=== PATIENT | female | born 1945 ===

== ENCOUNTER 2016-05-15 00:21 | Emergency (ER) | payer MEDICARE, OTHER ==
[2016-05-15 00:21] VITALS: BMI 28.3
[2016-05-15 00:30] VITALS: BP 135/83; PULSE 106; RESP 17; TEMP 97.6; O2SAT 98
[2016-05-15 01:22] LABS: BASO % 0.3 % (0.0-2.0); EOS # 0.1 K/uL (0.0-0.7); EOS % 1.2 % (0.0-4.0); HEMATOCRIT 36.6 % (34.0-47.0); LYMPH # 2.2 K/uL (1.0-4.3); LYMPH % 26.8 % (20.0-40.0); MEAN CELL VOLUME 85.8 fl (81.0-99.0); MEAN CORPUSCULAR HEMOGLOBIN 29.3 pg (27.0-31.0); MEAN CORPUSCULAR HGB CONC 34.2 g/dL (33.0-37.0); MEAN PLATELET VOLUME 8.7 fl (7.2-11.7); MONO # 0.5 K/uL (0.0-0.8); MONO % 6.4 % (0.0-10.0); NEUT # 5.3 K/uL (1.8-7.0); NEUT % 65.3 % (50.0-75.0); NRBC % 0.1 % (0.0-0.0); RED CELL DISTRIBUTION WIDTH 13.8 % (11.5-14.5); WHITE BLOOD COUNT 8.1 K/uL (4.8-10.8)
[2016-05-15 01:28] LABS: CHLORIDE 107 mmol/L (98-107); POTASSIUM 3.6 MMOL/L (3.6-5.0); SODIUM 142 mmol/l (132-148)
[2016-05-15 01:30] LABS: BILIRUBIN,TOTAL 0.7 mg/dl (0.2-1.3); CARBON DIOXIDE 19 mmol/L (22-30); GFR AFRICAN-AMERICAN > 60
[2016-05-15 01:31] LABS: ALB/GLOB RATIO 1.4 (1.0-2.1); ALKALINE PHOSPHATASE 89 U/L (38-126); ALT/SGPT 28 U/L (9-52); AST/SGOT 28 U/L (14-36); BLOOD UREA NITROGEN 24 mg/dl (7-17); CALCIUM 9.6 mg/dL (8.4-10.2); GLUCOSE,RANDOM 217 mg/dL (65-105); TOTAL PROTEIN 7.2 G/DL (6.3-8.2)
[2016-05-15 01:35] LABS: PARTIAL THROMBOPLASTIN TIME 24.9 SECONDS (23.3-32.5)
[2016-05-15 01:42] LABS: ABG ALLEN TEST YES; ARTERIAL BLOOD GAS PH 7.44 (7.35-7.45); ARTERIAL BLOOD GAS PO2 71 mm/Hg (80-100)
--- NOTE | 2016-05-15 01:49 | ED PDOC ---
Syncope/Near Syncope/Dizzyness Time Seen by Provider: 05/15/16 00:27 Chief Complaint (Nursing): Weakness/Neurological Deficit Chief Complaint (Provider): Weakness History Per: Patient History/Exam Limitations: no limitations Onset/Duration Of Symptoms: Mins Current Symptoms Are (Timing): Still Present Fall Associated With With Symptoms: Yes Severity: Mild Additional Complaint(s): Patient is a 71 year old female brought in by EMS complaining of weakness status post fall just prior to arrival. Patient attempted to get out of bed when she fell onto her left side. Patient was unable to get up and normally uses a walker. Daughter reports patient forgets to use her walker. Patient complains of neck pain also. Denies chest pain, nausea, vomiting, diarrhea, cough, shortness of breath, or headache. PMD: none Past Medical History Reviewed: Historical Data, Nursing Documentation, Vital Signs Vital Signs: Last Vital Signs Temp 97.6 F 05/15/16 00:23 Pulse 106 H 05/15/16 00:23 Resp 17 05/15/16 00:23 BP 135/83 05/15/16 00:23 Pulse Ox 98 05/15/16 00:23 - Medical History PMH: Anemia, Anxiety, Asthma, CAD, Cardia Arrhythmia, COPD, Depression, Diabetes , Fractures (LEFT LEG), HTN, Hypercholesterolemia, Malignancy (breast cancer s/ p lumpectomy ), Osteoporosis, Pulmonary Embolism Denies: CVA, Chronic Kidney Disease - Surgical History Surgical History: Appendectomy, Coronary Stent - Family History Family History: States: No Known Family Hx - Home Medications Home Medications: Ambulatory Orders Medication Instructions Recorded Albuterol HFA [Ventolin HFA 90 2 puff INH Q6 PRN 04/05/16 mcg/actuation (8 g)] Atorvastatin [Lipitor] 20 mg PO DAILY 04/05/16 Clonazepam [Klonopin] 0.5 mg PO TID 04/05/16 Fluticasone/Salmeterol 500/50 1 puff INH DAILY 04/05/16 [Advair Diskus 500/50] Letrozole [Femara] 2.5 mg PO DAILY 04/05/16 Risperidone [Risperdal] 1 mg PO HS 04/05/16 Sertraline HCl 100 mg PO DAILY 04/05/16 Zolpidem [Ambien] 5 mg PO HS 04/05/16 metFORMIN [glucOPHAGE] 500 mg PO BID 04/05/16 Insulin Detemir [Levemir] 16 units SC HS #1 vial 04/09/16 Moxifloxacin [Avelox] 400 mg PO DAILY #7 tab 04/09/16 Prednisone [Deltasone] 20 mg PO DAILY #21 tablet 04/09/16 - Allergies Allergies/Adverse Reactions: Allergies Allergy/AdvReac Type Severity Reaction Status Date / Time No Known Allergies Allergy Verified 03/02/16 20:08 Review of Systems ROS Statement: Except As Marked, All Systems Reviewed And Found Negative Constitutional: Negative for: Fever Gastrointestinal: Negative for: Nausea, Vomiting, Diarrhea Musculoskeletal: Positive for: Neck Pain Neurological: Positive for: Weakness. Negative for: Headache Physical Exam - Reviewed Nursing Documentation Reviewed: Yes Vital Signs Reviewed: Yes - Physical Exam Appears: Positive for: Well, Non-toxic, No Acute Distress Head Exam: Positive for: ATRAUMATIC, NORMAL INSPECTION, NORMOCEPHALIC Skin: Positive for: Normal Color, Warm, DRY Eye Exam: Positive for: Normal appearance, EOMI Neck: Positive for: Normal, Painless ROM Cardiovascular/Chest: Positive for: Regular Rate, Rhythm. Negative for: Gallop , Murmur Respiratory: Positive for: Normal Breath Sounds. Negative for: Accessory Muscle Use, Rhonchi, Respiratory Distress Extremity: Positive for: Normal ROM Neurologic/Psych: Positive for: Alert, Oriented. Negative for: Motor/Sensory Deficits, Facial Droop - Laboratory Results Result Diagrams: 05/15/16 00:45 05/15/16 00:45 - ECG O2 Sat by Pulse Oximetry: 98 (RA) Pulse Ox Interpretation: Normal Medical Decision Making Medical Decision Making: Time: 00:30 Impression: 71 y/o female s/p mechanical fall Plan: CT C-Spine CT Head UDip Accucheck UA 4:05 labs reviewed and within normal limits. Patient remains alert and requests to be discharged home with her daughter. Patient will follow up with PMD and advised to use walker when ambulating at home. Patient feels better. Discussed results and plan with patient who expresses understanding. Counseling was provided regarding the diagnosis and prognosis. All questions answered and there is agreement with the plan to discharge home with instructions. Patient stable for discharge. Return if symptoms persist or worsen. Scribe Attestation: Documented by Ole Mcdonald acting as a scribe for Jake Vargas MD. Scribe Attestation: All medical record entries made by the Scribe were at my direction and personally dictated by me. I have reviewed the chart and agree that the record accurately reflects my personal performance of the history, physical exam, medical decision making, and the department course for this patient. I have also personally directed, reviewed, and agree with the discharge instructions and disposition. EXAM: CT Head Without Intravenous Contrast CLINICAL HISTORY: 71 years old, female; Pain; Headache TECHNIQUE: Axial computed tomography images of the head/brain without intravenous contrast. This CT exam was performed using one or more of the following dose reduction techniques: automated exposure control, adjustment of the mA and/or kV according to patient size, and/or use of iterative reconstruction technique. Coronal and sagittal reformatted images were created and reviewed. EXAM DATE/TIME: 05/15/2016 12:35 AM COMPARISON: No relevant prior studies available. FINDINGS: There is atrophy. There is chronic small vessel ischemic disease. Small old lacunar infarct left caudate. There is no hemorrhage or edema. There is a very small amount of mucosal thickening right sphenoid sinus. Minimal fluid inferior right mastoid air cells. The osseous structures are normal. IMPRESSION: No acute intracranial findings. Disposition - Clinical Impression Clinical Impression: Fall - Patient ED Disposition Is Patient to be Admitted: No Counseled Patient/Family Regarding: Studies Performed, Diagnosis - Disposition Disposition: Routine/Home Disposition Time: 04:05 Condition: STABLE Instructions: Fall Prevention for Older Adults (ED) Print Language: YAKUT
--- NOTE | 2016-05-15 02:17 | CT ---
EXAM: CT Head Without Intravenous Contrast CLINICAL HISTORY: 71 years old, female; Pain; Headache TECHNIQUE: Axial computed tomography images of the head/brain without intravenous contrast. This CT exam was performed using one or more of the following dose reduction techniques: automated exposure control, adjustment of the mA and/or kV according to patient size, and/or use of iterative reconstruction technique. Coronal and sagittal reformatted images were created and reviewed. EXAM DATE/TIME: 05/15/2016 12:35 AM COMPARISON: No relevant prior studies available. FINDINGS: There is atrophy. There is chronic small vessel ischemic disease. Small old lacunar infarct left caudate. There is no hemorrhage or edema. There is a very small amount of mucosal thickening right sphenoid sinus. Minimal fluid inferior right mastoid air cells. The osseous structures are normal. IMPRESSION: No acute intracranial findings.
[2016-05-15 04:14] LABS: RBC URINE 7 /hpf (0-3); URINE BILIRUBIN NEGATIVE (NEGATIVE); URINE BLOOD NEGATIVE (NEGATIVE); URINE COLOR YELLOW (YELLOW); URINE GLUCOSE (UA) NEG (Normal); URINE KETONE TRACE mg/dL (NEGATIVE); URINE LEUKOCYTE ESTERASE MOD Leu/uL (Negative); URINE PROTEIN 30 mg/dL (NEGATIVE); URINE UROBILINOGEN 0.2-1.0 mg/dL (0.2-1.0); WBC URINE 88 /hpf (0-5)
--- NOTE | 2016-05-15 08:28 | CT ---
PROCEDURE: CT Cervical Spine without contrast HISTORY: Injury COMPARISON: None available. TECHNIQUE: Axial computed tomography images were obtained of the cervical spine without the use of intravenous contrast. Coronal and sagittal reformatted images were created and reviewed. Radiation dose: Total exam DLP = 484.98 mGy-cm. This CT exam was performed using one or more of the following dose reduction techniques: Automated exposure control, adjustment of the mA and/or kV according to patient size, and/or use of iterative reconstruction technique. FINDINGS: VERTEBRAE: Vertebral alignment is normal. There is normal cervical lordosis. There is no acute fracture or traumatic anterior listhesis. The craniocervical junction is normal. The atlantoaxial joint is normal. DISCS/SPINAL CANAL/NEURAL FORAMINA: There is mild multilevel degenerative disc disease due to combination of disc osteophyte complexes, uncovertebral joint hypertrophy and multilevel facet arthropathy, worse at C3-4 with a central disc protrusion. No neural foraminal or spinal canal stenosis. PARASPINAL SOFT TISSUES: There is no prevertebral soft tissue thickening. The paraspinous soft tissues are normal. OTHER FINDINGS: No apical pneumothorax IMPRESSION: No acute fracture or traumatic anterior listhesis. A preliminary report was provided by [facility].
== END 2016-05-15 04:30 | disposition home or self-care (01) ==
LOC: H.ER 00:21
DX: R53.1 Weakness (principal); E11.9 Type 2 diabetes mellitus without complications; E78.00 Pure hypercholesterolemia, unspecified; I10 Essential (primary) hypertension; I25.10 Atherosclerotic heart disease of native coronary artery without angina pectoris; Z79.4 Long term (current) use of insulin; Z85.3 Personal history of malignant neoplasm of breast; Z86.711 Personal history of pulmonary embolism; Z95.5 Presence of coronary angioplasty implant and graft

== ENCOUNTER 2016-07-25 00:33 | Emergency (ER) | payer MEDICARE, OTHER ==
[2016-07-25 00:33] VITALS: BMI 28.3
[2016-07-25 01:00] VITALS: BP 143/79; PULSE 85; RESP 15; O2SAT 99
[2016-07-25] MEDS ORDERED: Sodium Chloride 0.9% 1,000 ML IV STA (01:28)
[2016-07-25 01:47] LABS: BASO # 0.1 K/uL (0.0-0.2); BASO % 0.5 % (0.0-2.0); EOS # 0.2 K/uL (0.0-0.7); HEMATOCRIT 36.9 % (34.0-47.0); LYMPH # 2.4 K/uL (1.0-4.3); LYMPH % 25.2 % (20.0-40.0); MEAN CELL VOLUME 83.8 fl (81.0-99.0); MEAN CORPUSCULAR HEMOGLOBIN 28.6 pg (27.0-31.0); MEAN CORPUSCULAR HGB CONC 34.1 g/dL (33.0-37.0); MEAN PLATELET VOLUME 8.9 fl (7.2-11.7); MONO # 0.7 K/uL (0.0-0.8); MONO % 7.8 % (0.0-10.0); NEUT # 6.1 K/uL (1.8-7.0); NEUT % 64.5 % (50.0-75.0); NRBC % 0.1 % (0.0-0.0); RED CELL DISTRIBUTION WIDTH 13.8 % (11.5-14.5); WHITE BLOOD COUNT 9.5 K/uL (4.8-10.8)
[2016-07-25 01:55] LABS: ALB/GLOB RATIO 1.4 (1.0-2.1); ALKALINE PHOSPHATASE 67 U/L (38-126); ALT/SGPT 39 U/L (9-52); AST/SGOT 34 U/L (14-36); BILIRUBIN,TOTAL 0.5 mg/dl (0.2-1.3); BLOOD UREA NITROGEN 17 mg/dl (7-17); CALCIUM 9.6 mg/dL (8.4-10.2); CARBON DIOXIDE 22 mmol/L (22-30); CHLORIDE 101 mmol/L (98-107); GFR AFRICAN-AMERICAN > 60; GLUCOSE,RANDOM 228 mg/dL (65-105); POTASSIUM 4.1 MMOL/L (3.6-5.0); SODIUM 136 mmol/l (132-148); TOTAL PROTEIN 7.6 G/DL (6.3-8.2)
--- NOTE | 2016-07-25 02:21 | ED PDOC ---
HPI: General Adult Time Seen by Provider: 07/25/16 01:09 Chief Complaint (Nursing): Dizziness/Lightheaded Chief Complaint (Provider): neck pain, headache, fall History Per: Patient History/Exam Limitations: no limitations Onset/Duration Of Symptoms: Mins Have you had recent travel within the past 21 days to any of the following countries: [place], [place], [place] or [place]?: No Current Symptoms Are (Timing): Still Present Additional Complaint(s): 71yo female w PMHx including diabetes, HTN, anxiety, asthma presents to the ED w c/o acute neck pain and headache s/p fall. Patient reports attempting to get out of bed but was tangled in bed sheet causing fall. Patient states she fell on left side but denies LOC. Further denies n/v, chest pain, SOB, fever, cough. Past Medical History Reviewed: Historical Data, Nursing Documentation, Vital Signs Vital Signs: Last Vital Signs Temp Pulse 85 07/25/16 00:42 Resp 15 07/25/16 00:42 BP 143/79 07/25/16 00:42 Pulse Ox 99 07/25/16 02:26 - Medical History PMH: Anemia, Anxiety, Asthma, CAD, Cardia Arrhythmia, COPD, Depression, Diabetes , Fractures (LEFT LEG), HTN, Hypercholesterolemia, Malignancy (breast cancer s/ p lumpectomy ), Osteoporosis, Pulmonary Embolism Denies: CVA, Chronic Kidney Disease - Surgical History Surgical History: Appendectomy, Coronary Stent - Family History Family History: States: No Known Family Hx - Social History Current smoker - smoking cessation education provided: No Alcohol: None Drugs: Denies - Home Medications Home Medications: Ambulatory Orders Medication Instructions Recorded Albuterol HFA [Ventolin HFA 90 2 puff INH Q6 PRN 04/05/16 mcg/actuation (8 g)] Atorvastatin [Lipitor] 20 mg PO DAILY 04/05/16 Clonazepam [Klonopin] 0.5 mg PO TID 04/05/16 Fluticasone/Salmeterol 500/50 1 puff INH DAILY 04/05/16 [Advair Diskus 500/50] Letrozole [Femara] 2.5 mg PO DAILY 04/05/16 Risperidone [Risperdal] 1 mg PO HS 04/05/16 Sertraline HCl 100 mg PO DAILY 04/05/16 Zolpidem [Ambien] 5 mg PO HS 04/05/16 metFORMIN [glucOPHAGE] 500 mg PO BID 04/05/16 Insulin Detemir [Levemir] 16 units SC HS #1 vial 04/09/16 Moxifloxacin [Avelox] 400 mg PO DAILY #7 tab 04/09/16 Prednisone [Deltasone] 20 mg PO DAILY #21 tablet 04/09/16 - Allergies Allergies/Adverse Reactions: Allergies Allergy/AdvReac Type Severity Reaction Status Date / Time No Known Allergies Allergy Verified 03/02/16 20:08 Review of Systems ROS Statement: Except As Marked, All Systems Reviewed And Found Negative Constitutional: Negative for: Fever Cardiovascular: Negative for: Chest Pain Respiratory: Negative for: Cough, Shortness of Breath Gastrointestinal: Negative for: Nausea, Vomiting Musculoskeletal: Positive for: Neck Pain Neurological: Positive for: Headache, Other (no LOC ) Physical Exam - Reviewed Nursing Documentation Reviewed: Yes Vital Signs Reviewed: Yes - Physical Exam Appears: Positive for: Well, No Acute Distress Head Exam: Positive for: ATRAUMATIC, NORMAL INSPECTION, NORMOCEPHALIC Skin: Positive for: Normal Color, Warm, Dry Eye Exam: Positive for: Normal appearance, EOMI, PERRL ENT: Positive for: Normal ENT Inspection Neck: Positive for: Normal, Painless ROM, Supple Cardiovascular/Chest: Positive for: Regular Rate, Rhythm. Negative for: Murmur , Tachycardia Respiratory: Positive for: Normal Breath Sounds. Negative for: Wheezing, Respiratory Distress Gastrointestinal/Abdominal: Positive for: Normal Exam, Soft. Negative for: Tenderness Back: Positive for: Other (point tenderness left paraspinal region of c-spine ) . Negative for: L CVA Tenderness, R CVA Tenderness Extremity: Positive for: Normal ROM. 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 Negative for: Motor/Sensory Deficits, Aphasia, Facial Droop - Laboratory Results Result Diagrams: 07/25/16 01:44 07/25/16 01:44 - ECG O2 Sat by Pulse Oximetry: 99 Pulse Ox Interpretation: Normal (RA) Medical Decision Making Medical Decision Makin: Impression: 71yo female w head and neck injury s/p fall Plan: CT head and c-spine EKG Labs Toradol 10mg IVP, IVF reassess 0228: CT c-spine impression: No acute fracture. CT head impression: No acute intracranial hemorrhage, or suspicious mass effect. 0235: Patient reports improvement in pain and is stable for d/c. Dx: head injury, mechanical fall, neck strain Pt will f/u w Dr. Valadez her PCP in 1-2 days Scribe Attestation: Documented by Sridhar Campos acting as a scribe for Jake Vargas MD. Provider Scribe Attestation: All medical record entries made by the Scribe were at my direction and personally dictated by me. I have reviewed the chart and agree that the record accurately reflects my personal performance of the history, physical exam, medical decision making, and the department course for this patient. I have also personally directed, reviewed, and agree with the discharge instructions and disposition. Disposition - Clinical Impression Clinical Impression: Neck strain, Head injury - Patient ED Disposition Is Patient to be Admitted: No Counseled Patient/Family Regarding: Studies Performed, Diagnosis, Need For Followup - Disposition Disposition: Routine/Home Disposition Time: 02:35 Condition: STABLE Instructions: Head Injury (ED) Print Language: ROMANSH
--- NOTE | 2016-07-25 02:26 | CT ---
EXAM: CT Head Without Intravenous Contrast CLINICAL HISTORY: 71 years old, female; Injury or trauma; Fall; Additional info: Head injury TECHNIQUE: Axial computed tomography images of the head/brain without intravenous contrast. This CT exam was performed using one or more of the following dose reduction techniques: automated exposure control, adjustment of the mA and/or kV according to patient size, and/or use of iterative reconstruction technique. Coronal and sagittal reformatted images were created and reviewed. COMPARISON: CT - HEAD W/O CONTRAST 05/15/2016 12:58:39 AM FINDINGS: Brain: No acute intracranial hemorrhage. Age-appropriate periventricular white matter disease. No edema. Ventricles: Age-appropriate ventriculomegaly. Bones: No acute displaced fracture. Sinuses: Unremarkable as visualized. No acute sinusitis. Mastoid air cells: Unremarkable as visualized. No mastoid effusion. IMPRESSION: No acute intracranial hemorrhage, or suspicious mass effect.
--- NOTE | 2016-07-25 02:28 | CT ---
EXAM: CT Cervical Spine Without Intravenous Contrast CLINICAL HISTORY: 71 years old, female; Injury or trauma; Fall; Initial encounter; Blunt trauma; Additional info: Neck injury TECHNIQUE: Axial computed tomography images of the cervical spine without intravenous contrast. This CT exam was performed using one or more of the following dose reduction techniques: automated exposure control, adjustment of the mA and/or kV according to patient size, and/or use of iterative reconstruction technique. Coronal and sagittal reformatted images were created and reviewed. COMPARISON: CT - CERVICAL SPINE W/O CONTRAST 05/15/2016 1:02:01 AM FINDINGS: Vertebrae: No acute fracture. Alignment: Preservation of the normal curvature of the cervical spine. Discs/spinal canal/neural foramina: No acute findings. Soft tissues: Symmetric Lung apices: The visualized lung apices are clear. IMPRESSION: No acute fracture.
--- NOTE | 2016-07-25 12:15 | CARD ---
APPROVED REPORT EKG Measurement Heart [id number] <Conclusion> Sinus rhythm with premature atrial contractions ST & T wave abnormality, consider anterolateral ischemia Prolonged QT Abnormal ECG
== END 2016-07-25 02:48 | disposition home or self-care (01) ==
LOC: H.ER 00:33
DX: S09.90XA Unspecified injury of head, initial encounter (principal); M54.2 Cervicalgia; W19.XXXA Unspecified fall, initial encounter; Y92.003 Bedroom of unspecified non-institutional (private) residence as the place of occurrence of the external cause; I10 Essential (primary) hypertension; E11.9 Type 2 diabetes mellitus without complications
CPT/HCPCS: 70450; 72125; 80053; 82948; 85025; 93005; 96361; 96374; 99283; J1885; J7040

== ENCOUNTER 2016-08-11 14:45 | Emergency (ER) | payer MEDICARE, OTHER ==
[2016-08-11 14:46] VITALS: BMI 28.3
--- NOTE | 2016-08-11 15:29 | ED PDOC ---
Syncope/Near Syncope/Dizziness Time Seen by Provider: 08/11/16 15:08 Chief Complaint (Nursing): Syncope Chief Complaint (Provider): dizziness History Per: Patient History/Exam Limitations: no limitations Onset/Duration Of Symptoms: Days (x 2-3) Additional Complaint(s): Martha Donald is a 71 year old female, with an extensive previous medical history including COPD, diabetes, CAD and hypertension, who presents to the ED via EMS with complaints of dizziness associated with headaches, frequent urination and lower abdominal pain ongoing for the past 2-3 days. Patient reports experiencing difficulty walking and feeling like she is going to fall. According to EMS, patient reported a syncopal episode to them but denies any syncopal episode in the ED. PMD: Can Valadez MD Past Medical History Reviewed: Historical Data, Nursing Documentation, Vital Signs Vital Signs: Last Vital Signs Temp 98 F 08/11/16 14:47 Pulse 88 08/11/16 14:47 Resp 20 08/11/16 14:47 BP 120/68 08/11/16 14:47 Pulse Ox 100 08/11/16 14:47 - Medical History PMH: Anemia, Anxiety, Asthma, CAD, Cardia Arrhythmia, COPD, Depression, Diabetes , Fractures (LEFT LEG), HTN, Hypercholesterolemia, Malignancy (breast cancer s/ p lumpectomy ), Osteoporosis, Pulmonary Embolism Denies: CVA, Chronic Kidney Disease - Surgical History Surgical History: Appendectomy, Coronary Stent - Family History Family History: States: Unknown Family Hx - Home Medications Home Medications: Ambulatory Orders Medication Instructions Recorded Risperidone [Risperdal] 0.5 mg PO HS 04/05/16 Sertraline HCl 100 mg PO DAILY 04/05/16 Zolpidem [Ambien] 10 mg PO HS 04/05/16 metFORMIN [glucOPHAGE] 500 mg PO BID 04/05/16 Albuterol Sulfate [Proair Hfa] 0.09 mg IH Q4 PRN 08/11/16 Oxycodone HCl/Acetaminophen 1 tab PO Q6 PRN 08/11/16 [Percocet 10-325 mg Tablet] Simvastatin [Simvastatin] 10 mg PO DAILY 08/11/16 - Allergies Allergies/Adverse Reactions: Allergies Allergy/AdvReac Type Severity Reaction Status Date / Time No Known Allergies Allergy Verified 03/02/16 20:08 Review of Systems ROS Statement: Except As Marked, All Systems Reviewed And Found Negative Gastrointestinal: Positive for: Abdominal Pain Genitourinary Female: Positive for: Frequency Neurological: Positive for: Headache, Dizziness Physical Exam - Reviewed Nursing Documentation Reviewed: Yes Vital Signs Reviewed: Yes - Physical Exam Appears: Positive for: Well, Non-toxic, No Acute Distress Head Exam: Positive for: ATRAUMATIC, NORMAL INSPECTION, NORMOCEPHALIC Skin: Positive for: Normal Color, Warm, DRY Eye Exam: Positive for: EOMI, Normal appearance, PERRL ENT: Positive for: Normal ENT Inspection Neck: Positive for: Normal, Painless ROM Cardiovascular/Chest: Positive for: Regular Rate, Rhythm Respiratory: Positive for: CNT, Normal Breath Sounds Gastrointestinal/Abdominal: Positive for: Bowel Sounds, Soft, Tenderness ( bilateral lower quadrants more on the left ). Negative for: Mass, Distended, Guarding, Rebound Back: Positive for: Normal Inspection Extremity: Positive for: Normal ROM. Negative for: Pedal Edema Neurologic/Psych: Positive for: Alert, Oriented - Laboratory Results Result Diagrams: 08/11/16 15:00 08/11/16 15:00 - ECG ECG: Positive for: Interpreted By Me, Viewed By Me ECG Rhythm: Positive for: Normal QRS, Normal ST Segment, Sinus Rhythm, Sinus Tachycardia, Nonspecific Changes Rate: 103 O2 Sat by Pulse Oximetry: 100 (RA) Pulse Ox Interpretation: Normal Medical Decision Making Medical Decision Making: Initial Impression: Dizziness Differentials include peripheral vertigo vs central vertigo, UTI with dehydration Initial Plan: * CT head w/o contrast * EKG * labs * urine drug screen * Troponin I * PTT * PT * reevaluation CT head no acute findings Scribe Attestation: Documented by Hawa Dumont, acting as a scribe for Ally Bucio MD. Provider Scribe Attestation: All medical record entries made by the Scribe were at my direction and personally dictated by me. I have reviewed the chart and agree that the record accurately reflects my personal performance of the history, physical exam, medical decision making, and the department course for this patient. I have also personally directed, reviewed, and agree with the discharge instructions and disposition. Disposition - Clinical Impression Clinical Impression: Abdominal pain, Dizziness - Patient ED Disposition Is Patient to be Admitted: Transfer of Care Counseled Patient/Family Regarding: Studies Performed, Diagnosis - Disposition Disposition: Transfer of Care Disposition Time: 19:00 Condition: FAIR Patient Signed Over To: Caleb Santana Handoff Comments: pending imaging studies
[2016-08-11 15:32] LABS: BASO % 0.6 % (0.0-2.0); EOS # 0.2 K/uL (0.0-0.7); EOS % 2.3 % (0.0-4.0); HEMOGLOBIN 12.4 g/dL (12.0-16.0); LYMPH # 1.7 K/uL (1.0-4.3); LYMPH % 24.4 % (20.0-40.0); MEAN CORPUSCULAR HEMOGLOBIN 28.2 pg (27.0-31.0); MEAN CORPUSCULAR HGB CONC 34.6 g/dL (33.0-37.0); MEAN PLATELET VOLUME 8.6 fl (7.2-11.7); MONO # 0.5 K/uL (0.0-0.8); MONO % 7.2 % (0.0-10.0); NEUT # 4.7 K/uL (1.8-7.0); NEUT % 65.5 % (50.0-75.0); NRBC % 0.1 % (0.0-0.0); RBC 4.38 Mil/uL (3.80-5.20); RED CELL DISTRIBUTION WIDTH 13.8 % (11.5-14.5); WHITE BLOOD COUNT 7.2 K/uL (4.8-10.8)
[2016-08-11 15:34] LABS: MEAN CELL VOLUME 81.6 fl (81.0-99.0)
[2016-08-11 15:56] LABS: BLOOD UREA NITROGEN 14 mg/dl (7-17); CALCIUM 9.8 mg/dL (8.4-10.2); GFR AFRICAN-AMERICAN > 60; GFR NON-AFRICAN AMERICAN > 60
--- NOTE | 2016-08-11 16:25 | CT ---
PROCEDURE: CT HEAD WITHOUT CONTRAST. HISTORY: Unspecified head injury. COMPARISON: 07/25/2016, CT head TECHNIQUE: Axial computed tomography images were obtained through the head/brain without intravenous contrast. Radiation dose: Total exam DLP = 832.40 mGy-cm. This CT exam was performed using one or more of the following dose reduction techniques: Automated exposure control, adjustment of the mA and/or kV according to patient size, and/or use of iterative reconstruction technique. FINDINGS: HEMORRHAGE: No intracranial hemorrhage. BRAIN: No mass effect or edema. Cortical atrophy, periventricular small vessel disease VENTRICLES: Unremarkable. No hydrocephalus. CALVARIUM: Unremarkable. PARANASAL SINUSES: Unremarkable as visualized. No significant inflammatory changes. MASTOID AIR CELLS: Unremarkable as visualized. No inflammatory changes. OTHER FINDINGS: None. IMPRESSION: No acute intracranial abnormalities. No significant findings to account for the clinical presentation. No significant interval change compared to the prior examination(s).
[2016-08-11] MEDS ORDERED: Iohexol 240 (50 ml) PO ONE (17:23)
[2016-08-11] MEDS ORDERED: Iohexol 240 (50 ml) ONE (17:30)
[2016-08-11 18:02] LABS: PARTIAL THROMBOPLASTIN TIME 27.9 Seconds (25.6-37.1); PROTHROMBIN TIME 11.1 Seconds (9.8-13.1)
--- NOTE | 2016-08-11 19:01 | ED PDOC ---
- Laboratory Results Result Diagrams: 08/11/16 15:00 08/11/16 15:00 - ECG O2 Sat by Pulse Oximetry: 100 (RA) Pulse Ox Interpretation: Normal Medical Decision Making Medical Decision Making: Receiving sign out: Signed out to me by Dr. Bucio pending CT AP. Scribe Attestation: Documented by Michela Rendon acting as a scribe for Caleb Santana MD. Provider Attestation: All medical record entries made by the Scribe were at my direction and personally dictated by me. I have reviewed the chart and agree that the record accurately reflects my personal performance of the history, physical exam, medical decision making, and the department course for this patient. I have also personally directed, reviewed, and agree with the discharge instructions and disposition. Disposition - Clinical Impression Clinical Impression: Abdominal pain, Dizziness, Vertigo - POA Present On Arrival: None - Disposition Referrals: Glenis Villa MD [Family Provider] - Disposition: Routine/Home Disposition Time: 20:45 Condition: FAIR Prescriptions: Meclizine [Meclizine*] 25 mg PO Q6 #30 tab Instructions: Vertigo (ED) Print Language: GUYANESE Progress Note - Review of Symptoms Events since last encounter: Time: 2043 CT AP FINDINGS: Lower thorax: Stable subpleural pulmonary nodules in the right middle lobe measuring up to 4 mm. ABDOMEN: Liver: The liver is diffusely decreased in density, compatible with hepatic steatosis. Gallbladder and bile ducts: The gallbladder is unremarkable. No biliary ductal dilatation. Pancreas: The pancreas is unremarkable. Spleen: The spleen is unremarkable. Adrenals: The adrenal glands are unremarkable. Kidneys and ureters: Bilateral mildly diminished renal size. Lobulated renal contours. Symmetric renal enhancement without hydronephrosis. Stomach and bowel: Distal colonic diverticulosis without evidence of diverticulitis. No evidence of bowel obstruction. No pericolonic inflammatory stranding. Appendix: Post appendectomy with prominent appendiceal stump. PELVIS: Bladder: No focal wall thickening of the urinary bladder. Reproductive: Partially calcified 2.1 cm uterine fibroid. No suspicious adnexal lesion seen. ABDOMEN and PELVIS: Intraperitoneal space: No significant peritoneal free fluid. No free peritoneal air. Bones/joints: No acute osseous abnormality. Soft tissues: There is a small fat-containing umbilical hernia. Vasculature: Atherosclerotic calcification affects the aorta and iliac arteries. No aortic aneurysm. Lymph nodes: No enlarged lymph nodes. IMPRESSION: No acute findings. 2044 Pt. feeling well, ambulated on her own to bathroom. Dizziness improved. Will prescribe meclizine, told patient to f/u w/ PMD, return precautions given.
[2016-08-11] MEDS ORDERED: Iohexol 300 100 ML IJ ONE (19:34)
[2016-08-11] MEDS ORDERED: Sodium Chloride 0.9% 50 ML IV ONE (19:34)
[2016-08-11 19:55] VITALS: BP 155/89; PULSE 81; RESP 16; TEMP 97.8
[2016-08-11 20:44] VITALS: O2SAT 100
--- NOTE | 2016-08-12 09:51 | CARD ---
APPROVED REPORT EKG Measurement Heart [id number] <Conclusion> Sinus rhythm with premature supraventricular complexes Nonspecific T wave abnormality Abnormal ECG
--- NOTE | 2016-08-12 10:40 | CT ---
PROCEDURE: CT Abdomen and Pelvis with contrast HISTORY: lower abdominal pain COMPARISON: Chest CT from 03/02/[address] from 02/03/2015. TECHNIQUE: Contrast dose: 90 mL. Radiation dose: Total exam DLP = 825.32 mGy-cm. This CT exam was performed using one or more of the following dose reduction techniques: Automated exposure control, adjustment of the mA and/or kV according to patient size, and/or use of iterative reconstruction technique. FINDINGS: LOWER THORAX: Stable 4-5 pulmonary nodule in the right middle lobe (series 3, image 12.) Mild bibasilar atelectatic changes noted. Mild bronchiectasis in both lower lobes. The heart is not significantly enlarged. Coronary artery calcifications. No significant pericardial effusion. LIVER: Fatty infiltration of the liver. GALLBLADDER AND BILE DUCTS: Minimally distended gallbladder. PANCREAS: Unremarkable. No gross lesion or ductal dilatation. SPLEEN: Unremarkable. ADRENALS: Unremarkable. No mass. KIDNEYS AND URETERS: Extensive cortical irregularity of both kidneys left greater than right. This could be from prior injury versus infection. No hydronephrosis. No obstructing renal or ureteral calculus. VASCULATURE: Scattered atherosclerotic calcification throughout the abdominal aorta and its main branches. No abdominal aortic aneurysm. Ostial calcifications involving both renal arteries left greater than right. BOWEL: Small hiatal hernia. Thickening of the stomach antrum could be from underdistention. Diverticulosis throughout the descending colon without evidence of acute diverticulitis. APPENDIX: No CT evidence of acute appendicitis. PERITONEUM: Unremarkable. No free fluid. No free air. LYMPH NODES: Unremarkable. No enlarged lymph nodes. BLADDER: Unremarkable. REPRODUCTIVE: Calcifications involving the anterior uterine fundus are likely from fibroid calcifications. BONES: Degenerative changes. OTHER FINDINGS: None. IMPRESSION: No acute bowel pathology. Diverticulosis without evidence of diverticulitis. Stable pulmonary nodule in the right middle lobe. Other findings as above. Please note that this report is in general agreement with the preliminary report provided by [facility].
== END 2016-08-11 21:04 | disposition home or self-care (01) ==
LOC: H.ER 14:45
DX: R10.9 Unspecified abdominal pain (principal); R42 Dizziness and giddiness; E11.9 Type 2 diabetes mellitus without complications; J44.9 Chronic obstructive pulmonary disease, unspecified; I25.10 Atherosclerotic heart disease of native coronary artery without angina pectoris; I10 Essential (primary) hypertension; R51 Headache; E78.00 Pure hypercholesterolemia, unspecified; F41.9 Anxiety disorder, unspecified; Z79.84 Long term (current) use of oral hypoglycemic drugs; Z85.3 Personal history of malignant neoplasm of breast; Z86.711 Personal history of pulmonary embolism; Z95.5 Presence of coronary angioplasty implant and graft
CPT/HCPCS: 70450; 74177; 80048; 84484; 85025; 85610; 85730; 93005; 99285; Q9966; Q9967

== ENCOUNTER 2016-08-21 01:11 | Emergency (ER) | payer MEDICARE, OTHER ==
[2016-08-21 01:12] VITALS: BMI 28.3
[2016-08-21 01:18] VITALS: PULSE 98
[2016-08-21] MEDS ORDERED: Sodium Chloride 0.9% 1,000 ML IV STA (02:11)
--- NOTE | 2016-08-21 02:16 | ED PDOC ---
HPI: Abdomen Time Seen by Provider: 08/21/16 01:34 Chief Complaint (Nursing): Abdominal Pain Chief Complaint (Provider): abdominal pain History Per: Patient History/Exam Limitations: no limitations Onset/Duration Of Symptoms: Days (2) Current Symptoms Are (Timing): Still Present Location Of Pain/Discomfort: Diffuse Quality Of Discomfort: "Pain" Associated Symptoms: denies: Fever, Chills, Nausea, Vomiting, Diarrhea, Urinary Symptoms Additional History Per: Patient Additional Complaint(s): 71 y/o female presents for diffuse abdominal pain x 2 days. Associated nausea, dizziness. Denies fever, vomiting, chest pain, shortness of breath, palpitations , changes in bowel movements, urinary symptoms. Last BM last night. Past Medical History Reviewed: Historical Data, Nursing Documentation, Vital Signs Vital Signs: Last Vital Signs Temp 98.3 F 08/21/16 05:13 Pulse 98 H 08/21/16 05:13 Resp 14 08/21/16 05:13 BP 135/69 08/21/16 05:13 Pulse Ox 100 08/21/16 05:25 - Medical History PMH: Anemia, Anxiety, Asthma, CAD, Cardia Arrhythmia, COPD, Depression, Diabetes , Fractures (LEFT LEG), HTN, Hypercholesterolemia, Malignancy (breast cancer s/ p lumpectomy ), Osteoporosis, Pulmonary Embolism Denies: CVA, Chronic Kidney Disease - Surgical History Surgical History: Appendectomy, Coronary Stent - Family History Family History: States: Unknown Family Hx - Home Medications Home Medications: Ambulatory Orders Medication Instructions Recorded Sertraline HCl 100 mg PO DAILY 04/05/16 Zolpidem [Ambien] 5 mg PO HS 04/05/16 Albuterol Sulfate [Proair Hfa] 2 puff IH Q4 PRN 08/11/16 Oxycodone HCl/Acetaminophen 1 tab PO Q6 PRN 08/11/16 [Percocet 10-325 mg Tablet] Simvastatin [Simvastatin] 10 mg PO HS 08/11/16 Clonazepam [Klonopin] 0.5 mg PO BID 08/21/16 Nitrofurantoin Macrocrystals 100 mg PO BID #13 cap 08/21/16 [Macrobid] Aspirin [Ecotrin] 81 mg PO DAILY 08/28/16 Clonazepam [Klonopin] 1 mg PO HS 08/28/16 Insulin Detemir [Levemir] 12 unit SC BID 08/28/16 Meclizine [Meclizine*] 25 mg PO TID PRN 08/28/16 Risperidone [Risperdal] 1 mg PO HS 08/28/16 metFORMIN [glucOPHAGE] 500 mg PO BID 08/28/16 - Allergies Allergies/Adverse Reactions: Allergies Allergy/AdvReac Type Severity Reaction Status Date / Time No Known Allergies Allergy Verified 03/02/16 20:08 Review of Systems ROS Statement: Except As Marked, All Systems Reviewed And Found Negative Gastrointestinal: Positive for: Abdominal Pain Physical Exam - Reviewed Nursing Documentation Reviewed: Yes Vital Signs Reviewed: Yes - Physical Exam Appears: Positive for: Well, Non-toxic, No Acute Distress Head Exam: Positive for: ATRAUMATIC, NORMAL INSPECTION, NORMOCEPHALIC Skin: Positive for: Normal Color Eye Exam: Positive for: Normal appearance ENT: Positive for: Normal ENT Inspection Cardiovascular/Chest: Positive for: Regular Rate, Rhythm Respiratory: Positive for: Normal Breath Sounds Gastrointestinal/Abdominal: Positive for: Bowel Sounds, Soft, Tenderness ( diffuse discomfort to palpation), Hernia (ventral) Back: Positive for: Normal Inspection Extremity: Positive for: Normal ROM Neurologic/Psych: Positive for: Alert, Oriented - Laboratory Results Result Diagrams: 08/21/16 02:18 08/21/16 02:18 - ECG ECG: Positive for: Viewed By Me (reviewed by ED attending) ECG Rhythm: Positive for: Sinus Tachycardia O2 Sat by Pulse Oximetry: 100 Pulse Ox Interpretation: Normal - Radiology X-Ray: Viewed By Me X-Ray Interpretation: No Acute Disease - Progress ED Course And Treament: Chart reviewed, patient seen 08/11/16 for same: CT head and CT abd/pelvis showed no acute findings labs, ekg, IV pepcid, IV toradol ordered Repeat EKG shows NSR with premature supraventricular complexes; which appears same as first EKG; reviewed by ED attending Dr. Santana. Patient EKG shows no changes from previous EKGs. Cardiology has consulted on patient on past admissions with findings of runs of atrial tachycardia, which are similar findings to today (HR jumps from 80's to 110's) On re-eval, patient resting comfortably; states abdominal pain improved. Abdomen remains soft, nontender, nondistended. Patient discharged with rx Macrobid. Advised follow up PMD 2-3 days. Return to ED for worsening/concerning symptoms. Disposition - Clinical Impression Clinical Impression: UTI (urinary tract infection), Abdominal pain - Patient ED Disposition Is Patient to be Admitted: No Counseled Patient/Family Regarding: Studies Performed, Diagnosis, Need For Followup, Rx Given - Disposition Referrals: Can Valadez MD [Primary Care Provider] - Disposition: Routine/Home Disposition Time: 05:23 Condition: IMPROVED Prescriptions: Nitrofurantoin Macrocrystals [Macrobid] 100 mg PO BID #13 cap Instructions: Urinary Tract Infection in Women (ED), Abdominal Pain (ED) Print Language: UZBEK
[2016-08-21 02:21] LABS: BASO % 0.4 % (0.0-2.0); EOS # 0.3 K/uL (0.0-0.7); EOS % 3.7 % (0.0-4.0); HEMOGLOBIN 12.9 g/dL (12.0-16.0); LYMPH # 2.8 K/uL (1.0-4.3); LYMPH % 34.5 % (20.0-40.0); MEAN CORPUSCULAR HEMOGLOBIN 28.4 pg (27.0-31.0); MEAN CORPUSCULAR HGB CONC 34.2 g/dL (33.0-37.0); MEAN PLATELET VOLUME 9.1 fl (7.2-11.7); MONO # 0.6 K/uL (0.0-0.8); MONO % 7.8 % (0.0-10.0); NEUT # 4.4 K/uL (1.8-7.0); NEUT % 53.6 % (50.0-75.0); RBC 4.53 Mil/uL (3.80-5.20); RED CELL DISTRIBUTION WIDTH 14.2 % (11.5-14.5); WHITE BLOOD COUNT 8.2 K/uL (4.8-10.8)
[2016-08-21 02:30] LABS: ALB/GLOB RATIO 1.4 (1.0-2.1); ALBUMIN 4.5 g/dL (3.5-5.0); ALT/SGPT 36 U/L (9-52); AST/SGOT 33 U/L (14-36); BLOOD UREA NITROGEN 20 mg/dl (7-17); CALCIUM 10.1 mg/dL (8.4-10.2); GFR AFRICAN-AMERICAN > 60; GFR NON-AFRICAN AMERICAN > 60; LIPASE 88 U/L (23-300)
[2016-08-21 02:50] LABS: SQUAMOUS EPITHIAL 2 /hpf (0-5); URINE BACTERIA RARE (<OCC); URINE BILIRUBIN NEGATIVE (NEGATIVE); URINE BLOOD NEGATIVE (NEGATIVE); URINE CLARITY SLIGHTY-CLOUDY (Clear); URINE COLOR YELLOW (YELLOW); URINE GLUCOSE (UA) NEG (Normal); URINE LEUKOCYTE ESTERASE LARGE Leu/uL (Negative); URINE NITRATE NEGATIVE (NEGATIVE); URINE PROTEIN 100 mg/dL (NEGATIVE); URINE UROBILINOGEN 0.2-1.0 mg/dL (0.2-1.0)
[2016-08-21] MEDS ORDERED: Morphine 4 MG/ML VIAL IVP STA (04:48)
[2016-08-21 05:13] VITALS: BP 135/69; RESP 14; TEMP 98.3
[2016-08-21 05:20] VITALS: O2SAT 100
--- NOTE | 2016-08-21 07:56 | CARD ---
APPROVED REPORT EKG Measurement Heart [id number] <Conclusion> Sinus rhythm with premature supraventricular complexes Nonspecific ST and T wave abnormality Prolonged QT Abnormal ECG
--- NOTE | 2016-08-21 10:59 | RAD ---
HISTORY: admit COMPARISON: 04/05/2016. FINDINGS: LUNGS: The lungs are well inflated and clear. PLEURA: No significant pleural effusion identified, no pneumothorax apparent. CARDIOVASCULAR: Normal. OSSEOUS STRUCTURES: No significant abnormalities. VISUALIZED UPPER ABDOMEN: Normal. OTHER FINDINGS: None. IMPRESSION: No active pulmonary disease.
== END 2016-08-21 05:55 | disposition home or self-care (01) ==
LOC: H.ER 01:11
DX: N39.0 Urinary tract infection, site not specified (principal); E11.9 Type 2 diabetes mellitus without complications
CPT/HCPCS: 71010; 80053; 81003; 82948; 83690; 84484; 85025; 87086; 93005; 96374; 96375; 99283; J1885; J7040

== ENCOUNTER 2016-08-22 13:25 | Emergency (ER) | payer MEDICARE, OTHER ==
[2016-08-22 13:25] VITALS: BMI 28.3
--- NOTE | 2016-08-22 14:12 | ED PDOC ---
HPI: SOB/CHF/COPD Time Seen by Provider: 08/22/16 13:38 Chief Complaint (Nursing): Shortness Of Breath History Per: Patient History/Exam Limitations: no limitations Onset/Duration Of Symptoms: Days Current Symptoms Are (Timing): Still Present Initiating Event: Out Of Medications Current Respiratory Medications: See Home Med List Associated Symptoms: Heart Racing, Anxiety. denies: Fever, Chills, Sweating, Chest Pain, Bloody Cough, Productive Cough, Leg/Calf Pain, Ankle/Leg Swelling, Dizziness, Light-headedness, Tingling In Hands Or Face, Musle Spasms In Hands Or Feet Recently: Seen In ED Additional Complaint(s): CC: dyspnea HPI: 71 y/o woman w/ multiple co-morbidities (HTN, CAD, asthma, COPD, anxiety) presents to the ED w/ dyspnea. The patient reports dyspnea for the past 3 days w/ associated anxiety, mild tension headache, and dry mouth. The patient reports no inciting event for the anxiety. The patient used rescue inhaler with no relief. The patient was recently seen in ED 1 day ago for abdominal pain. The patient denies dizziness, chest pain, abdominal pain, nausea, vomiting, diarrhea, and fever. PMD: Dr. Valadez PMH: multiple co-morbidities (HTN, CAD, asthma, COPD, anxiety, PE 01/2014) PSH: appendectomy, PCI s/p stents SOC: denies smoking, alcohol, and drugs ROS: negative for 12 points assessed unless otherwise reported in HPI Past Medical History Vital Signs: Last Vital Signs Temp 98.3 F 08/22/16 15:36 Pulse 92 H 08/22/16 15:36 Resp 19 08/22/16 15:36 BP 132/74 08/22/16 15:36 Pulse Ox 100 08/22/16 15:36 - Medical History PMH: Anemia, Anxiety, Asthma, CAD, Cardia Arrhythmia, COPD, Depression, Diabetes , Fractures (LEFT LEG), HTN, Hypercholesterolemia, Malignancy (breast cancer s/ p lumpectomy ), Osteoporosis, Pulmonary Embolism Denies: CVA, Chronic Kidney Disease - Surgical History Surgical History: Appendectomy, Coronary Stent - Family History Family History: States: Unknown Family Hx - Home Medications Home Medications: Ambulatory Orders Medication Instructions Recorded Risperidone [Risperdal] 0.5 mg PO HS 02/25/17 Sertraline HCl 100 mg PO DAILY 04/05/16 Zolpidem [Ambien] 5 mg PO HS 04/05/16 Albuterol Sulfate [Proair Hfa] 0.09 mg IH Q4 PRN 08/11/16 Meclizine [Meclizine*] 25 mg PO Q6 #30 tab 08/11/16 Oxycodone HCl/Acetaminophen 1 tab PO Q6 PRN 08/11/16 [Percocet 10-325 mg Tablet] Simvastatin [Simvastatin] 10 mg PO DAILY 08/11/16 Clonazepam [Klonopin] 1 tab PO HS 08/21/16 Glipizide [Glipizide Xl] 5 mg PO DAILY 08/21/16 Nitrofurantoin Macrocrystals 100 mg PO BID #13 cap 08/21/16 [Macrobid] - Allergies Allergies/Adverse Reactions: Allergies Allergy/AdvReac Type Severity Reaction Status Date / Time No Known Allergies Allergy Verified 03/02/16 20:08 Curb-65 Severity Score - CURB-65 Severity Score Confusion: No Bun >19mg/dl (>7mmol/L): No Respiratory Rate greater than/equal to 30: No Systolic BP <90 or Diastolic BP less than/equal 60mmHg: No Age >64: Yes Curb-65 Score: 1 Percentage 30-day mortality: 2.7% Wells Criteria for PE - Wells Criteria for Pulmonary Embolism Clinical Signs and Symptoms of DVT: No P.E is #1 Diagnosis, or Equally Likely: No Heart Rate >100: Yes Immobilization at least 3 days;Surgery previous 4 weeks: No Previous, objectively diagnosed PE or DVT: Yes (PE 01/2014) Hemoptysis: No Malignancy w/treatment within 6 months, or palliative: No Total Score: 3.0 Review of Systems ROS Statement: Except As Marked, All Systems Reviewed And Found Negative Constitutional: Negative for: Fever, Chills, Sweats Eyes: Negative for: Vision Change Cardiovascular: Positive for: Palpitations. Negative for: Chest Pain, Orthopnea , Edema, Light Headedness Respiratory: Negative for: Cough, Shortness of Breath, Hemoptysis, SOB with Exertion, Pleuritic Pain, Wheezing Gastrointestinal: Negative for: Nausea, Vomiting, Abdominal Pain, Diarrhea Genitourinary Female: Negative for: Dysuria Musculoskeletal: Negative for: Leg Pain Skin: Negative for: Rash Neurological: Positive for: Headache. Negative for: Weakness, Change in Speech , Confusion, Altered Mental Status, Dizziness Psych: Positive for: Anxiety Physical Exam - Reviewed Nursing Documentation Reviewed: Yes Vital Signs Reviewed: Yes (tachycardia) - Physical Exam Appears: Positive for: Uncomfortable Head Exam: Positive for: ATRAUMATIC, NORMOCEPHALIC Skin: Positive for: Warm, Dry, Pallor Eye Exam: Positive for: Normal appearance, EOMI, PERRL ENT: Negative for: Pharyngeal Erythema Neck: Positive for: Painless ROM, Supple Cardiovascular/Chest: Positive for: Tachycardia. Negative for: Chest Non Tender , Edema Respiratory: Positive for: Normal Breath Sounds (speaks in complete sentences). Negative for: Decreased Breath Sounds, Accessory Muscle Use, Crackles, Rales, Rhonchi, Stridor, Wheezing, Respiratory Distress Pulses-Carotid (L): 2+ Pulses-Carotid (R): 2+ Pulses-Post. Tibialis (L): 2+ Pulses-Post. Tibialis (R): 2+ Pulses-Radial (L): 2+ Pulses-Radial (R): 2+ Gastrointestinal/Abdominal: Positive for: Normal Exam, Bowel Sounds, Soft. Negative for: Tenderness Extremity: Positive for: Other (negative Keturah's sign). Negative for: Tenderness, Pedal Edema, Calf Tenderness Neurologic/Psych: Positive for: Alert, Oriented. Negative for: Motor/Sensory Deficits, Aphasia, Facial Droop - ECG O2 Sat by Pulse Oximetry: 97 Medical Decision Making Medical Decision Makin71 y/o woman w/ multiple co-morbidities (HTN, CAD, asthma, COPD, anxiety) presents to the ED w/ dyspnea. Most likely due to anxiety EKG: sinus tachycardia, short ID segment, intermittent PVCs, no ST segment elevation/depression, no T-wave inversion/peaking, no widened QT interval CXR: no acute pulmonary disease, same compared to yesterday IV NS bolus re-evaluated 15:00 patient feels better but still has shaking from anxiety s/p IV NS Dispo: discharge to home, counseled to follow up w/ PMD in 3 days Disposition - Clinical Impression Clinical Impression: Anxiety - Patient ED Disposition Is Patient to be Admitted: No Discussed With Dr.: Ralph Herrera Counseled Patient/Family Regarding: Studies Performed, Diagnosis, Need For Followup - Disposition Referrals: Can Valadez MD [Family Provider] - Disposition Time: 15:05 Condition: IMPROVED Instructions: Dyspnea (ED), Dyspnea (GEN), Anxiety (ED) Print Language: SAMI - POA Present On Arrival: None
[2016-08-22] MEDS ORDERED: Sodium Chloride 0.9% 1,000 ML IV SCH (14:15)
--- NOTE | 2016-08-22 14:34 | RAD ---
PROCEDURE: CHEST RADIOGRAPH, 1 VIEW HISTORY: dyspnea COMPARISON: 08/21/2016 FINDINGS: LUNGS: The lungs are clear. PLEURA: No pneumothorax or pleural fluid seen. CARDIOVASCULAR: The heart is normal in size. Atherosclerotic aortic arch calcifications are present. OSSEOUS STRUCTURES: No significant abnormalities. VISUALIZED UPPER ABDOMEN: Normal. OTHER FINDINGS: None. IMPRESSION: No active pulmonary disease.
[2016-08-22 15:36] VITALS: BP 132/74; PULSE 92; RESP 19; TEMP 98.3
[2016-08-22 15:42] VITALS: O2SAT 97
--- NOTE | 2016-08-29 08:21 | CARD ---
APPROVED REPORT EKG Measurement Heart [id number] CA 104P [id number] <Conclusion> Sinus tachycardia with short CA with occasional premature Atrial and ventricular complexes Otherwise normal ECG
== END 2016-08-22 15:35 | disposition home or self-care (01) ==
LOC: H.ER 13:25
DX: F41.9 Anxiety disorder, unspecified (principal); E11.9 Type 2 diabetes mellitus without complications; E78.00 Pure hypercholesterolemia, unspecified; F32.9 Major depressive disorder, single episode, unspecified; I10 Essential (primary) hypertension; Z85.3 Personal history of malignant neoplasm of breast; Z86.711 Personal history of pulmonary embolism; Z95.5 Presence of coronary angioplasty implant and graft
CPT/HCPCS: 71010; 99285; J7040

== ENCOUNTER 2016-08-28 14:31 | Inpatient (IN) | payer MEDICARE, OTHER ==
[2016-08-28 14:32] VITALS: BMI 28.3
[2016-08-28] MEDS ORDERED: Albuterol-Ipratrop 3 mg / 0.5 (3 ml) UD IH STA ×2 (14:47→17:51)
--- NOTE | 2016-08-28 14:51 | ED PDOC ---
HPI: Chest Pain Time Seen by Provider: 08/28/16 14:39 Chief Complaint (Nursing): Chest Pain Chief Complaint (Provider): chest pain History Per: Patient History/Exam Limitations: no limitations Onset/Duration Of Symptoms: Days (x 2) Additional Complaint(s): Martha Donald is a 71 year old female, with a previous medical history of CAD and COPD, who presents to the ED with complaints of left sided chest pain associated with mild shortness of breath ongoing for the past 2 days. Patient denies any radiation of the pain, cough, fever or chills. PMD: none provided Past Medical History Reviewed: Historical Data, Nursing Documentation, Vital Signs Vital Signs: Last Vital Signs Temp 100 F H 08/28/16 14:32 Pulse 89 08/28/16 15:12 Resp 18 08/28/16 14:32 BP 130/70 08/28/16 14:32 Pulse Ox 97 08/28/16 14:53 - Medical History PMH: Anemia, Anxiety, Asthma, CAD, Cardia Arrhythmia, COPD, Depression, Diabetes , Fractures (LEFT LEG), HTN, Hypercholesterolemia, Malignancy (breast cancer s/ p lumpectomy ), Osteoporosis, Pulmonary Embolism Denies: CVA, Chronic Kidney Disease - Surgical History Surgical History: Appendectomy, Coronary Stent - Family History Family History: States: Unknown Family Hx - Home Medications Home Medications: Ambulatory Orders Medication Instructions Recorded Risperidone [Risperdal] 0.5 mg PO HS 04/05/16 Sertraline HCl 100 mg PO DAILY 04/05/16 Zolpidem [Ambien] 5 mg PO HS 04/05/16 Albuterol Sulfate [Proair Hfa] 0.09 mg IH Q4 PRN 08/11/16 Meclizine [Meclizine*] 25 mg PO Q6 #30 tab 08/11/16 Oxycodone HCl/Acetaminophen 1 tab PO Q6 PRN 08/11/16 [Percocet 10-325 mg Tablet] Simvastatin [Simvastatin] 10 mg PO DAILY 08/11/16 Clonazepam [Klonopin] 1 tab PO HS 08/21/16 Glipizide [Glipizide Xl] 5 mg PO DAILY 08/21/16 Nitrofurantoin Macrocrystals 100 mg PO BID #13 cap 08/21/16 [Macrobid] - Allergies Allergies/Adverse Reactions: Allergies Allergy/AdvReac Type Severity Reaction Status Date / Time No Known Allergies Allergy Verified 03/02/16 20:08 Review of Systems ROS Statement: Except As Marked, All Systems Reviewed And Found Negative Constitutional: Negative for: Fever, Chills Cardiovascular: Positive for: Chest Pain. Negative for: Palpitations Respiratory: Positive for: Shortness of Breath. Negative for: Cough Physical Exam - Reviewed Nursing Documentation Reviewed: Yes Vital Signs Reviewed: Yes - Physical Exam Appears: Positive for: Well, Non-toxic, No Acute Distress Head Exam: Positive for: ATRAUMATIC, NORMAL INSPECTION, NORMOCEPHALIC Skin: Positive for: Normal Color, Warm, DRY Eye Exam: Positive for: EOMI, Normal appearance, PERRL ENT: Positive for: Normal ENT Inspection Neck: Positive for: Normal, Painless ROM Cardiovascular/Chest: Positive for: Regular Rate, Rhythm Respiratory: Positive for: Wheezing (mild expiratory ). Negative for: Decreased Breath Sounds, Accessory Muscle Use, Respiratory Distress Gastrointestinal/Abdominal: Positive for: Normal Exam, Bowel Sounds, Soft. Negative for: Tenderness Back: Positive for: Normal Inspection Extremity: Positive for: Normal ROM. Negative for: Pedal Edema, Deformity, Swelling Neurologic/Psych: Positive for: Alert, Oriented - Laboratory Results Result Diagrams: 08/28/16 14:55 08/28/16 14:55 - ECG O2 Sat by Pulse Oximetry: 97 (RA) Pulse Ox Interpretation: Normal Medical Decision Making Medical Decision Making: Initial Plan: * EKG * troponin I * urine dipstick * CXR * aspirin 325 mg PO * duo-neb * peak flow pre/post treatment * reevaluation Scribe Attestation: Documented by Hawa Dumont, acting as a scribe for Ralph Herrera MD. Provider Scribe Attestation: All medical record entries made by the Scribe were at my direction and personally dictated by me. I have reviewed the chart and agree that the record accurately reflects my personal performance of the history, physical exam, medical decision making, and the department course for this patient. I have also personally directed, reviewed, and agree with the discharge instructions and disposition. Disposition - Clinical Impression Clinical Impression: Chest pain, Asthma - Patient ED Disposition Is Patient to be Admitted: Yes - Disposition Disposition Time: 17:58 Condition: FAIR - Pt Status Changed To: Hospital Disposition Of: Observation - POA Present On Arrival: None
[2016-08-28] MEDS ORDERED: Albuterol-Ipratrop 3 mg / 0.5 (3 ml) UD ONE ×2 (14:57→17:37)
[2016-08-28 15:19] LABS: BASO % 0.1 % (0.0-2.0); EOS # 0.1 K/uL (0.0-0.7); EOS % 1.5 % (0.0-4.0); HEMOGLOBIN 12.7 g/dL (12.0-16.0); LYMPH # 1.5 K/uL (1.0-4.3); LYMPH % 18.4 % (20.0-40.0); MEAN CELL VOLUME 84.2 fl (81.0-99.0); MEAN CORPUSCULAR HEMOGLOBIN 28.4 pg (27.0-31.0); MEAN CORPUSCULAR HGB CONC 33.7 g/dL (33.0-37.0); MEAN PLATELET VOLUME 8.8 fl (7.2-11.7); MONO # 0.5 K/uL (0.0-0.8); MONO % 6.4 % (0.0-10.0); NEUT % 73.6 % (50.0-75.0); RBC 4.47 Mil/uL (3.80-5.20); RED CELL DISTRIBUTION WIDTH 14.2 % (11.5-14.5); WHITE BLOOD COUNT 8.1 K/uL (4.8-10.8)
--- NOTE | 2016-08-28 15:19 | RAD ---
HISTORY: chest pain COMPARISON: 08/22/2016 TECHNIQUE: Chest PA and lateral FINDINGS: LUNGS: No active pulmonary disease. PLEURA: No significant pleural effusion identified. No pneumothorax apparent. CARDIOVASCULAR: Normal. OSSEOUS STRUCTURES: No significant abnormalities. VISUALIZED UPPER ABDOMEN: Normal. OTHER FINDINGS: None. IMPRESSION: No active disease.
[2016-08-28 15:28] LABS: ALB/GLOB RATIO 1.5 (1.0-2.1); ALBUMIN 4.4 g/dL (3.5-5.0); ALT/SGPT 34 U/L (9-52); AST/SGOT 31 U/L (14-36); BLOOD UREA NITROGEN 17 mg/dl (7-17); CALCIUM 9.7 mg/dL (8.4-10.2); GFR AFRICAN-AMERICAN > 60; GFR NON-AFRICAN AMERICAN > 60
[2016-08-28] MEDS ORDERED: Iodixanol 320 MG/ML 100 ML BOTTLE IV ONE (16:52)
[2016-08-28] MEDS ORDERED: Sodium Chloride 0.9% 50 ML IV ONE (16:52)
--- NOTE | 2016-08-28 17:56 | CT ---
CTA chest PE protocol Indication: History of PE Technique: Contiguous axial images were obtained through the chest with intravenous contrast enhancement. Sagittal and coronal reconstructions were generated and reviewed. This CT exam was performed using 1 or more of the falling dose reduction techniques: Automated exposure control, adjustment of the MAA and/or kV according to patient size, and/or use of iterative reconstruction technique. IV Contrast: 80 mL Visipaque 320 Radiation dose (DLP): 403.52 MGy-cm. Comparison: Chest x-ray performed 08/28/16, CTA chest PE protocol performed 03/02/16 Findings: Visualized portions of the inferior thyroid gland appear unremarkable. The mediastinal and hilar vascular structures appear within normal limits. The heart appears within normal limits of size. Coronary artery calcifications. Sub cm prevascular and mediastinal lymph nodes. Atherosclerotic calcifications of the aorta. No large central or segmental pulmonary embolus evident. No focal consolidation. No pleural effusion. No pneumothorax. 5 mm right middle lobe nodule (series 5, image 59), stable. Limited visualized portions of the upper abdomen demonstrates cortical irregularity of the limited visualization left kidney upper pole. 6 mm probable splenule. Degenerative changes of the spine. Impression: 5 mm right middle lobe pulmonary nodule appears stable since prior study performed 07/31/16. Guidelines by the Fleischner society (radiology 2005; 237:395-400) suggests that in patients with low risk for lung cancer, nodules from 5 mm to 6 mm in diameter should have follow-up in approximately 12 months. In patients with high-risk, such as those were smokers, follow-up is recommended in 6 months. Patients with a known malignancy or risk for metastases should receive 3 month follow-up. No large central or segmental pulmonary embolus identified. Sub cm prevascular mediastinal lymph nodes, nonspecific.
[2016-08-28] MEDS: Albuterol-Ipratrop 3 mg / 0.5 (3 ml) UD INH PRN (23:37)
[2016-08-29 06:52] LABS: HEMOGLOBIN 12.3 g/dL (12.0-16.0); MEAN CELL VOLUME 84.3 fl (81.0-99.0); MEAN CORPUSCULAR HGB CONC 33.2 g/dL (33.0-37.0); RBC 4.38 Mil/uL (3.80-5.20); RED CELL DISTRIBUTION WIDTH 14.6 % (11.5-14.5); WHITE BLOOD COUNT 7.8 K/uL (4.8-10.8)
[2016-08-29 07:50] LABS: ALB/GLOB RATIO 1.4 (1.0-2.1); ALT/SGPT 30 U/L (9-52); AST/SGOT 26 U/L (14-36); BLOOD UREA NITROGEN 17 mg/dl (7-17); CALCIUM 9.5 mg/dL (8.4-10.2); GFR AFRICAN-AMERICAN > 60; GFR NON-AFRICAN AMERICAN > 60
[2016-08-29] MEDS: Insulin Detemir 100 Units/ml Inj SC SCH ×2 (08:36→18:00)
[2016-08-29] MEDS ORDERED: INSULIN DETEMIR 12 UNIT SC SCH (09:00)
[2016-08-29] MEDS: Azithromycin 500 MG in Sodium Chloride 0.9% 250 ML IVPB SCH (10:30)
[2016-08-29] MEDS: methylPREDNISolone 40 MG in Sodium Chloride 0.9% 50 ML IVPB SCH ×2 (11:00→17:00)
[2016-08-29] MEDS: Albuterol-Ipratrop 3 mg / 0.5 (3 ml) UD INH PRN ×2 (12:01→21:42)
[2016-08-29] MEDS: Enoxaparin 40 mg Syringe SC SCH (14:00)
--- NOTE | 2016-08-29 14:43 | CON ---
REASON FOR CONSULTATION: Chest pain. HISTORY OF PRESENT ILLNESS: The patient is a [id number] female who has a history of depression, bipolar disorder, chronic obstructive lung disease, coronary artery disease status post coronary stenting to distal right coronary artery with the cardiac catheterization performed following that revealed patent stent of the vessel about 2 years ago as far as we can recall. The patient also has history of breast carcinoma, underwent left breast lumpectomy with residual cyst formation following the surgery which was proven to be benign. The patient has a history of small pulmonary embolism in the past and was treated with Coumadin therapy. She presented because of chest pain as well as shortness of breath. 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 The patient stated the chest pain is steady and she feels sweaty because it is very hot and humid. SOCIAL HISTORY: The patient is a nonsmoker. MEDICATIONS: Ambien 5 mg q. at bedtime, Meclizine 25 mg t.i.d., Zithromax 500 mg *------*, Rocephin 1 g *------*, aspirin 81 mg once a day, metformin 500 mg twice a day, clonazepam 0.5 mg twice a day, Levemir 12 units subcutaneous twice a day, Solu-Medrol 40 mg intravenous q. 8 hours, Pravachol 20 mg once a day, Risperdal 1 mg q. at bedtime, Zoloft 100 mg daily. REVIEW OF SYSTEMS: No fever or chills. No vomiting or diarrhea. PHYSICAL EXAMINATION GENERAL: The patient is an elderly female who does not appear to be in any distress. VITAL SIGNS: Blood pressure 142/74, heart rate 96, temperature 98.2, respiration 18. HEENT: Normocephalic. NECK: No JVD. CHEST: Bilateral rhonchi. HEART: S1 and S2 regular. ABDOMEN: Soft. EXTREMITIES: No edema or calf tenderness. LABORATORY DATA: SMA-7; sodium 140, potassium 4.3, chloride 106, CO2 of 22, glucose 116, BUN 17, creatinine 0.9, three sets of troponin are negative. CBC: WBC 7.8, hemoglobin 12.3, hematocrit 37, platelet count [id number] and EKG revealed sinus rhythm with frequent atrial premature beats rate 99 per minute, nonspecific anterior Q wave changes. CT angio of the chest revealed no evidence of large or central pulmonary embolus. ASSESSMENT: 1. Atypical chest pain, myocardial infarctions ruled out. 2. Exacerbation of coronary obstructive lung disease. 3. Depression. 4. Hypertension and diabetes mellitus. 5. History of breast cancer, status post left lumpectomy. CONDITION: Continue current conservative medical management including IV Rocephin and IV Zithromax. Continue aspirin 81 mg once a day, Pravachol 20 mg once a day and the patient is not a suitable candidate for beta halima therapy at least at this time. Start prophylaxis subcutaneous Lovenox 30 mg daily. Jan Whitfield MD
--- NOTE | 2016-08-29 16:34 | CARD ---
APPROVED REPORT EKG Measurement Heart [id number] <Conclusion> Sinus rhythm with frequent APCs Nonspecific T wave abnormality Abnormal ECG
[2016-08-29] MEDS: Pravastatin Sodium 20 MG TAB PO SCH (22:00)
[2016-08-30] MEDS: methylPREDNISolone 40 MG in Sodium Chloride 0.9% 50 ML IVPB SCH ×2 (00:24→08:46)
[2016-08-30] MEDS: Enoxaparin 40 mg Syringe SC SCH (08:45)
[2016-08-30] MEDS: Azithromycin 500 MG in Sodium Chloride 0.9% 250 ML IVPB SCH (08:49)
[2016-08-30] MEDS: Insulin Detemir 100 Units/ml Inj SC SCH ×2 (09:03→17:01)
--- NOTE | 2016-08-30 14:19 | PN ---
DATE: 08/29/2016 PHYSICAL EXAMINATION GENERAL: The patient denies any chest pain, shortness of breath has improved, no wheezing. VITAL SIGNS: Blood pressure 153/82, heart rate 86, temperature 98, respiration 20. HEENT: Normocephalic. CHEST: Minimal rhonchi. HEART: S1 and S2 regular. ABDOMEN: Soft. EXTREMITIES: No edema or calf tenderness. LABORATORY DATA: Today his blood sugars are 231 and 327. ASSESSMENT: 1. Atypical chest pain, myocardial infarction ruled out. 2. History of pulmonary embolism in the past, CT angio at this time was negative for pulmonary embolism. 3. Chronic obstructive lung disease. 4. Depression. 5. Uncontrolled diabetes mellitus. 6. History of coronary artery disease, status post coronary artery stenting to the distal right coronary artery. RECOMMENDATIONS: Continue current IV Rocephin and IV Zithromax. Continue aspirin 81 mg once daily, metformin 500 mg twice a day, Lovenox 40 mg subcutaneous once a day, Solu-Medrol 40 mg *------*. No invasive cardiac workup is justified at this admission. Jan Whitfield MD
[2016-08-30] MEDS: Insulin Lispro (humaLOG) 100 Units/ml Inj SC SCH (17:00)
--- NOTE | 2016-08-30 17:02 | PN ---
SUBJECTIVE: The patient is seen today, August 30, 2016. Her shortness of breath and wheezing are less. PHYSICAL EXAMINATION: VITAL SIGNS: Blood pressure 153/82, temperature 98.0, respiratory rate 20, and pulse 86. HEENT: Pupils equal, reactive to light. Normal-appearing mucosa of the conjunctivae, oropharyngeal, and nasal membrane mucosa. NECK: Supple. No JVD. No carotid bruit. No lymph node. No thyromegaly. CHEST AND LUNG: Bilateral symmetrical expansion. Good air exchange. No rales. No rhonchi. CARDIOVASCULAR SYSTEM: PMI not localized. S1 and S2. No additional sounds. ABDOMEN: Normoactive bowel sounds. No tenderness. No organomegaly. No masses. EXTREMITIES: No cyanosis. No clubbing. No edema. RN RESOURCE NURSE: Alert, awake, oriented x2. No neurological deficit could be appreciated. ASSESSMENT: 1. Exacerbation of chronic obstructive pulmonary disease. 2. Acute bronchitis. 3. Chest pain and AL is ruled out. 4. Coronary artery disease status post PCI. 5. History of cancer breast status post left breast lumpectomy. 6. Type 2 diabetes mellitus, which is uncontrolled. PLAN: We will do Accu-Cheks with insulin coverage. Continue Solu-Medrol and Rocephin and *------* follow cardiology recommendations. We will decrease Kristy-Medrol to 20 q. 8 hours. Can Valadez MD
[2016-08-30] MEDS: MethylPREDNISolone 40 mg Vial IVP SCH ×2 (18:52→23:29)
[2016-08-30] MEDS: Pravastatin Sodium 20 MG TAB PO SCH (21:07)
[2016-08-31] MEDS: MethylPREDNISolone 40 mg Vial IVP SCH ×3 (08:00→23:05)
[2016-08-31] MEDS: Insulin Detemir 100 Units/ml Inj SC SCH ×2 (09:00→16:27)
[2016-08-31] MEDS: Azithromycin 500 MG in Sodium Chloride 0.9% 250 ML IVPB SCH (09:00)
[2016-08-31] MEDS: Enoxaparin 40 mg Syringe SC SCH (09:50)
[2016-08-31] MEDS: Insulin Lispro (humaLOG) 100 Units/ml Inj SC SCH ×3 (12:00→23:01)
--- NOTE | 2016-08-31 14:57 | PN ---
SUBJECTIVE: The patient denies chest pain. She says she has some cough. She denies any leg pain or leg swelling or wheezing. PHYSICAL EXAMINATION VITAL SIGNS: Blood pressure 156/88, heart rate 109, temperature 97.9, and respirations 18. HEENT: Normocephalic. CHEST: Minimal basal rhonchi. HEART: S1 and S2 regular. ABDOMEN: Soft. EXTREMITIES: No edema or calf tenderness. LABORATORY DATA: Today's blood sugars are 251. ASSESSMENT: 1. Status post exacerbation of chronic obstructive lung disease. 2. Atypical chest pain, myocardial infarction ruled out. 3. Coronary artery disease, status post chronic stenting to the right coronary artery in the past. 5. Uncontrolled diabetes mellitus. 6. Depression. RECOMMENDATIONS: 1. Continue current intravenous Rocephin and intravenous Zithromax. 2. Continue aspirin 81 mg once a day. 3. Lovenox 40 mg once a day. 4. Continue Solu-Medrol 20 mg . 5. Continue Pravachol 20 mg once a day. 6. The plan is to discharge the patient on current medical management. Jan Whitfield MD
[2016-08-31] MEDS: Pravastatin Sodium 20 MG TAB PO SCH (21:04)
[2016-08-31] MEDS: Cholestyramine 4 gm/Pkt UD PO SCH (23:03)
--- NOTE | 2016-09-01 01:09 | PN ---
DATE: 08/31/2016 SUBJECTIVE: The patient is seen today, 08/31/2016. Decreased shortness of breath and wheezing. PHYSICAL EXAMINATION VITAL SIGNS: Blood pressure is 158/71, temperature 98.3, respiratory rate 18 and pulse 73. HEENT: Pupils equal and reactive to light. Normal-appearing mucosa of the conjunctivae, oropharynx and nasal membrane mucosa. NECK: Supple. No JVD. No carotid bruit. No lymph node. No thyromegaly. CHEST AND LUNGS: Bilateral symmetrical expansion. Good air exchange. No rales, no rhonchi. CARDIOVASCULAR SYSTEM: PMI not localized. S1 and S2. No additional sounds. ABDOMEN: Normoactive bowel sounds. No tenderness. No organomegaly. No masses. EXTREMITIES: No cyanosis or clubbing, no edema. CENTRAL NERVOUS SYSTEM: Alert, awake, oriented x2. No neurological deficit could be appreciated. ASSESSMENT: 1. Chest pain, myocardial infarction is ruled out. 2. Exacerbation of chronic obstructive pulmonary disease. 3. Acute pancreatitis. 4. Type 2 diabetes mellitus. 5. Hypertension. PLAN: Continue current *------* and antibiotics. Follow cardiology recommendations. Can Valadez MD
[2016-09-01 05:39] VITALS: RESP 18
[2016-09-01] MEDS: Insulin Lispro (humaLOG) 100 Units/ml Inj SC SCH ×4 (07:01→13:04)
--- NOTE | 2016-09-01 08:31 | HP ---
HISTORY OF PRESENT ILLNESS: This is a 71-year-old female with history of multiple medical problems including coronary artery disease, chronic obstructive pulmonary disease, psychiatric history, breast cancer status post left lumpectomy. The patient presents to the emergency room with symptoms of chest pain as well as cough and tightness of the chest and wheezing. The patient was evaluated in the emergency room and due to prior extensive history, the patient was admitted to rule out myocardial infarction. REVIEW OF SYSTEMS: All the review of systems negative except for the shortness of breath, chest tightness, and right-sided chest pain that also radiates to the front. ALLERGIES: NO KNOWN DRUG ALLERGIES. HOME MEDICATIONS: Metformin 500 mg twice a day, Ambien 5 mg at bedtime, *------* *------* *------*. PAST MEDICAL HISTORY: Coronary artery disease, status post left breast lumpectomy, *------*, type 2 diabetes mellitus. SOCIAL HISTORY: No history of smoking, ETOH, or narcotic substance. PHYSICAL EXAMINATION GENERAL: The patient is in bed not in cardiopulmonary distress. VITAL SIGNS: Blood pressure 159/82, temperature 97.5, respiratory rate 20, and pulse 90. HEENT: Pupils are equal and reactive to light. Normal-appearing mucosa of the conjunctivae, oropharyngeal, and nasal membrane mucosa. NECK: Supple. No JVD, no carotid bruit, no lymph node, and no thyromegaly. CHEST AND LUNGS: Bilateral symmetrical expansion. Good air exchange. No rales, no rhonchi. CARDIOVASCULAR SYSTEM: PMI *------* *------* on the right side of the chest wall. OBGYN NURSE: Alert, awake and oriented x2. No neurological deficit could be appreciated. ASSESSMENT: Chest pain, myocardial infection ruled out, exacerbation of chronic obstructive pulmonary disease, type 2 diabetes mellitus, coronary artery disease. PLAN: Follow up cardiology recommendations. Start the patient on Rocephin, azithromycin and Solu-Medrol, physical therapy, resume the patient's home medicines *------*. Can Valadez MD [facility] # [id number]
[2016-09-01] MEDS: Enoxaparin 40 mg Syringe SC SCH (09:26)
[2016-09-01] MEDS: Insulin Detemir 100 Units/ml Inj SC SCH (09:27)
[2016-09-01] MEDS: Cholestyramine 4 gm/Pkt UD PO SCH (09:30)
[2016-09-01] MEDS: MethylPREDNISolone 40 mg Vial IVP SCH (09:34)
[2016-09-01] MEDS: Azithromycin 500 MG in Sodium Chloride 0.9% 250 ML IVPB SCH (09:37)
--- NOTE | 2016-09-01 09:43 | PQF GENQUE ---
Dr. Valadez, Acute Pancreatitis listed in the attending draft :dictated note of 08/31: is this dx. ruled in or ruled out? OR:Other explanation of clinical findings H and P: history:CAD,COPD, psychiatric hx., breast CA S/P lt. lumpectomy Assessment :Chest pain, NV ruled out, Exacerbation of COPD disease, Type 2 DM, CAD 08/30:Attending Assessment:Exacerbation COPD ,Acute bronchitis. AST, ALT:normal IVAB'S, nebs This form is a permanent part of the medical record Clarification of your documentation is requested to better reflect the severity of illness and intensity of treatment of your patient. Indicators present [] Specify: [] [] Specify: [] [] Specify: [] [] Specify: [] Location in the medical record that reflects the above clinical findings: [] Treatment Provided: [] PHYSICIAN'S RESPONSE Based on your medical judgment of the clinical indicators outlined above please clarify the following: [] Practitioner response [] If unable to determine, please check the box, sign and date. Present On Admission (POA) Indicator: [] Present at the time of admission [] Not present at the time of admission [] Clinically Undetermined In responding to this query, please exercise your independent professional judgment. The fact that a question is asked does not imply that any particular answer is desired or expected. Thank you for your clarification on this documentation. If you have any questions please call. * Thank you, Mis Arias RN BSN ext. #[phone] MTDD
[2016-09-01 09:47] VITALS: O2SAT 97
[2016-09-01 11:35] LABS: HEMOGLOBIN 12.8 g/dL (12.0-16.0); MEAN CELL VOLUME 83.1 fl (81.0-99.0); MEAN CORPUSCULAR HEMOGLOBIN 28.8 pg (27.0-31.0); MEAN CORPUSCULAR HGB CONC 34.7 g/dL (33.0-37.0); RBC 4.43 Mil/uL (3.80-5.20); RED CELL DISTRIBUTION WIDTH 14.3 % (11.5-14.5); WHITE BLOOD COUNT 9.2 K/uL (4.8-10.8)
[2016-09-01 11:49] LABS: BLOOD UREA NITROGEN 31 mg/dl (7-17); CALCIUM 9.4 mg/dL (8.4-10.2); GFR AFRICAN-AMERICAN > 60; GFR NON-AFRICAN AMERICAN > 60
[2016-09-01 12:29] VITALS: BP 162/85; PULSE 83; TEMP 97.5
--- NOTE | 2016-09-01 13:36 | PN ---
SUBJECTIVE: The patient was noted to have runs of atrial tachycardia when started on Cardizem 30 mg q. 8 hours with subsequent improvement of the tachycardia; however, he is still experiencing frequent runs of APCs. She denies any palpitation or dizziness. PHYSICAL EXAMINATION VITAL SIGNS: Blood pressure 160/85, heart rate 83, temperature 97.5, and respirations 20. HEENT: Normocephalic. CHEST: Minimal rhonchi. HEART: S1 and S2 regular. ABDOMEN: Soft. EXTREMITIES: No edema. LABORATORY DATA: Today's hemoglobin, hematocrit, white count and platelet count are within normal limits. Today's BUN and creatinine are 31 and 0.9. Glucose is 232. ASSESSMENT: 1. Exacerbation of chronic obstructive pulmonary disease. 2. Atypical chest pain, myocardial infarction ruled out. 3. History of coronary artery disease, status post right coronary artery stenting in the past. 4. Runs of atrial tachycardia. 5. Depression. CONDITIONS: Case is discussed with FILLER OPERATOR. The patient can be discharged from the cardiac point on Cardizem at 30 mg t.i.d., aspirin 81 mg once a day, Pravachol 20 mg once a day. Jan Whitfield MD
--- NOTE | 2016-09-02 05:35 | DS ---
REASON FOR ADMISSION: This is a 71-year-old female with history of multiple medical problems, who was admitted for chest pain and exacerbation of chronic obstructive pulmonary disease. COURSE OF HOSPITALIZATION: The patient was admitted to telemetry floor and OK was ruled out by negative cardiac enzymes. The patient had a cardiology consultation done by Dr. Whitfield. The patient was found also to be wheezing and shortness of breath for which she was given IV antibiotics as well as Solu-Medrol tapering dose. The patient responded well and discharged home *------* medications to followup with *------*. FINAL DIAGNOSES: 1. Chest pain, likely noncardiac. 2. Exacerbation of chronic obstructive pulmonary disease. 3. Acute bronchitis. 4. Hypertension. 5. Type 2 diabetes mellitus. [facility] MD Rory
== END 2016-09-01 15:24 | disposition home or self-care (01) | DRG 191 ==
LOC: H.ER 14:31 → H.ERHOLD 17:57 → H.TEL 21:29 → OBSVTOIN 08-29 11:28 → H.TEL 08-29 17:27
PROVIDERS: ADMIT Internal Medicine; ATTEND Internal Medicine
DX: J44.0 Chronic obstructive pulmonary disease with (acute) lower respiratory infection (principal); I47.1 Supraventricular tachycardia; E11.65 Type 2 diabetes mellitus with hyperglycemia; I10 Essential (primary) hypertension; R07.89 Other chest pain; I25.10 Atherosclerotic heart disease of native coronary artery without angina pectoris; J44.1 Chronic obstructive pulmonary disease with (acute) exacerbation; J20.9 Acute bronchitis, unspecified; Z95.5 Presence of coronary angioplasty implant and graft; Z86.711 Personal history of pulmonary embolism; Z85.3 Personal history of malignant neoplasm of breast; E78.00 Pure hypercholesterolemia, unspecified; F31.9 Bipolar disorder, unspecified; M81.0 Age-related osteoporosis without current pathological fracture; F32.9 Major depressive disorder, single episode, unspecified; F41.9 Anxiety disorder, unspecified; J45.909 Unspecified asthma, uncomplicated

== ENCOUNTER 2016-09-30 12:41 | Emergency (ER) | payer MEDICARE, OTHER ==
[2016-09-30 12:41] VITALS: BMI 28.3
[2016-09-30 12:54] VITALS: RESP 18
--- NOTE | 2016-09-30 13:29 | ED PDOC ---
HPI: Chest Pain Time Seen by Provider: 09/30/16 13:00 Chief Complaint (Nursing): Chest Pain Chief Complaint (Provider): CP History Per: Patient Additional Complaint(s): Pt is a 71 yo female with an extensive PMH including: anemia, Depression, anxiety, CAD, HTN, DM, Hyperlipidemia, COPD, presents to [facility] and reports that she has back pain and right arm pain because she slipped qand fellin her apartment last night. Pt reports falling 3 x this week. Pt notes all fals were mechanical. Pt also admits she is very depressed, denies hang SI or any HI, reports that she is having some "family issues" at home. No SOB or CP Past Medical History Reviewed: Historical Data, Nursing Documentation, Vital Signs Vital Signs: Last Vital Signs Temp 97.9 F 09/30/16 18:34 Pulse 76 09/30/16 18:34 Resp 18 09/30/16 18:34 BP 136/77 09/30/16 18:34 Pulse Ox 100 09/30/16 18:34 - Medical History PMH: Anemia, Anxiety, Asthma, CAD, Cardia Arrhythmia, COPD, Depression, Diabetes , Fractures (LEFT LEG), HTN, Hypercholesterolemia, Malignancy (breast cancer s/ p lumpectomy ), Osteoporosis, Pulmonary Embolism Denies: CVA, Chronic Kidney Disease - Surgical History Surgical History: Appendectomy, Coronary Stent - Family History Family History: States: Unknown Family Hx - Living Arrangements Living Arrangements: With Family (Lives with grandson) - Social History Current smoker - smoking cessation education provided: No Alcohol: None Drugs: Denies - Home Medications Home Medications: Ambulatory Orders Medication Instructions Recorded Sertraline HCl 100 mg PO DAILY 04/05/16 Zolpidem [Ambien] 5 mg PO HS 04/05/16 Albuterol Sulfate [Proair Hfa] 2 puff IH Q4 PRN 08/11/16 Oxycodone HCl/Acetaminophen 1 tab PO Q6 PRN 08/11/16 [Percocet 10-325 mg Tablet] Simvastatin 10 mg PO HS 08/11/16 Clonazepam [Klonopin] 0.5 mg PO BID 08/21/16 Aspirin [Ecotrin] 81 mg PO DAILY 08/28/16 Clonazepam [Klonopin] 1 mg PO HS 08/28/16 Insulin Detemir [Levemir] 12 unit SC BID 08/28/16 Meclizine [Meclizine*] 25 mg PO TID PRN 08/28/16 Risperidone [Risperdal] 1 mg PO HS 08/28/16 metFORMIN [glucOPHAGE] 500 mg PO BID 08/28/16 Azithromycin [Zithromax] 250 mg PO DAILY #3 tab 09/01/16 Cholestyramine [Questran] 4 gm PO BID #8 packet 09/01/16 Lactobacillus Acidophilus [Bacid 1 cap OD DAILY #6 cap 09/01/16 Acidophilus] Methylprednisolone [Medrol Dose 4 mg PO DAILY #21 mg 09/01/16 Pack (21 tabs)] diltiaZEM [Cardizem] 30 mg PO TID #90 tab 09/01/16 - Allergies Allergies/Adverse Reactions: Allergies Allergy/AdvReac Type Severity Reaction Status Date / Time No Known Allergies Allergy Verified 03/02/16 20:08 Review of Systems ROS Statement: Except As Marked, All Systems Reviewed And Found Negative Musculoskeletal: Positive for: Arm Pain, Back Pain Psych: Positive for: Depression Physical Exam - Reviewed Nursing Documentation Reviewed: Yes Vital Signs Reviewed: Yes - Physical Exam Appears: Positive for: Well, Non-toxic, No Acute Distress Head Exam: Positive for: ATRAUMATIC, NORMAL INSPECTION, NORMOCEPHALIC Skin: Positive for: Normal Color, Warm, DRY Eye Exam: Positive for: EOMI, Normal appearance, PERRL ENT: Positive for: Normal ENT Inspection Neck: Positive for: Normal, Painless ROM Cardiovascular/Chest: Positive for: Regular Rate, Rhythm Respiratory: Positive for: CNT, Normal Breath Sounds Gastrointestinal/Abdominal: Positive for: Normal Exam, Bowel Sounds, Soft Back: Positive for: Normal Inspection Extremity: Positive for: Normal ROM Neurologic/Psych: Positive for: Alert, Oriented - Laboratory Results Result Diagrams: 09/30/16 15:03 09/30/16 15:03 - ECG O2 Sat by Pulse Oximetry: 99 Medical Decision Making Medical Decision Making: Diagnostics ordered Pt declined analgesics at this time. Pt underwent crisis eval, see notes. EKG interpreted and cleared by ED MD Rib and Hand XR: NAD, as read by PAJaron Pt on re-eval reports feeling improved. Asking to go home at this time. Disposition - Clinical Impression Clinical Impression: Depression - Patient ED Disposition Is Patient to be Admitted: No - Disposition Disposition: Routine/Home Disposition Time: 15:00 Condition: STABLE Instructions: Depression (DC) Forms: [facility] (Barbadian) Print Language: BURUNDIAN
[2016-09-30 13:49] LABS: ALB/GLOB RATIO 1.2 (1.0-2.1); ALKALINE PHOSPHATASE 65 U/L (38-126); ALT/SGPT 29 U/L (9-52); AST/SGOT 41 U/L (14-36); BILIRUBIN,TOTAL 0.9 mg/dl (0.2-1.3); BLOOD UREA NITROGEN 19 mg/dl (7-17); CALCIUM 9.1 mg/dL (8.4-10.2); CARBON DIOXIDE 18 mmol/L (22-30); CHLORIDE 112 mmol/L (98-107); GFR AFRICAN-AMERICAN > 60; GLUCOSE,RANDOM 157 mg/dL (65-105); SODIUM 143 mmol/l (132-148); TOTAL PROTEIN 7.3 G/DL (6.3-8.2)
--- NOTE | 2016-09-30 13:57 | RAD ---
PROCEDURE: Right Hand Radiographs. HISTORY: fall COMPARISON: None. FINDINGS: BONES: There is diffuse bone demineralization. There is no acute displaced fracture or bone destruction. JOINTS: Bone alignment is normal. The joint spaces are preserved. SOFT TISSUES: Normal. OTHER FINDINGS: None. IMPRESSION: No acute displaced fracture or dislocation.
--- NOTE | 2016-09-30 13:59 | RAD ---
PROCEDURE: Radiographs of the chest and bilateral ribs HISTORY: fall COMPARISON: None available. TECHNIQUE: Frontal radiograph of the chest and multiple oblique radiographs of the bilateral ribs were obtained. FINDINGS: RIGHT RIBS: No acute fracture or focal lesion visualized. LEFT RIBS: No acute fracture or focal lesion visualized. LUNGS: The lungs are well inflated and clear. PLEURA: No pneumothorax or pleural fluid. CARDIOVASCULAR: Normal sized heart. No pulmonary vascular congestion. OTHER FINDINGS: There are multiple surgical clips in the left breast. IMPRESSION: No acute rib fracture. Clear lungs.
[2016-09-30 14:02] LABS: POTASSIUM 4.6 MMOL/L (3.6-5.0)
[2016-09-30 15:19] LABS: ALB/GLOB RATIO 1.3 (1.0-2.1); ALKALINE PHOSPHATASE 69 U/L (38-126); ALT/SGPT 36 U/L (9-52); AST/SGOT 32 U/L (14-36); BILIRUBIN,TOTAL 0.6 mg/dl (0.2-1.3); BLOOD UREA NITROGEN 18 mg/dl (7-17); CALCIUM 9.1 mg/dL (8.4-10.2); CARBON DIOXIDE 24 mmol/L (22-30); CHLORIDE 111 mmol/L (98-107); GFR AFRICAN-AMERICAN > 60; GLUCOSE,RANDOM 138 mg/dL (65-105); POTASSIUM 4.1 MMOL/L (3.6-5.0); SODIUM 144 mmol/l (132-148); TOTAL PROTEIN 6.9 G/DL (6.3-8.2)
[2016-09-30 15:21] LABS: BASO % 0.3 % (0.0-2.0); EOS # 0.2 K/uL (0.0-0.7); EOS % 3.5 % (0.0-4.0); HEMATOCRIT 33.5 % (34.0-47.0); LYMPH # 1.5 K/uL (1.0-4.3); MEAN CELL VOLUME 84.9 fl (81.0-99.0); MEAN CORPUSCULAR HEMOGLOBIN 29.4 pg (27.0-31.0); MEAN CORPUSCULAR HGB CONC 34.6 g/dL (33.0-37.0); MEAN PLATELET VOLUME 8.5 fl (7.2-11.7); MONO # 0.4 K/uL (0.0-0.8); MONO % 6.7 % (0.0-10.0); NEUT # 3.5 K/uL (1.8-7.0); NEUT % 63.5 % (50.0-75.0); RED CELL DISTRIBUTION WIDTH 15.3 % (11.5-14.5); WHITE BLOOD COUNT 5.6 K/uL (4.8-10.8)
[2016-09-30 18:35] VITALS: BP 136/77; PULSE 76; TEMP 97.9
--- NOTE | 2016-10-01 10:48 | CARD ---
APPROVED REPORT EKG Measurement Heart [id number] [id number] <Conclusion> Sinus rhythm with occasional premature atrial complexes ST & T wave abnormality, consider anterolateral ischemia Abnormal ECG baseline artefact present
[2016-10-17 20:49] VITALS: O2SAT 99
== END 2016-09-30 18:50 | disposition home or self-care (01) ==
LOC: H.ER 12:41
DX: R07.89 Other chest pain (principal); M79.601 Pain in right arm; M79.641 Pain in right hand; I49.1 Atrial premature depolarization

== ENCOUNTER 2016-10-30 16:23 | Emergency (ER) | payer MEDICARE, OTHER ==
[2016-10-30 16:24] VITALS: BMI 28.3
[2016-10-30 16:35] VITALS: TEMP 98.1
--- NOTE | 2016-10-30 17:29 | ED PDOC ---
HPI: Chest Pain Time Seen by Provider: 10/30/16 16:48 Chief Complaint (Nursing): Chest Pain Chief Complaint (Provider): Chest pain History Per: Patient History/Exam Limitations: no limitations Onset/Duration Of Symptoms: Days (x3) Current Symptoms Are (Timing): Intermittent Episodes Associated Symptoms: Other (anxiety) Additional Complaint(s): Martha Benedict is a 71 year old female, with a past medical history of hypertension, diabetes, and anxiety, who presents to the emergency department complaining of intermittent episodes of chest pain associated with anxiety onset for 3 days. Patient states the pain doesn't radiate, and she is usually anxious during the episodes. She is currently taking Xanax but with no relief. Patient is currently asymptomatic. She denies any difficulty breathing, fever, and cough. PMD: Gamal Villa - Risk Factors TAD Risk Factors: Pos: Hypertension Against Medical Advice - AMA Patient Left Against Medical Advice: The patient declines admission to the hospital and wishes to leave the Emergency Department. This action is against my medical advice. This decision was made with informed refusal. The patient was told that admission to the hospital is necessary. Explanation of the reasons why were discussed. The risks of leaving were explained to the patient and include, but are not limited to, worsening of known or currently unknown conditions, permanent disability and from undiagnosed or untreated conditions. The patient has the capacity to make this informed decision and understands my explanation of the current medical problem and risks of leaving. The patient voluntarily accepts these risks and signed an AMA form documenting our conversation. The patient was given the opportunity to ask questions and reconsider. The patient was encouraged to return to the Emergency Department at any time for further care. Past Medical History Reviewed: Historical Data, Nursing Documentation, Vital Signs Vital Signs: Last Vital Signs Temp 98.1 F 10/30/16 16:32 Pulse 102 H 10/30/16 16:48 Resp 22 10/30/16 16:32 BP 132/66 10/30/16 16:32 Pulse Ox 100 10/30/16 20:48 - Medical History PMH: Anemia, Anxiety, Asthma, CAD, Cardia Arrhythmia, COPD, Depression, Diabetes , Fractures (LEFT LEG), HTN, Hypercholesterolemia, Malignancy (breast cancer s/ p lumpectomy ), Osteoporosis, Pulmonary Embolism Denies: CVA, Hepatitis, Chronic Kidney Disease, Seizures, Sexually Transmitted Disease - Surgical History Surgical History: Appendectomy, Coronary Stent - Family History Family History: States: Unknown Family Hx - Social History Current smoker - smoking cessation education provided: No Alcohol: None Drugs: Denies - Home Medications Home Medications: Ambulatory Orders Medication Instructions Recorded Sertraline HCl 100 mg PO DAILY 04/05/16 Zolpidem [Ambien] 5 mg PO HS 04/05/16 Albuterol Sulfate [Proair Hfa] 2 puff IH Q4 PRN 08/11/16 Oxycodone HCl/Acetaminophen 1 tab PO Q6 PRN 08/11/16 [Percocet 10-325 mg Tablet] Simvastatin 10 mg PO HS 08/11/16 Clonazepam [Klonopin] 0.5 mg PO BID 08/21/16 Aspirin [Ecotrin] 81 mg PO DAILY 08/28/16 Clonazepam [Klonopin] 1 mg PO HS 08/28/16 Insulin Detemir [Levemir] 12 unit SC BID 08/28/16 Meclizine [Meclizine*] 25 mg PO TID PRN 08/28/16 Risperidone [Risperdal] 1 mg PO HS 08/28/16 metFORMIN [glucOPHAGE] 500 mg PO BID 08/28/16 Azithromycin [Zithromax] 250 mg PO DAILY #3 tab 09/01/16 Cholestyramine [Questran] 4 gm PO BID #8 packet 09/01/16 Lactobacillus Acidophilus [Bacid 1 cap OD DAILY #6 cap 09/01/16 Acidophilus] Methylprednisolone [Medrol Dose 4 mg PO DAILY #21 mg 09/01/16 Pack (21 tabs)] diltiaZEM [Cardizem] 30 mg PO TID #90 tab 09/01/16 Clotrimazole 1% Cream [Lotrimin 1%] 1 appful TP BID #1 tube 10/30/16 - Allergies Allergies/Adverse Reactions: Allergies Allergy/AdvReac Type Severity Reaction Status Date / Time No Known Allergies Allergy Verified 03/02/16 20:08 MANUEL Risk Score for UA/NSTEMI - MANUEL Risk Score Age > 64: YES 3 or more CAD Risk Factors: YES Known CAD (Stenosis greater than 50%): NO Aspirin use in past 7 days: NO Severe Angina: NO EKG ST changes greater than 0.5mm: NO Positive Cardiac Marker: NO MANUEL Score: 2 Risk %: 8% Wells Criteria for PE - Wells Criteria for Pulmonary Embolism Clinical Signs and Symptoms of DVT: No P.E is #1 Diagnosis, or Equally Likely: No Heart Rate >100: No Immobilization at least 3 days;Surgery previous 4 weeks: No Previous, objectively diagnosed PE or DVT: No Hemoptysis: No Malignancy w/treatment within 6 months, or palliative: No Total Score: 0 Review of Systems ROS Statement: Except As Marked, All Systems Reviewed And Found Negative Constitutional: Negative for: Fever Cardiovascular: Positive for: Chest Pain (intermittent episodes ) Respiratory: Negative for: Cough, Shortness of Breath Psych: Positive for: Anxiety Physical Exam - Reviewed Nursing Documentation Reviewed: Yes Vital Signs Reviewed: Yes - Physical Exam Appears: Positive for: Well, Non-toxic, No Acute Distress Head Exam: Positive for: ATRAUMATIC, NORMAL INSPECTION, NORMOCEPHALIC Skin: Positive for: Normal Color, Warm, Dry Eye Exam: Positive for: EOMI, Normal appearance, PERRL ENT: Positive for: Normal ENT Inspection Neck: Positive for: Normal, Painless ROM, Supple Cardiovascular/Chest: Positive for: Regular Rate, Rhythm. Negative for: Murmur Respiratory: Positive for: Normal Breath Sounds. Negative for: Respiratory Distress Gastrointestinal/Abdominal: Positive for: Normal Exam, Bowel Sounds, Soft. Negative for: Tenderness Back: Positive for: Normal Inspection Extremity: Positive for: Normal ROM. Negative for: Pedal Edema, Deformity Neurologic/Psych: Positive for: Alert, Oriented. Negative for: Motor/Sensory Deficits - Laboratory Results Result Diagrams: 10/30/16 17:45 10/30/16 17:45 - ECG O2 Sat by Pulse Oximetry: 100 (RA) Pulse Ox Interpretation: Normal Medical Decision Making Medical Decision Making: Initial Impression: Chest pain and anxiety. Differential includes: anxiety, ACS , PE. Rule out CHF Initial plan: --EKG --B-type Natriuretic peptide --Basic Metabolic Panel --Troponin I --CBC w/ differential --D Dimer --Chest one view [RAD] --reevaluation --Angio Chest PE Protocol [CT] ordered. 1836 Chest X-ray FINDINGS: LUNGS: The lungs are clear. No focal consolidation. PLEURA: No pneumothorax or pleural fluid seen. CARDIOVASCULAR: Normal. OSSEOUS STRUCTURES: No significant abnormalities. VISUALIZED UPPER ABDOMEN: Normal. OTHER FINDINGS: None. IMPRESSION: No acute findings. Chest CT FINDINGS: Heart, aorta and Pulmonary arteries: Heart size is normal. There are coronary artery calcifications.There is no aneurysm or dissection. There is perfusion of the arch vessels. There are no pulmonary emboli. Lungs and pleural spaces: Trachea and main bronchi are patent. There is minimal scarring at the lung apices. There is a small granuloma at the left apex. There is scarring in the left mid lung with nodular pleural thickening and mild bronchiectasis. There is a 4 mm right middle lobe nodule, image 53 series 3. There is dependent atelectasis at the lung bases. There are no effusions Mediastinum: There are no pathologically enlarged mediastinal or hilar nodes. Esophagus is unremarkable. There is mild fatty infiltration of the mediastinum. Thyroid: Thyroid is only partially imaged. Bones/joints: There are degenerative changes in the osseus structures. Soft tissues: There is surgical clips in the left axilla. There is deformity of the left breast. Upper abdomen: There are no acute abnormalities in the visualized portion of the abdomen. There is fatty infiltration of the liver. IMPRESSION: Atherosclerotic disease, no aneurysm, dissection or pulmonary embolus; left upper lobe scarring with mild volume loss and bronchiectasis, similar findings seen on the prior study; right middle lobe nodule similar to that seen on the prior study; no aneurysm, dissection or pulmonary embolus; postsurgical changes in the left breast and left axilla Footer: As per Fleischner Society guidelines for follow-up and management of pulmonary nodules: For patients at low risk (minimal or absent history of smoking and of other known risk factors), recommend follow-up chest CT at 12 months; if unchanged, no further follow-up. For patient at high risk (history of smoking or of other known risk factors), recommend initial follow-up chest CT at 6-12 months, then at 18-24 months if no interval change. Scribe Attestation: Documented by Jhony Jasmine, acting as a scribe for Ally Bucio MD Provider Scribe Attestation: All medical record entries made by the Scribe were at my direction and personally dictated by me. I have reviewed the chart and agree that the record accurately reflects my personal performance of the history, physical exam, medical decision making, and the department course for this patient. I have also personally directed, reviewed, and agree with the discharge instructions and disposition. Disposition - Clinical Impression Clinical Impression: Chest pain, Anxiety, Left against medical advice - Patient ED Disposition Is Patient to be Admitted: No Counseled Patient/Family Regarding: Studies Performed, Diagnosis, Need For Followup - Disposition Referrals: Kaushik Villa MD [Medical Doctor] - Disposition: Against Medical Advice Disposition Time: 20:46 Condition: GOOD Additional Instructions: Return for worsening. Follow up with your PCP in 2-3 days. Prescriptions: Clotrimazole 1% Cream [Lotrimin 1%] 1 appful TP BID #1 tube Instructions: Chest Pain (DC), Against Medical Advice (ED) Print Language: MAURITIAN
[2016-10-30 18:14] LABS: BLOOD UREA NITROGEN 17 mg/dl (7-17); CARBON DIOXIDE 22 mmol/L (22-30); CHLORIDE 104 mmol/L (98-107); GFR AFRICAN-AMERICAN 60; GLUCOSE,RANDOM 193 mg/dL (65-105); SODIUM 141 mmol/l (132-148)
[2016-10-30 18:17] LABS: BASO # 0.1 K/uL (0.0-0.2); BASO % 0.7 % (0.0-2.0); EOS # 0.3 K/uL (0.0-0.7); EOS % 2.6 % (0.0-4.0); HEMATOCRIT 41.1 % (34.0-47.0); LYMPH # 2.9 K/uL (1.0-4.3); LYMPH % 27.3 % (20.0-40.0); MEAN CELL VOLUME 82.8 fl (81.0-99.0); MEAN CORPUSCULAR HEMOGLOBIN 28.5 pg (27.0-31.0); MEAN CORPUSCULAR HGB CONC 34.4 g/dL (33.0-37.0); MEAN PLATELET VOLUME 9.5 fl (7.2-11.7); MONO # 0.6 K/uL (0.0-0.8); MONO % 5.9 % (0.0-10.0); NEUT # 6.7 K/uL (1.8-7.0); NEUT % 63.5 % (50.0-75.0); NRBC % 0.3 % (0.0-0.0); RED CELL DISTRIBUTION WIDTH 15.2 % (11.5-14.5); WHITE BLOOD COUNT 10.5 K/uL (4.8-10.8)
[2016-10-30 18:25] LABS: POTASSIUM 5.1 MMOL/L (3.6-5.0)
--- NOTE | 2016-10-30 18:39 | RAD ---
PROCEDURE: CHEST RADIOGRAPH, 1 VIEW HISTORY: chest pain COMPARISON: 09/30/2016. FINDINGS: LUNGS: The lungs are clear. No focal consolidation. PLEURA: No pneumothorax or pleural fluid seen. CARDIOVASCULAR: Normal. OSSEOUS STRUCTURES: No significant abnormalities. VISUALIZED UPPER ABDOMEN: Normal. OTHER FINDINGS: None. IMPRESSION: No acute findings.
[2016-10-30] MEDS ORDERED: Iodixanol 320 MG/ML 100 ML BOTTLE IV ONE (18:41)
[2016-10-30] MEDS ORDERED: Sodium Chloride 0.9% 50 ML IV ONE (18:41)
[2016-10-30] MEDS ORDERED: Sodium Chloride 0.9% 500 ML IV STA (18:44)
--- NOTE | 2016-10-30 19:50 | CT ---
EXAM: CT Angiography Chest With Intravenous Contrast EXAM DATE/TIME: 10/30/2016 6:28 PM CLINICAL HISTORY: 71 years old, female; Pain; Chest pain; Type not specified; Patient HX: HX of p. E. TECHNIQUE: Axial computed tomographic angiography images of the chest with intravenous contrast using pulmonary embolism protocol. All CT scans at this facility use one or more dose reduction techniques, viz.: automated exposure control; ma/kV adjustment per patient size (including targeted exams where dose is matched to indication; i.e. head); or iterative reconstruction technique. MIP reconstructed images were created and reviewed. Coronal and sagittal reformatted images were created and reviewed. CONTRAST: 70 mL of [id number] administered intravenously. COMPARISON: CT - ANGIO CHEST PE PROTOCOL 08/28/2016 4:58:09 PM FINDINGS: Heart, aorta and Pulmonary arteries: Heart size is normal. There are coronary artery calcifications.There is no aneurysm or dissection. There is perfusion of the arch vessels. There are no pulmonary emboli. Lungs and pleural spaces: Trachea and main bronchi are patent. There is minimal scarring at the lung apices. There is a small granuloma at the left apex. There is scarring in the left mid lung with nodular pleural thickening and mild bronchiectasis. There is a 4 mm right middle lobe nodule, image 53 series 3. There is dependent atelectasis at the lung bases. There are no effusions Mediastinum: There are no pathologically enlarged mediastinal or hilar nodes. Esophagus is unremarkable. There is mild fatty infiltration of the mediastinum. Thyroid: Thyroid is only partially imaged. Bones/joints: There are degenerative changes in the osseus structures. Soft tissues: There is surgical clips in the left axilla. There is deformity of the left breast. Upper abdomen: There are no acute abnormalities in the visualized portion of the abdomen. There is fatty infiltration of the liver. IMPRESSION: Atherosclerotic disease, no aneurysm, dissection or pulmonary embolus; left upper lobe scarring with mild volume loss and bronchiectasis, similar findings seen on the prior study; right middle lobe nodule similar to that seen on the prior study; no aneurysm, dissection or pulmonary embolus; postsurgical changes in the left breast and left axilla Footer: As per Fleischner Society guidelines for follow-up and management of pulmonary nodules: For patients at low risk (minimal or absent history of smoking and of other known risk factors), recommend follow-up chest CT at 12 months; if unchanged, no further follow-up. For patient at high risk (history of smoking or of other known risk factors), recommend initial follow-up chest CT at 6-12 months, then at 18-24 months if no interval change.
[2016-10-30 21:28] VITALS: BP 123/71; PULSE 84; RESP 18; O2SAT 99
--- NOTE | 2016-10-31 08:43 | CARD ---
APPROVED REPORT EKG Measurement Heart [id number] <Conclusion> Sinus rhythm with occasional premature ventricular complexes T wave abnormality, consider anterolateral ischemia Abnormal ECG
== END 2016-10-30 21:44 | disposition left against medical advice (07) ==
LOC: H.ER 16:23
DX: R07.89 Other chest pain (principal); F41.9 Anxiety disorder, unspecified; E11.9 Type 2 diabetes mellitus without complications; E78.00 Pure hypercholesterolemia, unspecified; F32.9 Major depressive disorder, single episode, unspecified; I10 Essential (primary) hypertension; I25.10 Atherosclerotic heart disease of native coronary artery without angina pectoris; I49.3 Ventricular premature depolarization; J44.9 Chronic obstructive pulmonary disease, unspecified; Z79.4 Long term (current) use of insulin; Z79.82 Long term (current) use of aspirin; Z79.84 Long term (current) use of oral hypoglycemic drugs; Z85.3 Personal history of malignant neoplasm of breast; Z86.711 Personal history of pulmonary embolism; Z95.5 Presence of coronary angioplasty implant and graft
CPT/HCPCS: 71010; 71275; 80048; 83880; 84484; 85025; 85378; 93005; 96374; 99284; J2060; J7040; Q9967

== ENCOUNTER 2016-11-17 16:32 | Inpatient (IN) | payer MEDICARE, OTHER ==
[2016-11-17 16:33] VITALS: BMI 28.3
--- NOTE | 2016-11-17 17:31 | CT ---
PROCEDURE: CT HEAD WITHOUT CONTRAST. HISTORY: r/o ICH COMPARISON: Noncontrast head CT performed 08/11/16 TECHNIQUE: Axial computed tomography images were obtained through the head/brain without intravenous contrast. Radiation dose: Total exam DLP = 840.29 mGy-cm. This CT exam was performed using one or more of the following dose reduction techniques: Automated exposure control, adjustment of the mA and/or kV according to patient size, and/or use of iterative reconstruction technique. FINDINGS: HEMORRHAGE: No intracranial hemorrhage. BRAIN: Diffuse atrophy with prominence of the ventricles and sulci noted. No mass effect or edema. Dense intracranial atherosclerosis. 4 mm and 3 mm chronic appearing left basal ganglia lacunar infarcts. Scattered periventricular and subcortical white matter hypodensities, which are nonspecific, but often seen with chronic microvascular ischemic disease. Please note that MRI with diffusion imaging is more sensitive in the detection of acute ischemic event. VENTRICLES: No hydrocephalus. CALVARIUM: Unremarkable. PARANASAL SINUSES: Small fluid within the right maxillary sinus. Remainder the visualized paranasal sinuses appear clear. MASTOID AIR CELLS: Unremarkable as visualized. No inflammatory changes. OTHER FINDINGS: None. IMPRESSION: Generalized atrophy. Nonspecific white matter changes. Small fluid within the right maxillary sinus. Correlate clinically for acute sinusitis.
--- NOTE | 2016-11-17 17:50 | CT ---
PROCEDURE: CT Cervical Spine without contrast HISTORY: Trauma COMPARISON: 07/25/2016. CT cervical spine Summary of findings on the comparison examination: No acute fracture TECHNIQUE: Axial computed tomography images were obtained of the cervical spine without the use of intravenous contrast. Coronal and sagittal reformatted images were created and reviewed. Radiation dose: Total exam DLP = 190.03 mGy-cm. This CT exam was performed using one or more of the following dose reduction techniques: Automated exposure control, adjustment of the mA and/or kV according to patient size, and/or use of iterative reconstruction technique. FINDINGS: VERTEBRAE: No fracture. Normal alignment. No destructive bony lesion. DISCS/SPINAL CANAL/NEURAL FORAMINA: No significant central canal or neural foraminal stenosis. Discs heights are grossly preserved. PARASPINAL SOFT TISSUES: Unremarkable. OTHER FINDINGS: None. IMPRESSION: No acute findings related to/accounting for the clinical presentation. No significant interval change compared to the prior examination(s).
--- NOTE | 2016-11-17 17:57 | ED PDOC ---
HPI: Trauma/Fall - HPI Time Seen by Provider: 11/17/16 16:45 Chief Complaint (Nursing): Chest Pain Chief Complaint (Provider): Fall Type Injury History Per: Patient History/Exam Limitations: no limitations Onset/Duration Of Symptoms: Hrs Anterior Full Body: 1 - trauma 2 - pain Associated Symptoms: Dizziness Additional Complaint(s): Martha Donlad, a 71 year old female, with a past medical history of hypertension presents to the ED complaining of a fall type injury, also notes chest pain intermittent for 2-3 days. The patient reports that striking the right side of her head and face. Denies loss of consciousness, weakness, change in speech or vision, pain in extremities and hip. PMD: Kaushik Mack Past Medical History Reviewed: Historical Data, Nursing Documentation, Vital Signs Vital Signs: Last Vital Signs Temp 98.9 F 11/17/16 16:39 Pulse 80 11/17/16 18:16 Resp 18 11/17/16 16:39 BP 134/68 11/17/16 18:16 Pulse Ox 99 11/17/16 19:21 - Medical History PMH: Anemia, Anxiety, Asthma, CAD, Cardia Arrhythmia, COPD, Depression, Diabetes , Fractures (LEFT LEG), HTN, Hypercholesterolemia, Malignancy (breast cancer s/ p lumpectomy ), Osteoporosis, Pulmonary Embolism Denies: CVA, Hepatitis, Chronic Kidney Disease, Seizures, Sexually Transmitted Disease - Surgical History Surgical History: Appendectomy, Coronary Stent, Hernia Repair (umbilical hernia) - Family History Family History: States: Unknown Family Hx - Home Medications Home Medications: Ambulatory Orders Medication Instructions Recorded Sertraline HCl 100 mg PO DAILY 04/05/16 Zolpidem [Ambien] 5 mg PO HS 04/05/16 Albuterol Sulfate [Proair Hfa] 2 puff IH Q4 PRN 08/11/16 Oxycodone HCl/Acetaminophen 1 tab PO Q6 PRN 08/11/16 [Percocet 10-325 mg Tablet] Simvastatin 10 mg PO HS 08/11/16 Clonazepam [Klonopin] 0.5 mg PO BID 08/21/16 Aspirin [Ecotrin] 81 mg PO DAILY 08/28/16 Clonazepam [Klonopin] 1 mg PO HS 08/28/16 Insulin Detemir [Levemir] 12 unit SC BID 08/28/16 Meclizine [Meclizine*] 25 mg PO TID PRN 08/28/16 Risperidone [Risperdal] 1 mg PO HS 08/28/16 metFORMIN [glucOPHAGE] 500 mg PO BID 08/28/16 Azithromycin [Zithromax] 250 mg PO DAILY #3 tab 09/01/16 Cholestyramine [Questran] 4 gm PO BID #8 packet 09/01/16 Lactobacillus Acidophilus [Bacid 1 cap OD DAILY #6 cap 09/01/16 Acidophilus] Methylprednisolone [Medrol Dose 4 mg PO DAILY #21 mg 09/01/16 Pack (21 tabs)] diltiaZEM [Cardizem] 30 mg PO TID #90 tab 09/01/16 Clotrimazole 1% Cream [Lotrimin 1%] 1 appful TP BID #1 tube 10/30/16 - Allergies Allergies/Adverse Reactions: Allergies Allergy/AdvReac Type Severity Reaction Status Date / Time No Known Allergies Allergy Verified 03/02/16 20:08 Review of Systems ROS Statement: Except As Marked, All Systems Reviewed And Found Negative Eyes: Negative for: Vision Change Cardiovascular: Negative for: Chest Pain (chest tightness) Neurological: Positive for: Headache. Negative for: Weakness Physical Exam - Reviewed Nursing Documentation Reviewed: Yes Vital Signs Reviewed: Yes - Physical Exam Appears: Positive for: Non-toxic, No Acute Distress Head Exam: Positive for: NORMAL INSPECTION, NORMOCEPHALIC Skin: Positive for: Normal Color, Warm, Dry. Negative for: Rash Eye Exam: Positive for: EOMI, PERRL. Negative for: Normal appearance ( ecchymosis surrounding periorbital area ) ENT: Positive for: Normal ENT Inspection. Negative for: Nasal Congestion, Tonsillar Exudate Neck: Positive for: Normal, Painless ROM, Supple Cardiovascular/Chest: Positive for: Regular Rate, Rhythm, Chest Non Tender. Negative for: Tachycardia Respiratory: Positive for: Normal Breath Sounds. Negative for: Rales, Rhonchi, Wheezing, Respiratory Distress Gastrointestinal/Abdominal: Positive for: Bowel Sounds, Soft, Distended (softly distended abdomen ). Negative for: Tenderness, Guarding, Rebound Back: Positive for: Normal Inspection. Negative for: L CVA Tenderness, R CVA Tenderness Extremity: Positive for: Normal ROM (full ROM of extremities w/o deformity). Negative for: Tenderness, Deformity, Swelling Lymphatic: Positive for: Normal Exam. Negative for: Adenopathy Neurologic/Psych: Positive for: Alert, Oriented, Gait - Laboratory Results Result Diagrams: 11/17/16 18:10 11/17/16 18:10 - ECG O2 Sat by Pulse Oximetry: 99 (RA) Pulse Ox Interpretation: Normal Medical Decision Making Medical Decision Makin Initial Impression: 71 year old female presenting with fall type injury Initial Plan: * CT Cervical Spine * CT head w/o Contrast * EKG * B-type Natriuretic * CMP * Troponin * CBC * Partial Thromboplastin * Prothrombin Time * Chest x-ray * Reevaluation EKG performed: * Normal sinus at 83bpm with arterial and lateral ST changes --Work up for head trauma with EKG changes labs reviewed, trop neg CT brain and CSpine, CXR reports reviewed Given recurrent symptoms, EKG changes, fall and head trauma, admit obs Dr Angelo monomer purification operator medicine Scribe Attestation Documented by Zainab Cantu acting as a scribe for Vahid Aranda MD. Provider Attestation All medical record entries made by the Scribe were at my direction and personally dictated by me. I have reviewed the chart and agree that the record accurately reflects my personal performance of the history, physical exam, medical decision making, and the department course for this patient. I have also personally directed, reviewed, and agree with the discharge instructions and disposition. Disposition - Clinical Impression Clinical Impression: Chest pain, Head injury - Patient ED Disposition Is Patient to be Admitted: Yes Counseled Patient/Family Regarding: Studies Performed, Diagnosis - Disposition Disposition Time: 19:01 Condition: FAIR - Pt Status Changed To: Hospital Disposition Of: Observation
--- NOTE | 2016-11-17 18:02 | RAD ---
HISTORY: Chest pain. Technique: Single view portable semi erect @ 17:19. COMPARISON: No prior. FINDINGS: LUNGS: No active pulmonary disease. PLEURA: No significant pleural effusion identified, no pneumothorax apparent. CARDIOVASCULAR: No radiographic findings to suggest acute or significant cardiovascular disease. OSSEOUS STRUCTURES: No significant abnormalities. Non osseous union of old right clavicular fracture VISUALIZED UPPER ABDOMEN: Normal. OTHER FINDINGS: None. IMPRESSION: No active disease. No significant interval change compared to the prior examination(s). Please note: No preliminary report/ innterpretation of this examination provided by emergency department personnel.
[2016-11-17 18:13] LABS: BASO % 0.4 % (0.0-2.0); EOS # 0.2 K/uL (0.0-0.7); EOS % 3.2 % (0.0-4.0); HEMATOCRIT 35.9 % (34.0-47.0); LYMPH # 2.3 K/uL (1.0-4.3); LYMPH % 31.5 % (20.0-40.0); MEAN CELL VOLUME 83.5 fl (81.0-99.0); MEAN CORPUSCULAR HEMOGLOBIN 28.4 pg (27.0-31.0); MEAN CORPUSCULAR HGB CONC 34.1 g/dL (33.0-37.0); MEAN PLATELET VOLUME 8.2 fl (7.2-11.7); MONO # 0.5 K/uL (0.0-0.8); MONO % 6.7 % (0.0-10.0); NEUT # 4.3 K/uL (1.8-7.0); NEUT % 58.2 % (50.0-75.0); NRBC % 0.1 % (0.0-0.0); RED CELL DISTRIBUTION WIDTH 15.2 % (11.5-14.5); WHITE BLOOD COUNT 7.4 K/uL (4.8-10.8)
[2016-11-17 18:30] LABS: ALB/GLOB RATIO 1.4 (1.0-2.1); BILIRUBIN,TOTAL 0.5 mg/dl (0.2-1.3); CALCIUM 9.4 mg/dL (8.4-10.2); POTASSIUM 4.4 MMOL/L (3.6-5.0); TOTAL PROTEIN 7.1 G/DL (6.3-8.2)
[2016-11-17 18:43] LABS: TROPONIN I 0.012 ng/mL (0.00-0.120)
[2016-11-17 18:57] LABS: PARTIAL THROMBOPLASTIN TIME 26.2 Seconds (25.6-37.1)
[2016-11-18] MEDS ORDERED: Patient's Own Med (Albuterol Sulfate 2 PUFF) IH PRN (03:33)
[2016-11-18] MEDS ORDERED: Influenza Vaccine 18yr & older 0.5 ML/45 MCG SYR IM ONE (06:00)
[2016-11-18 06:51] LABS: ALB/GLOB RATIO 1.4 (1.0-2.1); ALKALINE PHOSPHATASE 68 U/L (38-126); ALT/SGPT 38 U/L (9-52); AST/SGOT 36 U/L (14-36); BILIRUBIN,TOTAL 0.6 mg/dl (0.2-1.3); BLOOD UREA NITROGEN 22 mg/dl (7-17); CALCIUM 9.3 mg/dL (8.4-10.2); CARBON DIOXIDE 24 mmol/L (22-30); CHLORIDE 103 mmol/L (98-107); CHOLESTEROL 197 mg/dL (0-199); GFR AFRICAN-AMERICAN > 60; GLUCOSE,RANDOM 169 mg/dL (65-105); POTASSIUM 3.9 MMOL/L (3.6-5.0); SODIUM 139 mmol/l (132-148); TOTAL PROTEIN 6.7 G/DL (6.3-8.2)
[2016-11-18 07:03] LABS: HEMATOCRIT 35.5 % (34.0-47.0); MEAN CELL VOLUME 83.3 fl (81.0-99.0); MEAN CORPUSCULAR HEMOGLOBIN 28.2 pg (27.0-31.0); MEAN CORPUSCULAR HGB CONC 33.8 g/dL (33.0-37.0); RED CELL DISTRIBUTION WIDTH 15.5 % (11.5-14.5); WHITE BLOOD COUNT 6.1 K/uL (4.8-10.8)
[2016-11-18 07:21] LABS: THYROID STIMULATING HORMONE 0.73 mIU/ML (0.46-4.68)
[2016-11-18] MEDS: Cholestyramine 4 gm/Pkt UD PO SCH ×2 (08:49→16:48)
[2016-11-18] MEDS: Insulin Detemir 100 Units/ml Inj SC SCH ×3 (08:53→17:47)
[2016-11-18] MEDS: Insulin Regular 100 units/ml SC SCH ×4 (08:53→21:51)
[2016-11-18] MEDS: Lactobacillus Acidophilus 500 MU Cap PO SCH (08:55)
[2016-11-18] MEDS ORDERED: Patient's Own Med (Methylprednisolone [Medrol Dose Pack (21 Tabs)] 4 MG) PO SCH (09:00)
[2016-11-18] MEDS ORDERED: INSULIN DETEMIR 12 UNIT SC SCH (09:00)
[2016-11-18] MEDS: Enoxaparin 40 mg Syringe SC SCH (12:30)
[2016-11-18] MEDS: Albuterol HFA 90 mcg/actuation (8 g) IH PRN (12:31)
--- NOTE | 2016-11-18 12:35 | CARD ---
APPROVED REPORT EXAM: Two-dimensional and M-mode echocardiogram with Doppler and color Doppler. Other Information Quality : AverageRhythm : NSR INDICATION Chest Pain 2D DIMENSIONS IVSd1.19 (0.7-1.1cm)LVDd4.40 (3.9-5.9cm) LVOT Diameter2.20 (1.8-2.4cm)PWd1.05 (0.7-1.1cm) IVSs1.64 (0.8-1.2cm)LVDs2.99 (2.5-4.0cm) FS (%) 32.0 %PWs1.61 (0.8-1.2cm) M-Mode DIMENSIONS Left Atrium (MM)3.86 (2.5-4.0cm)IVSd1.04 (0.7-1.1cm) Aortic Root3.51 (2.2-3.7cm)LVDd5.91 (4.0-5.6cm) Aortic Cusp Exc.2.05 (1.5-2.0cm)PWd1.31 (0.7-1.1cm) IVSs1.81 cmFS (%) 50 % LVDs2.97 (2.0-3.8cm)PWs1.70 cm Mitral Valve MV E Qlsrlbyb94.8cm/sMV DECEL [id number] A Xdymecqz99.3cm/s MV MVL109hwI/A ratio0.4MVA (PHT)1.95cm2 TDI Lateral E' Peak V5.21cm/sMedial E' Peak V5.30cm/sE/Lateral E'6.3 E/Medial E'6.2 LEFT VENTRICLE The left ventricle is normal size. There is normal left ventricular wall thickness. The left ventricular function is normal. The left ventricular ejection fraction is 65% There is normal LV segmental wall motion. Transmitral Doppler flow pattern is Grade I-abnormal relaxation pattern. No left ventricle thrombus noted on this study. There is no ventricular septal defect visualized. There is no left ventricular aneurysm. There is no mass noted in the left ventricle. RIGHT VENTRICLE The right ventricle is normal size. There is normal right ventricular wall thickness. The right ventricular systolic function is normal. ATRIA The left atrium size is normal. The right atrium size is normal. The interatrial septum is intact with no evidence for an atrial septal defect. AORTIC VALVE The aortic valve is mildly to moderately sclerotic. No aortic regurgitation is present. There is no aortic valvular stenosis. There is no aortic valvular vegetation. MITRAL VALVE The mitral valve is normal in structure and function. There is no evidence of mitral valve prolapse. There is no mitral valve stenosis. There is no mitral valve regurgitation noted. TRICUSPID VALVE The tricuspid valve is normal in structure and function. There is no tricuspid valve regurgitation noted. There is no tricuspid valve prolapse or vegetation. There is no tricuspid valve stenosis. PULMONIC VALVE The pulmonary valve is normal in structure and function. There is no pulmonic valvular regurgitation. There is no pulmonic valvular stenosis. GREAT VESSELS The aortic root is normal in size. The ascending aorta is normal in size. The IVC is normal in size and collapses >50% with inspiration. PERICARDIAL EFFUSION The pericardium appears normal. There is no pleural effusion. <Conclusion> Normal LV Systolic Function Aortic Valve Sclerosis
--- NOTE | 2016-11-18 12:45 | CARD ---
APPROVED REPORT EKG Measurement Heart [id number] VA 140P-2 [id number] <Conclusion> Normal sinus rhythm ST & T wave abnormality, consider anterolateral ischemia Abnormal ECG
--- NOTE | 2016-11-18 19:07 | CON ---
CARDIOLOGY CONSULTATION DATE: REASON FOR CONSULTATION: Multiple falls. HISTORY OF PRESENT ILLNESS: The patient is a 71 years old female who has a history of coronary artery disease, status post coronary stenting to the right coronary artery many years ago; history of chronic obstructive lung disease; history of depression; history of breast cancer, status post lumpectomy and history of atrial tachycardia. History of anterior abdominal wall incisional hernia. She presented because of recurrent falls. The patient stated that she fell a few times, but denies any loss of consciousness. The patient did report dizziness. The patient denies any retrosternal chest pain at this time. SOCIAL HISTORY: The patient is a nonsmoker. MEDICATIONS: Ambien 5 mg at bed time, Antivert 25 mg t.i.d., Cardizem 300 mg t.i.d., aspirin 81 mg once daily, Glucophage 500 mg twice a day, Klonopin 0.5 mg twice a day, Lovenox 20 mg subcutaneous once a day, Pravachol 20 mg once a day, Questran 4 g p.o. b.i.d., Zoloft 100 mg daily, albuterol inhaler 2 puffs q. 4 hours. REVIEW OF SYSTEMS: The patient complains of abdominal discomfort related to hernia. She denies any recent nausea or vomiting. She denies any fever or chills. She denies productive cough or hemoptysis. PHYSICAL EXAMINATION: GENERAL: The patient is an elderly female who does not appear to be in acute distress. VITAL SIGNS: Blood pressure 133/82, heart rate 72, temperature 98, respirations 20. HEENT: Right eyebrow ecchymosis. NECK: No JVD. CHEST: Minimal bilateral rhonchi. HEART: S1 and S2 regular. ABDOMEN: Soft. An incisional reducible hernia is noted in the midline supraumbilical scar. EXTREMITIES: No edema. LABORATORY DATA: Hemoglobin, hematocrit, white count, and platelet count are within normal limits. PT, PTT, and INR are within normal limits. SMA-7; sodium 139, potassium 3.9, chloride 103, CO2 of 24, glucose 169, BUN 22, creatinine 1.0. Two sets of troponin are negative. Triglycerides are elevated to 409. HDL is below normal at 27. TSH level is within normal limits. EKG revealed sinus rhythm. Consider anterolateral ischemia. This is basically the baseline EKG for this patient. The echocardiographic study performed today revealed normal left ventricular systolic function, aortic valve sclerosis. Head CT scan without contrast revealed generalized atrophy, nonspecific white matter changes. Cervical spine CT scan, no acute findings. ASSESSMENT: 1. Recurrent falls with right eyebrow ecchymosis. 2. History of paroxysmal atrial tachycardia. 3. Chronic obstructive lung disease. 4 History of pulmonary embolism in the past. 5. History of coronary artery disease, status post coronary artery stenting. 6. History of depression. 7. Uncontrolled diabetes mellitus. 8. Hypertriglyceridemia. RECOMMENDATIONS: Continue current Antivert 25 mg t.i.d., aspirin 81 mg once daily, Cardizem 300 mg t.i.d., Lovenox 20 mg daily, Pravachol 20 mg at bedtime, Questran 4 g p.o. twice a day and Zoloft 100 mg daily. Conservative medical approach is recommended. The case was discussed with the primary physician, Dr. Valadez who is the original primary medical physician. Jan Whitfield MD
[2016-11-18] MEDS ORDERED: Pravastatin Sodium 20 MG TAB PO SCH (22:00)
[2016-11-19] MEDS: Albuterol HFA 90 mcg/actuation (8 g) IH PRN (02:54)
--- NOTE | 2016-11-19 06:47 | HP ---
HISTORY OF PRESENT ILLNESS: This is a 71-year-old female with history of multiple medical problems, presented to emergency room after she fell three times in the house. The patient stated that she was feeling dizzy and she was falling. Patient came with multiple contusions in the forehead as well as in extremities. The patient was evaluated in the emergency room, and due to her symptoms in addition to the intermittent chest pain, the patient was admitted for further evaluation. REVIEW OF SYSTEMS: Other review of systems is negative. ALLERGIES: NO KNOWN ALLERGY. PAST MEDICAL HISTORY: Coronary artery disease status post coronary artery stenting to the right coronary artery. COPD. Depression. Breast cancer, status post left lumpectomy. History of atrial tachycardia. History of anterior abdominal wall incisional hernia. SOCIAL HISTORY: No history of smoking, EtOH, or substance abuse. MEDICATIONS: Ambien 5 mg at bedtime, Cardizem 300 mg daily, aspirin 81 mg daily, Glucophage 500 mg twice a day, Klonopin 0.5 mg twice a day, Pravachol 20 mg daily, Zoloft 100 mg daily. FAMILY HISTORY: Noncontributory. PHYSICAL EXAMINATION: GENERAL: The patient is comfortable in bed, not in any cardiopulmonary distress. VITAL SIGNS: Blood pressure 130/70, temperature 98.2, respiratory rate 20, and pulse is 82. HEENT: Pupils equal, reactive to light. Normal-appearing mucosa of the conjunctivae, oropharyngeal, and nasal membrane mucosa. NECK: Supple, no JVD. No carotid bruit. No lymph node. No thyromegaly. CHEST AND LUNGS: Bilateral symmetrical expansion. Good air exchange. No rales, no rhonchi. CARDIOVASCULAR SYSTEM: PMI not localized. S1, S2. No additional sounds. ABDOMEN: Normoactive bowel sounds. No tenderness. No organomegaly. No masses. EXTREMITIES: No cyanosis, no clubbing, no edema. TECHNOLOGY MANAGER: Alert, awake, oriented x2. No neurological deficit could be appreciated. ASSESSMENT: 1. Frequent falls with multiple skin contusions. 2. Type 2 diabetes mellitus. 3. Coronary artery disease status post coronary stenting. 4. Chronic obstructive pulmonary disease, which is currently controlled. 5. Depression/anxiety. PLAN: Fall precautions. Neurology and Cardiology consultations. Echocardiogram. Resume patient's home medicines. We will check blood pressure for orthostatic changes. [facility] MD Rory [facility] # [phone]
--- NOTE | 2016-11-19 08:29 | CON ---
NEUROLOGIC CONSULTATION DATE: 11/18/2016 CHIEF COMPLAINT: Fall. HISTORY OF PRESENT ILLNESS: This is a 71-year-old woman with history of anemia, anxiety, depression, coronary artery disease, cardiac fracture, type 2 diabetes mellitus, hypertension, , history of breast cancer status post lumpectomy, osteoporosis, PE, who presented to the hospital after a mechanical fall. The patient had an intermittent chest pain 2 to 3 days to the right side of the head and face. Currently, denies any loss of weakness of the extremities, moving all extremities equally. She is on multiple meds at home such as Klonopin and risperidone and Percocet. She also takes Ambien at home at night. She is diabetic as well. She has a flat affect and seems very depressed. PAST MEDICAL HISTORY: History of anxiety, depression, COPD, history of breast cancer status post lumpectomy, asthma, anemia, anxiety, hypertension, hypercholesterolemia, PE, osteoporosis. REVIEW OF SYSTEMS: A 14-point review of systems is negative except as in the HPI. ALLERGIES: No known drug allergies. SOCIAL HISTORY: No illicit drug use, smoking, or EtOH abuse. PHYSICAL EXAMINATION VITAL SIGNS: Temperature 98.2, pulse rate 90, blood pressure 135/75, respiratory 20, oxygen saturation 96% on room air. GENERAL: The patient is sitting up in bed, in no acute distress. HEENT: Head is atraumatic and normocephalic. PERRLA. Extraocular muscles are intact. NECK: Supple. No JVD. No adenopathy noted. LUNGS: Clear to auscultation. No adventitious sounds. HEART: S1 and S2, normal rate and rhythm. No murmurs,rubs, or gallops. ABDOMEN: Soft, nontender, and nondistended. Bowel sounds are present. EXTREMITIES: No clubbing. No cyanosis. Peripheral pulses 2+ bilaterally. NEUROLOGIC: The patient is alert and oriented to person, place, month, and year. Flat affect. Speech is fluent without any errors. Cranial nerves II through XII intact. ____Motor exam: Moves all extremities equally. Sensory exam: Light touch, pinprick, proprioception, and vibration is intact. DTRs are 2+ throughout and 1 at the ankles. Coordination of vifagd-ev-elgw intact. Gait deferred for now. LABORATORY DATA: Sodium is 139, potassium 3.9, chloride of 102, carbon dioxide 24, BUN of 22, creatinine 1, random glucose 169. ASSESSMENT AND PLAN: This is a 71-year-old woman with history of hypertension, diabetes, anxiety, depression, history of osteoarthritis, and history of breast cancer status post lumpectomy, history of pulmonary embolism, who came in for status post fall and chest pain and fell to her right side. Fall seems most likely secondary to underlying deconditioning osteoarthritis with underlying diabetic peripheral neuropathy on examination. poor balance at this time. PLAN: 1. Physical and Occupational Therapy evaluation. 2. and hydration. 3. Keep blood pressure between 120 and 130. 4. Keep blood sugar 140 to 180.. 5. We will await today medications. At this time, continue Thanks for this consult. Dewey Reese MD
[2016-11-19] MEDS: Insulin Regular 100 units/ml SC SCH ×2 (08:59→13:47)
[2016-11-19] MEDS: Insulin Detemir 100 Units/ml Inj SC SCH (09:01)
[2016-11-19 09:02] VITALS: RESP 20; O2SAT 98
[2016-11-19] MEDS: Enoxaparin 40 mg Syringe SC SCH (09:02)
[2016-11-19] MEDS: Cholestyramine 4 gm/Pkt UD PO SCH (09:02)
[2016-11-19] MEDS: Lactobacillus Acidophilus 500 MU Cap PO SCH (09:03)
[2016-11-19] MEDS ORDERED: Alum-Mag Hydrox-Simethicone Susp (30 mL) PO PRN (09:08)
[2016-11-19 12:30] VITALS: BP 152/80; PULSE 79; TEMP 97.5
--- NOTE | 2016-11-19 20:33 | PN ---
SUBJECTIVE: The patient denies any dizziness or chest pain. She complains of abdominal discomfort. OBJECTIVE: VITAL SIGNS: Blood pressure 152/80, heart rate 79, temperature 97.5, respirations 20. HEENT: Normocephalic. CHEST: Minimal rhonchi. HEART: S1 and S2 regular. ABDOMEN: Incisional hernia in the epigastric area. EXTREMITIES: No edema. LABORATORY DATA: Today's blood sugars are 220 and 258. ASSESSMENT: 1. Recurrent falls. 2. Atrial tachycardia. 3. Uncontrolled diabetes mellitus. 4. Chronic obstructive lung disease. 5. History of depression. 6. History of pulmonary embolism 3 years ago. 7. Coronary artery disease with history of coronary artery stenting 3 years ago. 8. Hyperlipidemia. RECOMMENDATIONS: Continue current conservative medical approach including aspirin 81 mg once a day, Cardizem 30 mg t.i.d., subcutaneous Lovenox 40 mg once a day, albuterol inhaler, Pravachol, and Questran. Case was discussed with the BONDED STRAND OPERATOR. The patient can be discharged on current medical management. Jan Whitfield MD
--- NOTE | 2016-11-20 08:48 | DS ---
REASON FOR ADMISSION: This is a 71-year-old female with history of multiple medical problems, who was admitted for frequent falls. COURSE OF HOSPITALIZATION: The patient was admitted to telemetry floor and she has both Cardiology and Neurology evaluation done by Dr. Reese and by Dr. Whitfield. The patient remained without symptoms during this hospitalization. The patient was discharged back home to continue physical therapy as an outpatient. Episode of frequent falls were due to diabetic neuropathy. ASSESSMENT: 1. Frequent falls secondary to diabetic neuropathy. 2. Type 2 diabetes mellitus. 3. Hypertension. 4. History of cancer of breast, status post left lumpectomy. 5. History of depression/anxiety. [facility] MD Rory
== END 2016-11-19 14:30 | disposition home health service (06) | DRG 74 ==
LOC: H.ER 16:32 → H.ERHOLD 20:00 → H.TEL 21:24 → OBSVTOIN 11-18 20:56
PROVIDERS: ADMIT Internal Medicine; ATTEND Internal Medicine
PROC: 3E0234Z Introduction of Serum, Toxoid and Vaccine into Muscle, Percutaneous Approach (ICD-10-PCS; principal; 2016-11-18)
DX: E11.42 Type 2 diabetes mellitus with diabetic polyneuropathy (principal); E11.65 Type 2 diabetes mellitus with hyperglycemia; I47.1 Supraventricular tachycardia; S00.11XA Contusion of right eyelid and periocular area, initial encounter; R29.6 Repeated falls; J44.9 Chronic obstructive pulmonary disease, unspecified; I10 Essential (primary) hypertension; D64.9 Anemia, unspecified; E78.5 Hyperlipidemia, unspecified; I25.10 Atherosclerotic heart disease of native coronary artery without angina pectoris; M81.0 Age-related osteoporosis without current pathological fracture; E78.1 Pure hyperglyceridemia; F32.9 Major depressive disorder, single episode, unspecified; F41.9 Anxiety disorder, unspecified; M19.90 Unspecified osteoarthritis, unspecified site; W18.30XA Fall on same level, unspecified, initial encounter; Z23 Encounter for immunization; Z85.3 Personal history of malignant neoplasm of breast; Z86.711 Personal history of pulmonary embolism; Z95.5 Presence of coronary angioplasty implant and graft; Z79.82 Long term (current) use of aspirin; Y92.009 Unspecified place in unspecified non-institutional (private) residence as the place of occurrence of the external cause

== ENCOUNTER 2017-02-02 00:52 | Inpatient (IN) | payer MEDICARE, OTHER ==
[2017-02-02 00:52] VITALS: BMI 28.3
--- NOTE | 2017-02-02 01:44 | ED PDOC ---
HPI: Back Time Seen by Provider: 02/02/17 00:54 Chief Complaint (Nursing): Back Pain Chief Complaint (Provider): Back pain History Per: Patient History/Exam Limitations: no limitations Onset/Duration Of Symptoms: Days Current Symptoms Are (Timing): Still Present Quality Of Discomfort: "Pain" Additional History Per: Patient Additional Complaint(s): 72yo female with history of asthma, diabetes, breast cancer, presents to ED for evaluation after she fell 3x today. Patient states she felt dizzy and slipped and fell. She currently reports pain to her neck and back as well as headache. She denies any weakness, numbness, tingling, head injury, loss of consciousness. She has no other complaints. Past Medical History Reviewed: Historical Data, Nursing Documentation, Vital Signs Vital Signs: Last Vital Signs Temp 98.5 F 02/02/17 00:54 Pulse 93 H 02/02/17 00:54 Resp 18 02/02/17 00:54 BP 157/75 H 02/02/17 00:54 Pulse Ox 99 02/02/17 00:54 - Medical History PMH: Anemia, Anxiety, Asthma, CAD, Cardia Arrhythmia, COPD, Depression, Diabetes , Fractures (LEFT LEG), HTN, Hypercholesterolemia, Malignancy (breast cancer s/ p lumpectomy ), Osteoporosis, Pulmonary Embolism Denies: CVA, Hepatitis, Chronic Kidney Disease, Seizures, Sexually Transmitted Disease - Surgical History Surgical History: Appendectomy, Coronary Stent, Hernia Repair (umbilical hernia) - Family History Family History: States: Unknown Family Hx - Living Arrangements Living Arrangements: Alone - Social History Current smoker - smoking cessation education provided: No Ex-Smoker (has not smoked in the last 12 months): No Alcohol: None Drugs: Denies - Home Medications Home Medications: Ambulatory Orders Medication Instructions Recorded Sertraline HCl 100 mg PO DAILY 04/05/16 Zolpidem [Ambien] 5 mg PO HS 04/05/16 Albuterol Sulfate [Proair Hfa] 2 puff IH Q4 PRN 08/11/16 Oxycodone HCl/Acetaminophen 1 tab PO Q6 PRN 08/11/16 [Percocet 10-325 mg Tablet] Simvastatin 10 mg PO HS 08/11/16 Clonazepam [Klonopin] 0.5 mg PO BID 08/21/16 Aspirin [Ecotrin] 81 mg PO DAILY 08/28/16 Clonazepam [Klonopin] 1 mg PO HS 08/28/16 Insulin Detemir [Levemir] 12 unit SC BID 08/28/16 Meclizine [Meclizine*] 25 mg PO TID PRN 08/28/16 Risperidone [Risperdal] 1 mg PO HS 08/28/16 metFORMIN [glucOPHAGE] 500 mg PO BID 08/28/16 Cholestyramine [Questran] 4 gm PO BID #8 packet 09/01/16 Lactobacillus Acidophilus [Bacid 1 cap OD DAILY #6 cap 09/01/16 Acidophilus] Methylprednisolone [Medrol Dose 4 mg PO DAILY #21 mg 09/01/16 Pack (21 tabs)] diltiaZEM [Cardizem] 30 mg PO TID #90 tab 09/01/16 Clotrimazole 1% Cream [Lotrimin 1%] 1 appful TP BID #1 tube 10/30/16 - Allergies Allergies/Adverse Reactions: Allergies Allergy/AdvReac Type Severity Reaction Status Date / Time No Known Allergies Allergy Verified 03/02/16 20:08 Review of Systems ROS Statement: Except As Marked, All Systems Reviewed And Found Negative Musculoskeletal: Positive for: Neck Pain, Back Pain Neurological: Positive for: Headache. Negative for: Weakness, Numbness Physical Exam - Reviewed Nursing Documentation Reviewed: Yes Vital Signs Reviewed: Yes - Physical Exam Appears: Positive for: Uncomfortable Head Exam: Positive for: ATRAUMATIC, NORMAL INSPECTION, NORMOCEPHALIC Skin: Positive for: Normal Color Eye Exam: Positive for: EOMI, PERRL Neck: Positive for: Supple Cardiovascular/Chest: Positive for: Regular Rate, Rhythm Respiratory: Positive for: Normal Breath Sounds. Negative for: Respiratory Distress Gastrointestinal/Abdominal: Positive for: Soft. Negative for: Tenderness Extremity: Positive for: Normal ROM. Negative for: Deformity, Swelling Neurologic/Psych: Positive for: Alert, Oriented. Negative for: Motor/Sensory Deficits - Laboratory Results Result Diagrams: 02/02/17 02:04 02/02/17 02:04 - ECG O2 Sat by Pulse Oximetry: 99 (RA) Pulse Ox Interpretation: Normal Medical Decision Making Medical Decision Making: Impression: Back pain s/p fall Plan: -- CT Head w/o contrast -- CT C-Spine -- CT Thoracic Spine -- CT Lumbar Spine -- abs -- Chest x-ray -- Morphine 2 mg IV Reassess Time: 0255 CT C-Spine FINDINGS: Vertebrae: Unremarkable. No acute fracture. Discs/spinal canal/neural foramina: C3-C4: There is central disc herniation seen on image 52 series 605 and on image 29 series 2 and is unchanged from prior examination. No spinal canal stenosis. Soft tissues: Unremarkable. Lung apices: Unremarkable. IMPRESSION: There is no acute fracture of cervical spine CT Lumbar Spine FINDINGS: Vertebrae: There is acute comminuted fracture involving the superior endplate of L1 vertebral body with moderate compression and minimal retropulsion of the superior end plate measuring 2 mm The posterior elements are aligned and are intact. Discs/spinal canal/neural foramina: In L3-L4: There is a minimal diffuse disc bulge. Facet arthritis with ligamentum flavum hypertrophy. L4-L5: There is mild diffuse disc bulge with narrowing of bilateral subarticular recess. Facet arthritis. L5-S1 facet arthritis. Soft tissues: Unremarkable. Vasculature: The aorta demonstrates calcified plaque and is mildly ectatic but normal in caliber. Stomach and bowel: Nonspecific thickening of the colon likely due to under distention versus nonspecific colitis. Reproductive: Uterine fundal fibroid with calcification. IMPRESSION: There is acute comminuted fracture involving the superior endplate of L1 vertebral body with moderate compression and minimal retropulsion of the superior end plate measuring 2 mm . The posterior elements are aligned and are intact. CT Head FINDINGS: Brain: Cerebral and cerebellar volume loss. Patchy hypodensity is seen in the periventricular and subcortical white matter. No hemorrhage. Ventricles: Unremarkable. No ventriculomegaly. Bones/joints: Unremarkable. No acute fracture. Soft tissues: Unremarkable. Vasculature: Vascular calcifications. Sinuses: Unremarkable. No acute sinusitis. Mastoid air cells: Unremarkable. No mastoid effusion. Orbits: The globe and lens are intact. IMPRESSION: No evidence of an acute intracranial hemorrhage, midline shift or mass effect is identified CT Thoracic Spine FINDINGS: Vertebrae: There is acute comminuted fracture involving the superior endplate of L1 vertebral body with moderate compression and minimal retropulsion of the superior end plate measuring 2 mm The posterior elements are aligned and are intact. Discs/spinal canal/neural foramina: Degenerative changes. No spinal canal stenosis. Soft tissues: Unremarkable. Vasculature: The aorta demonstrates calcified plaque and is mildly ectatic but normal in caliber. Lungs: There is moderate perihilar interstitial prominence consistent with viral bronchitis versus reactive airway disease versus chronic changes versus early failure.Bibasilar nonspecific infiltrates are present, consistent with atelectasis or pneumonia. Mediastinum: Small hiatal hernia. Adrenals: Normal adrenal glands. Other findings: CRITICAL RESULT: The study was personally discussed on the telephone with Kerry Prasad on 02/02/2017 2:55 AM EST. The results were understood and acknowledged. IMPRESSION: 1. There is acute comminuted fracture involving the superior endplate of L1 vertebral body with moderate compression and minimal retropulsion of the superior end plate measuring 2 mm . The posterior elements are aligned and are intact. 2. There is no acute fracture of thoracic spine. Time: [address] Sutherland, hospitalist search engine optimization specialist, who accepts patient for admission fall/lumbar fracture Consult placed with Dr. Fagan, orthopedist search engine optimization specialist. Scribe Attestation: Documented by Michela Rendon acting as a scribe for Kerry Trent MD. Provider Attestation: All medical record entries made by the Scribe were at my direction and personally dictated by me. I have reviewed the chart and agree that the record accurately reflects my personal performance of the history, physical exam, medical decision making, and the department course for this patient. I have also personally directed, reviewed, and agree with the discharge instructions and disposition. Disposition - Clinical Impression Clinical Impression: Back strain, Fx lumbar vertebra-closed - Patient ED Disposition Is Patient to be Admitted: Yes - Disposition Disposition Time: 02:00 Condition: STABLE
[2017-02-02 02:13] LABS: BASO % 0.2 % (0.0-2.0); EOS % 0.1 % (0.0-4.0); HEMOGLOBIN 12.2 g/dL (12.0-16.0); LYMPH # 0.8 K/uL (1.0-4.3); LYMPH % 8.4 % (20.0-40.0); MEAN PLATELET VOLUME 8.8 fl (7.2-11.7); MONO # 0.7 K/uL (0.0-0.8); MONO % 6.4 % (0.0-10.0); NEUT # 8.6 K/uL (1.8-7.0); NEUT % 84.9 % (50.0-75.0); NRBC % 0.1 % (0.0-0.0); PLATELET COUNT 173 K/uL (130-400); RBC 4.34 Mil/uL (3.80-5.20); WHITE BLOOD COUNT 10.1 K/uL (4.8-10.8)
[2017-02-02 02:21] LABS: ALB/GLOB RATIO 1.4 (1.0-2.1); ALBUMIN 4.7 g/dL (3.5-5.0); CALCIUM 9.5 mg/dL (8.4-10.2)
[2017-02-02 02:32] LABS: TROPONIN I 0.079 ng/mL (0.00-0.120)
--- NOTE | 2017-02-02 02:44 | CT ---
EXAM: CT Cervical Spine Without Intravenous Contrast CLINICAL HISTORY: 72 years old, female; Injury or trauma; Fall; Initial encounter; Blunt trauma TECHNIQUE: Axial computed tomography images of the cervical spine without intravenous contrast. All CT scans at this facility use one or more dose reduction techniques, viz.: automated exposure control; ma/kV adjustment per patient size (including targeted exams where dose is matched to indication; i.e. head); or iterative reconstruction technique. 517 images are submitted.Sagittal , axial and coronal MPR reformatted images are submitted in soft tissue and bone windows. COMPARISON: CT - CERVICAL SPINE W/O CONTRAST 2016-11-17 17:15 FINDINGS: Vertebrae: Unremarkable. No acute fracture. Discs/spinal canal/neural foramina: C3-C4: There is central disc herniation seen on image 52 series 605 and on image 29 series 2 and is unchanged from prior examination. No spinal canal stenosis. Soft tissues: Unremarkable. Lung apices: Unremarkable. IMPRESSION: There is no acute fracture of cervical spine.
--- NOTE | 2017-02-02 02:47 | CT ---
EXAM: CT Head Without Intravenous Contrast CLINICAL HISTORY: 72 years old, female; Pain; Headache TECHNIQUE: Axial computed tomography images of the head/brain without intravenous contrast. All CT scans at this facility use one or more dose reduction techniques, viz.: automated exposure control; ma/kV adjustment per patient size (including targeted exams where dose is matched to indication; i.e. head); or iterative reconstruction technique. 319 images are submitted. Coronal and sagittal reformatted images were created and reviewed. Axial reformatted images were created and reviewed. COMPARISON: CT - HEAD W/O CONTRAST 2016-11-17 17:11 FINDINGS: Brain: Cerebral and cerebellar volume loss. Patchy hypodensity is seen in the periventricular and subcortical white matter. No hemorrhage. Ventricles: Unremarkable. No ventriculomegaly. Bones/joints: Unremarkable. No acute fracture. Soft tissues: Unremarkable. Vasculature: Vascular calcifications. Sinuses: Unremarkable. No acute sinusitis. Mastoid air cells: Unremarkable. No mastoid effusion. Orbits: The globe and lens are intact. IMPRESSION: No evidence of an acute intracranial hemorrhage, midline shift or mass effect is identified.
--- NOTE | 2017-02-02 02:54 | CT ---
EXAM: CT Lumbar Spine Without Intravenous Contrast CLINICAL HISTORY: 72 years old, female; Injury or trauma; Fall; Initial encounter; Blunt trauma (contusions or hematomas) TECHNIQUE: Axial computed tomography images of the lumbar spine without intravenous contrast. All CT scans at this facility use one or more dose reduction techniques, viz.: automated exposure control; ma/kV adjustment per patient size (including targeted exams where dose is matched to indication; i.e. head); or iterative reconstruction technique.Sagittal , axial and coronal MPR reformatted images are submitted in soft tissue and bone windows. 423 images are submitted. COMPARISON: CR - LUMBAR SPINE COMPLETE 2013-10-24 12:38 FINDINGS: Vertebrae: There is acute comminuted fracture involving the superior endplate of L1 vertebral body with moderate compression and minimal retropulsion of the superior end plate measuring 2 mm The posterior elements are aligned and are intact. Discs/spinal canal/neural foramina: In L3-L4: There is a minimal diffuse disc bulge. Facet arthritis with ligamentum flavum hypertrophy. L4-L5: There is mild diffuse disc bulge with narrowing of bilateral subarticular recess. Facet arthritis. L5-S1 facet arthritis. Soft tissues: Unremarkable. Vasculature: The aorta demonstrates calcified plaque and is mildly ectatic but normal in caliber. Stomach and bowel: Nonspecific thickening of the colon likely due to under distention versus nonspecific colitis. Reproductive: Uterine fundal fibroid with calcification. IMPRESSION: There is acute comminuted fracture involving the superior endplate of L1 vertebral body with moderate compression and minimal retropulsion of the superior end plate measuring 2 mm . The posterior elements are aligned and are intact.
--- NOTE | 2017-02-02 02:57 | CT ---
EXAM: CT Thoracic Spine Without Intravenous Contrast CLINICAL HISTORY: 72 years old, female; Injury or trauma; Fall; Initial encounter; Blunt trauma (contusions or hematomas) TECHNIQUE: Axial computed tomography images of the thoracic spine without intravenous contrast. All CT scans at this facility use one or more dose reduction techniques, viz.: automated exposure control; ma/kV adjustment per patient size (including targeted exams where dose is matched to indication; i.e. head); or iterative reconstruction technique. 403 images are submitted. Coronal and sagittal reformatted images were created and reviewed. COMPARISON: CR - DORSAL (THORACIC) SPINE 2013-10-24 12:33 FINDINGS: Vertebrae: There is acute comminuted fracture involving the superior endplate of L1 vertebral body with moderate compression and minimal retropulsion of the superior end plate measuring 2 mm The posterior elements are aligned and are intact. Discs/spinal canal/neural foramina: Degenerative changes. No spinal canal stenosis. Soft tissues: Unremarkable. Vasculature: The aorta demonstrates calcified plaque and is mildly ectatic but normal in caliber. Lungs: There is moderate perihilar interstitial prominence consistent with viral bronchitis versus reactive airway disease versus chronic changes versus early failure.Bibasilar nonspecific infiltrates are present, consistent with atelectasis or pneumonia. Mediastinum: Small hiatal hernia. Adrenals: Normal adrenal glands. Other findings: CRITICAL RESULT: The study was personally discussed on the telephone with Kerry Prasad on 02/02/2017 2:55 AM EST. The results were understood and acknowledged. IMPRESSION: 1. There is acute comminuted fracture involving the superior endplate of L1 vertebral body with moderate compression and minimal retropulsion of the superior end plate measuring 2 mm . The posterior elements are aligned and are intact. 2. There is no acute fracture of thoracic spine.
[2017-02-02 03:11] LABS: ANISOCYTOSIS SLIGHT; BANDS 2 % (0-2); LYMPHOCYTE 7 % (20-50); MONOCYTE 5 % (0-10); NEUTROPHIL 86 % (42-75); PLATELET ESTIMATE NORMAL (NORMAL); TOTAL CELLS COUNTED 100
[2017-02-02] MEDS ORDERED: Sodium Chloride 0.9% 1,000 ML IV SCH (03:15)
--- NOTE | 2017-02-02 03:17 | CP.PCM.HP ---
History of Present Illness - History of Present Illness History of Present Illness: CC: fall, LBP HPI: This is a 72 y/o female with MHx significant for asthma, DM2, CAD, and breast cancer in the past who comes in with multiple falls and back pain today. Patient said she felt dizzy several times and slipped and fell. She denies LOC. Patient has no LE asymmetric weakness or abnormal sensation, urine/stool retention or incontinence. PMD: Rory ROS: 14 systems reviewed, negative other than HPI MHx: Asthma/COPD, Anxiety, CAD, ?arrhythmia, depression, HTN, HLD, breast cancer in past, PE SHx: Appx, coronary stents, hernia repair, breast lumpectomy Allergies: NKDA Medications: as per med rec Family Hx: reviewed, no relevant findings Social Hx: Lives , no tobacco, no EtOH Surrogate Jan Mkr: Pallavi Hirsch, sibling Present on Admission - Present on Admission Any Indicators Present on Admission: No Past Patient History - Infectious Disease Hx of Infectious Diseases: None - Past Medical History & Family History Past Medical History?: Yes - Past Social History Alcohol: None Drugs: Denies - CARDIAC Hx Cardia Arrhythmia: Yes Hx Hypercholesterolemia: Yes Hx Hypertension: Yes - PULMONARY Hx Asthma: Yes Hx Chronic Obstructive Pulmonary Disease (COPD): Yes Hx Pulmonary Embolism: Yes - NEUROLOGICAL Hx Seizures: No - HEENT Hx HEENT Problems: Yes Other/Comment: Dentures - RENAL Hx Chronic Kidney Disease: No - ENDOCRINE/METABOLIC Hx Endocrine Disorders: Yes Hx Diabetes Mellitus Type 2: Yes - HEMATOLOGICAL/ONCOLOGICAL Hx Anemia: Yes - INTEGUMENTARY Hx Dermatological Problems: No - MUSCULOSKELETAL/RHEUMATOLOGICAL Hx Fractures: Yes (LEFT LEG) Hx Osteoporosis: Yes - GASTROINTESTINAL Hx Gastrointestinal Disorders: No - GENITOURINARY/GYNECOLOGICAL Hx Sexually Transmitted Disorders: No - PSYCHIATRIC Hx Anxiety: Yes Hx Depression: Yes - SURGICAL HISTORY Hx Appendectomy: Yes Hx Coronary Stent: Yes - ANESTHESIA Hx Anesthesia: Yes Hx Anesthesia Reactions: No Hx Malignant Hyperthermia: No Meds Allergies/Adverse Reactions: Allergies Allergy/AdvReac Type Severity Reaction Status Date / Time No Known Allergies Allergy Verified 03/02/16 20:08 Results - Vital Signs Recent Vital Signs: Last Vital Signs Temp 98.5 F 02/02/17 00:54 Pulse 93 H 02/02/17 00:54 Resp 18 02/02/17 00:54 BP 157/75 H 02/02/17 00:54 Pulse Ox 99 02/02/17 03:11 - Labs Result Diagrams: 02/02/17 02:04 02/02/17 02:04 Labs: Laboratory Results - last 24 hr 02/02/17 02/02/17 02/02/17 02:04 02:04 03:04 WBC 10.1 D RBC 4.34 Hgb 12.2 Hct 36.9 MCV 85.0 MCH 28.0 MCHC 33.0 RDW 15.0 H Plt Count 173 MPV 8.8 Neut % (Auto) 84.9 H Lymph % (Auto) 8.4 L [place] % (Auto) 6.4 Eos % (Auto) 0.1 Baso % (Auto) 0.2 Neut # 8.6 H Lymph # 0.8 L [place] # 0.7 Eos # 0.0 Baso # 0.0 Neutrophils % (Manual) 86 H Band Neutrophils % 2 Lymphocytes % (Manual) 7 L Monocytes % (Manual) 5 Platelet Estimate Normal Anisocytosis (manual) Slight Sodium 141 Potassium 4.5 Chloride 104 Carbon Dioxide 22 Anion Gap 20 BUN 28 H Creatinine 1.3 H Est GFR ( Amer) 49 Est GFR (Non-Af Amer) 40 POC Glucose (mg/dL) 323 H Random Glucose 370 H Calcium 9.5 Total Bilirubin 0.7 AST 43 H ALT 45 Alkaline Phosphatase 79 Troponin I 0.0790 Total Protein 8.0 Albumin 4.7 Globulin 3.3 Albumin/Globulin Ratio 1.4 - Imaging and Cardiology CT scan - head Status: Image reviewed by me (no ICH), Report reviewed by me CT scan - chest Status: Image reviewed by me (Lumbar vertebral fx), Report reviewed by me Assessment & Plan (1) Fall Assessment and Plan: 72 y/o female with DM2 and asthma/COPD who comes in with lumbar vertebral fx in setting of multiple falls. 1) Fall, vertebral fracture -Med surg -Pain control per pain scale -Orthopedic surgery consult in AM -NPO in case patient goes for procedure -Obtain CXR, EKG, and PT/PTT 2) DM2 -NPO for now -q6h accuchecks -SSI 3) DVT PPx -- SCDs only for now Status: Acute (2) Fx lumbar vertebra-closed Status: Acute (3) DM2 (diabetes mellitus, type 2) Status: Acute (4) DVT prophylaxis Status: Acute
[2017-02-02] MEDS ORDERED: Patient's Own Med (Albuterol Sulfate 2 PUFF) IH PRN (03:36)
[2017-02-02] MEDS: Insulin Lispro (humaLOG) 100 Units/ml Inj SC SCH ×4 (03:42→21:53)
[2017-02-02] MEDS ORDERED: Albuterol HFA 90 mcg/actuation (8 g) INH PRN (03:44)
[2017-02-02 06:30] LABS: INR 1.1 (0.9-1.2); PARTIAL THROMBOPLASTIN TIME 29.1 Seconds (25.6-37.1); PROTHROMBIN TIME 11.9 Seconds (9.8-13.1)
[2017-02-02 06:36] LABS: SQUAMOUS EPITHIAL < 1 /hpf (0-5); URINE BACTERIA RARE (<OCC); URINE BILIRUBIN NEGATIVE (NEGATIVE); URINE BLOOD NEGATIVE (NEGATIVE); URINE CLARITY CLEAR (Clear); URINE COLOR YELLOW (YELLOW); URINE GLUCOSE (UA) >=500 mg/dL (Normal); URINE LEUKOCYTE ESTERASE TRACE Leu/uL (Negative); URINE NITRATE NEGATIVE (NEGATIVE); URINE PROTEIN NEGATIVE (NEGATIVE); URINE UROBILINOGEN 0.2-1.0 mg/dL (0.2-1.0)
--- NOTE | 2017-02-02 08:32 | CARD ---
APPROVED REPORT EKG Measurement Heart [id number] <Conclusion> Sinus rhythm with premature supraventricular complexes and with occasional premature ventricular complexes ST & T wave abnormality, consider anterolateral ischemia Prolonged QT Abnormal ECG
--- NOTE | 2017-02-02 09:11 | RAD ---
HISTORY: fall COMPARISON: Chest radiograph dated 11/17/2016 FINDINGS: LUNGS: No active pulmonary disease. PLEURA: No significant pleural effusion identified, no pneumothorax apparent. CARDIOVASCULAR: Atherosclerotic aortic calcifications. Cardiomediastinal silhouette unchanged. OSSEOUS STRUCTURES: Unchanged. VISUALIZED UPPER ABDOMEN: Normal. OTHER FINDINGS: None. IMPRESSION: No active disease.
[2017-02-02] MEDS: Cholestyramine 4 gm/Pkt UD PO SCH ×2 (09:17→16:48)
[2017-02-02] MEDS: Potassium Ch 20mEq in D5-1/2NS 1,000 ML IV SCH ×2 (12:30→22:53)
[2017-02-02] MEDS: Oxycodone/Acetaminophen 5/325 mg Tab PO PRN (16:47)
[2017-02-02] MEDS: Pravastatin Sodium 20 MG TAB PO SCH (21:24)
[2017-02-03] MEDS: Oxycodone/Acetaminophen 5/325 mg Tab PO PRN ×2 (02:52→21:12)
[2017-02-03 05:50] LABS: HEMOGLOBIN 12.2 g/dL (12.0-16.0); MEAN CELL VOLUME 84.5 fl (81.0-99.0); MEAN CORPUSCULAR HEMOGLOBIN 28.2 pg (27.0-31.0); MEAN CORPUSCULAR HGB CONC 33.4 g/dL (33.0-37.0); RBC 4.31 Mil/uL (3.80-5.20); RED CELL DISTRIBUTION WIDTH 14.7 % (11.5-14.5); WHITE BLOOD COUNT 11.2 K/uL (4.8-10.8)
[2017-02-03] MEDS ORDERED: Metoprolol 1 mg/ml Inj IVP STA (06:18)
[2017-02-03] MEDS: Insulin Lispro (humaLOG) 100 Units/ml Inj SC SCH ×4 (06:21→22:57)
[2017-02-03 06:46] LABS: BLOOD UREA NITROGEN 12 mg/dl (7-17); CALCIUM 8.7 mg/dL (8.4-10.2); GFR AFRICAN-AMERICAN > 60; GFR NON-AFRICAN AMERICAN > 60
--- NOTE | 2017-02-03 07:50 | CP.PCM.PN ---
Subjective - Date & Time of Evaluation Date of Evaluation: 02/03/17 Time of Evaluation: 07:49 - Subjective Subjective: cc: aflutter, L1 Communited fracture pain in lumbar spine, increased pain control HR >145 overnight AFLUTTER 2:1/3:1 scheduled Cardizem PO added Lopressor 25 mg PO q12 Neurosurgery consult today appreciated PT OT hdstable nad Objective - Vital Signs/Intake and Output Vital Signs (last 24 hours): Temp Pulse Resp BP Pulse Ox 98.1 F 149 H 18 138/89 92 L 02/03/17 05:14 02/03/17 06:27 02/03/17 05:14 02/03/17 06:27 02/03/17 05:14 - Medications Medications: Current Medications Acetaminophen (Tylenol 325mg Tab) 650 mg PO Q6 PRN PRN Reason: Pain, Mild (1-3) Albuterol (Ventolin Hfa 90 Mcg/Actuation (8 G)) 2 puff INH RQ4 PRN PRN Reason: Shortness of Breath Aspirin (Ecotrin) 81 mg PO DAILY [facility] Last Admin: 02/02/17 09:17 Dose: 81 mg Cholestyramine Resin (Questran) 4 gm PO BID [facility] Last Admin: 02/02/17 16:48 Dose: Not Given Clonazepam (Klonopin) 0.5 mg PO BID [facility] Last Admin: 02/02/17 16:47 Dose: 0.5 mg Clonazepam (Klonopin) 1 mg PO HS [facility] Last Admin: 02/02/17 21:24 Dose: 1 mg Diltiazem HCl (Cardizem) 30 mg PO Q8H [facility] Potassium Chloride/Dextrose/Sod Cl (Potassium Chl 20 Meq In D5-1/2ns) 1,000 mls @ 100 mls/hr IV .Q10H [facility] Stop: 02/03/17 11:55 Last Admin: 02/02/17 22:53 Dose: 100 mls/hr Insulin Human Lispro (Humalog) 0 units SC Q6H [facility] PRN Reason: Protocol Last Admin: 02/03/17 06:21 Dose: 3 units Meclizine HCl (Antivert) 25 mg PO TID PRN PRN Reason: Dizziness Last Admin: 02/02/17 09:17 Dose: 25 mg Metoprolol Tartrate (Lopressor) 25 mg PO Q12 [facility] Morphine Sulfate (Morphine) 2 mg IVP Q4 PRN PRN Reason: Pain, severe (8-10) Last Admin: 02/03/17 00:26 Dose: 2 mg Ondansetron HCl (Zofran Inj) 4 mg IVP Q6 PRN PRN Reason: Nausea/Vomiting Oxycodone/Acetaminophen (Percocet 5/325 Mg Tab) 1 tab PO Q4 PRN PRN Reason: Pain, moderate (4-7) Stop: 02/05/17 03:12 Last Admin: 02/03/17 02:52 Dose: 1 tab Pravastatin Sodium (Pravachol) 20 mg PO HS [facility] Last Admin: 02/02/17 21:24 Dose: 20 mg Sertraline HCl (Zoloft) 100 mg PO DAILY [facility] Last Admin: 02/02/17 09:17 Dose: 100 mg - Labs Labs: 02/03/17 04:20 02/03/17 04:20 PT 11.9 Seconds (9.8-13.1) 02/02/17 05:50 INR 1.1 (0.9-1.2) 02/02/17 05:50 APTT 29.1 Seconds (25.6-37.1) 02/02/17 05:50 - Constitutional Appears: Non-toxic, No Acute Distress - Head Exam Head Exam: ATRAUMATIC, NORMOCEPHALIC - Eye Exam Eye Exam: EOMI, Normal appearance - ENT Exam ENT Exam: Mucous Membranes Moist, Normal Oropharynx - Neck Exam Neck Exam: Full ROM, Normal Inspection - Respiratory Exam Respiratory Exam: Clear to Ausculation Bilateral, NORMAL BREATHING PATTERN - Cardiovascular Exam Cardiovascular Exam: RRR, +S1, +S2 - GI/Abdominal Exam GI & Abdominal Exam: Soft, Normal Bowel Sounds - Extremities Exam Extremities Exam: Normal Capillary Refill. absent: Joint Swelling - Back Exam Back Exam: absent: CVA tenderness (L), CVA tenderness (R) - Neurological Exam Neurological Exam: Alert, Awake - Psychiatric Exam Psychiatric exam: Normal Affect, Normal Mood - Skin Skin Exam: Dry, Normal Color Assessment and Plan - Assessment and Plan (Free Text) Plan: 72 y/o female with DM2 and asthma/COPD who comes in with lumbar vertebral fx in setting of multiple falls. AFLUTTER Patient became tachycardic overnight, found to be in aflutter. +Lopressor for HR +145 OVERNIGHT pain in lumbar spine, increased pain control scheduled Cardizem PO added Lopressor 25 mg PO q12 Fall, vertebral fracture L1 COMMINUTED Pain control per pain scale Orthopedic surgery consult recommended NSx Cx Neurosurgery consult today appreciated no surgical intervention, brace, follow up as outpt PT OT for regular diet DM2 diabetic diet accuchecks SSI DVT PPx -- SCDs only for now
--- NOTE | 2017-02-03 07:55 | CARD ---
APPROVED REPORT EKG Measurement Heart [id number] <Conclusion> Atrial flutter with variable AV block ST & T wave abnormality, consider anterolateral ischemia Abnormal ECG
[2017-02-03] MEDS: Cholestyramine 4 gm/Pkt UD PO SCH ×2 (09:10→17:54)
--- NOTE | 2017-02-03 11:19 | CP.PCM.PN ---
Subjective - Date & Time of Evaluation Date of Evaluation: 02/03/17 Time of Evaluation: 11:18 - Subjective Subjective: full consult dicatated L1 comp fx 30% or so neuro intact not surgical suggest Olmos brace, analgesics follow in office post d/c Objective - Vital Signs/Intake and Output Vital Signs (last 24 hours): Temp Pulse Resp BP Pulse Ox 98 F 148 H 18 122/77 94 L 02/03/17 08:16 02/03/17 09:10 02/03/17 08:16 02/03/17 09:10 02/03/17 08:16 - Medications Medications: Current Medications Acetaminophen (Tylenol 325mg Tab) 650 mg PO Q6 PRN PRN Reason: Pain, Mild (1-3) Albuterol (Ventolin Hfa 90 Mcg/Actuation (8 G)) 2 puff INH RQ4 PRN PRN Reason: Shortness of Breath Aspirin (Ecotrin) 81 mg PO DAILY [facility] Last Admin: 02/03/17 09:08 Dose: 81 mg Cholestyramine Resin (Questran) 4 gm PO BID [facility] Last Admin: 02/03/17 09:10 Dose: 4 gm Clonazepam (Klonopin) 0.5 mg PO BID [facility] Last Admin: 02/03/17 09:07 Dose: 0.5 mg Clonazepam (Klonopin) 1 mg PO HS [facility] Last Admin: 02/02/17 21:24 Dose: 1 mg Diltiazem HCl (Cardizem) 30 mg PO Q8H [facility] Last Admin: 02/03/17 09:06 Dose: 30 mg Potassium Chloride/Dextrose/Sod Cl (Potassium Chl 20 Meq In D5-1/2ns) 1,000 mls @ 100 mls/hr IV .Q10H [facility] Stop: 02/03/17 11:55 Last Admin: 02/02/17 22:53 Dose: 100 mls/hr Insulin Human Lispro (Humalog) 0 units SC Q6H [facility] PRN Reason: Protocol Last Admin: 02/03/17 06:21 Dose: 3 units Meclizine HCl (Antivert) 25 mg PO TID PRN PRN Reason: Dizziness Last Admin: 02/02/17 09:17 Dose: 25 mg Metoprolol Tartrate (Lopressor) 25 mg PO Q12 [facility] Last Admin: 02/03/17 09:10 Dose: 25 mg Morphine Sulfate (Morphine) 2 mg IVP Q4 PRN PRN Reason: Pain, severe (8-10) Last Admin: 02/03/17 09:17 Dose: 2 mg Ondansetron HCl (Zofran Inj) 4 mg IVP Q6 PRN PRN Reason: Nausea/Vomiting Oxycodone/Acetaminophen (Percocet 5/325 Mg Tab) 1 tab PO Q4 PRN PRN Reason: Pain, moderate (4-7) Stop: 02/05/17 03:12 Last Admin: 02/03/17 02:52 Dose: 1 tab Pravastatin Sodium (Pravachol) 20 mg PO HS [facility] Last Admin: 02/02/17 21:24 Dose: 20 mg Sertraline HCl (Zoloft) 100 mg PO DAILY [facility] Last Admin: 02/03/17 09:11 Dose: 100 mg - Labs Labs: 02/03/17 04:20 02/03/17 04:20 PT 11.9 Seconds (9.8-13.1) 02/02/17 05:50 INR 1.1 (0.9-1.2) 02/02/17 05:50 APTT 29.1 Seconds (25.6-37.1) 02/02/17 05:50
--- NOTE | 2017-02-03 11:21 | CP.PCM.CON ---
History of Present Illness - History of Present Illness History of Present Illness: HPI: This is a 72 y/o female with MHx significant for asthma, DM2, CAD, and breast cancer in the past who comes in with multiple falls and back pain today. Patient said she felt dizzy several times and slipped and fell. She denies LOC. Patient has no LE asymmetric weakness or abnormal sensation, urine/stool retention or incontinence. PMD: Rory ROS: 14 systems reviewed, negative other than HPI MHx: Asthma/COPD, Anxiety, CAD, ?arrhythmia, depression, HTN, HLD, breast cancer in past, PE SHx: Appx, coronary stents, hernia repair, breast lumpectomy Allergies: NKDA Medications: as per med rec Family Hx: reviewed, no relevant findings Social Hx: Lives , no tobacco, no EtOH Ct 30% comp fx L1 EXAM 5/ both le tender over l spine to palpation no dec to pin DTR 1/ all Imp stable L1 comp fx Pt should wear brace while oob follow up in office as out pt Past Patient History - Infectious Disease Hx of Infectious Diseases: None - Past Medical History & Family History Past Medical History?: Yes - Past Social History Alcohol: None Drugs: Denies - CARDIAC Hx Cardia Arrhythmia: Yes Hx Hypercholesterolemia: Yes Hx Hypertension: Yes - PULMONARY Hx Asthma: Yes Hx Chronic Obstructive Pulmonary Disease (COPD): Yes Hx Pulmonary Embolism: Yes - NEUROLOGICAL Hx Seizures: No - HEENT Hx HEENT Problems: Yes - RENAL Hx Chronic Kidney Disease: No - ENDOCRINE/METABOLIC Hx Endocrine Disorders: Yes - HEMATOLOGICAL/ONCOLOGICAL Hx Anemia: Yes - INTEGUMENTARY Hx Dermatological Problems: No - MUSCULOSKELETAL/RHEUMATOLOGICAL Hx Fractures: Yes (LEFT LEG) Hx Osteoporosis: Yes - GASTROINTESTINAL Hx Gastrointestinal Disorders: No - GENITOURINARY/GYNECOLOGICAL Hx Sexually Transmitted Disorders: No - PSYCHIATRIC Hx Anxiety: Yes Hx Depression: Yes - SURGICAL HISTORY Hx Appendectomy: Yes Hx Coronary Stent: Yes - ANESTHESIA Hx Anesthesia: Yes Hx Anesthesia Reactions: No Hx Malignant Hyperthermia: No Meds Allergies/Adverse Reactions: Allergies Allergy/AdvReac Type Severity Reaction Status Date / Time No Known Allergies Allergy Verified 03/02/16 20:08 - Medications Medications: Current Medications Acetaminophen (Tylenol 325mg Tab) 650 mg PO Q6 PRN PRN Reason: Pain, Mild (1-3) Albuterol (Ventolin Hfa 90 Mcg/Actuation (8 G)) 2 puff INH RQ4 PRN PRN Reason: Shortness of Breath Aspirin (Ecotrin) 81 mg PO DAILY [facility] Last Admin: 02/03/17 09:08 Dose: 81 mg Cholestyramine Resin (Questran) 4 gm PO BID [facility] Last Admin: 02/03/17 09:10 Dose: 4 gm Clonazepam (Klonopin) 0.5 mg PO BID [facility] Last Admin: 02/03/17 09:07 Dose: 0.5 mg Clonazepam (Klonopin) 1 mg PO HS [facility] Last Admin: 02/02/17 21:24 Dose: 1 mg Diltiazem HCl (Cardizem) 30 mg PO Q8H [facility] Last Admin: 02/03/17 09:06 Dose: 30 mg Potassium Chloride/Dextrose/Sod Cl (Potassium Chl 20 Meq In D5-1/2ns) 1,000 mls @ 100 mls/hr IV .Q10H [facility] Stop: 02/03/17 11:55 Last Admin: 02/02/17 22:53 Dose: 100 mls/hr Insulin Human Lispro (Humalog) 0 units SC Q6H [facility] PRN Reason: Protocol Last Admin: 02/03/17 06:21 Dose: 3 units Meclizine HCl (Antivert) 25 mg PO TID PRN PRN Reason: Dizziness Last Admin: 02/02/17 09:17 Dose: 25 mg Metoprolol Tartrate (Lopressor) 25 mg PO Q12 [facility] Last Admin: 02/03/17 09:10 Dose: 25 mg Morphine Sulfate (Morphine) 2 mg IVP Q4 PRN PRN Reason: Pain, severe (8-10) Last Admin: 02/03/17 09:17 Dose: 2 mg Ondansetron HCl (Zofran Inj) 4 mg IVP Q6 PRN PRN Reason: Nausea/Vomiting Oxycodone/Acetaminophen (Percocet 5/325 Mg Tab) 1 tab PO Q4 PRN PRN Reason: Pain, moderate (4-7) Stop: 02/05/17 03:12 Last Admin: 02/03/17 02:52 Dose: 1 tab Pravastatin Sodium (Pravachol) 20 mg PO HS [facility] Last Admin: 02/02/17 21:24 Dose: 20 mg Sertraline HCl (Zoloft) 100 mg PO DAILY [facility] Last Admin: 02/03/17 09:11 Dose: 100 mg Results - Vital Signs Recent Vital Signs: Last Vital Signs Temp 98 F 02/03/17 08:16 Pulse 148 H 02/03/17 09:10 Resp 18 02/03/17 08:16 BP 122/77 02/03/17 09:10 Pulse Ox 94 L 02/03/17 08:16 - Labs Result Diagrams: 02/03/17 04:20 02/03/17 04:20 Labs: Laboratory Results - last 24 hr 02/02/17 02/02/17 02/02/17 11:28 15:42 21:38 WBC RBC Hgb Hct MCV MCH MCHC RDW Plt Count Sodium Potassium Chloride Carbon Dioxide Anion Gap BUN Creatinine Est GFR ( Amer) Est GFR (Non-Af Amer) POC Glucose (mg/dL) 231 H 248 H 248 H Random Glucose Calcium 02/03/17 02/03/17 02/03/17 04:20 04:20 05:41 WBC 11.2 H RBC 4.31 Hgb 12.2 Hct 36.5 MCV 84.5 MCH 28.2 MCHC 33.4 RDW 14.7 H Plt Count 166 Sodium 138 Potassium 3.8 Chloride 105 Carbon Dioxide 18 L Anion Gap 19 BUN 12 Creatinine 0.9 Est GFR ( Amer) > 60 Est GFR (Non-Af Amer) > 60 POC Glucose (mg/dL) 288 H Random Glucose 304 H Calcium 8.7
[2017-02-03] MEDS ORDERED: Enoxaparin 40 mg Syringe SC SCH (13:30)
[2017-02-03] MEDS ORDERED: Metoprolol 1 mg/ml Inj IVP ONE (14:57)
[2017-02-03] MEDS: Pravastatin Sodium 20 MG TAB PO SCH (21:16)
--- NOTE | 2017-02-03 21:39 | CON ---
DATE: CARDIOLOGY CONSULTATION REASON FOR CONSULTATION: A fall and history of coronary artery disease and coronary stenting in the past. HISTORY OF PRESENT ILLNESS: The patient is a 72-year-old female, who has multiple medical problems. History of coronary artery disease, status post right coronary artery stenting a few years ago; history of pulmonary embolism; history of COPD; history of paroxysmal atrial tachycardia; history of breast cancer, status post lumpectomy with residual seroma; history of pulmonary embolism; history of multiple admissions for exacerbation of chronic obstructive lung disease, for palpitation and for falls in the past. The patient presents at this time because of a fall and subsequent back pain. Despite the fact, I took, the history via special investigator who is the patient's AGILE TESTER. The patient could not remember why she fell and how she fell. The patient denies any palpitation. She is in sinus rhythm on a monitor. SOCIAL HISTORY: Nonsmoker. She lives with her grandson. MEDICATIONS: Antivert 25 mg t.i.d., Cardizem 30 mg q. 8 hours, aspirin 81 mg once a day, Lopressor 25 mg twice a day, Lovenox 40 mg subcutaneously once a day, morphine sulfate 2 mg intravenously q. 4 hours p.r.n., Percocet 1 tablet q. 6 hours p.r.n., Pravachol 20 mg at bedtime, Questran 4 mg p.o. twice a day, Zoloft 100 mg once a day, Zofran 4 mg intravenously q. 6 hours p.r.n. REVIEW OF SYSTEMS: No reported ventricular tachycardia. No reported hypertension. The patient denies any chest pain, nausea or vomiting. The patient denies any fever or chills. PHYSICAL EXAMINATION: GENERAL: The patient is an elderly female, who does not appear to be in any acute distress. VITAL SIGNS: Blood pressure 119/78, heart rate 86, temperature 98, respirations 18. HEENT: Normocephalic. CHEST: Bilateral rhonchi. HEART: S1 and S2 regular. ABDOMEN: Soft. EXTREMITIES: No edema. LABORATORY DATA: Today's CBC, WBC 11.2, hemoglobin 12.2, hematocrit 36.5, platelet count 166,000. SMA-7: Sodium 138, potassium 3.8, chloride 105, CO2 of 18, glucose 304, BUN 12, creatinine 0.9. D-dimer is 911. Thoracic spine CT scan revealed acute comminuted fracture involving superior end plate of L1 vertebral body with moderate compression and minimal retropulsion of the superior end plate measuring 2 mm. The posterior elements are aligned and are intact. There is no acute fracture of thoracic spine. Lumbar spine CT scan described the same thing that was mentioned earlier. Head CT scan without contrast: No evidence of acute intracranial hemorrhage, midline shifts or mass effect. Cervical spine CT scan: There is no acute fracture of cervical spine. EKG on admission sinus rhythm with premature supraventricular complexes and occasional PVCs. ST-T wave changes. Consider anterolateral ischemia. Prolonged QT interval. Today's EKG revealed atrial flutter with variable AV block. ST-T wave abnormality. Consider anterolateral ischemia. Chest x-ray revealed prominent bronchovascular markings. Widened mediastinum. Most likely unfolding of the aortic arch. ASSESSMENT: 1. Status post fall with comminuted fracture involving the superior end plate of L1 vertebral body with moderate compression and minimal retropulsion of the superior end plate measuring 2 mm. 2. Paroxysmal atrial flutter. 3. Prolonged QT interval. 4. Uncontrolled diabetes mellitus. 5. History of coronary artery disease, status post coronary stenting to the distal right coronary artery. 6. History of pulmonary embolism in the past. RECOMMENDATIONS: Continue Cardizem 30 mg q. 8 hours, aspirin 81 mg once a day, Lopressor 25 mg twice a day, Lovenox 40 mg subcutaneous once a day, Pravachol 20 mg once a day, Questran 4 g p.o. twice a day. Obtain a chest CT angio to rule out recurrent pulmonary embolism in view of new evidence of paroxysmal atrial flutter. Long-term anticoagulation will be discussed with the primary physician as the patient has history of recurrent falls. Jan Whitfield MD
--- NOTE | 2017-02-04 00:48 | PN ---
DATE: 02/03/2017 SUBJECTIVE: Patient is seen today on 02/03/2017. She is still complaining of back pain. PHYSICAL EXAMINATION: VITAL SIGNS: Blood pressure is 128/74, temperature 98.2, respiratory rate 16, pulse 83. HEENT: Pupils equal, reactive to light. Normal-appearing mucosa of the conjunctive, oropharynx, and nasal membrane mucosa. NECK: Supple. No JVD. No carotid bruit. No lymph node. No thyromegaly. CHEST AND LUNGS: Bilateral symmetrical expansion. Good air exchange. No rales. No rhonchi. CARDIOVASCULAR SYSTEM: PMI not localized. S1 and S2. No additional sounds. ABDOMEN: Normoactive bowel sounds. No tenderness. No organomegaly. No masses. EXTREMITIES: No cyanosis. No clubbing. No edema. CENTRAL NERVOUS SYSTEM: Alert, awake, oriented x2. No neurological deficit could be appreciated. ASSESSMENT: 1. Fall with vertebral lumbar fracture. 2. Type 2 diabetes mellitus. 3. Chronic obstructive pulmonary disease. 4. History of cancer of breasts status post right lumpectomy. 5. Hypertension. PLAN: Follow neurosurgical recommendation. Physical therapy. We will add Miacalcin nasal spray. Continue pain management. Resume patient's home medications. Can Valadez MD
[2017-02-04] MEDS: Insulin Lispro (humaLOG) 100 Units/ml Inj SC SCH ×4 (08:58→21:27)
[2017-02-04] MEDS: Cholestyramine 4 gm/Pkt UD PO SCH ×2 (08:59→16:45)
[2017-02-04] MEDS ORDERED: Enoxaparin 40 mg Syringe SC SCH (09:00)
[2017-02-04] MEDS ORDERED: Enoxaparin 80 mg Syringe SC SCH (12:15)
--- NOTE | 2017-02-04 12:18 | PQF GENQUE ---
Dr. Valadez, Is there an associated diagnosis to go along with the following lab findings? BUN:28->12 Creatinine:1.3->0.9 Est GFR (Af Amer/Non -Af Amer): 49/40---->60/>60 OR: Disagree OR: Other explanation of clinical finding H and P: 72 y/o female with DM2 and asthma/COPD who comes in with lumbar vertebral fx in setting of multiple falls. IVF .9 NS: 100 ccs./hr This form is a permanent part of the medical record Clarification of your documentation is requested to better reflect the severity of illness and intensity of treatment of your patient. Indicators present [] Specify: [] [] Specify: [] [] Specify: [] [] Specify: [] Location in the medical record that reflects the above clinical findings: [] Treatment Provided: [] PHYSICIAN'S RESPONSE Based on your medical judgment of the clinical indicators outlined above please clarify the following: [] Practitioner response [] If unable to determine, please check the box, sign and date. Present On Admission (POA) Indicator: [] Present at the time of admission [] Not present at the time of admission [] Clinically Undetermined In responding to this query, please exercise your independent professional judgment. The fact that a question is asked does not imply that any particular answer is desired or expected. Thank you for your clarification on this documentation. If you have any questions please call. * Thank you, Mis Arias RN ext. #[phone] Dehydration MTDD
[2017-02-04] MEDS: Oxycodone/Acetaminophen 5/325 mg Tab PO PRN ×3 (12:21→21:25)
--- NOTE | 2017-02-04 15:27 | PN ---
DATE: SUBJECTIVE: The patient denies chest pain or dizziness. She complains of low back pain. PHYSICAL EXAMINATION: VITAL SIGNS: Blood pressure 118/74, heart rate 92, temperature 97.4, and respirations 18. HEENT: Normocephalic. NECK: No JVD. CHEST: Clear. HEART: S1 and S2, regular. EXTREMITIES: No edema. LABORATORY DATA: Today's blood sugar is 248. ASSESSMENT: 1. Status post fall with L1 endplate spinal fracture. 2. Persistent atrial flutter. 3. Rule out pulmonary embolism. 4. Chronic obstructive lung disease. 5. Depression. 6. Uncontrolled diabetes mellitus. 7. Mild renal insufficiency. RECOMMENDATIONS: IV Cardizem was initiated yesterday and will be discontinued and the patient will be resumed on oral Cardizem at 90 mg t.i.d. Lovenox was changed to therapeutic regimen at 70 mg twice a day. A CT angio could not be performed because of difficulty having adequate venous access and initially the patient will under go perfusion scan. In the meantime, I did request electrophysiology consult from Dr. Bonner. Jan Whitfield MD
[2017-02-04] MEDS: Enoxaparin 80 mg Syringe SC SCH (16:45)
[2017-02-04] MEDS: Pravastatin Sodium 20 MG TAB PO SCH (21:27)
--- NOTE | 2017-02-05 00:10 | PN ---
DATE: 02/04/2017 SUBJECTIVE: Patient is seen today, 02/04/2017. She is complaining of back pain. CT angiogram was ordered by cardiology and it was not done because of lack of intravenous access. PHYSICAL EXAMINATION: VITAL SIGNS: Blood pressure 109/67, temperature 97.7, respiratory rate 15, and pulse 76. HEENT: Pupils equal, reactive to light. Normal-appearing mucosa of the conjunctivae, oropharynx, and nasal membrane mucosa. NECK: Supple. No JVD. No carotid bruit. No lymph node. No thyromegaly. CHEST AND LUNGS: Bilateral symmetrical expansion. Good air exchange. No rales, no rhonchi. CARDIOVASCULAR SYSTEM: PMI not localized. S1, S2. No additional sounds. ABDOMEN: Normoactive bowel sounds. No tenderness. No organomegaly. No masses. EXTREMITIES: No cyanosis. No clubbing. No edema. CENTRAL NERVOUS SYSTEM: Alert, awake, oriented x2. No neurological deficit could be appreciated. ASSESSMENT: 1. Status post fall with fracture of lumbar vertebra. 2. Rule out pulmonary embolism. 3. Hypertension. 4. Type 2 diabetes mellitus. PLAN: We will do V/Q scan and continue current management, physical therapy, pain management, and follow neurosurgical recommendations. Can Valadez MD
[2017-02-05] MEDS: Oxycodone/Acetaminophen 5/325 mg Tab PO PRN (00:43)
[2017-02-05] MEDS: Enoxaparin 80 mg Syringe SC SCH ×2 (06:23→18:03)
[2017-02-05 06:48] LABS: HEMOGLOBIN 11.8 g/dL (12.0-16.0); MEAN CORPUSCULAR HEMOGLOBIN 28.7 pg (27.0-31.0); MEAN CORPUSCULAR HGB CONC 33.3 g/dL (33.0-37.0); RBC 4.11 Mil/uL (3.80-5.20); RED CELL DISTRIBUTION WIDTH 14.8 % (11.5-14.5); WHITE BLOOD COUNT 6.2 K/uL (4.8-10.8)
[2017-02-05 07:03] LABS: BLOOD UREA NITROGEN 20 mg/dl (7-17); GFR AFRICAN-AMERICAN > 60; GFR NON-AFRICAN AMERICAN 55
[2017-02-05] MEDS: Cholestyramine 4 gm/Pkt UD PO SCH ×2 (09:21→18:04)
[2017-02-05] MEDS: Insulin Lispro (humaLOG) 100 Units/ml Inj SC SCH ×4 (09:24→22:48)
[2017-02-05] MEDS: Calcitonin 200 Int Units/Inh Nasal Spray (3.7 ml) NAS SCH (13:17)
--- NOTE | 2017-02-05 18:08 | PN ---
DATE: SUBJECTIVE: The patient complains of low back pain. She denies any palpitation or chest pain. She is in sinus rhythm with frequent APCs on the monitor. PHYSICAL EXAMINATION: VITAL SIGNS: Blood pressure 121/72, heart rate 66, temperature 97.8, respirations 18. HEENT: Normocephalic. CHEST: Clear. HEART: S1 and S2, regular. ABDOMEN: Soft. EXTREMITIES: No edema. LABORATORY DATA: SMA-7: Sodium 142, potassium 4.3, chloride 109, CO2 of 25, glucose 240, BUN 20, creatinine 1.0. Today's hemoglobin and hematocrit 11.8 and 35.3. White count and platelet count are within normal limits. ASSESSMENT: 1. Status post fall and L1 endplate spinal fracture. 2. Paroxysmal atrial flutter. 3. Rule out recurrent pulmonary embolus. 4. Coronary artery disease, status post percutaneous coronary intervention to the distal right coronary artery a few years ago. 5. Chronic obstructive lung disease. 6. Depression. RECOMMENDATIONS: Continue current therapeutic subcutaneous Lovenox at day, aspirin 81 mg once a day, Cardizem at 90 mg t.i.d., Pravachol 20 mg once a day, and albuterol inhaler. The patient will undergo a ventilation/perfusion scan today. Jan Whitfield MD
[2017-02-05] MEDS: Pravastatin Sodium 20 MG TAB PO SCH (21:25)
[2017-02-06] MEDS: Enoxaparin 80 mg Syringe SC SCH ×2 (05:00→16:10)
[2017-02-06] MEDS: Insulin Lispro (humaLOG) 100 Units/ml Inj SC SCH ×3 (06:36→17:01)
[2017-02-06] MEDS: Cholestyramine 4 gm/Pkt UD PO SCH ×2 (09:27→16:11)
[2017-02-06] MEDS: Calcitonin 200 Int Units/Inh Nasal Spray (3.7 ml) NAS SCH (09:29)
[2017-02-06] MEDS ORDERED: Sodium Chloride 0.9% 50 ML IV ONE (14:52)
[2017-02-06] MEDS ORDERED: Iodixanol 320 MG/ML 100 ML BOTTLE IV ONE (14:52)
--- NOTE | 2017-02-06 16:01 | CT ---
PROCEDURE: CT Chest with contrast (Pulmonary Angiogram) HISTORY: r/o PE COMPARISON: 10/30/2016 CT pulmonary angiogram. TECHNIQUE: Axial computed tomography images were obtained of the chest in the pulmonary arterial phase of enhancement. Coronal and sagittal reformatted images were created and reviewed. Intravenous contrast dose: 85 cc Visipaque 320 Mean Hounsfield unit values in the main pulmonary artery: 341.33 Radiation dose: Total exam DLP = 390.16 mGy-cm. This CT exam was performed using one or more of the following dose reduction techniques: Automated exposure control, adjustment of the mA and/or kV according to patient size, and/or use of iterative reconstruction technique. FINDINGS: PULMONARY ARTERIES: Unremarkable. No pulmonary embolism. AORTA: No acute findings. No thoracic aortic aneurysm. LUNGS: Stable 2 mm pulmonary nodule lateral segment right middle lobe. PLEURAL SPACES: Unremarkable. No effusion or pneuomothorax. HEART: Unremarkable. No cardiomegaly. No significant pericardial effusion. LYMPH NODES: No lymphadenopathy. BONES, CHEST WALL: Unremarkable. No fracture or destructive lesion OTHER FINDINGS: Unremarkable. IMPRESSION: Unremarkable CT pulmonary angiogram. No pulmonary embolus Stable small pulmonary nodule right middle lobe.
[2017-02-06 16:08] VITALS: O2SAT 96
[2017-02-06 18:37] VITALS: BP 136/70; PULSE 68; RESP 17; TEMP 98
--- NOTE | 2017-02-06 18:43 | PN ---
DATE: CARDIOLOGY AND MEDICAL COVERAGE FOR DR. SYKES. SUBJECTIVE: The patient denies any chest pain. No shortness of breath. She is on sinus rhythm on the monitor. PHYSICAL EXAMINATION: VITAL SIGNS: Blood pressure 147/78, heart rate 85, temperature 98.2, respirations 18. HEENT: Normocephalic. CHEST: Minimal rhonchi. HEART: S1 and S2, regular. EXTREMITIES: No edema. LABORATORY DATA: Today's blood sugars are 215 and 300 respectively. ASSESSMENT: 1. Status post fall and L1 superior endplate fracture. 2. Uncontrolled diabetes mellitus. 3. Chronic obstructive pulmonary disease. 4. Depression. 5. Rule out pulmonary embolism. PLAN: Continue aspirin 81 mg once a day, Cardizem at 90 mg t.i.d., Lopressor 25 mg twice a day, Levemir at 12 units subcutaneously at bedtime, therapeutic subcutaneous Lovenox at mg twice a day, Zoloft 100 mg daily. The patient will undergo a ventilation/perfusion scan today according to the CONSUMER SERVICES CONSULTANT as a tracer was not available yesterday to perform the test. Jan Whitfield MD
[2017-02-06] MEDS ORDERED: Insulin Detemir 100 Units/ml Inj SC SCH (22:00)
--- NOTE | 2017-02-08 01:36 | PN ---
DATE: 02/05/2017 SUBJECTIVE: The patient was seen on 02/05/2017. She still has back pain. The patient was scheduled for VQ scan, that was not done yet. PHYSICAL EXAMINATION: VITAL SIGNS: Blood pressure 121/72, temperature 97.8, respiratory rate 18 and pulse 66. HEENT: Pupils equal, reactive to light. Normal appearing mucosa of the conjunctivae, oropharynx and nasal membrane mucosa. NECK: Supple. No JVD. No carotid bruit. No lymph node. No thyromegaly. CHEST AND LUNGS: Bilateral symmetrical expansion. Good air exchange. No rales, no rhonchi. CARDIOVASCULAR SYSTEM: PMI not localized. S1, S2. No additional sounds. ABDOMEN: Normoactive bowel sounds. No tenderness. No organomegaly. No masses. EXTREMITIES: No cyanosis, no clubbing, no edema. MICROARRAY SPECIALIST: Alert, awake, oriented x2. No neurological deficit could be appreciated. ASSESSMENT: 1. Status post fall with lumbar vertebral fracture. 2. Hypertension. 3. History of cancer of breast, status post left lumpectomy. 4. Type 2 diabetes mellitus. 5. Diabetic neuropathy. PLAN: Continue current medications. Follow Cardiology recommendations. Continue physical therapy and pain management. Can Valadez MD
== END 2017-02-06 21:15 | DRG 552 ==
LOC: H.ER 00:52 → H.ERHOLD 03:10 → H.TEL 05:06
PROVIDERS: ADMIT Internal Medicine; ATTEND Internal Medicine
DX: S32.019A Unspecified fracture of first lumbar vertebra, initial encounter for closed fracture (principal); I48.92 Unspecified atrial flutter; E11.65 Type 2 diabetes mellitus with hyperglycemia; E11.40 Type 2 diabetes mellitus with diabetic neuropathy, unspecified; I45.81 Long QT syndrome; J44.9 Chronic obstructive pulmonary disease, unspecified; W01.0XXA Fall on same level from slipping, tripping and stumbling without subsequent striking against object, initial encounter; E78.00 Pure hypercholesterolemia, unspecified; I10 Essential (primary) hypertension; I25.10 Atherosclerotic heart disease of native coronary artery without angina pectoris; J45.909 Unspecified asthma, uncomplicated; Z95.5 Presence of coronary angioplasty implant and graft; Z86.711 Personal history of pulmonary embolism; Z85.3 Personal history of malignant neoplasm of breast; M81.0 Age-related osteoporosis without current pathological fracture; F32.9 Major depressive disorder, single episode, unspecified; N28.9 Disorder of kidney and ureter, unspecified

== ENCOUNTER 2017-02-06 17:32 | Inpatient (IN) | payer OTHER ==
[2017-02-06] MEDS ORDERED: Albuterol HFA 90 mcg/actuation (8 g) INH PRN (22:46)
[2017-02-06] MEDS ORDERED: Insulin Detemir 100 Units/ml Inj SC SCH (22:47)
[2017-02-06] MEDS: Pravastatin Sodium 20 MG TAB PO SCH (23:20)
[2017-02-07] MEDS ORDERED: Enoxaparin 80 mg Syringe SC SCH ×2 (05:00)
[2017-02-07] MEDS: Insulin Lispro (humaLOG) 100 Units/ml Inj SC SCH ×4 (06:31→22:25)
[2017-02-07] MEDS: Calcitonin 200 Int Units/Inh Nasal Spray (3.7 ml) NAS SCH (08:17)
[2017-02-07] MEDS: Cholestyramine 4 gm/Pkt UD PO SCH ×2 (08:17→16:40)
--- NOTE | 2017-02-07 17:34 | CP.PCM.CON ---
History of Present Illness - History of Present Illness History of Present Illness: Dr Bryan PMR consultation on Martha Benedict, born 1945 who has been admitted after multiple falls the most recent of which appears to have lead to a L1 compression fracture. There is no evidence of spinal instability and she has been seen by neurosurg and conservative care has been recommended. She has an orthosis at bedside. C/o left flank and cervical pain. Getting IM MS but not significant relief. No focal neuro deficits no calf tenderness or swelling I will adjust pain medications and increase bowel regimen Past Patient History - Infectious Disease Hx of Infectious Diseases: None - Past Medical History & Family History Past Medical History?: Yes - Past Social History Smoking Status: Never Smoked - CARDIAC Hx Cardiac Disorders: Yes Hx Cardia Arrhythmia: Yes Hx Hypercholesterolemia: Yes Hx Hypertension: Yes - PULMONARY Hx Respiratory Disorders: Yes Hx Asthma: Yes Hx Chronic Obstructive Pulmonary Disease (COPD): Yes Hx Pulmonary Embolism: Yes - NEUROLOGICAL Hx Neurological Disorder: No Hx Seizures: No - HEENT Hx HEENT Problems: Yes - RENAL Hx Chronic Kidney Disease: No - ENDOCRINE/METABOLIC Hx Endocrine Disorders: Yes Hx Diabetes Mellitus Type 2: Yes - HEMATOLOGICAL/ONCOLOGICAL Hx Blood Disorders: Yes Hx Anemia: Yes - INTEGUMENTARY Hx Dermatological Problems: No - MUSCULOSKELETAL/RHEUMATOLOGICAL Hx Musculoskeletal Disorders: Yes Hx Falls: Yes Hx Fractures: Yes (LEFT LEG) Hx Osteoporosis: Yes - GASTROINTESTINAL Hx Gastrointestinal Disorders: No - GENITOURINARY/GYNECOLOGICAL Hx Genitourinary Disorders: No Hx Sexually Transmitted Disorders: No - PSYCHIATRIC Hx Psychophysiologic Disorder: Yes Hx Anxiety: Yes Hx Depression: Yes Hx Substance Use: No - SURGICAL HISTORY Hx Surgeries: Yes Hx Appendectomy: Yes Hx Coronary Stent: Yes Hx Herniorrhaphy: Yes (umbilical hernia repair) Hx Mastectomy: Yes (left) - ANESTHESIA Hx Anesthesia: Yes Hx Anesthesia Reactions: No Hx Malignant Hyperthermia: No Meds Allergies/Adverse Reactions: Allergies Allergy/AdvReac Type Severity Reaction Status Date / Time No Known Allergies Allergy Verified 03/02/16 20:08 - Medications Medications: Current Medications Acetaminophen (Tylenol 325mg Tab) 650 mg PO Q6 PRN PRN Reason: Pain, Mild (1-3) Albuterol (Ventolin Hfa 90 Mcg/Actuation (8 G)) 2 puff INH RQ4 PRN PRN Reason: Shortness of Breath Apixaban (Eliquis) 2.5 mg PO BID [facility] PRN Reason: Protocol Last Admin: 02/07/17 16:40 Dose: 2.5 mg Aspirin (Ecotrin) 81 mg PO DAILY [facility] Last Admin: 02/07/17 08:15 Dose: 81 mg Calcitonin [place] (Miacalcin) 200 intlu BALAJI DAILY [facility] Last Admin: 02/07/17 08:17 Dose: 1 spr Cholestyramine Resin (Questran) 4 gm PO BID [facility] Last Admin: 02/07/17 16:40 Dose: 4 gm Clonazepam (Klonopin) 1 mg PO [facility] Last Admin: 02/06/17 23:23 Dose: 1 mg Diltiazem HCl (Cardizem) 90 mg PO TID [facility] Last Admin: 02/07/17 16:40 Dose: 90 mg Insulin Detemir (Levemir) 12 units SC [facility] Insulin Human Lispro (Humalog) 0 units SC [facility] PRN Reason: Protocol Last Admin: 02/07/17 16:53 Dose: 2 unit Meclizine HCl (Antivert) 25 mg PO TID PRN PRN Reason: Dizziness Metoprolol Tartrate (Lopressor) 25 mg PO Q12 [facility] Last Admin: 02/07/17 08:15 Dose: 25 mg Morphine Sulfate (Morphine) 2 mg IVP Q4 PRN PRN Reason: Pain, severe (8-10) Last Admin: 02/07/17 14:54 Dose: 2 mg Ondansetron HCl (Zofran Inj) 4 mg IVP Q6 PRN PRN Reason: Nausea/Vomiting Pravastatin Sodium (Pravachol) 20 mg PO [facility] Last Admin: 02/06/17 23:20 Dose: 20 mg Sertraline HCl (Zoloft) 100 mg PO DAILY [facility] Last Admin: 02/07/17 08:17 Dose: 100 mg Results - Vital Signs Recent Vital Signs: Last Vital Signs Temp 97.7 F 02/07/17 17:25 Pulse 69 02/07/17 17:25 Resp 20 02/07/17 17:25 BP 140/70 02/07/17 17:25 Pulse Ox 96 02/07/17 17:25 - Labs Labs: Laboratory Results - last 24 hr 02/06/17 02/07/17 02/07/17 23:06 05:25 11:45 POC Glucose (mg/dL) 243 H 171 H 300 H 12/30/17 16:36 POC Glucose (mg/dL) 238 H
[2017-02-07] MEDS ORDERED: Magnesium Hydroxide Susp 30 ml UD PO PRN (17:38)
[2017-02-07] MEDS: oxyCODONE 20 mg ER Tab (oxyCONTIN) PO SCH (21:42)
[2017-02-07] MEDS: Pravastatin Sodium 20 MG TAB PO SCH (21:53)
--- NOTE | 2017-02-07 22:09 | HP ---
Covering for Dr. Valadez. HISTORY OF PRESENT ILLNESS: The patient is a 72-year-old female who has history of chronic obstructive lung disease; history of depression; history of coronary artery disease, status post right coronary artery stenting; history of breast carcinoma, status post lumpectomy with residual seroma; history of pulmonary embolism some 2 years ago; and history of atrial tachycardia, who presented because of a fall and was found to have L1 endplate fracture. On admission, also the patient developed atrial flutter and was placed on therapeutic subcutaneous Lovenox. Initially, V/Q scan was requested but because of the camera technical problems, it was changed to CT angio that was performed yesterday and was negative for pulmonary embolus. The patient while on telemetry, converted to sinus rhythm. She was transferred to TCU for rehab. The patient is still complaining of low back pain at this time. She denies any palpitations or dizziness. SOCIAL HISTORY: Nonsmoker, nondrinker. She lives with her grandson. MEDICATIONS: Antivert 25 mg t.i.d., Cardizem 90 mg t.i.d., aspirin 81 mg once a day, Klonopin 1 mg at bedtime, Levemir 12 units subcutaneously daily, Lopressor 25 mg twice a day, Lovenox 70 mg subcutaneously twice a day, Pravachol 20 mg at bedtime, Questran 4 mg p.o. twice a day, albuterol inhaler q. 4 hours, Zofran 4 mg intravenously q.6 hours p.r.n., and 100 mg p.o. daily. REVIEW OF SYSTEMS: The patient denies any palpitations at this time. She denies any dizziness, retrosternal chest pain, vomiting, or diarrhea. PHYSICAL EXAMINATION: GENERAL: The patient is an elderly female who does not appear to be in acute distress. VITAL SIGNS: Blood pressure 148/76, heart rate 75, temperature 97.5, and respirations 20. HEENT: Normocephalic. NECK: No JVD. CHEST: Clear. HEART: S1 and S2, regular. EXTREMITIES: No edema. LABORATORY DATA: On the 02/05/2017, hemoglobin and hematocrit were 11.8 and 35.3, white count and platelet counts were within normal limit. On the 02/02/2017, PT, PTT, and INR were within normal limit. On the 02/05/2017, SMA-7: Sodium of 142, potassium 4.3, chloride 109, CO2 of 25, glucose 300, BUN 20, and creatinine 1.0. ASSESSMENT: 1. Status post fall with L1 superior endplate fracture. 2. Diabetes mellitus. 3. Chronic obstructive lung disease. 4. Paroxysmal atrial flutter. 5. Depression. 6. Hyperlipidemia. RECOMMENDATIONS: Continue Cardizem at 90 mg t.i.d., aspirin at 81 mg once a day, Lopressor 25 mg twice a day, Pravachol 20 mg once a day, Questran 4 mg once a day. Discontinue Lovenox and start Eliquis at 2.5 mg twice a day, this low dose was selected because of the patient's history of recent fall as well as recent multiple falls during previous admissions. Jan Whitfield MD
[2017-02-07] MEDS: Insulin Detemir 100 Units/ml Inj SC SCH (23:22)
[2017-02-08] MEDS: Insulin Lispro (humaLOG) 100 Units/ml Inj SC SCH ×4 (08:55→21:55)
[2017-02-08] MEDS: Cholestyramine 4 gm/Pkt UD PO SCH ×2 (08:57→16:25)
[2017-02-08] MEDS: Calcitonin 200 Int Units/Inh Nasal Spray (3.7 ml) NAS SCH (09:01)
[2017-02-08] MEDS: oxyCODONE 20 mg ER Tab (oxyCONTIN) PO SCH ×2 (09:04→20:39)
--- NOTE | 2017-02-08 11:35 | CP.PCM.CON ---
History of Present Illness - History of Present Illness History of Present Illness: consult dictated pt with min pain already has TLSO brace no further recommendations Past Patient History - Infectious Disease Hx of Infectious Diseases: None - Past Medical History & Family History Past Medical History?: Yes - Past Social History Smoking Status: Never Smoked - CARDIAC Hx Cardiac Disorders: Yes Hx Cardia Arrhythmia: Yes Hx Hypercholesterolemia: Yes Hx Hypertension: Yes - PULMONARY Hx Respiratory Disorders: Yes Hx Asthma: Yes Hx Chronic Obstructive Pulmonary Disease (COPD): Yes Hx Pulmonary Embolism: Yes - NEUROLOGICAL Hx Neurological Disorder: No Hx Seizures: No - HEENT Hx HEENT Problems: Yes - RENAL Hx Chronic Kidney Disease: No - ENDOCRINE/METABOLIC Hx Endocrine Disorders: Yes Hx Diabetes Mellitus Type 2: Yes - HEMATOLOGICAL/ONCOLOGICAL Hx Blood Disorders: Yes Hx Anemia: Yes - INTEGUMENTARY Hx Dermatological Problems: No - MUSCULOSKELETAL/RHEUMATOLOGICAL Hx Musculoskeletal Disorders: Yes Hx Falls: Yes Hx Fractures: Yes (LEFT LEG) Hx Osteoporosis: Yes - GASTROINTESTINAL Hx Gastrointestinal Disorders: No - GENITOURINARY/GYNECOLOGICAL Hx Genitourinary Disorders: No Hx Sexually Transmitted Disorders: No - PSYCHIATRIC Hx Psychophysiologic Disorder: Yes Hx Anxiety: Yes Hx Depression: Yes Hx Substance Use: No - SURGICAL HISTORY Hx Surgeries: Yes Hx Appendectomy: Yes Hx Coronary Stent: Yes Hx Herniorrhaphy: Yes (umbilical hernia repair) Hx Mastectomy: Yes (left) - ANESTHESIA Hx Anesthesia: Yes Hx Anesthesia Reactions: No Hx Malignant Hyperthermia: No Meds Allergies/Adverse Reactions: Allergies Allergy/AdvReac Type Severity Reaction Status Date / Time No Known Allergies Allergy Verified 03/02/16 20:08 - Medications Medications: Current Medications Acetaminophen (Tylenol 325mg Tab) 650 mg PO Q6 PRN PRN Reason: Pain, Mild (1-3) Albuterol (Ventolin Hfa 90 Mcg/Actuation (8 G)) 2 puff INH RQ4 PRN PRN Reason: Shortness of Breath Apixaban (Eliquis) 2.5 mg PO BID [facility] PRN Reason: Protocol Last Admin: 02/08/17 08:55 Dose: 2.5 mg Aspirin (Ecotrin) 81 mg PO DAILY [facility] Last Admin: 02/08/17 08:55 Dose: 81 mg Calcitonin [place] (Miacalcin) 200 intlu BALAJI DAILY [facility] Last Admin: 02/08/17 09:01 Dose: 1 spr Cholestyramine Resin (Questran) 4 gm PO BID [facility] Last Admin: 02/08/17 08:57 Dose: 4 gm Clonazepam (Klonopin) 1 mg PO [facility] Last Admin: 02/07/17 21:52 Dose: 1 mg Diltiazem HCl (Cardizem) 90 mg PO TID [facility] Last Admin: 02/08/17 08:55 Dose: 90 mg Docusate Sodium (Colace) 100 mg PO TID [facility] Last Admin: 02/08/17 08:55 Dose: 100 mg Hydromorphone HCl (Dilaudid) 2 mg PO Q4 PRN PRN Reason: pain 4-8/10 Hydromorphone HCl (Dilaudid) 4 mg PO Q4 PRN PRN Reason: pain 9-10/10 Last Admin: 02/07/17 23:19 Dose: 4 mg Insulin Detemir (Levemir) 12 units SC [facility] Last Admin: 02/07/17 23:22 Dose: 12 u Insulin Human Lispro (Humalog) 0 units SC [facility] PRN Reason: Protocol Last Admin: 02/08/17 08:55 Dose: 2 unit Magnesium Hydroxide (Milk Of Magnesia) 30 ml PO DAILY PRN PRN Reason: Constipation Meclizine HCl (Antivert) 25 mg PO TID PRN PRN Reason: Dizziness Metoprolol Tartrate (Lopressor) 25 mg PO Q12 [facility] Last Admin: 02/08/17 08:56 Dose: 25 mg Ondansetron HCl (Zofran Inj) 4 mg IVP Q6 PRN PRN Reason: Nausea/Vomiting Oxycodone HCl (Oxycontin Extended Release Tab) 20 mg PO Q12 [facility] Last Admin: 02/08/17 09:04 Dose: 20 mg Pravastatin Sodium (Pravachol) 20 mg PO [facility] Last Admin: 02/07/17 21:53 Dose: 20 mg Sertraline HCl (Zoloft) 100 mg PO DAILY [facility] Last Admin: 02/08/17 08:58 Dose: 100 mg Results - Vital Signs Recent Vital Signs: Last Vital Signs Temp 97.9 F 02/08/17 08:49 Pulse 73 02/08/17 08:56 Resp 20 02/08/17 08:49 BP 112/72 02/08/17 08:56 Pulse Ox 93 L 02/08/17 08:49 - Labs Labs: Laboratory Results - last 24 hr 02/07/17 02/07/17 02/07/17 11:45 16:36 20:59 POC Glucose (mg/dL) 300 H 238 H 279 H 02/08/17 02/08/17 06:12 11:06 POC Glucose (mg/dL) 230 H 235 H
--- NOTE | 2017-02-08 20:37 | PN ---
DATE: SUBJECTIVE: The patient denies any dizziness or chest pain. PHYSICAL EXAMINATION VITAL SIGNS: Blood pressure 112/72, heart rate 73, temperature 97.9, respirations 20. HEENT: Normocephalic. CHEST: Minimal rhonchi. HEART: S1 and S2 regular. EXTREMITIES: No edema. LABORATORY DATA: Today's blood sugar 230 and 235. ASSESSMENT: 1. Status post fall and L1 endplate spinal fracture. 2. Chronic obstructive lung disease. 3. Coronary artery disease status post percutaneous coronary intervention to the distal right coronary artery a few years ago. 4. Depression. 5. Paroxysmal atrial flutter and paroxysmal atrial tachycardia. RECOMMENDATIONS: Continue Cardizem at 90 mg t.i.d., aspirin 81 mg once a day, Eliquis at 2.5 mg twice a day, Lopressor 25 mg twice a day. Jan Whitfield MD
[2017-02-08] MEDS: Insulin Detemir 100 Units/ml Inj SC SCH (21:54)
[2017-02-08] MEDS: Pravastatin Sodium 20 MG TAB PO SCH (21:56)
[2017-02-09] MEDS: Insulin Lispro (humaLOG) 100 Units/ml Inj SC SCH ×4 (07:02→22:26)
[2017-02-09] MEDS: Calcitonin 200 Int Units/Inh Nasal Spray (3.7 ml) NAS SCH (08:42)
[2017-02-09] MEDS: Cholestyramine 4 gm/Pkt UD PO SCH ×2 (08:43→16:29)
[2017-02-09] MEDS: oxyCODONE 20 mg ER Tab (oxyCONTIN) PO SCH ×2 (08:47→20:36)
--- NOTE | 2017-02-09 13:09 | PN ---
DATE: SUBJECTIVE: The patient denies any chest pain, palpitation, or dizziness. PHYSICAL EXAMINATION: VITAL SIGNS: Blood pressure 144/66, heart rate 75, temperature 97.8, and respirations 20. HEENT: Normocephalic. CHEST: Minimal rhonchi. HEART: S1 and S2, regular. EXTREMITIES: No edema. LABORATORY DATA: Today's blood sugars are 233 and 339. ASSESSMENT: 1. Status post fall and L1 superior endplate fracture. 2. Uncontrolled diabetes mellitus. 3. Paroxysmal atrial flutter. 4. Depression. 5. Chronic obstructive pulmonary disease. 6. Coronary artery disease, status post percutaneous coronary intervention to the distal right coronary artery. PLAN: Continue Cardizem at 90 mg t.i.d., aspirin 81 mg once a day, Eliquis at 2.5 mg twice a day, Levemir 12 units subcutaneously at bedtime, Lopressor 25 mg twice a day. I will discuss with Dr. Valadez further measures for better control of the patient's diabetes. Jan Whitfield MD
[2017-02-09] MEDS: Pravastatin Sodium 20 MG TAB PO SCH (22:27)
[2017-02-09] MEDS: Insulin Detemir 100 Units/ml Inj SC SCH (22:27)
[2017-02-10] MEDS: Insulin Lispro (humaLOG) 100 Units/ml Inj SC SCH ×4 (06:44→21:23)
[2017-02-10] MEDS: Calcitonin 200 Int Units/Inh Nasal Spray (3.7 ml) NAS SCH (08:32)
[2017-02-10] MEDS: Cholestyramine 4 gm/Pkt UD PO SCH ×2 (08:33→17:12)
[2017-02-10] MEDS: oxyCODONE 20 mg ER Tab (oxyCONTIN) PO SCH ×2 (08:34→21:24)
--- NOTE | 2017-02-10 09:25 | CON ---
DATE: 02/08/2017. HISTORY OF PRESENT ILLNESS: This is a 72-year-old lady with a whole host of medical problems, who presented after a fall, was found to have an L1 compression fracture. Apparently, she was already recommended to have a TLSO brace and she was admitted to the Transitional Care Unit yesterday. Interviewing her today, she really denies any pain. Denies any overt numbness, weakness, any neurological complaint. PAST MEDICAL HISTORY: Rather extensive. She has COPD, depression, breast carcinoma, pulmonary embolism and was recently found to have atrial flutter. She is on a whole host of medications including anticoagulation. Her social history, medications, allergies all reviewed in the EMR. PHYSICAL EXAMINATION: NEUROLOGIC: She is actually sitting upright in a chair. She is wearing a TLSO. She seems comfortable. She really does not express much in the way of pain to deep palpation along the lumbar spine. She has 5/5 strength grossly in both lower extremities. Sensory exam is grossly intact. Reflexes are muted. LABORATORY DATA: The CT of the thoracolumbar spine shows a rather typical osteoporotic compression fracture of L1. The posterior cortex is intact. There was no retropulsion and there was certainly no canal compromise. IMPRESSION AND PLAN: This is a stable fracture. The correct treatment is the thoracolumbosacral orthosis brace, which she already has. She is really almost asymptomatic and no further recommendations. Alberto Wolfe MD
[2017-02-10] MEDS: Pravastatin Sodium 20 MG TAB PO SCH (21:22)
[2017-02-10] MEDS: Insulin Detemir 100 Units/ml Inj SC SCH (21:22)
[2017-02-11] MEDS: Insulin Lispro (humaLOG) 100 Units/ml Inj SC SCH ×4 (06:31→21:08)
[2017-02-11] MEDS: oxyCODONE 20 mg ER Tab (oxyCONTIN) PO SCH ×2 (08:34→21:00)
[2017-02-11] MEDS: Cholestyramine 4 gm/Pkt UD PO SCH ×2 (08:35→17:20)
[2017-02-11] MEDS: Calcitonin 200 Int Units/Inh Nasal Spray (3.7 ml) NAS SCH (08:35)
[2017-02-11] MEDS: Pravastatin Sodium 20 MG TAB PO SCH (21:02)
[2017-02-11] MEDS: Insulin Detemir 100 Units/ml Inj SC SCH (21:03)
[2017-02-12] MEDS: Insulin Lispro (humaLOG) 100 Units/ml Inj SC SCH ×4 (07:04→21:46)
[2017-02-12] MEDS: Cholestyramine 4 gm/Pkt UD PO SCH ×2 (09:02→16:33)
[2017-02-12] MEDS: oxyCODONE 20 mg ER Tab (oxyCONTIN) PO SCH ×2 (09:03→21:57)
[2017-02-12] MEDS: Calcitonin 200 Int Units/Inh Nasal Spray (3.7 ml) NAS SCH (09:05)
--- NOTE | 2017-02-12 11:45 | CP.PCM.CON ---
History of Present Illness - History of Present Illness History of Present Illness: psychiatry consult requested for history of depression, Interview conducted through translation pt is is a 72 y/o female with MHx significant for asthma, DM2, CAD, and breast cancer in the past who admitted to medical floor presenting with multiple falls and back pain Patient said she felt dizzy several times and slipped and fell. pt is not forward coming with information, however reported she has history of previous hospitalizations on psychiatric unit unable to remember the hospital, stated due to depression and anxiety, she came from [place] to [place] thirty years ago and currently has three children and lives with grandson pt reported seeing a psychiatrist monthly for depression and anxiety, unable to remember her medications when asked about her depression stated she has difficulty with sleep but they give her medicine for that, denied any suicidal thoughts denied changes in appetite denied manic or psychotic symptoms pt however was very hard to engage in the interview with poor eye contact Past Patient History - Infectious Disease Hx of Infectious Diseases: None - Past Medical History & Family History Past Medical History?: Yes - Past Social History Smoking Status: Never Smoked - CARDIAC Hx Cardiac Disorders: Yes Hx Hypercholesterolemia: Yes Hx Hypertension: Yes - PULMONARY Hx Chronic Obstructive Pulmonary Disease (COPD): Yes - NEUROLOGICAL Hx Neurological Disorder: No Hx Seizures: No - HEENT Hx HEENT Problems: Yes - RENAL Hx Chronic Kidney Disease: No - ENDOCRINE/METABOLIC Hx Diabetes Mellitus Type 2: Yes - HEMATOLOGICAL/ONCOLOGICAL Hx Blood Disorders: Yes Hx Anemia: Yes - INTEGUMENTARY Hx Dermatological Problems: No - MUSCULOSKELETAL/RHEUMATOLOGICAL Hx Musculoskeletal Disorders: Yes Hx Falls: Yes Hx Fractures: Yes (LEFT LEG) Hx Osteoporosis: Yes - GASTROINTESTINAL Hx Gastrointestinal Disorders: No - GENITOURINARY/GYNECOLOGICAL Hx Genitourinary Disorders: No Hx Sexually Transmitted Disorders: No - PSYCHIATRIC Hx Psychophysiologic Disorder: Yes Hx Anxiety: Yes Hx Depression: Yes Hx Substance Use: No - SURGICAL HISTORY Hx Surgeries: Yes Hx Appendectomy: Yes Hx Coronary Stent: Yes Hx Herniorrhaphy: Yes (umbilical hernia repair) Hx Mastectomy: Yes (left) - ANESTHESIA Hx Anesthesia: Yes Hx Anesthesia Reactions: No Hx Malignant Hyperthermia: No Meds Allergies/Adverse Reactions: Allergies Allergy/AdvReac Type Severity Reaction Status Date / Time No Known Allergies Allergy Verified 03/02/16 20:08 - Medications Medications: Current Medications Acetaminophen (Tylenol 325mg Tab) 650 mg PO Q6 PRN PRN Reason: Pain, Mild (1-3) Albuterol (Ventolin Hfa 90 Mcg/Actuation (8 G)) 2 puff INH RQ4 PRN PRN Reason: Shortness of Breath Apixaban (Eliquis) 2.5 mg PO BID [facility] PRN Reason: Protocol Last Admin: 02/12/17 09:02 Dose: 2.5 mg Aspirin (Ecotrin) 81 mg PO DAILY [facility] Last Admin: 02/12/17 09:03 Dose: 81 mg Calcitonin [place] (Miacalcin) 200 intlu BALAJI DAILY [facility] Last Admin: 02/12/17 09:05 Dose: 1 applic Cholestyramine Resin (Questran) 4 gm PO BID [facility] Last Admin: 02/12/17 09:02 Dose: 4 gm Clonazepam (Klonopin) 1 mg PO [facility] Last Admin: 02/11/17 21:01 Dose: 1 mg Diltiazem HCl (Cardizem) 90 mg PO TID [facility] Last Admin: 02/12/17 09:00 Dose: Not Given Docusate Sodium (Colace) 100 mg PO TID [facility] Last Admin: 02/12/17 09:02 Dose: 100 mg Hydromorphone HCl (Dilaudid) 2 mg PO Q4 PRN PRN Reason: pain 4-8/10 Hydromorphone HCl (Dilaudid) 4 mg PO Q4 PRN PRN Reason: pain 9-10/10 Last Admin: 02/10/17 15:27 Dose: 4 mg Insulin Detemir (Levemir) 12 units SC [facility] Last Admin: 02/11/17 21:03 Dose: 12 u Insulin Human Lispro (Humalog) 0 units SC [facility] PRN Reason: Protocol Last Admin: 02/12/17 07:04 Dose: 1 unit Magnesium Hydroxide (Milk Of Magnesia) 30 ml PO DAILY PRN PRN Reason: Constipation Meclizine HCl (Antivert) 25 mg PO TID PRN PRN Reason: Dizziness Metoprolol Tartrate (Lopressor) 25 mg PO Q12 [facility] Last Admin: 02/12/17 09:05 Dose: Not Given Ondansetron HCl (Zofran Inj) 4 mg IVP Q6 PRN PRN Reason: Nausea/Vomiting Oxycodone HCl (Oxycontin Extended Release Tab) 20 mg PO Q12 [facility] Last Admin: 02/12/17 09:03 Dose: 20 mg Pravastatin Sodium (Pravachol) 20 mg PO HS [facility] Last Admin: 02/11/17 21:02 Dose: 20 mg Sertraline HCl (Zoloft) 100 mg PO DAILY [facility] Last Admin: 02/12/17 09:04 Dose: 100 mg Physical Exam - Psychiatric Exam Additional comments: pt on evaluation sitting on a chair, groomed, poor eye contact, underproductive speech but goal directed, mood reported ok, presenting with constricted affect thought form coherent, denied any current suicidal or homicidal ideations denied perceptual or psychotic symptoms , alert awake oriented to person and plartialy to place stated this is [facility] and parialy to time stating last holiday was Results - Vital Signs Recent Vital Signs: Last Vital Signs Temp 97.3 F L 02/12/17 08:00 Pulse 55 L 02/12/17 09:05 Resp 19 02/12/17 08:00 BP 123/62 02/12/17 08:00 Pulse Ox 94 L 02/12/17 08:00 - Labs Labs: Laboratory Results - last 24 hr 02/11/17 02/11/17 02/11/17 11:33 16:58 20:08 POC Glucose (mg/dL) 257 H 151 H 227 H 02/12/17 02/12/17 06:57 11:03 POC Glucose (mg/dL) 158 H 299 H Assessment & Plan - Assessment and Plan (Free Text) Assessment: Mild neurocognitive disorder depression Plan: pt on clonazepam 1mg, this could be contributing to her falls, recommend to decrease and discontinue gradually start remeron 7.5 mg qhs for depression and insomnia decrease zoloft to 50mg will follow up on pt for psychopharmacological effects and side effect profile
--- NOTE | 2017-02-12 12:57 | PN ---
DATE: 02/11/2017 DAILY PROGRESS NOTE SUBJECTIVE: The patient's pain was better controlled and she is having her brace on. PHYSICAL EXAMINATION: VITAL SIGNS: Blood pressure was 121/63, temperature 97.3, respiratory rate 20 and pulse 54. HEENT: Pupils equal, reactive to light. Normal-appearing mucosa of the conjunctivae, oropharyngeal and nasal membrane mucosa. NECK: Supple. No JVD. No carotid bruit. No lymph node. No thyromegaly. CHEST AND LUNGS: Bilateral symmetrical expansion. Good air exchange. No rales. No rhonchi. CARDIOVASCULAR SYSTEM: PMI not localized. S1, S2. No additional sounds. ABDOMEN: Normoactive bowel sounds. No tenderness. No organomegaly. No masses. EXTREMITIES: No cyanosis, no clubbing, no edema. THERMAL ENGINEER: Alert, awake, oriented x2. No neurological deficit could be appreciated. ASSESSMENT: Fracture, lumbar vertebra, which is being treated conservatively; hypertension; type 2 diabetes mellitus; bipolar disorder with possible current depression. PLAN: Psych consult. Continue pain management and current medications. Continue physical therapy and occupational therapy. Can Valadez MD
[2017-02-12 17:40] VITALS: RESP 20
[2017-02-12] MEDS: Insulin Detemir 100 Units/ml Inj SC SCH (21:51)
[2017-02-12] MEDS: Pravastatin Sodium 20 MG TAB PO SCH (21:58)
[2017-02-13] MEDS: Insulin Lispro (humaLOG) 100 Units/ml Inj SC SCH ×4 (09:03→21:15)
[2017-02-13] MEDS: Cholestyramine 4 gm/Pkt UD PO SCH ×2 (09:05→17:23)
[2017-02-13] MEDS: oxyCODONE 20 mg ER Tab (oxyCONTIN) PO SCH ×2 (09:08→20:24)
[2017-02-13] MEDS: Calcitonin 200 Int Units/Inh Nasal Spray (3.7 ml) NAS SCH (09:11)
--- NOTE | 2017-02-13 13:47 | PN ---
DATE: FOLLOWUP SUBJECTIVE: The patient is experiencing low back pain. She sat on the chair today and she denies any chest pain, palpitation or dizziness. PHYSICAL EXAMINATION: VITAL SIGNS: Blood pressure 167/78, heart rate 60, temperature 98.1, respirations 20. HEENT: Normocephalic. CHEST: Minimal rhonchi. HEART: S1 and S2 regular. EXTREMITIES: No edema. LABORATORY DATA: Today's blood sugar is 120 and 252. ASSESSMENT: 1. Status post fall and L1 superior endplate lumbar fracture. 2. Paroxysmal atrial flutter. 3. Coronary artery disease with history of percutaneous coronary intervention to the right coronary artery a few years ago. 4. Depression. 5. Uncontrolled diabetes mellitus. 6. Hyperlipidemia. 7. Chronic obstructive lung disease. RECOMMENDATIONS: Continue Cardizem 90 mg t.i.d., Dilaudid 2 mg p.o. q. 4 hours p.r.n., aspirin 81 mg once a day, Eliquis 2.5 mg twice a day, Lopressor 25 mg twice a day, Pravachol 20 mg once a day and Zoloft 100 mg once a day. Jan Whitfield MD
[2017-02-13] MEDS: Pravastatin Sodium 20 MG TAB PO SCH (21:14)
[2017-02-13] MEDS: Insulin Detemir 100 Units/ml Inj SC SCH (21:16)
[2017-02-14] MEDS: Insulin Lispro (humaLOG) 100 Units/ml Inj SC SCH ×2 (06:51→11:58)
[2017-02-14 08:05] VITALS: BP 125/59; PULSE 62; TEMP 97.6; O2SAT 99
[2017-02-14] MEDS: oxyCODONE 20 mg ER Tab (oxyCONTIN) PO SCH (08:49)
[2017-02-14] MEDS: Cholestyramine 4 gm/Pkt UD PO SCH (08:50)
[2017-02-14] MEDS: Calcitonin 200 Int Units/Inh Nasal Spray (3.7 ml) NAS SCH (08:53)
--- NOTE | 2017-02-16 09:02 | DS ---
REASON FOR ADMISSION: This is a 72-year-old female with history of multiple medical problems, who was admitted after a fall with persistent back pain and fracture of the lumbar vertebra. COURSE OF HOSPITALIZATION: The patient was admitted to Transitional Care Unit at [facility] and she was started on physical therapy. The patient had her belt on after spine surgery consult. During this hospitalization, the patient also had psychiatric evaluation and medications were adjusted. The patient was discharged in stable condition to subacute rehabilitation at [facility] to continue physical therapy and occupational therapy and continued current medications. FINAL DIAGNOSES: 1. Fall with fracture, lumbar vertebra. 2. Hypertension. 3. Type 2 diabetes mellitus. 4. Paroxysmal atrial fibrillation/flutter. [facility] MD Rory
== END 2017-02-14 12:40 | DRG 560 ==
LOC: H.TCU 21:36
PROVIDERS: ADMIT Internal Medicine; ATTEND Internal Medicine
PROC: F07M6FZ Therapeutic Exercise Treatment of Musculoskeletal System - Whole Body using Assistive, Adaptive, Supportive or Protective Equipment (ICD-10-PCS; principal; 2017-02-06)
PROC: F08Z4FZ Home Management Treatment using Assistive, Adaptive, Supportive or Protective Equipment (ICD-10-PCS; 2017-02-06)
DX: S32.009D Unspecified fracture of unspecified lumbar vertebra, subsequent encounter for fracture with routine healing (principal); I47.1 Supraventricular tachycardia; E11.65 Type 2 diabetes mellitus with hyperglycemia; I48.0 Paroxysmal atrial fibrillation; I48.92 Unspecified atrial flutter; J44.9 Chronic obstructive pulmonary disease, unspecified; D64.9 Anemia, unspecified; E78.00 Pure hypercholesterolemia, unspecified; E78.5 Hyperlipidemia, unspecified; G31.84 Mild cognitive impairment of uncertain or unknown etiology; F31.9 Bipolar disorder, unspecified; F41.9 Anxiety disorder, unspecified; I10 Essential (primary) hypertension; I25.10 Atherosclerotic heart disease of native coronary artery without angina pectoris; M81.0 Age-related osteoporosis without current pathological fracture; R29.6 Repeated falls; Z85.3 Personal history of malignant neoplasm of breast; Z86.711 Personal history of pulmonary embolism; Z90.49 Acquired absence of other specified parts of digestive tract; Z95.5 Presence of coronary angioplasty implant and graft; M54.2 Cervicalgia; M54.5 Low back pain

== ENCOUNTER 2017-07-02 18:24 | Emergency (ER) | payer MEDICARE, OTHER ==
[2017-07-02 18:25] VITALS: BMI 28.3
[2017-07-02 18:34] VITALS: O2SAT 98
--- NOTE | 2017-07-02 19:50 | ED PDOC ---
- ECG O2 Sat by Pulse Oximetry: 98 (RA) Pulse Ox Interpretation: Normal Disposition - Disposition Forms: [employer] (Maltese)
[2017-07-02] MEDS ORDERED: Sodium Chloride 0.9% 500 ML IV STA (20:02)
[2017-07-02] MEDS ORDERED: Insulin Regular 100 units/ml IV ONE (20:02)
--- NOTE | 2017-07-02 20:21 | ED PDOC ---
Hyperglycemia/Hypoglycemia Time Seen by Provider: 07/02/17 19:30 Chief Complaint (Nursing): High Blood Sugar Chief Complaint (Provider): High Blood Sugar History Per: Patient History/Exam Limitations: no limitations Onset/Duration Of Symptoms: Days (x3) Current Symptoms Are (Timing): Still Present : The patient does not have any of the infectious symptoms listed except for those marked. Additional Complaint(s): 72 y/o female with a history of DM type 2, arthritis, anemia, virtigo, COPD, hypercholesterolemia, cardiac disorders, and HTN presents to the ED for high blood sugar. Patient states she noticed her blood levels increased 3 days ago. She states she checks her own blood glucose at home and was last measured in the 500 range. Patient is aware of her diabetes and states she is compliant with her insulin. Patient is complaining of polyuria and polydipsia. She denies any nausea, vomiting, fever, cough, SOB, or CP. PMD: Dr. Kaushik Villa Past Medical History Reviewed: Historical Data, Nursing Documentation, Vital Signs Vital Signs: Last Vital Signs Temp 98 F 07/02/17 18:30 Pulse 74 07/02/17 18:30 Resp 18 07/02/17 18:30 BP 129/74 07/02/17 18:30 Pulse Ox 98 07/02/17 18:30 - Medical History PMH: Anemia, Anxiety, Asthma, CAD, Cardia Arrhythmia, COPD, Dementia, Depression , Diabetes, Fractures (LEFT LEG), HTN, Hypercholesterolemia, Malignancy (breast cancer s/p lumpectomy ), Osteoporosis, Pulmonary Embolism Denies: CVA, Hepatitis, Chronic Kidney Disease, Seizures, Sexually Transmitted Disease - Surgical History Surgical History: Appendectomy, Coronary Stent, Hernia Repair (umbilical hernia) - Family History Family History: States: Unknown Family Hx - Social History Current smoker - smoking cessation education provided: No Ex-Smoker (has not smoked in the last 12 months): No Alcohol: None Drugs: Denies - Home Medications Home Medications: Ambulatory Orders Medication Instructions Recorded Oxycodone HCl/Acetaminophen 1 tab PO Q6 PRN 08/11/16 [Percocet 10-325 mg Tablet] Aspirin [Ecotrin] 81 mg PO DAILY 08/28/16 Insulin Detemir [Levemir] 12 unit SC BID 08/28/16 Cholestyramine [Questran] 4 gm PO BID #8 packet 09/01/16 Acetaminophen [Tylenol 325mg tab] 650 mg PO Q6 PRN tab 02/06/17 Albuterol HFA [Ventolin HFA 90 2 puff INH RQ4 PRN inhaler 02/06/17 mcg/actuation (8 g)] Calcitonin ([place]) [Miacalcin] 200 intlu BALAJI DAILY spr 02/06/17 Metoprolol Tartrate [Lopressor] 25 mg PO Q12 tab 02/06/17 Pravastatin Sodium [Pravachol] 20 mg PO HS tab 02/06/17 diltiaZEM [Cardizem] 90 mg PO TID tab 02/06/17 Albuterol HFA [Ventolin HFA 90 2 puff INH RQ4 PRN inhaler 02/14/17 mcg/actuation (8 g)] Apixaban [Eliquis] 2.5 mg PO BID tab 02/14/17 Calcitonin ([place]) [Miacalcin] 200 intlu BALAJI DAILY spr 02/14/17 Docusate [Colace] 100 mg PO TID cap 02/14/17 Insulin Lispro [Humalog (Insulin See Protocol SQ ACHS 30 Days #0 02/14/17 Lispro)] cartridge Magnesium Hydroxide [Milk Of 30 ml PO DAILY PRN udc 02/14/17 Magnesia] Meclizine [Meclizine*] 25 mg PO TID PRN tab 02/14/17 Mirtazapine [Remeron] 7.5 mg PO HS tab 02/14/17 Ondansetron [Zofran Inj] 4 mg IVP Q6 PRN vial 02/14/17 Sertraline [Zoloft] 50 mg PO DAILY tab 02/14/17 clonazePAM [Klonopin] 0.5 mg PO HS tab 02/14/17 oxyCODONE [oxyCONTIN Extended 20 mg PO Q12 tabsr 02/14/17 Release Tab] Nitrofurantoin Macrocrystals 100 mg PO BID #20 cap 07/02/17 [Macrobid] - Allergies Allergies/Adverse Reactions: Allergies Allergy/AdvReac Type Severity Reaction Status Date / Time No Known Allergies Allergy Verified 03/02/16 20:08 Review of Systems ROS Statement: Except As Marked, All Systems Reviewed And Found Negative Constitutional: Positive for: Other (polydipsia). Negative for: Fever Cardiovascular: Positive for: Other (high blood glucose levels). Negative for: Chest Pain Respiratory: Negative for: Cough, Shortness of Breath Gastrointestinal: Negative for: Nausea, Vomiting Genitourinary Female: Positive for: Other (polyuria) Physical Exam - Reviewed Nursing Documentation Reviewed: Yes Vital Signs Reviewed: Yes - Physical Exam Appears: Positive for: Well, Non-toxic, No Acute Distress Head Exam: Positive for: ATRAUMATIC, NORMAL INSPECTION, NORMOCEPHALIC Skin: Positive for: Normal Color, Warm, Dry Eye Exam: Positive for: EOMI, Normal appearance, PERRL ENT: Positive for: Normal ENT Inspection Neck: Positive for: Normal, Painless ROM, Supple Cardiovascular/Chest: Positive for: Regular Rate, Rhythm, Tachycardia. Negative for: Murmur Respiratory: Positive for: Normal Breath Sounds. Negative for: Respiratory Distress Gastrointestinal/Abdominal: Positive for: Normal Exam, Soft. Negative for: Tenderness Back: Positive for: Normal Inspection. Negative for: L CVA Tenderness, R CVA Tenderness, Vertebral Tenderness Extremity: Positive for: Normal ROM. Negative for: Pedal Edema, Deformity Neurologic/Psych: Positive for: Alert, Oriented (x3) - Laboratory Results Result Diagrams: 07/02/17 20:15 07/02/17 20:15 - ECG O2 Sat by Pulse Oximetry: 98 (RA) Pulse Ox Interpretation: Normal Medical Decision Making Medical Decision Making: Time: 18:30 Impression: Uncontrolled hyperglycemia in setting of known diabetes Initial Plan: * ABG Shock Panel * EKG * CMP * ED Urine Dipstick * CBC * Insulin 8 units IV once * IV Fluids * Accucheck * Urinalysis 00:30 Labs reviewed and no abnormalities were determined. Elevated blood glucose was noted, however, which was indicative of UTI but was improved after IV. 1 dose of IV rocephin was given and patient is stable and will be discharged home due to improved conditions with diagnosis of hyperglycemia and UTI. Scribe Attestation: Documented by Kamaljit Hitchcock acting as a scribe for Jake Vargas MD. Scribe Attestation: All medical record entries made by the Scribe were at my direction and personally dictated by me. I have reviewed the chart and agree that the record accurately reflects my personal performance of the history, physical exam, medical decision making, and the department course for this patient. I have also personally directed, reviewed, and agree with the discharge instructions and disposition. Disposition - Clinical Impression Clinical Impression: Hyperglycemia, Diabetic complication, Urinary tract infection - Disposition Disposition: Routine/Home Disposition Time: 22:00 Condition: IMPROVED Prescriptions: Nitrofurantoin Macrocrystals [Macrobid] 100 mg PO BID #20 cap Instructions: Urinary Tract Infections in Adults, Hyperglycemia, Adult (DC) Forms: [employer] (Frisian) Print Language: TURKMEN
[2017-07-02 20:30] LABS: BASO # 0.1 K/uL (0.0-0.2); EOS # 0.2 K/uL (0.0-0.7); EOS % 2.5 % (0.0-4.0); HEMOGLOBIN 13.1 g/dL (12.0-16.0); LYMPH # 1.7 K/uL (1.0-4.3); MEAN CELL VOLUME 82.9 fl (81.0-99.0); MEAN CORPUSCULAR HEMOGLOBIN 28.3 pg (27.0-31.0); MEAN CORPUSCULAR HGB CONC 34.1 g/dL (33.0-37.0); MEAN PLATELET VOLUME 9.5 fl (7.2-11.7); MONO # 0.5 K/uL (0.0-0.8); MONO % 7.4 % (0.0-10.0); NEUT # 4.8 K/uL (1.8-7.0); NEUT % 66.1 % (50.0-75.0); NRBC % 0.1 % (0.0-0.0); RBC 4.64 Mil/uL (3.80-5.20); RED CELL DISTRIBUTION WIDTH 16.3 % (11.5-14.5); WHITE BLOOD COUNT 7.3 K/uL (4.8-10.8)
[2017-07-02 20:36] LABS: SQUAMOUS EPITHIAL 1 /hpf (0-5); URINE BILIRUBIN NEGATIVE (NEGATIVE); URINE BLOOD NEGATIVE (NEGATIVE); URINE CLARITY CLEAR (Clear); URINE COLOR YELLOW (YELLOW); URINE GLUCOSE (UA) >=500 mg/dL (Normal); URINE LEUKOCYTE ESTERASE TRACE Leu/uL (Negative); URINE PROTEIN NEGATIVE (NEGATIVE); URINE UROBILINOGEN 0.2-1.0 mg/dL (0.2-1.0)
[2017-07-02 21:01] LABS: ALB/GLOB RATIO 1.1 (1.0-2.1); CALCIUM 8.9 mg/dL (8.4-10.2)
[2017-07-02 21:17] LABS: ABG ALLEN TEST YES; ARTERIAL BLOOD GAS HCO3 24.6 mmol/L (21-28); ARTERIAL BLOOD GAS O2 SAT 99.7 % (95-98); ARTERIAL BLOOD GAS PCO2 33 mm/Hg (35-45); ARTERIAL BLOOD GAS PH 7.45 (7.35-7.45); ARTERIAL BLOOD GAS PO2 90 mm/Hg (80-100); ARTERIAL BLOOD GAS TCO2 23.9 mmol/L (22-28)
[2017-07-02] MEDS ORDERED: cefTRIAXone (Rocephin) 1 gm Inj ONE (22:59)
[2017-07-03 00:24] VITALS: BP 147/98; PULSE 100; RESP 16; TEMP 98.3
--- NOTE | 2017-07-03 07:15 | CARD ---
APPROVED REPORT EKG Measurement Heart [id number] <Conclusion> Sinus tachycardia with premature atrial complexes ST & T wave abnormality, consider anterior ischemia Abnormal ECG
== END 2017-07-03 00:26 | disposition home or self-care (01) ==
LOC: H.ER 18:24
DX: E11.65 Type 2 diabetes mellitus with hyperglycemia (principal); N39.0 Urinary tract infection, site not specified; E78.00 Pure hypercholesterolemia, unspecified; F03.90 Unspecified dementia, unspecified severity, without behavioral disturbance, psychotic disturbance, mood disturbance, and anxiety; F32.9 Major depressive disorder, single episode, unspecified; F41.9 Anxiety disorder, unspecified; I10 Essential (primary) hypertension; I25.10 Atherosclerotic heart disease of native coronary artery without angina pectoris; Z79.01 Long term (current) use of anticoagulants; Z79.4 Long term (current) use of insulin; Z79.82 Long term (current) use of aspirin; Z85.3 Personal history of malignant neoplasm of breast; Z86.711 Personal history of pulmonary embolism; Z95.5 Presence of coronary angioplasty implant and graft
CPT/HCPCS: 80053; 81003; 82803; 82948; 85025; 93005; 96361; 96365; 96375; 99285; J0696; J7040

== ENCOUNTER 2017-07-17 17:08 | Emergency (ER) | payer MEDICARE ==
[2017-07-17 17:08] VITALS: BMI 28.3
[2017-07-17] MEDS ORDERED: Iohexol 240 (50 ml) PO ONE (18:25)
--- NOTE | 2017-07-17 19:32 | ED PDOC ---
HPI: Abdomen Chief Complaint (Provider): Abdominal pain History Per: Patient Onset/Duration Of Symptoms: Hrs Outside of [place] travel?: No Current Symptoms Are (Timing): Still Present Pain Scale Rating Of: 8 Location Of Pain/Discomfort: Diffuse Associated Symptoms: Nausea. denies: Fever, Chills, Vomiting, Diarrhea, Loss Of Appetite, Back Pain, Chest Pain, Constipation, Urinary Symptoms Exacerbating Factors: Movement Alleviating Factors: None Last Bowel Movement: Yesterday Additional History Per: Patient <Natalie Walton - Last Filed: 07/17/17 22:57> <Ирина Pozo - Last Filed: 07/18/17 16:08> Time Seen by Provider: 07/17/17 18:05 Chief Complaint (Nursing): Abdominal Pain Additional Complaint(s): 72 y/o F with PMHx of DM, Cardiac arrhythmia, CAD s/p cardiac cath with stent placement years ago, Asthma presents to Ed complaining of diffuse abdominal pain since last night, intermittent, colic like abdominal pain, associated with nausea without vomiting, aggravating with movements, no alleviating factors. Reports being passing gases, and last bowel movement was yesterday. As per patient she moves her bowels every day. Denies h/o constipation. Reports intermittent episodes of acid reflux. Denies fevers, chills, diarrheas, blood in stools, urinary symptoms, or other associated complains. (Natalie Walton) Supervising Attending Note <Natalie Walton - Last Filed: 07/17/17 22:57> - Supervising Attending Note The Documented history was done by the: Physician Pay Agent, Attending Physician The documented physical exam was done by the: Physician Pay Agent, Attending Physician - Attestation: I have personally seen and examined this patient.: Yes I have fully participated in the care of the patient.: Yes I have reviewed all pertinent clinical information: Yes <Ирина Pozo - Last Filed: 07/18/17 16:08> - Notes: Notes:: Accession No. 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 no. Patient Name: CARSON CLOUD Pt. Address: [address] [place] [address]. Rec #: [id number] [place] [address]: Sánchez HAGEN, Ирина Younger Pt Order Location: [facility] : 1945 Female Age: 72 Order #: [id number] Reason for exam: abd pain CT Scan ABD PELVIS PO IV CONTRAST Exam Date: 07/17/17 This imaging exam was performed at [facility] ADDENDUM Addendum created by Trevin Spencer MD on 07/17/2017 11:16:58 PM EDT THIS REPORT CONTAINS FINDINGS THAT MAY BE CRITICAL TO PATIENT CARE. The findings were verbally communicated via telephone conference with Dr. Bucio at 11:16 PM EDT on 07/17/2017. The findings were acknowledged and understood. Initial report created on 07/17/2017 11:14:35 PM EDT EXAM: CT Abdomen and Pelvis With Intravenous Contrast CLINICAL HISTORY: 72 years old, female; Pain; Abdominal pain; Localized; Upper; Prior surgery; Surgery date: 6+ months; Surgery type: Umbel. Hernia; Patient HX: HX of breast ca. , Lt lumpectomy; Additional info: Abd pain TECHNIQUE: Axial computed tomography images of the abdomen and pelvis with intravenous contrast. All CT scans at this facility use one or more dose reduction techniques, viz.: automated exposure control; ma/kV adjustment per patient size (including targeted exams where dose is matched to indication; i.e. head); or iterative reconstruction technique. Coronal and sagittal reformatted images were created and reviewed. CONTRAST: 85 mL of [id number] administered intravenously. COMPARISON: CT - ABD PELVIS PO IV CONTRAST 2016-08-11 19:39 FINDINGS: Lung bases: 0.4 cm RIGHT middle lobe nodule, stable. Mild peripheral groundglass opacities within right lung base. Minimal atelectasis/scarring. ABDOMEN: Liver: Fatty infiltration. Gallbladder and bile ducts: No calcified stones. No ductal dilation. Pancreas: No ductal dilation. No mass. Spleen: No splenomegaly. Adrenals: No mass. Kidneys and ureters: Mild stranding about kidneys, nonspecific. Ajne-lg-iwieiaqd atrophy of kidneys. No hydronephrosis. Stomach and bowel: Few scattered diverticula within colon. No associated inflammatory stranding. No definite mural thickening. No obstruction. PELVIS: Appendix: Postsurgical changes of right colon with apparent appendiceal stump. Bladder: Unremarkable. Reproductive: Small partially calcified exophytic lesion along uterine fundus, likely fibroid. ABDOMEN and PELVIS: Intraperitoneal space: No significant fluid collection. No free air. Bones/joints: Degenerative changes of spine. Increased density of L1 vertebral body with moderate compression fracture. Soft tissues: Tiny umbilical hernia containing fat. Small midline ventral hernia containing fat. Vasculature: Qewz-ix-sjciiwni atherosclerotic disease. No aneurysm. Lymph nodes: No pathologically enlarged lymph nodes. IMPRESSION: 1. Diverticulosis without definite CT evidence of diverticulitis. 2. L1 compression fracture with increased sclerosis. Recommend followup MRI to exclude underlying pathology (metastasis). 3. Groundglass opacities, nonspecific. Clinical correlation is needed. 4. Incidental/non-acute findings are described above. Addendum Dictated By: Trevin Spencer MD Addendum Dictated Date Time:07/17/1709/27/2315 Addendum Signed by:Trevin Spencer MD Addendum signed Date Time: 07/17/172315 Addendum Transcribed By: VIJAY Addendum Transcribed Date Time: 07/17/1709/27/2315 ACYP02/FRACISCO EXAM: CT Abdomen and Pelvis With Intravenous Contrast CLINICAL HISTORY: 72 years old, female; Pain; Abdominal pain; Localized; Upper; Prior surgery; Surgery date: 6+ months; Surgery type: Umbel. Hernia; Patient HX: HX of breast ca. , Lt lumpectomy; Additional info: Abd pain TECHNIQUE: Axial computed tomography images of the abdomen and pelvis with intravenous contrast. All CT scans at this facility use one or more dose reduction techniques, viz.: automated exposure control; ma/kV adjustment per patient size (including targeted exams where dose is matched to indication; i.e. head); or iterative reconstruction technique. Coronal and sagittal reformatted images were created and reviewed. CONTRAST: 85 mL of [id number] administered intravenously. COMPARISON: CT - ABD PELVIS PO IV CONTRAST 2016-08-11 19:39 FINDINGS: Lung bases: 0.4 cm RIGHT middle lobe nodule, stable. Mild peripheral groundglass opacities within right lung base. Minimal atelectasis/scarring. ABDOMEN: Liver: Fatty infiltration. Gallbladder and bile ducts: No calcified stones. No ductal dilation. Pancreas: No ductal dilation. No mass. Spleen: No splenomegaly. Adrenals: No mass. Kidneys and ureters: Mild stranding about kidneys, nonspecific. Acex-nm-wtlrowsh atrophy of kidneys. No hydronephrosis. Stomach and bowel: Few scattered diverticula within colon. No associated inflammatory stranding. No definite mural thickening. No obstruction. PELVIS: Appendix: Postsurgical changes of right colon with apparent appendiceal stump. Bladder: Unremarkable. Reproductive: Small partially calcified exophytic lesion along uterine fundus, likely fibroid. ABDOMEN and PELVIS: Intraperitoneal space: No significant fluid collection. No free air. Bones/joints: Degenerative changes of spine. Increased density of L1 vertebral body with moderate compression fracture. Soft tissues: Tiny umbilical hernia containing fat. Small midline ventral hernia containing fat. Vasculature: Kpxs-sx-mekvegeo atherosclerotic disease. No aneurysm. Lymph nodes: No pathologically enlarged lymph nodes. IMPRESSION: 1. Diverticulosis without definite CT evidence of diverticulitis. 2. L1 compression fracture with increased sclerosis. Recommend followup MRI to exclude underlying pathology (metastasis). 3. Groundglass opacities, nonspecific. Clinical correlation is needed. 4. Incidental/non-acute findings are described above. Dictated By: Trevin Spencer MD Dictated Date/Time: 07/17/172313 Signed By: Trevin Spencer MD Date Signed: 2313 Transcribed By: VIJAY Transcribe Date/Time : 07/17/172313 ACYP02/FRACISCO (Ирина Pozo) Past Medical History - Medical History PMH: Anemia, Anxiety, Asthma, CAD, Cardia Arrhythmia, COPD, Dementia, Depression , Diabetes, Fractures (LEFT LEG), HTN, Hypercholesterolemia, Malignancy (breast cancer s/p lumpectomy ), Osteoporosis, Pulmonary Embolism Denies: CVA, Hepatitis, Chronic Kidney Disease, Seizures, Sexually Transmitted Disease - Surgical History Surgical History: Appendectomy, Coronary Stent, Hernia Repair (umbilical hernia) - Family History Family History: States: Unknown Family Hx <Natalie Walton - Last Filed: 07/17/17 22:57> <Ирина Pozo - Last Filed: 07/18/17 16:08> Vital Signs: Last Vital Signs Temp 98.1 F 07/18/17 00:21 Pulse 74 07/18/17 00:21 Resp 15 07/18/17 00:21 BP 115/72 07/18/17 00:21 Pulse Ox 99 07/18/17 00:21 - Home Medications Home Medications: Ambulatory Orders Medication Instructions Recorded Oxycodone HCl/Acetaminophen 1 tab PO Q6 PRN 08/11/16 [Percocet 10-325 mg Tablet] Aspirin [Ecotrin] 81 mg PO DAILY 08/28/16 Insulin Detemir [Levemir] 12 unit SC BID 08/28/16 Cholestyramine [Questran] 4 gm PO BID #8 packet 09/01/16 Acetaminophen [Tylenol 325mg tab] 650 mg PO Q6 PRN tab 02/06/17 Albuterol HFA [Ventolin HFA 90 2 puff INH RQ4 PRN inhaler 02/06/17 mcg/actuation (8 g)] Calcitonin ([place]) [Miacalcin] 200 intlu BALAJI DAILY spr 02/06/17 Metoprolol Tartrate [Lopressor] 25 mg PO Q12 tab 02/06/17 Pravastatin Sodium [Pravachol] 20 mg PO HS tab 02/06/17 diltiaZEM [Cardizem] 90 mg PO TID tab 02/06/17 Albuterol HFA [Ventolin HFA 90 2 puff INH RQ4 PRN inhaler 02/14/17 mcg/actuation (8 g)] Apixaban [Eliquis] 2.5 mg PO BID tab 02/14/17 Calcitonin ([place]) [Miacalcin] 200 intlu BALAJI DAILY spr 02/14/17 Docusate [Colace] 100 mg PO TID cap 02/14/17 Insulin Lispro [Humalog (Insulin See Protocol SQ ACHS 30 Days #0 02/14/17 Lispro)] cartridge Magnesium Hydroxide [Milk Of 30 ml PO DAILY PRN udc 02/14/17 Magnesia] Meclizine [Meclizine*] 25 mg PO TID PRN tab 02/14/17 Mirtazapine [Remeron] 7.5 mg PO HS tab 02/14/17 Ondansetron [Zofran Inj] 4 mg IVP Q6 PRN vial 02/14/17 Sertraline [Zoloft] 50 mg PO DAILY tab 02/14/17 clonazePAM [Klonopin] 0.5 mg PO HS tab 02/14/17 oxyCODONE [oxyCONTIN Extended 20 mg PO Q12 tabsr 02/14/17 Release Tab] Nitrofurantoin Macrocrystals 100 mg PO BID #20 cap 07/02/17 [Macrobid] Dicyclomine [Bentyl] 20 mg PO QID PRN #20 tab 07/17/17 Famotidine [Pepcid] 40 mg PO DAILY PRN #14 tab 07/17/17 - Allergies Allergies/Adverse Reactions: Allergies Allergy/AdvReac Type Severity Reaction Status Date / Time No Known Allergies Allergy Verified 07/17/17 17:59 Review of Systems ROS Statement: Except As Marked, All Systems Reviewed And Found Negative (as per HPI) <Natalie Walton - Last Filed: 07/17/17 22:57> Physical Exam - Reviewed Nursing Documentation Reviewed: Yes Vital Signs Reviewed: Yes - Physical Exam Appears: Positive for: Non-toxic, No Acute Distress Skin: Positive for: Normal Color, Warm, Dry Cardiovascular/Chest: Positive for: Other (irregular). Negative for: Chest Non Tender, Edema Respiratory: Positive for: Normal Breath Sounds. Negative for: Decreased Breath Sounds, Accessory Muscle Use, Crackles, Rales, Rhonchi, Wheezing, Respiratory Distress Gastrointestinal/Abdominal: Positive for: Bowel Sounds (present), Soft, Tenderness (diffuse tenderness to palpation). Negative for: Distended, Guarding , Rebound Back: Positive for: Normal Inspection. Negative for: L CVA Tenderness, R CVA Tenderness Extremity: Negative for: Pedal Edema, Calf Tenderness Neurologic/Psych: Positive for: Alert, Oriented <Natalie Walton - Last Filed: 07/17/17 22:57> - Laboratory Results Result Diagrams: 07/17/17 19:52 07/17/17 19:52 - ECG O2 Sat by Pulse Oximetry: 97 <Natalie Walton - Last Filed: 07/17/17 22:57> - Laboratory Results Result Diagrams: 07/17/17 19:52 07/17/17 19:52 <Ирина Pozo - Last Filed: 07/18/17 16:08> - Progress ED Course And Treament: 2330 On reeval pt reports feeling better and eager to be discharged. Findings on CT discussed with patient. (Vertebral fracture seen on CT actually occurred 01/2017, after pt's last CT abd/pelv. It is not new and pt has had full workup for this.) Abdomen with mild ttp but pt still eager to go home. Advised bland diet and follow up with Dr Villa in 1-2 days. (Ирина Pozo) Medical Decision Making <Natalie Walton - Last Filed: 07/17/17 22:57> <Ирина Pozo - Last Filed: 07/18/17 16:08> Medical Decision Making: Abdominal pain -patient has risk factors for ischemic colitis -CBC, CMP, coag panel -pain control -zofran ODT for nausea -Abd & pelvic CT with contrast -re-evaluation case discussed with Dr. Pozo Re-evaluation -Pain improved, and denies nausea -pending abd & pelvis CT scan results case signed over to Dr. Pozo (Natalie Walton) Disposition Discussed With : Ирина Pozo - Disposition Disposition Time: 22:55 Patient Signed Over To: Ирина Pozo (Pending CT scan results) <Natalie Walton - Last Filed: 07/17/17 22:57> Counseled Patient/Family Regarding: Studies Performed, Diagnosis, Need For Followup, Rx Given - Disposition Disposition: Routine/Home <Ирина Pozo - Last Filed: 07/18/17 16:08> - Clinical Impression Clinical Impression: Abdominal pain - Disposition Referrals: Can Valadez MD [Staff Provider] - (FOLLOW UP WITH DR VALADEZ TOMORROW FOR REEVALUATION) Condition: STABLE Prescriptions: Dicyclomine [Bentyl] 20 mg PO QID PRN #20 tab PRN Reason: abdominal pain Famotidine [Pepcid] 40 mg PO DAILY PRN #14 tab PRN Reason: reflux Instructions: Acute Abdomen (Belly Pain), Adult (DC) Print Language: SYRIAC
[2017-07-17 19:57] LABS: BASO % 0.5 % (0.0-2.0); EOS # 0.2 K/uL (0.0-0.7); EOS % 3.4 % (0.0-4.0); HEMOGLOBIN 12.8 g/dL (12.0-16.0); LYMPH # 2.2 K/uL (1.0-4.3); LYMPH % 30.9 % (20.0-40.0); MEAN CELL VOLUME 84.2 fl (81.0-99.0); MEAN CORPUSCULAR HEMOGLOBIN 28.6 pg (27.0-31.0); MEAN PLATELET VOLUME 8.9 fl (7.2-11.7); MONO # 0.4 K/uL (0.0-0.8); MONO % 5.3 % (0.0-10.0); NEUT # 4.3 K/uL (1.8-7.0); NEUT % 59.9 % (50.0-75.0); RBC 4.47 Mil/uL (3.80-5.20); RED CELL DISTRIBUTION WIDTH 15.5 % (11.5-14.5); WHITE BLOOD COUNT 7.2 K/uL (4.8-10.8)
[2017-07-17 20:07] LABS: INR 1.1 (0.9-1.2); PARTIAL THROMBOPLASTIN TIME 44.7 Seconds (25.6-37.1); PROTHROMBIN TIME 12.5 Seconds (9.8-13.1)
[2017-07-17 20:10] LABS: ALB/GLOB RATIO 1.2 (1.0-2.1); ALBUMIN 4.4 g/dL (3.5-5.0); ALT/SGPT 30 U/L (9-52); AST/SGOT 31 U/L (14-36); BLOOD UREA NITROGEN 29 mg/dl (7-17); CALCIUM 9.6 mg/dL (8.4-10.2); GFR AFRICAN-AMERICAN > 60; GFR NON-AFRICAN AMERICAN 55; LIPASE 285 U/L (23-300)
[2017-07-17] MEDS ORDERED: Iohexol 240 (50 ml) ONE (20:12)
[2017-07-17] MEDS ORDERED: Sodium Chloride 0.9% 50 ML IV ONE (21:42)
[2017-07-17] MEDS ORDERED: Iohexol 300 100 ML IJ ONE (21:42)
--- NOTE | 2017-07-17 23:15 | CT ---
EXAM: CT Abdomen and Pelvis With Intravenous Contrast CLINICAL HISTORY: 72 years old, female; Pain; Abdominal pain; Localized; Upper; Prior surgery; Surgery date: 6+ months; Surgery type: Umbel. Hernia; Patient HX: HX of breast ca. , Lt lumpectomy; Additional info: Abd pain TECHNIQUE: Axial computed tomography images of the abdomen and pelvis with intravenous contrast. All CT scans at this facility use one or more dose reduction techniques, viz.: automated exposure control; ma/kV adjustment per patient size (including targeted exams where dose is matched to indication; i.e. head); or iterative reconstruction technique. Coronal and sagittal reformatted images were created and reviewed. CONTRAST: 85 mL of [id number] administered intravenously. COMPARISON: CT - ABD PELVIS PO IV CONTRAST 2016-08-11 19:39 FINDINGS: Lung bases: 0.4 cm RIGHT middle lobe nodule, stable. Mild peripheral groundglass opacities within right lung base. Minimal atelectasis/scarring. ABDOMEN: Liver: Fatty infiltration. Gallbladder and bile ducts: No calcified stones. No ductal dilation. Pancreas: No ductal dilation. No mass. Spleen: No splenomegaly. Adrenals: No mass. Kidneys and ureters: Mild stranding about kidneys, nonspecific. Ztvk-wf-yivmksck atrophy of kidneys. No hydronephrosis. Stomach and bowel: Few scattered diverticula within colon. No associated inflammatory stranding. No definite mural thickening. No obstruction. PELVIS: Appendix: Postsurgical changes of right colon with apparent appendiceal stump. Bladder: Unremarkable. Reproductive: Small partially calcified exophytic lesion along uterine fundus, likely fibroid. ABDOMEN and PELVIS: Intraperitoneal space: No significant fluid collection. No free air. Bones/joints: Degenerative changes of spine. Increased density of L1 vertebral body with moderate compression fracture. Soft tissues: Tiny umbilical hernia containing fat. Small midline ventral hernia containing fat. Vasculature: Xoej-pi-doarivmo atherosclerotic disease. No aneurysm. Lymph nodes: No pathologically enlarged lymph nodes. IMPRESSION: 1. Diverticulosis without definite CT evidence of diverticulitis. 2. L1 compression fracture with increased sclerosis. Recommend followup MRI to exclude underlying pathology (metastasis). 3. Groundglass opacities, nonspecific. Clinical correlation is needed. 4. Incidental/non-acute findings are described above.
[2017-07-18 00:22] VITALS: BP 115/72; PULSE 74; RESP 15; TEMP 98.1; O2SAT 99
--- NOTE | 2017-07-18 15:25 | CARD ---
APPROVED REPORT EKG Measurement Heart [id number] <Conclusion> Sinus tachycardia Nonspecific ST and T wave abnormality Abnormal ECG
== END 2017-07-18 00:21 | disposition home or self-care (01) ==
LOC: H.ER 17:08
DX: R10.9 Unspecified abdominal pain (principal); E11.9 Type 2 diabetes mellitus without complications; E78.00 Pure hypercholesterolemia, unspecified; F03.90 Unspecified dementia, unspecified severity, without behavioral disturbance, psychotic disturbance, mood disturbance, and anxiety; F32.9 Major depressive disorder, single episode, unspecified; I10 Essential (primary) hypertension; F41.9 Anxiety disorder, unspecified; Z79.01 Long term (current) use of anticoagulants; Z79.4 Long term (current) use of insulin; Z79.82 Long term (current) use of aspirin; Z85.3 Personal history of malignant neoplasm of breast; Z86.711 Personal history of pulmonary embolism; Z95.5 Presence of coronary angioplasty implant and graft
CPT/HCPCS: 74177; 80053; 82948; 83605; 83690; 85025; 85610; 85730; 87040; 93005; 96374; 99284; J2270; Q9966; Q9967

== ENCOUNTER 2017-07-25 22:24 | Observation (INO) | payer MEDICARE, OTHER ==
[2017-07-25 22:24] VITALS: BMI 28.3
[2017-07-25] MEDS ORDERED: Sodium Chloride 0.9% 1,000 ML IV STA (23:35)
[2017-07-25 23:46] LABS: BASO % 0.2 % (0.0-2.0); EOS # 0.3 K/uL (0.0-0.7); EOS % 3.7 % (0.0-4.0); HEMOGLOBIN 12.3 g/dL (12.0-16.0); LYMPH % 41.1 % (20.0-40.0); MEAN CELL VOLUME 84.2 fl (81.0-99.0); MEAN CORPUSCULAR HEMOGLOBIN 28.9 pg (27.0-31.0); MEAN CORPUSCULAR HGB CONC 34.3 g/dL (33.0-37.0); MEAN PLATELET VOLUME 8.3 fl (7.2-11.7); MONO # 0.5 K/uL (0.0-0.8); MONO % 7.5 % (0.0-10.0); NEUT # 3.4 K/uL (1.8-7.0); NEUT % 47.5 % (50.0-75.0); RBC 4.27 Mil/uL (3.80-5.20); RED CELL DISTRIBUTION WIDTH 15.7 % (11.5-14.5); WHITE BLOOD COUNT 7.2 K/uL (4.8-10.8)
--- NOTE | 2017-07-25 23:52 | ED PDOC ---
HPI: Abdomen History Per: Patient History/Exam Limitations: no limitations Location Of Pain/Discomfort: Epigastric Quality Of Discomfort: Unable To Describe Associated Symptoms: Nausea. denies: Fever, Chills, Vomiting, Diarrhea, Loss Of Appetite, Constipation, Urinary Symptoms Exacerbating Factors: None Alleviating Factors: None, OTC Meds (took Tylenol without relief) Additional History Per: Patient <Jem hSepard - Last Filed: 07/26/17 03:15> <Caleb Swann - Last Filed: 07/29/17 00:50> Time Seen by Provider: 07/25/17 23:06 Chief Complaint (Nursing): Abdominal Pain Additional Complaint(s): 72 year old female with multiple comorbidties presents with complaints of abdominal pain, seen here in ED last week. Pain resolved after discharge last week, returned today. 10/10 pain, diffuse worst in epigastrium, associated retrosternal burning, + nausea, no vomiting/diarrhea. No fevers or chills, sweats. History of umbilical hernia repair, cardiac stents, insulin dependent diabetes. (Jem Shepard) Supervising Attending Note - Attestation: I have personally seen and examined this patient.: Yes I have fully participated in the care of the patient.: Yes I have reviewed all pertinent clinical information: Yes <Caleb Swann - Last Filed: 07/29/17 00:50> Past Medical History - Medical History PMH: Anemia, Anxiety, Asthma, CAD, Cardia Arrhythmia, COPD, Dementia, Depression , Diabetes, Fractures (LEFT LEG), HTN, Hypercholesterolemia, Malignancy (breast cancer s/p lumpectomy ), Osteoporosis, Pulmonary Embolism Denies: CVA, Hepatitis, Chronic Kidney Disease, Seizures, Sexually Transmitted Disease - Surgical History Surgical History: Appendectomy, Coronary Stent, Hernia Repair (umbilical hernia) - Family History Family History: States: Unknown Family Hx <Jem Shepard - Last Filed: 07/26/17 03:15> <Caleb Swann - Last Filed: 07/29/17 00:50> Vital Signs: Last Vital Signs Temp 97.7 F 07/28/17 09:00 Pulse 105 H 07/28/17 09:00 Resp 19 07/28/17 08:04 BP 118/79 07/28/17 08:04 Pulse Ox 95 07/28/17 08:04 - Home Medications Home Medications: Ambulatory Orders Medication Instructions Recorded Oxycodone HCl/Acetaminophen 1 tab PO Q6 PRN 08/11/16 [Percocet 10-325 mg Tablet] Aspirin [Ecotrin] 81 mg PO DAILY 08/28/16 Insulin Detemir [Levemir] 12 unit SC BID 08/28/16 Cholestyramine [Questran] 4 gm PO BID #8 packet 09/01/16 Acetaminophen [Tylenol 325mg tab] 650 mg PO Q6 PRN tab 02/06/17 Albuterol HFA [Ventolin HFA 90 2 puff INH RQ4 PRN inhaler 02/06/17 mcg/actuation (8 g)] Pravastatin Sodium [Pravachol] 20 mg PO HS tab 02/06/17 diltiaZEM [Cardizem] 90 mg PO TID tab 02/06/17 Apixaban [Eliquis] 2.5 mg PO BID tab 02/14/17 Calcitonin ([place]) [Miacalcin] 200 intlu BALAJI DAILY spr 02/14/17 Docusate [Colace] 100 mg PO TID cap 02/14/17 Insulin Lispro [Humalog (Insulin See Protocol SQ ACHS 30 Days #0 02/14/17 Lispro)] cartridge Magnesium Hydroxide [Milk Of 30 ml PO DAILY PRN udc 02/14/17 Magnesia] Meclizine [Meclizine*] 25 mg PO TID PRN tab 02/14/17 Mirtazapine [Remeron] 7.5 mg PO HS tab 02/14/17 Ondansetron [Zofran Inj] 4 mg IVP Q6 PRN vial 02/14/17 Sertraline [Zoloft] 50 mg PO DAILY tab 02/14/17 clonazePAM [Klonopin] 0.5 mg PO HS tab 02/14/17 oxyCODONE [oxyCONTIN Extended 20 mg PO Q12 tabsr 02/14/17 Release Tab] Dicyclomine [Bentyl] 20 mg PO QID PRN #20 tab 07/17/17 Famotidine [Pepcid] 40 mg PO DAILY PRN #14 tab 07/17/17 Bisoprolol [Zebeta] 5 mg PO DAILY #30 tab 07/27/17 - Allergies Allergies/Adverse Reactions: Allergies Allergy/AdvReac Type Severity Reaction Status Date / Time No Known Allergies Allergy Verified 07/17/17 17:59 Review of Systems Constitutional: Negative for: Fever, Chills, Sweats Cardiovascular: Negative for: Chest Pain, Palpitations, Light Headedness Respiratory: Negative for: Cough, Shortness of Breath, SOB with Exertion Gastrointestinal: Positive for: Nausea, Abdominal Pain. Negative for: Vomiting , Diarrhea, Constipation Genitourinary Female: Negative for: Dysuria, Frequency Skin: Negative for: Rash Neurological: Negative for: Weakness, Numbness, Confusion, Altered Mental Status , Headache <Jem Shepard - Last Filed: 07/26/17 03:15> Physical Exam - Physical Exam Appears: Positive for: Non-toxic, In Acute Distress (secondary to pain) Head Exam: Positive for: ATRAUMATIC, NORMAL INSPECTION, NORMOCEPHALIC Skin: Positive for: Normal Color, Warm, DRY Eye Exam: Positive for: EOMI, Normal appearance, PERRL Cardiovascular/Chest: Positive for: Chest Non Tender, Tachycardia. Negative for : Edema, Murmur, Bradycardia Respiratory: Positive for: Normal Breath Sounds. Negative for: Wheezing, Respiratory Distress Gastrointestinal/Abdominal: Positive for: Soft, Tenderness (midepigastric). Negative for: Distended, Guarding, Rebound Back: Positive for: Normal Inspection Extremity: Positive for: Normal ROM. Negative for: Tenderness Neurologic/Psych: Positive for: Alert, smash piecer II-XII, Oriented <Jem Shepard - Last Filed: 07/26/17 03:15> - Laboratory Results Result Diagrams: 07/25/17 23:35 07/25/17 23:35 - ECG O2 Sat by Pulse Oximetry: 97 <Jem Shepard - Last Filed: 07/26/17 03:15> - Laboratory Results Result Diagrams: 07/25/17 23:35 07/25/17 23:35 <Caleb Swann - Last Filed: 07/29/17 00:50> - Progress ED Course And Treament: 72 year old female with midepigastric pain and nausea. Possibly 2/2 to gastritis, rule out pancreatitis, DKA, ACS INITAL PLAN: 0760 --CBC --CMP --TROPONINS --LIPASE --LACTATE --IVF --PROTONIX --REGLAN CASE D/W DR. SWANN. patient reeval 02:00 now with compliants of left sided chest pain/palpitations HR 120s on monitor, sinus rythm, BP 160 systolic Repeat EKG Reeval: 2:30 Labs: No leukocytosis, CMP:WNL, UA: +WBC, +LE Patient HR now 118, pain still present. --Labetolol 5mg --ASA 81mg --Rocephin 1gm Will admit for observation, patient amenable to staying. Will reassess (Jem Shepard) Disposition - Disposition Disposition Time: 02:35 <Jem Shepard - Last Filed: 07/26/17 03:15> <Caleb Swann - Last Filed: 07/29/17 00:50> - Clinical Impression Clinical Impression: Palpitations, Abdominal pain, Chest pain - Disposition Condition: STABLE
[2017-07-26 00:18] LABS: ALB/GLOB RATIO 1.2 (1.0-2.1); ALBUMIN 4.2 g/dL (3.5-5.0); ALT/SGPT 29 U/L (9-52); AST/SGOT 28 U/L (14-36); BLOOD UREA NITROGEN 19 mg/dl (7-17); CALCIUM 9.6 mg/dL (8.4-10.2); GFR AFRICAN-AMERICAN > 60; GFR NON-AFRICAN AMERICAN > 60; LIPASE 141 U/L (23-300)
[2017-07-26 01:00] LABS: SQUAMOUS EPITHIAL 1 /hpf (0-5); URINE BACTERIA OCC (<OCC); URINE BILIRUBIN NEGATIVE (NEGATIVE); URINE BLOOD SMALL (NEGATIVE); URINE CLARITY SLIGHTY-CLOUDY (Clear); URINE COLOR YELLOW (YELLOW); URINE GLUCOSE (UA) NEG (Normal); URINE LEUKOCYTE ESTERASE LARGE Leu/uL (Negative); URINE PROTEIN 30 mg/dL (NEGATIVE); URINE UROBILINOGEN 0.2-1.0 mg/dL (0.2-1.0)
[2017-07-26] MEDS ORDERED: Labetalol 5 mg/ml Inj 20ML IVP STA (02:22)
[2017-07-26] MEDS ORDERED: cefTRIAXone (Rocephin) 1 gm Inj ONE (03:22)
[2017-07-26] MEDS: Insulin Lispro (humaLOG) 100 Units/ml Inj SC SCH ×4 (07:30→23:12)
--- NOTE | 2017-07-26 08:25 | RAD ---
HISTORY: chest pain COMPARISON: Portable chest 02/02/2017. FINDINGS: LUNGS: No active pulmonary disease. PLEURA: No significant pleural effusion identified, no pneumothorax apparent. CARDIOVASCULAR: Stable cardiomediastinal silhouette. No definite pulmonary vascular congestion. OSSEOUS STRUCTURES: No significant abnormalities. VISUALIZED UPPER ABDOMEN: Normal. OTHER FINDINGS: None. IMPRESSION: No interval acute cardiopulmonary disease appreciable.
[2017-07-26] MEDS ORDERED: Enoxaparin 60 mg Syringe SC SCH (09:00)
[2017-07-26] MEDS ORDERED: Enoxaparin 40 mg Syringe SC SCH (09:00)
[2017-07-26] MEDS: Alum-Mag Hydrox-Simethicone Susp (30 mL) PO PRN ×3 (09:57→19:44)
[2017-07-26] MEDS: Pantoprazole 40 mg EC Tab PO SCH (09:57)
--- NOTE | 2017-07-26 17:25 | US ---
HISTORY: abd pain COMPARISON: Abdomen pelvis CT 07/17/2017. TECHNIQUE: Sonographic evaluation of the abdomen. FINDINGS: LIVER: Measures 15.2 cm. Diffusely increased echogenicity of the liver parenchyma. No mass. No intrahepatic bile duct dilatation. GALLBLADDER: Unremarkable. No gallstones. COMMON BILE DUCT: Measures 3.5 mm. No stones. No dilatation. PANCREAS: Unremarkable as visualized. No mass. No ductal dilatation. RIGHT KIDNEY: Measures 10.6cm. Normal echogenicity. No calculus, mass, or hydronephrosis. LEFT KIDNEY: Measures 10.0cm. Normal echogenicity. No calculus, mass, or hydronephrosis. SPLEEN: Normal in size and contour. No mass. AORTA: No aneurysmal dilatation. IVC: Unremarkable. OTHER FINDINGS: None. IMPRESSION: Hepatic steatosis as well as fatty replaced of the pancreas. No biliary tree dilatation grossly evident. Gallbladder is distended but otherwise unremarkable. Remainder of the examination appears unremarkable though there is some obscuring by bowel gas and body habitus. .
--- NOTE | 2017-07-26 18:14 | CT ---
PROCEDURE: CT Abdomen and Pelvis without intravenous contrast HISTORY: Abdominal pain COMPARISON: None. TECHNIQUE: Helical CT of the abdomen and pelvis was performed without oral or intravenous contrast as per referring physician request. Contrast dose: None Radiation dose: Total exam DLP = for a 0.33 mGy-cm. This CT exam was performed using one or more of the following dose reduction techniques: Automated exposure control, adjustment of the mA and/or kV according to patient size, and/or use of iterative reconstruction technique. FINDINGS: LOWER THORAX: 5 mm nodule and fibrosis again seen the right middle lobe base with limited bibasilar atelectasis evident. LIVER: Marked hepatic steatosis reiterated with liver stable in appearance. GALLBLADDER AND BILE DUCTS: Unremarkable. PANCREAS: No significant interval change. SPLEEN: Unremarkable. ADRENALS: Unremarkable. No mass. KIDNEYS AND URETERS: Unremarkable. No hydronephrosis. No solid mass. VASCULATURE: Unremarkable. No aortic aneurysm. BOWEL: Stable anastomotic suture line identified at the ascending colon as prior right migel colonic segmental resection. Sigmoid diverticulosis without diverticulitis evident. APPENDIX: Not identified. PERITONEUM: Unremarkable. No free fluid. No free air. LYMPH NODES: Unremarkable. No enlarged lymph nodes. BLADDER: Unremarkable. REPRODUCTIVE: Unremarkable. BONES: No acute fracture. OTHER FINDINGS: None. IMPRESSION: 1. Stable sigmoid diverticulosis without diverticulitis. 2. Partial right hemicolectomy stable appearing. 3. Marked hepatic steatosis reiterated. 4. Limited bibasilar dependent atelectasis and small right middle lobe nodule appears stable.
--- NOTE | 2017-07-27 01:41 | CON ---
DATE: 07/26/2017 CARDIOLOGY CONSULTATION REASON FOR CONSULTATION: Abnormal EKG and history of coronary artery disease. HISTORY OF PRESENT ILLNESS: The patient is a 72-year-old female who has a history of chronic obstructive lung disease; history of coronary artery disease, status post coronary stenting to the right coronary artery few years ago; history of pulmonary embolism few years ago; history of depression; and history of atrial arrhythmia including a multifocal atrial tachycardia; history of breast cancer, status post lumpectomy with residual seroma. The patient presented because of epigastric and left subcostal pain as well as nausea. She denies any vomiting. She denies any diarrhea, fever, or chills. The patient denies any retrosternal chest pain. Denies any recent falls. The patient denies any shortness of breath or wheezing at this time. SOCIAL HISTORY: The patient is a nonsmoker. MEDICATIONS: Ambien 5 mg at bedtime, Rocephin 1 gm intravenously daily, aspirin 81 mg once a day, Lovenox 60 mg subcutaneous twice a day, morphine sulphate 2 mg intravenously every 6 hours p.r.n., Maalox 30 mL every 4 hours p.r.n., Protonix 40 mg p.o. once a day, Tylenol 650 mg p.o. every 6 hours p.r.n. for [id number] pain. REVIEW OF SYSTEMS: No fever or chills. No vomiting or diarrhea. No donavan hematuria. PHYSICAL EXAMINATION: GENERAL: The patient is an elderly female who does not appear to be in acute distress. VITAL SIGNS: Blood pressure 151/72, heart rate 110, temperature 98.3, and respirations 12. HEENT: Normocephalic. CHEST: Clear. HEART: S1 and S2 are regular. ABDOMEN: Soft. EXTREMITIES: No edema and no calf tenderness. LABORATORY DATA: Hemoglobin and hematocrit 12.3 and 35.9, white count 7.2, platelet count 224,000. SMA-7: Sodium 140, potassium 4.2, chloride 100, CO2 is 24, glucose 154, BUN 19, creatinine 0.9. Troponin 0.02 and 0.024. Lipase is within normal limits. EKG reveals sinus tachycardia at a rate of [address]-T wave changes. Abdominal ultrasound was performed; however, the report is still pending. Urinalysis is consistent with high rbc's per high-power field and hyaline cast. Chest x-ray was unremarkable. Abdomen and pelvis CT scan done on 07/17/2017 with p.o. and IV contrast, and the impression was diverticulosis without definitive evidence of diverticulitis. L1 compression fracture with increased sclerosis. Recommend followup MRI. Ground-glass opacities, nonspecific. Clinical correlation is needed. Chest CT with PE protocol done in 01/2017 with unremarkable pulmonary angiogram. ASSESSMENT: 1. Right upper quadrant as well as epigastric abdominal pain, rule out splenic infarct. 2. Physiologic sinus tachycardia. 3. Coronary artery disease, status post coronary stenting to the distal right coronary artery. Most recent cardiac catheterization in 02/2015 revealed patent stent. 4. History of small bilateral pulmonary embolus in the past. 5. Chronic obstructive lung disease. 6. Rule out nephrolithiasis and renal colic. RECOMMENDATIONS: Continue IV Rocephin. Continue aspirin 81 mg once a day. Reduce Lovenox to 40 mg subcutaneously once a day. Obtain abdomen and pelvis CT scan without either IV or p.o. contrast. Jan Whitfield MD
--- NOTE | 2017-07-27 02:16 | HP ---
HISTORY OF PRESENT ILLNESS: This is a 72-year-old female with history of multiple medical problems, presented to emergency room with symptoms of epigastric pain, radiates to the chest. The patient's symptoms started 2 days prior to admission. The patient tried to take home medications with no relief. The patient presented to emergency room for evaluation, and she was found to have also urinary tract infection. The patient was started on IV antibiotics, and she was admitted to telemetry floor to rule out myocardial infarction. The patient also visited emergency room today prior to this admission, and she had a workup done. Other review of systems is negative. ALLERGIES: NO KNOWN ALLERGIES. MEDICATIONS: Reviewed as per home medications. PAST MEDICAL HISTORY: Hypertension, type 2 diabetes mellitus, status post lumpectomy for cancer of breast, history of pulmonary embolism. SOCIAL HISTORY: No history of smoking, EtOH, or substance abuse. FAMILY HISTORY Noncontributory. PHYSICAL EXAMINATION: GENERAL: The patient is in bed, not in any cardiopulmonary distress. VITAL SIGNS: Blood pressure 147/82, temperature 98.3, respiratory rate 19, and pulse 108. HEENT: Pupils equal and reactive to light. Normal-appearing mucosa of the conjunctivae, oropharynx, and nasal membrane mucosa. NECK: Supple. No JVD. No carotid bruit. No lymph node. No thyromegaly. CHEST AND LUNGS: Bilateral symmetrical expansion. Good air exchange. No rales, no rhonchi. CARDIOVASCULAR SYSTEM: PMI not localized. S1, S2. No additional sounds. ABDOMEN: Normoactive bowel sounds. No tenderness. No organomegaly. No masses. EXTREMITIES: No cyanosis, no clubbing, no edema. CENTRAL NERVOUS SYSTEM: Alert, awake, oriented x2. No neurological deficit could be appreciated. ASSESSMENT: 1. Epigastric pain radiates to chest, rule out myocardial infarction. 2. History of coronary artery disease, status post percutaneous coronary intervention. 3. Type 2 diabetes mellitus. 4. Status post pulmonary embolism. 5. History of cancer breast, status post left lumpectomy. PLAN: We will do cardiac enzymes every 8 hours x3. Cardiology consult and follow recommendations. Do Accu-Cheks with insulin coverage. Resume the patient's home medications. Urinary tract infection, well treated. We will do urine culture, and we will continue Rocephin 1 gm daily. [facility] MD [facility] # [id number]
[2017-07-27] MEDS: Insulin Lispro (humaLOG) 100 Units/ml Inj SC SCH ×4 (06:34→21:00)
[2017-07-27] MEDS: Pantoprazole 40 mg EC Tab PO SCH (08:39)
[2017-07-27] MEDS: Enoxaparin 40 mg Syringe SC SCH (08:39)
--- NOTE | 2017-07-27 11:37 | CARD ---
APPROVED REPORT EKG Measurement Heart [id number] <Conclusion> Sinus tachycardia with premature supraventricular complexes Nonspecific T wave abnormality Abnormal ECG
[2017-07-27] MEDS: Alum-Mag Hydrox-Simethicone Susp (30 mL) PO PRN ×2 (15:10→20:41)
[2017-07-28 08:05] VITALS: BP 118/79; PULSE 105; RESP 19; TEMP 97.7; O2SAT 95
--- NOTE | 2017-07-28 08:27 | PN ---
DATE: 07/27/2017 SUBJECTIVE: The patient is seen today, 07/27/2017. She is not in any cardiopulmonary distress. Overall, she was doing good except that the patient was tachycardic. OBJECTIVE: VITAL SIGNS: Heart rate was 120, blood pressure 136/64, temperature 98.2, respiratory rate is 16. HEENT: Pupils are equal and reactive to light. Normal-appearing mucosa of the conjunctivae, oropharynx, and nasal membrane mucosa. NECK: Supple. No JVD. No carotid bruit. No lymph node. No thyromegaly. CHEST AND LUNGS: Bilateral symmetrical expansion. Good air exchange. No rales, no rhonchi. CARDIOVASCULAR SYSTEM: PMI not localized. S1, S2. No additional sounds. ABDOMEN: Normoactive bowel sounds. No tenderness. No organomegaly. No masses. EXTREMITIES: No cyanosis, no clubbing, no edema. WARD ASSISTANT: Alert, awake, and oriented x2. No neurological deficit could be appreciated. ASSESSMENT: 1. Epigastric pain that radiates to the chest, myocardial infarction was ruled out. 2. Hypertension. 3. Type 2 diabetes mellitus. 4. History of cancer of breast, status post left lumpectomy. 5. History of coronary artery disease. PLAN: Follow cardiology recommendations. We will start the patient on bisoprolol as she is tachycardic. If the patient was cleared by Cardiology, we will discharge to home. Can Valadez MD
[2017-07-28] MEDS: Alum-Mag Hydrox-Simethicone Susp (30 mL) PO PRN (08:29)
[2017-07-28] MEDS: Insulin Lispro (humaLOG) 100 Units/ml Inj SC SCH ×2 (08:30→12:09)
--- NOTE | 2017-07-28 08:30 | PN ---
DATE: 07/27/2017 SUBJECTIVE: No reported cardiac arrhythmia. No reported chest pain. The patient is still experiencing epigastric discomfort. She denies any shortness of breath. OBJECTIVE: VITAL SIGNS: Blood pressure 144/100, heart rate 106, temperature 98.2, and respirations 23. HEENT: Normocephalic. CHEST: Clear. HEART: S1, S2 regular. ABDOMEN: Mild epigastric tenderness. EXTREMITIES: No edema. LABORATORY DATA: Blood sugars are 168, 210, and [address]. Ab[address]en and pelvic CT scan, stable sigmoid diverticulosis without diverticulitis. Partial right hemicolectomy, stable appearing. Marked hepatic steatosis. atelectasis and small right middle lobe nodule, appear stable. Abdominal ultrasound, hepatic steatosis as well as slight replacement of the pancreas. No biliary tree dilatation. Gallbladder is distended, but otherwise unremarkable. ASSESSMENT: 1. Coronary artery disease with history of right coronary artery stenting with patent stent and cardiac catheterization done in 2015. 2. History of pulmonary embolus in the past. 3. Uncontrolled diabetes mellitus. 4. Depression. 5. Chronic obstructive lung disease. 6. History of breast cancer, status post right lumpectomy with residual seroma. 7. Fatty liver. 8. Uncontrolled hypertension. 9. Sinus tachycardia, which is physiologic in my opinion. RECOMMENDATIONS: Continue subcutaneous Lovenox 20 mg once a day, aspirin 81 mg once a day, Rocephin 1 gm intravenously daily, started at 5 mg orally daily today. No further cardiac workup is indicated. The patient can be discharged from the cardiac point of view. Jan Whitfield MD
[2017-07-28] MEDS: Pantoprazole 40 mg EC Tab PO SCH (08:31)
[2017-07-28] MEDS: Enoxaparin 40 mg Syringe SC SCH (08:31)
[2017-07-28] MEDS ORDERED: Saccharomyces Boulardi 250 mg Cap PO SCH (11:00)
== END 2017-07-28 13:37 | disposition home or self-care (01) ==
LOC: H.ER 22:24 → H.ERHOLD 07-26 02:21 → H.ICU/CCU 07-26 03:52 → H.MEDSURG1 07-27 21:05
PROVIDERS: ADMIT Internal Medicine; ATTEND Internal Medicine
DX: R07.9 Chest pain, unspecified (principal); R00.0 Tachycardia, unspecified; E11.65 Type 2 diabetes mellitus with hyperglycemia; E78.00 Pure hypercholesterolemia, unspecified; F03.90 Unspecified dementia, unspecified severity, without behavioral disturbance, psychotic disturbance, mood disturbance, and anxiety; F32.9 Major depressive disorder, single episode, unspecified; I10 Essential (primary) hypertension; I25.10 Atherosclerotic heart disease of native coronary artery without angina pectoris; J44.9 Chronic obstructive pulmonary disease, unspecified; K76.0 Fatty (change of) liver, not elsewhere classified; M81.0 Age-related osteoporosis without current pathological fracture; N39.0 Urinary tract infection, site not specified; Z79.01 Long term (current) use of anticoagulants; Z79.4 Long term (current) use of insulin; Z79.82 Long term (current) use of aspirin; Z85.3 Personal history of malignant neoplasm of breast; Z86.711 Personal history of pulmonary embolism; Z95.5 Presence of coronary angioplasty implant and graft; D64.9 Anemia, unspecified; F41.9 Anxiety disorder, unspecified; Z79.899 Other long term (current) drug therapy
CPT/HCPCS: 71045; 74176; 76700; 80053; 81003; 82948; 83690; 84484; 85025; 87040; 87081; 87086; 93005; 96360; 96374; 99285; C9113; G0378; J0696; J1650; J2270; J2765; J7030

== ENCOUNTER 2017-09-07 12:56 | Emergency (ER) | payer MEDICARE, OTHER ==
[2017-09-07 12:56] VITALS: BMI 28.3
[2017-09-07 13:26] VITALS: TEMP 98.5; O2SAT 97
[2017-09-07] MEDS ORDERED: Levalbuterol 1.25 MG/3 ML Inhal Soln UD INH STA (14:01)
--- NOTE | 2017-09-07 14:09 | ED PDOC ---
History of Present Illness History of Present Illness: 72 y/o female with a PMHx of Asthma presents to the ED complaining of cough, onset three days ago. Patient reports of taking an abuterol pump for asthma symptoms but ran out of medications thus prompting today's visit. Denies fever and chills. PMD: Dr. Valadez HPI: Influenza Time Seen by Provider: 09/07/17 14:01 Chief Complaint: Cough, Cold, Congestion Chief Complaint (Provider): Cough, Cold, Congestion History Per: Patient Exam Limitations: no limitations Onset/Duration Of Symptoms: Days (x3) Symptoms include: cough. denies: fever Past Medical History Reviewed: Historical Data, Nursing Documentation, Vital Signs Vital Signs: Last Vital Signs Temp 98.5 F 09/07/17 13:00 Pulse 99 H 09/07/17 13:00 Resp 18 09/07/17 13:00 BP 148/73 09/07/17 13:00 Pulse Ox 97 09/07/17 13:00 - Medical History PMH: Anemia, Anxiety, Asthma, CAD, Cardia Arrhythmia, COPD, Dementia, Depression , Diabetes, Fractures (LEFT LEG), HTN, Hypercholesterolemia, Malignancy (breast cancer s/p lumpectomy ), Osteoporosis, Pulmonary Embolism Denies: CVA, Hepatitis, Chronic Kidney Disease, Seizures, Sexually Transmitted Disease - Surgical History Surgical History: Appendectomy, Cholecystectomy, Coronary Stent, Hernia Repair ( umbilical hernia) - Family History Family History: States: Unknown Family Hx - Home Medications Home Medications: Ambulatory Orders Medication Instructions Recorded Oxycodone HCl/Acetaminophen 1 tab PO Q6 PRN 08/11/16 [Percocet 10-325 mg Tablet] Aspirin [Ecotrin] 81 mg PO DAILY 08/28/16 Insulin Detemir [Levemir] 12 unit SC BID 08/28/16 Cholestyramine [Questran] 4 gm PO BID #8 packet 09/01/16 Acetaminophen [Tylenol 325mg tab] 650 mg PO Q6 PRN tab 02/06/17 Albuterol HFA [Ventolin HFA 90 2 puff INH RQ4 PRN inhaler 02/06/17 mcg/actuation (8 g)] Pravastatin Sodium [Pravachol] 20 mg PO HS tab 02/06/17 diltiaZEM [Cardizem] 90 mg PO TID tab 02/06/17 Apixaban [Eliquis] 2.5 mg PO BID tab 02/14/17 Calcitonin ([place]) [Miacalcin] 200 intlu BALAJI DAILY spr 02/14/17 Docusate [Colace] 100 mg PO TID cap 02/14/17 Insulin Lispro [Humalog (Insulin See Protocol SQ ACHS 30 Days #0 02/14/17 Lispro)] cartridge Magnesium Hydroxide [Milk Of 30 ml PO DAILY PRN udc 02/14/17 Magnesia] Meclizine [Meclizine*] 25 mg PO TID PRN tab 02/14/17 Mirtazapine [Remeron] 7.5 mg PO HS tab 02/14/17 Ondansetron [Zofran Inj] 4 mg IVP Q6 PRN vial 02/14/17 Sertraline [Zoloft] 50 mg PO DAILY tab 02/14/17 clonazePAM [Klonopin] 0.5 mg PO HS tab 02/14/17 oxyCODONE [oxyCONTIN Extended 20 mg PO Q12 tabsr 02/14/17 Release Tab] Dicyclomine [Bentyl] 20 mg PO QID PRN #20 tab 07/17/17 Famotidine [Pepcid] 40 mg PO DAILY PRN #14 tab 07/17/17 Bisoprolol [Zebeta] 5 mg PO DAILY #30 tab 07/27/17 Albuterol HFA [Ventolin HFA 90 2 puff IH [id number] PRN #1 inh 09/07/17 mcg/actuation (8 g)] - Allergies Allergies/Adverse Reactions: Allergies Allergy/AdvReac Type Severity Reaction Status Date / Time No Known Allergies Allergy Verified 07/17/17 17:59 Review of Systems ROS Statement: Except As Marked, All Systems Reviewed And Found Negative Constitutional: Negative for: Fever, Chills Respiratory: Positive for: Cough Physical Exam - Reviewed Nursing Documentation Reviewed: Yes Vital Signs Reviewed: Yes - Physical Exam Head Exam: Positive for: ATRAUMATIC, NORMOCEPHALIC Skin: Positive for: Normal Color Eye Exam: Positive for: Normal appearance Neck: Positive for: Normal Cardiovascular/Chest: Negative for: Bradycardia, Tachycardia Respiratory: Positive for: Wheezing (scattered wheezes heard). Negative for: Respiratory Distress Extremity: Positive for: Normal ROM. Negative for: Deformity Neurologic/Psych: Positive for: Alert, Oriented. Negative for: Motor/Sensory Deficits Medical Decision Making Medical Decision Making: Time: 1401 Plan: -- Peak Flow Pre/Post Tx -- Xopenex 1.25 mg INH Scribe Attestation: Documented by Cherelle Kathleen, acting as a scribe for Soco Muse PA-C. Provider Scribe Attestation: All medical record entries made by the Scribe were at my direction and personally dictated by me. I have reviewed the chart and agree that the record accurately reflects my personal performance of the history, physical exam, medical decision making, and the department course for this patient. I have also personally directed, reviewed, and agree with the discharge instructions and disposition. - ECG O2 Sat by Pulse Oximetry: 97 - Progress ED Course And Treament: Patient re-evaluated after nebulizer treatment. Noted CTAB Disposition - Clinical Impression Clinical Impression: Asthma - Patient ED Disposition Is Patient to be Admitted: No - Disposition Disposition: Routine/Home Disposition Time: 14:45 Condition: FAIR Prescriptions: Albuterol HFA [Ventolin HFA 90 mcg/actuation (8 g)] 2 puff IH [id number] PRN #1 inh PRN Reason: Shortness Of Breath Instructions: Asthma, Adult (DC) Print Language: PORTUGUESE
[2017-09-07] MEDS ORDERED: Levalbuterol 0.63 MG/3 ML Inhal Soln UD ONE (14:32)
[2017-09-07 15:07] VITALS: BP 138/78; PULSE 85; RESP 16
== END 2017-09-07 15:07 | disposition home or self-care (01) ==
LOC: H.ER 12:56
DX: J45.909 Unspecified asthma, uncomplicated (principal); E11.9 Type 2 diabetes mellitus without complications; F03.90 Unspecified dementia, unspecified severity, without behavioral disturbance, psychotic disturbance, mood disturbance, and anxiety; Z79.01 Long term (current) use of anticoagulants; Z79.4 Long term (current) use of insulin

== ENCOUNTER 2017-10-19 11:47 | Inpatient (IN) | payer MEDICARE, OTHER ==
[2017-10-19 11:48] VITALS: BMI 28.3
[2017-10-19 13:06] LABS: BASO % 0.3 % (0.0-2.0); EOS # 0.3 K/uL (0.0-0.7); EOS % 3.7 % (0.0-4.0); HEMOGLOBIN 12.6 g/dL (12.0-16.0); LYMPH # 1.7 K/uL (1.0-4.3); LYMPH % 21.8 % (20.0-40.0); MEAN CELL VOLUME 86.1 fl (81.0-99.0); MEAN CORPUSCULAR HEMOGLOBIN 29.9 pg (27.0-31.0); MEAN CORPUSCULAR HGB CONC 34.7 g/dL (33.0-37.0); MEAN PLATELET VOLUME 8.4 fl (7.2-11.7); MONO # 0.4 K/uL (0.0-0.8); MONO % 4.4 % (0.0-10.0); NEUT # 5.6 K/uL (1.8-7.0); NEUT % 69.8 % (50.0-75.0); NRBC % 0.1 % (0.0-0.0); RBC 4.23 Mil/uL (3.80-5.20); RED CELL DISTRIBUTION WIDTH 14.5 % (11.5-14.5)
[2017-10-19 13:16] LABS: PARTIAL THROMBOPLASTIN TIME 26.2 Seconds (25.6-37.1)
[2017-10-19 13:21] LABS: BLOOD UREA NITROGEN 32 mg/dl (7-17); CALCIUM 9.6 mg/dL (8.4-10.2); GFR NON-AFRICAN AMERICAN 40
[2017-10-19 13:33] LABS: B-TYPE NATRIURETIC PEPTIDE 380 pg/ml (0-900)
[2017-10-19] MEDS ORDERED: Sodium Chloride 0.9% 1,000 ML IV STA ×3 (13:52→16:02)
--- NOTE | 2017-10-19 14:30 | RAD ---
HISTORY: possible admission COMPARISON: Chest x-ray performed 10/17/17 TECHNIQUE: Chest, one view. FINDINGS: Examination limited by habitus. LUNGS: No focal consolidation. Please note that chest x-ray has limited sensitivity for the detection of pulmonary masses. PLEURA: No significant pleural effusion identified. No definite pneumothorax . CARDIOVASCULAR: Heart size appears top normal. Ectatic aorta containing atherosclerotic calcifications. OSSEOUS STRUCTURES: Degenerative changes. VISUALIZED UPPER ABDOMEN: Elevation of the right hemidiaphragm. OTHER FINDINGS: Punctate densities project over the left breast which may be related to surgical clips. IMPRESSION: Ectatic aorta. Atherosclerotic calcifications. Elevation of the right hemidiaphragm.
--- NOTE | 2017-10-19 15:14 | ED PDOC ---
HPI: General Adult Time Seen by Provider: 10/19/17 12:28 Chief Complaint (Nursing): Chest Pain Chief Complaint (Provider): Chest pain History Per: Patient History/Exam Limitations: no limitations Onset/Duration Of Symptoms: Days Additional History Per: Patient Additional Complaint(s): 72yo female with history of diabetes, depression, anxiety, asthma, Alzheimer's disease, and breast cancer, comes to ER for evaluation of chest pain. Patient states she was seen in this ER 3 days ago for a cough and was informed all her testing was normal and was sent home. Patient received a phonecall yesterday stating her chest x-ray showed cancer; patient states she is unsure of why she was told she has cancer and why it was seen on the XR and is feeling nervous. She reports this morning, she had chest pain which radiated to her left arm. She reports a dry cough as well but denies any sputum, hemoptysis, diaphoresis, fever, dizziness or weakness. Patient unable to state any exacerbating or remitting factors. PMD: In [facility], unable to recall name. Medications: Unable to recall name Past Medical History Reviewed: Historical Data, Nursing Documentation, Vital Signs Vital Signs: Last Vital Signs Temp 98.3 F 10/20/17 19:26 Pulse 80 10/20/17 19:26 Resp 20 10/20/17 19:26 BP 136/64 10/20/17 19:26 Pulse Ox 97 10/20/17 23:30 - Medical History PMH: Anemia, Anxiety, Asthma, CAD, Cardia Arrhythmia, COPD, Dementia, Depression , Diabetes, Fractures (LEFT LEG), HTN, Hypercholesterolemia, Malignancy (breast cancer s/p lumpectomy ), Osteoporosis, Pulmonary Embolism Denies: CVA, Hepatitis, Chronic Kidney Disease, Seizures, Sexually Transmitted Disease - Surgical History Surgical History: Appendectomy, Cholecystectomy, Coronary Stent, Hernia Repair ( umbilical hernia) - Family History Family History: States: No Known Family Hx - Living Arrangements Living Arrangements: With Family - Home Medications Home Medications: Ambulatory Orders Medication Instructions Recorded Oxycodone HCl/Acetaminophen 1 tab PO Q6 PRN 08/11/16 [Percocet 10-325 mg Tablet] Aspirin [Ecotrin] 81 mg PO DAILY 08/28/16 Insulin Detemir [Levemir] 12 unit SC BID 08/28/16 Cholestyramine [Questran] 4 gm PO BID #8 packet 09/01/16 Acetaminophen [Tylenol 325mg tab] 650 mg PO Q6 PRN tab 02/06/17 Albuterol HFA [Ventolin HFA 90 2 puff INH RQ4 PRN inhaler 02/06/17 mcg/actuation (8 g)] Pravastatin Sodium [Pravachol] 20 mg PO HS tab 02/06/17 diltiaZEM [Cardizem] 90 mg PO TID tab 02/06/17 Apixaban [Eliquis] 2.5 mg PO BID tab 02/14/17 Calcitonin ([place]) [Miacalcin] 200 intlu BALAJI DAILY spr 02/14/17 Docusate [Colace] 100 mg PO TID cap 02/14/17 Insulin Lispro [Humalog (Insulin See Protocol SQ ACHS 30 Days #0 02/14/17 Lispro)] cartridge Magnesium Hydroxide [Milk Of 30 ml PO DAILY PRN udc 02/14/17 Magnesia] Meclizine [Meclizine*] 25 mg PO TID PRN tab 02/14/17 Mirtazapine [Remeron] 7.5 mg PO HS tab 02/14/17 Ondansetron [Zofran Inj] 4 mg IVP Q6 PRN vial 02/14/17 Sertraline [Zoloft] 50 mg PO DAILY tab 02/14/17 clonazePAM [Klonopin] 0.5 mg PO HS tab 02/14/17 oxyCODONE [oxyCONTIN Extended 20 mg PO Q12 tabsr 02/14/17 Release Tab] Dicyclomine [Bentyl] 20 mg PO QID PRN #20 tab 07/17/17 Famotidine [Pepcid] 40 mg PO DAILY PRN #14 tab 07/17/17 Bisoprolol [Zebeta] 5 mg PO DAILY #30 tab 07/27/17 Albuterol HFA [Ventolin HFA 90 2 puff IH [id number] PRN #1 inh 09/07/17 mcg/actuation (8 g)] Albuterol Sulfate [Proair Hfa] 0.09 mg IH Q6H PRN #2 inh 10/17/17 Benzonatate [Tessalon Perles] 100 mg PO BID PRN 5 Days sgl 09/08/18 predniSONE [predniSONE Tab] 20 mg PO BID 5 Days tab 10/17/17 - Allergies Allergies/Adverse Reactions: Allergies Allergy/AdvReac Type Severity Reaction Status Date / Time No Known Allergies Allergy Verified 10/17/17 15:48 Review of Systems ROS Statement: Except As Marked, All Systems Reviewed And Found Negative Constitutional: Negative for: Fever, Sweats Cardiovascular: Positive for: Chest Pain Respiratory: Positive for: Cough. Negative for: Hemoptysis, Sputum Musculoskeletal: Positive for: Arm Pain Neurological: Negative for: Weakness, Numbness, Dizziness Physical Exam - Reviewed Nursing Documentation Reviewed: Yes Vital Signs Reviewed: Yes - Physical Exam Appears: Positive for: Non-toxic, Uncomfortable (anxious appearing in stretcher) Head Exam: Positive for: ATRAUMATIC, NORMAL INSPECTION, NORMOCEPHALIC Skin: Positive for: Normal Color, Warm, DRY Eye Exam: Positive for: EOMI, Normal appearance, PERRL ENT: Positive for: Normal ENT Inspection Neck: Positive for: Normal, Painless ROM, Supple Cardiovascular/Chest: Positive for: Regular Rate, Rhythm, Chest Non Tender, Other (scars from previous surgery noted on chest wall over left breast) Respiratory: Positive for: Crackles (bilaterally) Gastrointestinal/Abdominal: Positive for: Normal Exam, Soft. Negative for: Tenderness Back: Positive for: Normal Inspection. Negative for: L CVA Tenderness, R CVA Tenderness, Vertebral Tenderness Extremity: Positive for: Normal ROM. Negative for: Pedal Edema Neurologic/Psych: Positive for: Alert, Oriented. Negative for: Motor/Sensory Deficits - Laboratory Results Result Diagrams: 10/19/17 12:57 10/19/17 12:57 - ECG O2 Sat by Pulse Oximetry: 97 (RA) Pulse Ox Interpretation: Normal Medical Decision Making Medical Decision Making: Impression: Workup for cardiac etiology of chest pain; infectious process of lungs Plan: * Repeat chest x-ray * Labs including Troponin * EKG * monitor and storage bin tender * Aspirin 325mg PO per ACS protocol * Reassessment Time: 1615 Initial troponin is normal Chest x-ray reviewed and shows no acute changes. On re-exam, patient noted to have mild wheeze and crackles; nebulizer treatment started. Patient states shortness of breath and chest pain is continued. Based on history of cancer and (?) history of PE on chart review, will perform CT Angio to r/o PE. Patient with episode of tachycardia as seen on monitor as well. Time: 1755 --CT shows ground glass infiltrates and right pulmonary nodules. Patient continues to complain about chest pain. Cardiac workup is unremarkable. Patient was hospitalized 2.5 months ago will, treat for HCAP pneumonia due to new infiltrates on CT. Spoke with PMD Dr. Valadez who agrees with admission. Order placed. Scribe Attestation: Documented by Michela Rendon, acting as a scribe for Natalie Elizabeth MD Provider Scribe Attestation: All medical record entries made by the Scribe were at my direction and personally dictated by me. I have reviewed the chart and agree that the record accurately reflects my personal performance of the history, physical exam, medical decision making, and the department course for this patient. I have also personally directed, reviewed, and agree with the discharge instructions and disposition. Disposition - Clinical Impression Clinical Impression: Atypical chest pain, HCAP (healthcare-associated pneumonia) - Patient ED Disposition Is Patient to be Admitted: Yes - Disposition Disposition Time: 15:49 Condition: GUARDED Wells Criteria for PE - Wells Criteria for Pulmonary Embolism Clinical Signs and Symptoms of DVT: No P.E is #1 Diagnosis, or Equally Likely: No Heart Rate >100: Yes Immobilization at least 3 days;Surgery previous 4 weeks: No Previous, objectively diagnosed PE or DVT: Yes (?) Hemoptysis: No Malignancy w/treatment within 6 months, or palliative: Yes Total Score: 4.0
[2017-10-19] MEDS ORDERED: Albuterol-Ipratrop 3 mg / 0.5 (3 ml) UD INH STA (15:56)
[2017-10-19 16:00] LABS: SQUAMOUS EPITHIAL 3 /hpf (0-5); URINE BACTERIA RARE (<OCC); URINE BILIRUBIN NEGATIVE (NEGATIVE); URINE BLOOD NEGATIVE (NEGATIVE); URINE CLARITY CLOUDY (Clear); URINE COLOR AMBER (YELLOW); URINE GLUCOSE (UA) 50 mg/dL (Normal); URINE HYALINE CAST 0-2 /hpf (0-2); URINE LEUKOCYTE ESTERASE MOD Leu/uL (Negative); URINE PROTEIN 30 mg/dL (NEGATIVE); URINE UROBILINOGEN 0.2-1.0 mg/dL (0.2-1.0)
[2017-10-19] MEDS ORDERED: Iodixanol 320 MG/ML 100 ML BOTTLE IV ONE (16:23)
[2017-10-19] MEDS ORDERED: Sodium Chloride 0.9% 50 ML IV ONE (16:23)
[2017-10-19] MEDS ORDERED: Albuterol-Ipratrop 3 mg / 0.5 (3 ml) UD ONE (17:01)
--- NOTE | 2017-10-19 17:15 | CT ---
Date of service: 10/19/17 CTA chest PE protocol Indication: chest pain and SOB with h/o CA Technique: Contiguous axial images were obtained through the chest with intravenous contrast enhancement. Sagittal and coronal reconstructions were generated and reviewed. This CT exam was performed using 1 or more of the following dose reduction techniques: Automated exposure control, adjustment of the MAA and/or kV according to patient size, and/or use of iterative reconstruction technique. IV Contrast: 60 mL Visipaque 320 Radiation dose (DLP): 348.17 MGy-cm. Comparison: Chest x-ray performed 10/19/17, CT abdomen and pelvis without contrast performed 07/26/17 Findings: Visualized portions of the inferior thyroid gland appear unremarkable. The mediastinal and hilar vascular structures appear within normal limits. The heart appears within normal limits of size. No large central or segmental pulmonary embolus evident. Patchy bilateral scattered ground-glass infiltrates. No pleural effusion. No pneumothorax. Stable appearing 2 mm right middle lobe pulmonary nodule. Limited visualized portions of the upper abdomen: Hypoattenuation of the liver consistent with hepatic steatosis. Partially imaged hepatomegaly. Degenerative changes. Partially imaged severe compression fracture of the L1 vertebral body, chronic appearing. Impression: No large central or segmental pulmonary embolus identified. Patchy bilateral scattered ground-glass infiltrates. Stable appearing 2 mm right middle lobe pulmonary nodule. Partially imaged severe compression fracture of the L1 vertebral body, chronic appearing. Partially imaged hepatomegaly. Hypoattenuation of the liver compatible with hepatic steatosis.
[2017-10-19] MEDS ORDERED: Azithromycin 500 MG in Sodium Chloride 0.9% 250 ML IVPB STA (17:50)
[2017-10-19] MEDS ORDERED: Azithromycin 500 MG IV IVPB ONE (18:03)
--- NOTE | 2017-10-19 20:00 | CARD ---
APPROVED REPORT Date of service: 10/19/2017 EKG Measurement Heart [id number] <Conclusion> Sinus rhythm with premature atrial complexes ST & T wave abnormality, consider anterior ischemia Abnormal ECG
[2017-10-19] MEDS ORDERED: Cefepime 2 GM in Sodium Chloride 0.9% 100 ML IVPB SCH (21:00)
[2017-10-19] MEDS ORDERED: Oxycodone/Acetaminophen 5/325 mg Tab PO PRN (23:52)
[2017-10-20] MEDS: Albuterol-Ipratrop 3 mg / 0.5 (3 ml) UD INH SCH ×4 (01:07→19:08)
[2017-10-20] MEDS ORDERED: Magnesium Hydroxide Susp 30 ml UD PO PRN (01:34)
[2017-10-20] MEDS ORDERED: Albuterol HFA 90 mcg/actuation (8 g) INH PRN (01:58)
[2017-10-20] MEDS: Insulin Lispro (humaLOG) 100 Units/ml Inj SC SCH ×4 (06:42→23:56)
[2017-10-20] MEDS: Azithromycin 500 MG in Sodium Chloride 0.9% 250 ML IVPB SCH (09:04)
[2017-10-20] MEDS: Calcitonin 200 Int Units/Inh Nasal Spray (3.7 ml) NAS SCH (09:07)
--- NOTE | 2017-10-20 14:59 | CT ---
Date of service: 10/20/2017 PROCEDURE: CT Chest without contrast HISTORY: lung nodule COMPARISON: None available. SC with contrast 11/2017. TECHNIQUE: Contiguous axial images were obtained through the chest without intravenous contrast enhancement. Sagittal and coronal reconstructions were performed. Radiation dose (DLP): 491.53 mGy-cm. This CT exam was performed using one or more of the following dose reduction techniques: Automated exposure control, adjustment of the mA and/or kV according to patient size, and/or use of iterative reconstruction technique. FINDINGS: LUNGS: Two stable pleural-based nodules identified at the right middle lobe in images 54 and 59 which are noncalcified and measure 3 mm and 5 mm respectively, once again. Minimal patchy ground-glass infiltrates are again seen bilaterally with a central airways remaining clear. No pneumothorax, pleural or pericardial effusion. MEDIASTINUM: No gross lymphadenopathy with cardiac size remaining normal and no pulmonary vascular congestion evident. Thoracic inlet remains unremarkable. Normal caliber thoracic aorta. OTHER FINDINGS: L1 compression fracture reiterated. Hepatic steatosis reiterated. IMPRESSION: Stable appearing chest CT with 2 right middle lobe sub cm nodules reiterated as well as limited patchy bilateral scattered ground-glass infiltrates.
[2017-10-20] MEDS: Pravastatin Sodium 20 MG TAB PO SCH (21:46)
[2017-10-20] MEDS: Insulin Detemir 100 Units/ml Inj SC SCH (21:47)
[2017-10-21] MEDS: Albuterol-Ipratrop 3 mg / 0.5 (3 ml) UD INH SCH ×4 (01:05→19:06)
--- NOTE | 2017-10-21 02:58 | CON ---
DATE: 10/20/2017 CARDIOLOGY CONSULTATION REASON FOR CONSULTATION: Chest pain. HISTORY OF PRESENT ILLNESS: The patient is a 72-year-old female who has a history of coronary artery disease, status post coronary stenting to the distal LAD many years ago, history of depression, history of chronic obstructive lung disease, history of breast carcinoma, status post left lumpectomy, history of pulmonary embolism in the past, history of multiple admissions for exacerbation of chronic obstructive lung disease, for chest pain, and for falls in the past. The patient presents because of chest pain, which she reported to the emergency room physician, radiating to the left arm. Upon my own interview over the patient was with her grandson translating, the patient relates more of shortness of breath symptoms. At this time, the patient is comfortable, denies either shortness of breath or chest pain. She denies any dizziness. SOCIAL HISTORY: Nonsmoker. Nondrinker. MEDICATIONS: Aspirin 81 mg once a day, Zithromax 500 mg intravenously daily, Bentyl 20 mg p.o. four times a day, Cardizem 90 mg every 8 hours, Rocephin 1 g intravenously daily, Colace 100 mg t.i.d., albuterol inhaler every 6 hours, Eliquis 2.5 mg twice a day, Levemir 12 units subcutaneously at bedtime, Percocet one tablet every 6 hours p.r.n. for pain, Pravachol 20 mg at bebtime, Zebeta 5 mg orally daily, albuterol inhaler two puffs every 4 hours, and Zoloft 50 mg daily. PAST MEDICAL HISTORY: Diabetes mellitus, chronic obstructive lung disease, coronary artery disease, status post PCI to the RCA, history of multifocal atrial tachycardia as well as paroxysmal atrial tachycardia, history of depression. PHYSICAL EXAMINATION: GENERAL: The patient is an elderly female who does not appear to be in acute distress. VITAL SIGNS: Blood pressure 146/71, heart rate 80, temperature 98.5, and respirations 20. HEENT: Normocephalic. NECK: No JVD. CHEST: Minimal rhonchi. HEART: S1 and S2 are regular. ABDOMEN: Soft. EXTREMITIES: No edema. LABORATORY DATA: CBC: WBC 8, hemoglobin 12.6, hematocrit 36.4, and platelet count 236,000. SMA-7: Sodium 139, potassium 4.9, chloride 110, CO2 of 17, glucose 352, BUN 32, and creatinine 1.3. INR is 1 and PTT is 26.2. EKG reveals sinus rhythm with premature atrial complexes at heart rate of 77 with T-wave abnormality, consider anterior ischemia. Chest CT scan without contrast revealed stable appearing chest CT scan with right middle lobe subcentimeter nodules. Chest CT with PE protocol, no large central or segmental pulmonary embolus identified. Patchy bilateral scattered ground glass infiltrates. Stable appearing 2 mm right middle lobe pulmonary nodule. Partially imaged severe compression fracture of L1 vertebral body. Partially imaged hepatomegaly. Three sets of troponins are negative. ASSESSMENT: 1. Chest pain, myocardial infraction is ruled out. 2. Abnormal electrocardiogram with anterior T-wave inversion. 3. History of pulmonary embolism in the past. The patient's chest CT angio is negative for pulmonary embolism. 4. Depression. 5. Chronic obstructive lung disease. 6. Uncontrolled diabetes mellitus. 7. Mild renal insufficiency. RECOMMENDATIONS: Continue aspirin 81 mg once a day, IV Zithromax 500 mg daily, Cardizem CD at 90 mg daily, Rocephin at 1 g intravenously daily, Eliquis at 2.5 mg twice a day, Zebeta 5 mg daily, and Zoloft 50 mg daily. The most recent echocardiographic study performed in 11/2016 revealed normal left ventricular systolic function and aortic atherosclerosis. Conservative medical approach is recommended. Jan Whitfield MD
--- NOTE | 2017-10-21 06:03 | HP ---
HISTORY OF PRESENT ILLNESS: This is a 72-year-old female with history of multiple medical and psychiatric problems, presented to emergency room with symptoms of cough, shortness of breath, and chest pain that have been progressive for the last 3 days prior to this admission. The patient was using home medications and nebulizers that did not relieve her symptoms. The patient presented to emergency room for evaluation and she was found to have bilateral pneumonia, subsequently the patient was admitted for further management. The patient has history of coronary artery disease, status post PCI. The patient stated that she is compliant to her medications. The patient also had previous history of pulmonary embolism and she is currently taking Eliquis 2.5 mg twice a day. REVIEW OF SYSTEMS: Other review of systems are negative. ALLERGIES: NO KNOWN ALLERGIES. MEDICATIONS: Home medications were reviewed and ordered. PAST MEDICAL HISTORY: Pulmonary embolism; cancer of breast, status post lumpectomy; hypertension; type 2 diabetes mellitus; coronary artery disease, status post PCI; depression. SOCIAL HISTORY: No history of smoking, EtOH, or substance abuse. FAMILY HISTORY: Noncontributory. PHYSICAL EXAMINATION: GENERAL: The patient was in bed comfortable, not in any cardiopulmonary distress. VITAL SIGNS: Blood pressure 146/71, temperature 98, respiratory rate 20, and pulse 80. HEENT: Pupils equal and reactive to light. Normal-appearing mucosa of the conjunctivae, oropharynx, and nasal membrane mucosa. NECK: Supple. No JVD. No carotid bruit. No lymph node. No thyromegaly. CHEST AND LUNGS: Bilateral symmetrical expansion. Good air exchange. Few scattered rhonchi. CARDIOVASCULAR SYSTEM: PMI not localized. S1, S2. No additional sounds. ABDOMEN: Normoactive bowel sounds. No tenderness. No organomegaly. No masses. EXTREMITIES: No cyanosis, no clubbing, no edema. [employer]: Alert, awake, and oriented x2. No neurological deficit could be appreciated. ASSESSMENT: 1. Bilateral pneumonia. 2. Chest pain, rule out myocardial infarction. 3. Hypertension. 4. Type 2 diabetes mellitus. 5. History of pulmonary embolism, currently on Eliquis. 6. History of cancer of breast, status post left lumpectomy. PLAN: Continue medications as ordered. The patient also will do an Accu-Chek with insulin coverage. Cardiology consult, Dr. Whitfield, and we will continue the home medications. I would start her also on Rocephin and azithromycin. [facility] MD [facility] # [phone]
[2017-10-21] MEDS: Insulin Lispro (humaLOG) 100 Units/ml Inj SC SCH ×4 (06:45→23:45)
[2017-10-21] MEDS: Calcitonin 200 Int Units/Inh Nasal Spray (3.7 ml) NAS SCH (08:58)
[2017-10-21] MEDS: Azithromycin 500 MG in Sodium Chloride 0.9% 250 ML IVPB SCH (09:00)
[2017-10-21] MEDS: Pravastatin Sodium 20 MG TAB PO SCH (21:13)
[2017-10-21] MEDS: Insulin Detemir 100 Units/ml Inj SC SCH (21:13)
--- NOTE | 2017-10-21 21:36 | PN ---
DATE: 10/21/2017 SUBJECTIVE: The patient's shortness of breath has improved. She denies any chest pain. PHYSICAL EXAMINATION VITAL SIGNS: Blood pressure 127/62, heart rate 66, temperature 97.6, and respirations 20. HEENT: Normocephalic. CHEST: Minimal rhonchi. HEART: S1 and S2, regular. ABDOMEN: Soft. EXTREMITIES: No edema. LABORATORY DATA: Today's blood sugar is 256 and 318. ASSESSMENT: 1. Chest pain, myocardial infarction is ruled out. 2. Chronic obstructive lung disease. 3. Uncontrolled diabetes mellitus. 4. History of pulmonary embolism in the past. 5. Depression. 6. Mild renal insufficiency. 7. History of paroxysmal atrial tachycardia. RECOMMENDATIONS: Continue conservative and medical approach including aspirin 81 mg once a day, Zithromax 500 mg intravenously daily, Bentyl 20 mg p.o. twice a day, Cardizem 90 mg every 8 hours, IV Rocephin 1 g daily, Eliquis 2.5 mg twice a day, Pravachol 20 mg once a day, Remeron 7.5 mg once a day, albuterol inhaler 2 puffs every 4 hours p.r.n., Zebeta 5 mg daily, and Zoloft 50 mg once a day. Jan Whitfield MD
--- NOTE | 2017-10-21 23:42 | PN ---
DATE: 10/21/2017 DAILY PROGRESS NOTE SUBJECTIVE: The patient is seen today, 10/21/2017. She is not in any cardiopulmonary distress. PHYSICAL EXAMINATION: VITAL SIGNS: Blood pressure 127/62, temperature 97.6, respiratory rate 20, and pulse 56. HEENT: Pupils equal and reactive to light. Normal-appearing mucosa of the conjunctivae, oropharynx, and nasal membrane mucosa. NECK: Supple. No carotid bruit. No lymph node. No thyromegaly. CHEST AND LUNGS: Bilateral symmetrical expansion. Good air exchange. No rales. No rhonchi. CARDIOVASCULAR SYSTEM: PMI not localized. S1, S2. No additional sounds. ABDOMEN: Normoactive bowel sounds. No tenderness. No organomegaly. No masses. EXTREMITIES: No cyanosis, no clubbing, no edema. CENTRAL NERVOUS SYSTEM: Alert, awake, oriented x2. No neurological deficit could be appreciated. ASSESSMENT: Bilateral pneumonia, atypical chest pain, myocardial infarction is ruled out, history of coronary artery disease, type 2 diabetes mellitus, hypertension. PLAN: Repeat chemistry. Repeat CMP and continue Accu-Cheks and adjust diabetes medications. Follow cardiology recommendations. Can Valadez MD
[2017-10-22] MEDS: Albuterol-Ipratrop 3 mg / 0.5 (3 ml) UD INH SCH ×3 (01:00→13:13)
[2017-10-22 08:21] VITALS: RESP 20
[2017-10-22] MEDS: Insulin Lispro (humaLOG) 100 Units/ml Inj SC SCH ×2 (08:55→11:50)
[2017-10-22] MEDS: Calcitonin 200 Int Units/Inh Nasal Spray (3.7 ml) NAS SCH (08:56)
[2017-10-22] MEDS: Azithromycin 500 MG in Sodium Chloride 0.9% 250 ML IVPB SCH (09:09)
[2017-10-22 11:19] LABS: MEAN CELL VOLUME 86.2 fl (81.0-99.0); MEAN CORPUSCULAR HEMOGLOBIN 29.5 pg (27.0-31.0); MEAN CORPUSCULAR HGB CONC 34.2 g/dL (33.0-37.0); RBC 3.74 Mil/uL (3.80-5.20); RED CELL DISTRIBUTION WIDTH 14.8 % (11.5-14.5); WHITE BLOOD COUNT 6.8 K/uL (4.8-10.8)
[2017-10-22 11:51] LABS: BLOOD UREA NITROGEN 21 mg/dl (7-17); CALCIUM 8.7 mg/dL (8.4-10.2); GFR NON-AFRICAN AMERICAN > 60
--- NOTE | 2017-10-22 12:00 | CP.PCM.PCO ---
Assessment & Plan - Assessment and Plan (Free Text) Assessment: t. cleared for discharge to Home today by Rx for meds sent to [facility] pharmacy pt. will cont. Levaquin 500 mg po daily x 7 day f/u with in 1 week
[2017-10-22 12:20] VITALS: PULSE 80; TEMP 98.4; O2SAT 96
[2017-10-22 14:16] VITALS: BP 129/60
--- NOTE | 2017-10-22 18:21 | PN ---
DATE: 10/22/2017 SUBJECTIVE: The patient is mildly short of breath. She denies any chest pain. PHYSICAL EXAMINATION: VITAL SIGNS: Blood pressure 129/66, heart rate 80, temperature 98.4, and respirations 20. HEENT: Normocephalic. CHEST: Diffuse bilateral rhonchi. HEART: S1 and S2, regular. ABDOMEN: Soft. EXTREMITIES: No edema. LABORATORY DATA: Today's hemoglobin and hematocrit 11 and 32.2. White count and platelet count are within normal limit. Today's SMA-7; sodium 140, potassium 4.5, chloride 110, CO2 of 20, glucose 352, BUN 21, and creatinine 0.9. ASSESSMENT: 1. Exacerbation of chronic obstructive lung disease. 2. Atypical chest pain, myocardial infarction is ruled out. 3. Uncontrolled diabetes mellitus. 4. Coronary artery disease status post right coronary artery stenting. 5. History of depression. 6. History of paroxysmal atrial tachycardia. RECOMMENDATIONS: Continue aspirin 81 mg once a day, Zithromax 500 mg intravenously daily, Cardizem at 90 mg every 8 hours, Rocephin at 1 g intravenously daily, Eliquis at 2.5 mg twice a day, once a day, Pravachol 20 mg at bedtime, Remeron 7.5 mg at bedtime, Zebeta 5 mg orally daily, Zoloft 50 mg daily, and no further cardiac workup is indicated. Jan Whitfield MD
--- NOTE | 2017-10-23 08:09 | DS ---
REASON FOR ADMISSION: This is a 72-year-old female with history of multiple medical problems, who was admitted for respiratory symptoms including cough, shortness of breath, and chest pain. COURSE OF HOSPITALIZATION: The patient was admitted to telemetry floor and myocardial infarction was ruled out by negative cardiac enzymes. The patient had a cardiology consultation by Dr. Whitfield. The patient had a CAT scan of the chest that showed bilateral lung infiltration. The patient was on both Rocephin and azithromycin. The patient remained afebrile and her respiratory symptoms improved. The patient was discharged home on Levaquin for 7 more days. During hospital admission, the patient's blood sugar was not well controlled. Metformin was resumed on discharge as well as the patient was asked to take Lantus twice a day. FINAL DIAGNOSES: Pneumonia, atypical chest pain, hypertension, type 2 diabetes mellitus, coronary artery disease, status post percutaneous coronary intervention, history of cancer of breast, status post left lumpectomy. Can Valadez MD
--- NOTE | 2017-10-24 21:48 | PQF ---
PROVIDER RESPONSE TEXT: Acute lower respiratory tract infection. REVIEWER QUERY TEXT: COPD Specificity COPD - Chronic Obstructive Pulmonary Disease is documented in the Medical Record. Please specify the associated condition (includes suspected or probable) Such as: -- Bronchitis - acute -- Asthmatic - with /without status asthmaticus -- Exacerbation - acute -- Lower respiratory infection - acute -- Other, please specify The patient's Clinical Indicators include: copd exacerbation documented 10/[address] Whitfield Query created by: Latasha Bone on 10/23/2017 3:29 PM Electronically signed by: Can Valadez MD 10/24/2017 9:44 PM
== END 2017-10-22 14:45 | disposition home or self-care (01) | DRG 190 ==
LOC: H.ER 11:47 → H.ERHOLD 17:49 → H.TEL 21:40
PROVIDERS: ADMIT Internal Medicine; ATTEND Internal Medicine
DX: J44.0 Chronic obstructive pulmonary disease with (acute) lower respiratory infection (principal); J18.9 Pneumonia, unspecified organism; E11.65 Type 2 diabetes mellitus with hyperglycemia; I10 Essential (primary) hypertension; M81.0 Age-related osteoporosis without current pathological fracture; Z86.711 Personal history of pulmonary embolism; I25.10 Atherosclerotic heart disease of native coronary artery without angina pectoris; Z95.5 Presence of coronary angioplasty implant and graft; Z85.3 Personal history of malignant neoplasm of breast; E78.00 Pure hypercholesterolemia, unspecified; F32.9 Major depressive disorder, single episode, unspecified; F41.9 Anxiety disorder, unspecified; Z79.01 Long term (current) use of anticoagulants; G30.9 Alzheimer's disease, unspecified; F02.80 Dementia in other diseases classified elsewhere, unspecified severity, without behavioral disturbance, psychotic disturbance, mood disturbance, and anxiety; N28.9 Disorder of kidney and ureter, unspecified; Y95 Nosocomial condition

== ENCOUNTER 2017-11-01 02:09 | Inpatient (IN) | payer MEDICARE, MEDICAID ==
[2017-11-01 02:09] VITALS: BMI 28.3
--- NOTE | 2017-11-01 03:10 | ED PDOC ---
HPI: Trauma/Fall - HPI Time Seen by Provider: 11/01/17 02:38 Chief Complaint (Nursing): Chest Pain Chief Complaint (Provider): Fall History Per: Patient, EMS History/Exam Limitations: no limitations Onset/Duration Of Symptoms: Mins Additional Complaint(s): 72 year old female presents to the ED after falling tonight in the kitchen. Patient reports she went to grab something when she felt dizzy and weak. She indicates she does not remember how she fell and says she passed out which was unwitnessed. Patient does not think she hit her head. She states she has a history of dizziness and falls in the past. Upon waking up after passing out, she felt fine but was not sure how long she was out for. Patient is also complaining about a mild intermittent chest pain which she has had a for long time due to history of COPD and asthma. Denies headache and fever. Patient is short of breath which is baseline for her. Patient was admitted here for 4 days for COPD and asthma and is on oxygen at home. PMD: Dr. Villa Past Medical History Reviewed: Historical Data, Nursing Documentation, Vital Signs Vital Signs: Last Vital Signs Temp 98.2 F 11/02/17 00:18 Pulse 62 11/02/17 00:18 Resp 18 11/02/17 00:18 BP 118/69 11/02/17 00:18 Pulse Ox 99 11/02/17 00:18 - Medical History PMH: Anemia, Anxiety, Asthma, CAD, Cardia Arrhythmia, COPD, Dementia, Depression , Diabetes, Fractures (LEFT LEG), HTN, Hypercholesterolemia, Malignancy (breast cancer s/p lumpectomy ), Osteoporosis, Pulmonary Embolism Denies: CVA, Hepatitis, Chronic Kidney Disease, Seizures, Sexually Transmitted Disease - Surgical History Surgical History: Appendectomy, Cholecystectomy, Coronary Stent, Hernia Repair ( umbilical hernia) - Family History Family History: States: Unknown Family Hx - Home Medications Home Medications: Ambulatory Orders Medication Instructions Recorded Oxycodone HCl/Acetaminophen 1 tab PO Q6 PRN 08/11/16 [Percocet 10-325 mg Tablet] Aspirin [Ecotrin] 81 mg PO DAILY 08/28/16 Acetaminophen [Tylenol 325mg tab] 650 mg PO Q6 PRN tab 02/06/17 Albuterol HFA [Ventolin HFA 90 2 puff INH RQ4 PRN inhaler 02/06/17 mcg/actuation (8 g)] Pravastatin Sodium [Pravachol] 20 mg PO HS tab 02/06/17 diltiaZEM [Cardizem] 90 mg PO TID tab 02/06/17 Apixaban [Eliquis] 2.5 mg PO BID tab 02/14/17 Docusate [Colace] 100 mg PO TID cap 02/14/17 Meclizine [Meclizine*] 25 mg PO TID PRN tab 02/14/17 Sertraline [Zoloft] 50 mg PO DAILY tab 02/14/17 clonazePAM [Klonopin] 0.5 mg PO HS tab 02/14/17 Famotidine [Pepcid] 40 mg PO DAILY PRN #14 tab 07/17/17 Bisoprolol [Zebeta] 5 mg PO DAILY #30 tab 07/27/17 Albuterol Sulfate [Proair Hfa] 0.09 mg IH Q6H PRN #2 inh 10/17/17 Insulin Detemir [Levemir] 12 units SC HS #1 vial 10/22/17 metFORMIN [glucOPHAGE] 500 mg PO BIDWM #60 tab 10/22/17 Albuterol HFA [Ventolin HFA 90 1 puff INH DAILY 11/01/17 mcg/actuation (8 g)] Mirtazapine [Remeron] 15 mg PO HS 11/01/17 Quetiapine Fumarate [Seroquel] 100 mg PO HS 11/01/17 Zolpidem Tartrate [Ambien] 10 mg PO DAILY 11/01/17 - Allergies Allergies/Adverse Reactions: Allergies Allergy/AdvReac Type Severity Reaction Status Date / Time No Known Allergies Allergy Verified 11/01/17 02:23 Review of Systems ROS Statement: Except As Marked, All Systems Reviewed And Found Negative Constitutional: Negative for: Fever Cardiovascular: Positive for: Chest Pain (mild) Respiratory: Negative for: Shortness of Breath Neurological: Positive for: Weakness, Dizziness. Negative for: Headache Physical Exam - Reviewed Nursing Documentation Reviewed: Yes Vital Signs Reviewed: Yes - Physical Exam Appears: Positive for: Non-toxic, No Acute Distress Head Exam: Positive for: ATRAUMATIC, NORMAL INSPECTION, NORMOCEPHALIC Skin: Positive for: Normal Color, Warm, Dry Eye Exam: Positive for: Normal appearance, EOMI, PERRL ENT: Positive for: Normal ENT Inspection Neck: Positive for: Normal, Painless ROM Cardiovascular/Chest: Positive for: Regular Rate, Rhythm. Negative for: Murmur Respiratory: Positive for: Normal Breath Sounds. Negative for: Wheezing, Respiratory Distress Gastrointestinal/Abdominal: Positive for: Normal Exam, Soft. Negative for: Tenderness Extremity: Positive for: Normal ROM Neurologic/Psych: Positive for: Alert, Oriented. Negative for: Motor/Sensory Deficits - Laboratory Results Result Diagrams: 11/01/17 03:25 11/01/17 03:25 - ECG ECG Rhythm: Positive for: Normal QRS, Sinus Rhythm (normal) Interpretation Of ECG: TWI in anterior leads O2 Sat by Pulse Oximetry: 100 (RA) Pulse Ox Interpretation: Normal Medical Decision Making Medical Decision Making: Initial Impression: Syncope and chest pain Differential includes cardiac arrhythmia, ACS r/o head injury Initial Plan: --CT Head --ECG --BMP --Troponin --CBC --D Dimer 04:02 CT Head FINDINGS: Brain: No hemorrhage. Central atrophy with mild periventricular microischemic changes. No edema. Ventricles: Prominent from central atrophy. Bones/joints: No acute fracture. Soft tissues: No radiopaque foreign body. Sinuses: Mucosal thickening right maxillary sinus. Air fluid level left maxillary sinus. Mastoid air cells: No mastoid effusion. IMPRESSION: 1. Chronic and acute sinusitis. 2. No acute CT intracranial abnormalities. Atrophy. Scribe Attestation: Documented by Julio César Granda acting as a scribe for Ally Bucio MD. Provider Scribe Attestation: All medical record entries made by the Scribe were at my direction and personally dictated by me. I have reviewed the chart and agree that the record accurately reflects my personal performance of the history, physical exam, medical decision making, and the department course for this patient. I have also personally directed, reviewed, and agree with the discharge instructions and disposition. Disposition - Clinical Impression Clinical Impression: Chest pain, Syncope - Patient ED Disposition Is Patient to be Admitted: Yes Discussed With Dr.: Can Valadez Doctor Will See Patient In The: Hospital Counseled Patient/Family Regarding: Studies Performed, Diagnosis - Disposition Disposition Time: 06:20 Condition: FAIR - Pt Status Changed To: Hospital Disposition Of: Observation - POA Present On Arrival: Falls Or Trauma
[2017-11-01 03:32] LABS: BASO % 0.4 % (0.0-2.0); EOS # 0.2 K/uL (0.0-0.7); HEMOGLOBIN 13.6 g/dL (12.0-16.0); LYMPH # 2.1 K/uL (1.0-4.3); LYMPH % 25.5 % (20.0-40.0); MEAN CELL VOLUME 86.6 fl (81.0-99.0); MEAN CORPUSCULAR HEMOGLOBIN 29.9 pg (27.0-31.0); MEAN CORPUSCULAR HGB CONC 34.6 g/dL (33.0-37.0); MEAN PLATELET VOLUME 9.4 fl (7.2-11.7); MONO # 0.6 K/uL (0.0-0.8); MONO % 6.8 % (0.0-10.0); NEUT # 5.3 K/uL (1.8-7.0); NEUT % 65.3 % (50.0-75.0); NRBC % 0.1 % (0.0-0.0); RBC 4.53 Mil/uL (3.80-5.20); RED CELL DISTRIBUTION WIDTH 14.4 % (11.5-14.5); WHITE BLOOD COUNT 8.2 K/uL (4.8-10.8)
[2017-11-01 03:54] LABS: TROPONIN I 0.018 ng/mL (0.00-0.120)
[2017-11-01 03:56] LABS: CALCIUM 9.3 mg/dL (8.4-10.2)
--- NOTE | 2017-11-01 04:03 | CT ---
EXAM: CT Head Without Intravenous Contrast CLINICAL HISTORY: 72 years old, female; Signs and symptoms; Dizziness TECHNIQUE: Axial computed tomography images of the head/brain without intravenous contrast. All CT scans at this facility use at least one of these dose optimization techniques: automated exposure control; mA and/or kV adjustment per patient size (includes targeted exams where dose is matched to clinical indication); or iterative reconstruction. Coronal and sagittal reformatted images were created and reviewed. COMPARISON: No relevant prior studies available. FINDINGS: Brain: No hemorrhage. Central atrophy with mild periventricular microischemic changes. No edema. Ventricles: Prominent from central atrophy. Bones/joints: No acute fracture. Soft tissues: No radiopaque foreign body. Sinuses: Mucosal thickening right maxillary sinus. Air fluid level left maxillary sinus. Mastoid air cells: No mastoid effusion. IMPRESSION: 1. Chronic and acute sinusitis. 2. No acute CT intracranial abnormalities. Atrophy.
[2017-11-01] MEDS ORDERED: Albuterol HFA 90 mcg/actuation (8 g) INH PRN (10:32)
[2017-11-01] MEDS: Insulin Regular 100 units/ml SC SCH ×4 (12:10→23:00)
--- NOTE | 2017-11-01 12:10 | CARD ---
APPROVED REPORT Date of service: 11/01/2017 EKG Measurement Heart [id number] [id number] <Conclusion> Sinus rhythm with premature atrial complexes non specific T wave abnormality Abnormal ECG
--- NOTE | 2017-11-01 16:06 | CP.PCM.CON ---
History of Present Illness - History of Present Illness History of Present Illness: Neurology Consultation Note: Mrs. Jak Donald is a 72-year-old woman with a past medical history of Anemia, Anxiety, Asthma, CAD, Cardia Arrhythmia, COPD, Dementia, Depression, Diabetes, HTN, Hypercholesterolemia, Breast cancer s/p lumpectomy, and previous Pulmonary Embolism, who presented to the ED after a syncopal episode she had while she was in the kitchen. She states that she had just gotten off the toilet and went to the kitchen where she passed out. She did not have any significant injuries as a result of the syncopal episode and does not believe she struck her head. Review of Systems - Review of Systems All systems: reviewed and no additional remarkable complaints except Past Patient History - Infectious Disease Hx of Infectious Diseases: None - Past Medical History & Family History Past Medical History?: Yes - Past Social History Smoking Status: Never Smoked - CARDIAC Hx Cardiac Disorders: Yes (HTN,HLD) - PULMONARY Hx Respiratory Disorders: Yes (COPD,ASTHMA) - NEUROLOGICAL Hx Neurological Disorder: No - HEENT Hx HEENT Problems: Yes - RENAL Hx Chronic Kidney Disease: No - ENDOCRINE/METABOLIC Hx Endocrine Disorders: Yes (DM) - HEMATOLOGICAL/ONCOLOGICAL Hx Blood Disorders: Yes (ANEMIA) - INTEGUMENTARY Hx Dermatological Problems: No - MUSCULOSKELETAL/RHEUMATOLOGICAL Hx Musculoskeletal Disorders: No Hx Falls: Yes - GASTROINTESTINAL Hx Gastrointestinal Disorders: No - GENITOURINARY/GYNECOLOGICAL Hx Sexually Transmitted Disorders: No - PSYCHIATRIC Hx Psychophysiologic Disorder: Yes (ANXIETY) Hx Substance Use: No - SURGICAL HISTORY Hx Appendectomy: Yes Hx Cholecystectomy: Yes Hx Coronary Stent: Yes - ANESTHESIA Hx Anesthesia: Yes Hx Anesthesia Reactions: No Hx Malignant Hyperthermia: No Meds Allergies/Adverse Reactions: Allergies Allergy/AdvReac Type Severity Reaction Status Date / Time No Known Allergies Allergy Verified 11/01/17 02:23 - Medications Medications: Current Medications Acetaminophen (Tylenol 325mg Tab) 650 mg PO Q6 PRN PRN Reason: Pain, Mild (1-3) Albuterol (Ventolin Hfa 90 Mcg/Actuation (8 G)) 2 puff INH RQ4 PRN PRN Reason: Shortness of Breath Apixaban (Eliquis) 2.5 mg PO BID MEL PRN Reason: Protocol Aspirin (Ecotrin) 81 mg PO DAILY [facility] Last Admin: 11/01/17 11:51 Dose: 81 mg Bisoprolol Fumarate (Zebeta) 5 mg PO DAILY [facility] Clonazepam (Klonopin) 0.5 mg PO HS [facility] Diltiazem HCl (Cardizem) 90 mg PO Q8 [facility] Docusate Sodium (Colace) 100 mg PO DAILY [facility] Famotidine (Pepcid) 40 mg PO DAILY [facility] Insulin Detemir (Levemir) 12 units SC HS [facility] Insulin Human Regular (Humulin R) 0 units SC ACCU-CHECK MEL PRN Reason: Protocol Last Admin: 11/01/17 12:10 Dose: 8 units Meclizine HCl (Antivert) 25 mg PO BID PRN PRN Reason: Dizziness Metformin HCl (Glucophage) 500 mg PO BIDWM [facility] Pravastatin Sodium (Pravachol) 20 mg PO HS [facility] Sertraline HCl (Zoloft) 50 mg PO DAILY [facility] Physical Exam - Constitutional Appears: Well - Head Exam Head Exam: ATRAUMATIC, NORMAL INSPECTION, NORMOCEPHALIC - Eye Exam Eye Exam: EOMI, Normal appearance, PERRL - ENT Exam ENT Exam: Mucous Membranes Moist, Normal Exam - Neck Exam Neck exam: Positive for: Normal Inspection - Respiratory Exam Respiratory Exam: Clear to Auscultation Bilateral, NORMAL BREATHING PATTERN - Cardiovascular Exam Cardiovascular Exam: REGULAR RHYTHM - Neurological Exam Neurological exam: Alert, CN II-XII Intact, Normal Gait, Oriented x3, Reflexes Normal - Psychiatric Exam Psychiatric exam: Normal Affect, Normal Mood Results - Vital Signs Recent Vital Signs: Last Vital Signs Temp 98.3 F 11/01/17 15:47 Pulse 85 11/01/17 15:47 Resp 18 11/01/17 15:47 BP 123/77 11/01/17 15:47 Pulse Ox 98 11/01/17 15:47 - Labs Result Diagrams: 11/01/17 03:25 11/01/17 03:25 Labs: Laboratory Results - last 24 hr 11/01/17 11/01/17 11/01/17 03:25 03:25 04:05 WBC 8.2 RBC 4.53 Hgb 13.6 D Hct 39.2 MCV 86.6 MCH 29.9 MCHC 34.6 RDW 14.4 Plt Count 258 MPV 9.4 Neut % (Auto) 65.3 Lymph % (Auto) 25.5 [place] % (Auto) 6.8 Eos % (Auto) 2.0 Baso % (Auto) 0.4 Neut # (Auto) 5.3 Lymph # (Auto) 2.1 [place] # (Auto) 0.6 Eos # (Auto) 0.2 Baso # (Auto) 0.0 D-Dimer, Quantitative < 200 Sodium 139 Potassium 4.3 Chloride 111 H Carbon Dioxide 20 L Anion Gap 12 BUN 38 H Creatinine 1.1 Est GFR ( Amer) 59 Est GFR (Non-Af Amer) 49 POC Glucose (mg/dL) Random Glucose 261 H Calcium 9.3 Troponin I 0.0180 11/01/17 11:58 WBC RBC Hgb Hct MCV MCH MCHC RDW Plt Count MPV Neut % (Auto) Lymph % (Auto) [place] % (Auto) Eos % (Auto) Baso % (Auto) Neut # (Auto) Lymph # (Auto) [place] # (Auto) Eos # (Auto) Baso # (Auto) D-Dimer, Quantitative Sodium Potassium Chloride Carbon Dioxide Anion Gap BUN Creatinine Est GFR ( Amer) Est GFR (Non-Af Amer) POC Glucose (mg/dL) 350 H Random Glucose Calcium Troponin I Assessment & Plan (1) Syncope Assessment and Plan: Likely neuro-cardiogenic based on history of the event taking place after using the toilet. She continues to complain of dizziness, but does not have any focal neurological deficits or nystagmus. Will evaluate for any possible VBI with a CTA of the head/neck. Continue fluids and cardiac work-up. Thank you. Status: Acute (2) Dizziness Assessment and Plan: Likely due to dehydration and cardiac or pulmonary disease. Neurologically non- focal. Status: Acute
--- NOTE | 2017-11-01 17:58 | RAD ---
Date of service: 11/01/2017 PROCEDURE: Radiographs of the Lumbar Spine. HISTORY: fall COMPARISON: No prior. FINDINGS: BONES: Severe likely chronic L1 compression fracture. DISC SPACES: Unremarkable. OTHER FINDINGS: None. IMPRESSION: Severe likely chronic L1 compression fracture.
--- NOTE | 2017-11-01 17:59 | RAD ---
Date of service: 11/01/2017 PROCEDURE: Radiographs of the Left Shoulder HISTORY: fall COMPARISON: 05/29/2014 FINDINGS: BONES: Normal. No fracture. JOINTS: Normal. Glenohumeral and acromioclavicular joints preserved. No osteoarthritis. SOFT TISSUES: Normal. OTHER FINDINGS: None. IMPRESSION: Normal radiographs of the left shoulder.
[2017-11-01] MEDS: Pravastatin Sodium 20 MG TAB PO SCH (21:24)
[2017-11-01] MEDS: Insulin Detemir 100 Units/ml Inj SC SCH (21:25)
--- NOTE | 2017-11-02 01:36 | CON ---
DATE: 11/01/2017 REASON FOR CONSULTATION: Syncopal episodes. HISTORY OF PRESENT ILLNESS: The patient is a 72 years old female, who has history of hypertension, diabetes mellitus, paroxysmal atrial tachycardia, history of coronary artery disease, status post PCI to the right coronary artery many years ago, history of depression, history of breast carcinoma, and history of pulmonary embolism 3 years ago, who was admitted because of syncopal episode. The patient stated that she lives at home by herself. She felt very dizzy and fell on the floor and hurt her left shoulder. The patient did call her grandson, who lives with her, but was not at home at that time and the grandson activated EMS. The patient does not recall experiencing palpitation prior to her dizziness . The patient at this time denies any dizziness or weakness and denies any headache or blurry vision. SOCIAL HISTORY: Nonsmoker and nondrinker. She lives with her grandson. MEDICATIONS: Antivert 25 mg once a day, Cardizem CD 90 mg every 8 hours, Colace 100 mg once a day, aspirin 81 mg once a day, Glucophage 500 mg twice a day, Klonopin 0.5 mg at bedtime, Levemir 12 units subcutaneously daily, Lovenox 40 mg subcutaneously once a day, Pravachol 20 mg at bedtime, Zebeta 5 mg daily, Zoloft 50 mg daily and Ventolin inhaler 2 puffs every 4 hours p.r.n. REVIEW OF SYSTEMS: No nausea or vomiting, no abdominal pain, and no chest pain. PHYSICAL EXAMINATION: GENERAL: The patient is an elderly female, who does not appear to be in acute distress. VITAL SIGNS: Blood pressure 123/70, heart rate 109, temperature 98.2 and respirations 18. HEENT: Normocephalic. CHEST: Minimal rhonchi. HEART: S1 and S2 regular. ABDOMEN: Soft. EXTREMITIES: No edema. LABORATORY DATA: CBC: WBC , hemoglobin 15.6, hematocrit 39.2 and platelet count 158,000. D-dimer is below 200. SMA-7, sodium 139, potassium 4.3, chloride 111, CO2 20, glucose 261, BUN 39 and creatinine 1.1. One set of troponin is negative. Head CT scan without contrast, chronic and acute sinusitis. EKG revealed sinus rhythm at the rate of 77 APCs, nonspecific ST-T-wave changes. The most recent echo was in 11/2016 revealed normal left ventricular systolic function and aortic valve sclerosis. ASSESSMENT: 1. Syncopal episode. 2. History of paroxysmal atrial tachycardia. 3. Coronary artery disease with history of right coronary artery stenting. Most recent cardiac catheterization in 02/2015 revealed patent right coronary artery stent. 4. History of pulmonary embolism in the past. The most recent CT angio with PE protocol was negative for pulmonary embolus and that was done on 10/19/2017. The patient was also found to have partially imaged severe compression fracture of L1 vertebra. 5. History of depression. 6. Chronic obstructive lung disease. 7. Compression fracture of L1 vertebra. RECOMMENDATIONS: Continue Cardizem at 90 mg every 8 hours, aspirin 81 mg once a day, metformin 500 mg twice a day, Lovenox at 20 mg subcutaneously once a day, Pravachol 20 mg once a day and Zebeta at 5 mg once a day. Obtain x-ray of the left shoulder and continue telemetry monitoring for now. The case was discussed with Dr. Valadez. Jan Whitfield MD
[2017-11-02] MEDS: Insulin Regular 100 units/ml SC SCH ×3 (08:16→17:42)
[2017-11-02] MEDS ORDERED: Enoxaparin 40 mg Syringe SC SCH ×2 (09:00)
[2017-11-02] MEDS ORDERED: Iodixanol 320 MG/ML 100 ML BOTTLE IV ONE (11:47)
[2017-11-02] MEDS ORDERED: Sodium Chloride 0.9% 50 ML IV ONE (11:48)
--- NOTE | 2017-11-02 13:16 | CT ---
Date of service: 11/02/2017 PROCEDURE: CT Angiography of the Brain and Neck. HISTORY: syncope COMPARISON: Noncontrast head CT 11/02/2017. TECHNIQUE: CT angiography of the intracranial and neck arteries was performed. Coronal and sagittal maximum intensity projection reformatted images were generated. Contrast Dose: Visipaque 320, 97 cc Radiation dose:Total exam DLP = 2170.08 mGy-cm. This CT exam was performed using one or more of the following dose reduction techniques: Automated exposure control, adjustment of the mA and/or kV according to patient size, and/or use of iterative reconstruction technique. FINDINGS: INTERNAL CEREBRAL ARTERIES: Limited atherosclerotic changes seen at the bilateral cavernous ICA segments without significant stenosis. The skull base, petrous, and supraclinoid segments are bilaterally widely patent. ANTERIOR CEREBRAL ARTERIES: Unremarkable. A1 and A2 segments are widely patent. Smaller distal branches unremarkable, as visualized. MIDDLE CEREBRAL ARTERIES: Unremarkable. M1 and M2 segments are widely patent. Perisylvian branches grossly symmetric. POSTERIOR CIRCULATION: Basilar Artery: Unremarkable. Distal Vertebral Arteries: Unremarkable. Posterior Cerebral Arteries: Unremarkable. Posterior Inferior Cerebellar Arteries: Unremarkable. NECK CTA: Common Carotid arteries: The bilateral common carotid appear widely patent from their origins to their bifurcations with limited distal bilateral atherosclerotic changes noted resulting in a mid limited right sided stenosis, borderline at the left. Limited bilateral carotid bulbar and proximal ICA atherosclerotic changes are identified, also without significant stenosis resulting. No evidence to suggest common carotid artery dissection. Internal Carotid arteries: No significant stenosis is appreciated throughout the cervical internal carotid artery segments bilaterally and there is no evidence of dissection either. External Carotid arteries: Appear unremarkable bilaterally. Vertebral arteries: The bilateral vertebral arteries appear normal in caliber from their origins to their distal cervical segments. No significant stenosis or definite pattern of dissection. ANEURYSM/ VASCULAR MALFORMATIONS: None. OTHER FINDINGS: None. IMPRESSION: No significant stenosis or occlusion identified in brain and neck CT angiography. Limited atherosclerotic changes are identified without significant stenoses at the bilateral common and internal carotid arteries as discussed above both at the neck as well as skullbase.
--- NOTE | 2017-11-02 21:27 | PN ---
DATE: 11/02/2017 FOLLOWUP SUBJECTIVE: The patient is noted to have periods of sinus bradycardia beats per minute with 2-second pauses. I did instruct the nurse to discontinue Cardizem. PHYSICAL EXAMINATION: VITAL SIGNS: Blood pressure 116/63, heart rate 48, temperature 97.8, respirations 18. HEENT: Normocephalic. CHEST: Bilateral rhonchi. HEART: S1 and S2 are regular. EXTREMITIES: No edema. LABORATORY DATA: Today's blood sugars are [address] and 345[address] Head and neck CT angio revealed no significant stenosis or occlusion identified in brain and neck CT angiography. ASSESSMENT: 1. Syncopal episode. 2. Sick sinus syndrome. 3. Chronic obstructive lung disease. 4. Coronary artery disease with history of percutaneous coronary intervention to the distal right coronary artery. 5. Uncontrolled diabetes mellitus. 6. Depression. RECOMMENDATIONS: Continue Antivert 25 mg twice a day, Eliquis 2.5 mg twice a day, Pravachol 20 mg once a day, Zebeta 5 mg once d ay. Cardizem was discontinued and I did request electrophysiology consult from Dr. Joseph Bonner. Jan Whitfield MD
[2017-11-02] MEDS: Insulin Detemir 100 Units/ml Inj SC SCH (21:49)
[2017-11-02] MEDS: Pravastatin Sodium 20 MG TAB PO SCH (21:49)
[2017-11-03] MEDS: Insulin Regular 100 units/ml SC SCH ×5 (00:49→22:41)
--- NOTE | 2017-11-03 05:24 | PN ---
DATE: 11/02/2017 DAILY PROGRESS NOTE SUBJECTIVE: The patient was seen today, 11/02/2017. She is not in any cardiopulmonary distress. No further events happened. PHYSICAL EXAMINATION: VITAL SIGNS: Blood pressure 151/75, temperature 98, respiratory rate 20, and pulse 58. HEENT: Pupils are equal and reactive to light. Normal-appearing mucosa of the conjunctivae, oropharynx, and nasal membrane mucosa. NECK: Supple. No JVD. No carotid bruit. No lymph node. No thyromegaly. CHEST AND LUNGS: Bilateral symmetrical expansion. Good air exchange. No rales. No rhonchi. CARDIOVASCULAR SYSTEM: PMI not localized. S1, S2. No additional sounds. ABDOMEN: Normoactive bowel sounds. No tenderness. No organomegaly. No masses. EXTREMITIES: No cyanosis, no clubbing, no edema. CENTRAL NERVOUS SYSTEM: Alert, awake, oriented x2. No neurological deficit could be appreciated. ASSESSMENT: Status post fall with possible syncope, type 2 diabetes mellitus, hypertension, coronary artery disease. PLAN: Continue current medications and follow workup will be done by neurologist and grade school teacher. Continue Accu-Cheks with insulin coverage. Can Valadez MD
--- NOTE | 2017-11-03 06:25 | HP ---
HISTORY OF PRESENT ILLNESS: This is a 72-year-old female with history of multiple medical and psychiatric problems, was admitted after a syncope and a fall. The patient does not recall exactly what happened, but she stated that she was walking from the kitchen to the bathroom when she found herself in the floor. The patient denied to have any specific trauma after that fall. Blood pressure 109/78, temperature 97.5, respiratory rate 18, and pulse 80. ALLERGIES: NO KNOWN ALLERGY. MEDICATIONS: Reviewed as per MAR and ordered. SOCIAL HISTORY: No history of smoking, EtOH or substance abuse. FAMILY HISTORY: Not contributory. PAST MEDICAL HISTORY: Hypertension, type 2 diabetes mellitus, CHF, status post coronary artery disease with stent placement. PHYSICAL EXAMINATION: VITALS: As above. NECK: Supple. No JVD. No carotid bruit. No lymph node. No thyromegaly. CHEST AND LUNGS: Bilateral symmetrical expansion. Good air exchange. No rales. No rhonchi. CARDIOVASCULAR SYSTEM: PMI not localized. S1, S2. No additional sounds. ABDOMEN: Normoactive bowel sounds. No tenderness. No organomegaly. No masses. EXTREMITIES: No cyanosis, no clubbing, no edema. FOUNDATION COORDINATOR: Alert, awake, oriented x2. No neurological deficits could be appreciated. ASSESSMENT: Status post fall with possible syncope, hypertension, type 2 diabetes mellitus, and longstanding psychiatric history. PLAN: Neuro and cardiac consult, and follow recommendations. Resume the patient's home medicines. Accu-Cheks with insulin coverage. Can Valadez MD
[2017-11-03 17:04] LABS: HEMOGLOBIN 12.2 g/dL (12.0-16.0); MEAN CELL VOLUME 86.9 fl (81.0-99.0); MEAN CORPUSCULAR HEMOGLOBIN 29.5 pg (27.0-31.0); MEAN CORPUSCULAR HGB CONC 33.9 g/dL (33.0-37.0); RBC 4.14 Mil/uL (3.80-5.20); RED CELL DISTRIBUTION WIDTH 14.7 % (11.5-14.5); WHITE BLOOD COUNT 8.8 K/uL (4.8-10.8)
--- NOTE | 2017-11-03 17:05 | PCM.RRT ---
Addendum entered by Vera Chappell MD 11/03/17 18:00: Full Code Surrogate DEcision maker - sister Pallavi Original Note: <Miguel Rush - Last Filed: 11/03/17 17:05> ORGANIZATIONAL DEVELOPMENT MANAGER Nurse Assessment - Situation ORGANIZATIONAL DEVELOPMENT MANAGER Reason for Call: Chest Pain - Ventilator Settings Peak Flow: 200 I.Reason for ORGANIZATIONAL DEVELOPMENT MANAGER - A) Acute Change in Patient: Subjective: A 72 yo female with PMH of Anemia, Anxiety, Asthma, CAD, Cardia arrhythmia, COPD, Dementia, Depression, DM, HTN, Hypercholesterolemia, brest cancer s/p lumpectomy and Previouse PE. Pt start complaining of chest pain, ORGANIZATIONAL DEVELOPMENT MANAGER was called at 16:44 for evaluate for ACS . Nurse state pt was complaining of Chest pain. At arrival Pt vitals were 132/74, 102hr, and 100 % ox. Pt was put on Oxygen [place]. EKG was ordered, No acute change. X-ray, CBC, BMP and troponin were ordered. Nitroglycerin was given sublingual and pt chest pain improved. Pt is stable vitals are stable ( 105/71 105hr, 100% ox). ORGANIZATIONAL DEVELOPMENT MANAGER was done at 16:56. Case were reviewed and discussed with Dr. Chappell - Head Head Exam: ATRAUMATIC, NORMAL INSPECTION, NORMOCEPHALIC - Eyes Eye Exam: EOMI, Normal appearance, PERRL - Respiratory Exam Respiratory Exam: Clear to Ausculation Bilateral, NORMAL BREATHING PATTERN - Cardiovascular Exam Cardiovascular Exam: REGULAR RHYTHM, +S1, +S2 - GI/Abdominal Exam GI & Abdominal Exam: Soft, Normal Bowel Sounds - Neurological Exam Neurological Exam: Alert, Awake, Oriented x3 - Extremities Exam Extremities Exam: Full ROM Plan - Assessment of Findings&Treatment Plan 72 yo female with PMH of Anemia, Anxiety, Asthma, CAD, Cardia arrhythmia, COPD, Dementia, Depression, DM, HTN, Hypercholesterolemia, brest cancer s/p lumpectomy and Previouse PE. Start complaining of Chest pain, ORGANIZATIONAL DEVELOPMENT MANAGER was called to evaluate for ACS 16:44. Pt complain of chest pain Vitals were stable PT was put on nasal [place] 132/74bp, 102 hr, 100% ox at 16:44 vitals x2 105/71 BP, 105Hr, 100% ox 16:54 EKG no acute changes Pt received Nitroglycerin and pain have improved Plan F/U Troponin F/U X-ray F/U CBC F/U BMP ORGANIZATIONAL DEVELOPMENT MANAGER was done at 16:54 <TaVera - Last Filed: 11/03/17 17:39> ORGANIZATIONAL DEVELOPMENT MANAGER Nurse Assessment - Vital Signs Vital Signs: Rapid Response Vital Sign Blood Pressure 134/85 Pulse Rate 95 Respiratory Rate 25 Oxygen Saturation 100 - Vital Signs at end of ORGANIZATIONAL DEVELOPMENT MANAGER Vital Signs at end of ORGANIZATIONAL DEVELOPMENT MANAGER: Rapid Response End Vital Sign Blood Pressure 105/71 Pulse Rate 86 Respiratory Rate 21 O2 Sat by Pulse Oximetry 100 Attending/Attestation - Attestation I have personally seen and examined this patient.: Yes I have fully participated in the care of the patient.: Yes I have reviewed all pertinent clinical information, including history, physical exam and plan: Yes Notes (Text): Chest Pain - EKG no change - NTG SL given, symptoms improved -will do serial enzymes - Trop x 3, CBC, BMP - CXR PMD : DR Valadez informed of event
--- NOTE | 2017-11-03 17:13 | RAD ---
Date of service: 11/03/2017 HISTORY: CP COMPARISON: 10/19/2017 FINDINGS: LUNGS: No active pulmonary disease. PLEURA: No significant pleural effusion identified, no pneumothorax apparent. Asymmetrically elevated right hemidiaphragm less pronounced than before CARDIOVASCULAR: Probable top-normal heart size. Tortuous and calcified thoracic aorta. OSSEOUS STRUCTURES: Partial resection lateral right clavicle-similar VISUALIZED UPPER ABDOMEN: Normal. OTHER FINDINGS: Apparent surgical clips projecting over left breast and/or left lateral chest wall-similar IMPRESSION: No active disease.
[2017-11-03 17:31] LABS: BLOOD UREA NITROGEN 26 mg/dl (7-17); GFR NON-AFRICAN AMERICAN 40
[2017-11-03] MEDS: Pravastatin Sodium 20 MG TAB PO SCH (21:52)
[2017-11-03] MEDS: Insulin Detemir 100 Units/ml Inj SC SCH (21:59)
--- NOTE | 2017-11-04 01:08 | PN ---
DATE: 11/03/2017 SUBJECTIVE: The patient is seen today, 11/03/2017. She is not in any cardiopulmonary distress at the time of this examination though patient had an DOMAIN ARCHITECT code after work for chest pain. OBJECTIVE: VITAL SIGNS: Blood pressure 112/67, temperature 97.9, respiratory rate 20, and pulse 71. GENERAL: Pupils equal and reactive to light. Normal-appearing mucosa of the conjunctivae, oropharynx, and nasal membrane mucosa. NECK: Supple. No JVD. No carotid bruit. CHEST AND LUNGS: Bilateral symmetrical expansion. Good air exchange. No rales. No rhonchi. CARDIOVASCULAR SYSTEM: PMI not localized. S1, S2. No additional sounds. ABDOMEN: Normoactive bowel sounds. No tenderness. No organomegaly. No masses. EXTREMITIES: No cyanosis, no clubbing, no edema. POLYMERIZATION KETTLE OPERATOR: Alert, awake, oriented x2. No neurological deficit could be appreciated. ASSESSMENT: 1. Chest pain, myocardial infarction was ruled out. 2. Possible sinus arrest that required electrophysiology evaluation. 3. Status post fall with undetermined history of syncope. 4. Type 2 diabetes mellitus. 5. Hypertension. 6. History of cancer of breast, status post left lumpectomy. 7. Psychiatric history. PLAN: Followup electrophysiology recommendations. EKG and cardiac enzymes were done again today with no elevation of the troponin. Continue current medications. monitor tech. Can Valadez MD
[2017-11-04] MEDS: Insulin Regular 100 units/ml SC SCH ×4 (08:45→22:02)
--- NOTE | 2017-11-04 10:33 | CARD ---
APPROVED REPORT Date of service: 11/03/2017 <Conclusion> Normal sinus rhythm ST & T wave abnormality, consider anterior ischemia Abnormal ECG
--- NOTE | 2017-11-04 20:33 | PN ---
DATE: 11/04/2017 SUBJECTIVE: Yesterday, the patient had a rapid response for chest pain. There were no reported arrhythmia. The patient denies any recurrence of her chest pain. PHYSICAL EXAMINATION: VITAL SIGNS: Blood pressure 116/74, heart rate 61, temperature 97.3, and respirations 20. HEENT: Normocephalic. CHEST: Clear. HEART: S1 and S2 regular. EXTREMITIES: No edema. LABORATORY DATA: Today's blood sugars are 174 and 206. Three sets of troponins are negative so far. D-dimer on admission was within normal limits. EKG done yesterday during the rapid response revealed sinus rhythm at rate of 100 with nonspecific anterior T-wave changes, although, it was consider anterolateral ischemia. ASSESSMENT: 1. Atypical chest pain. 2. Tachycardia-bradycardia syndrome. The patient has periods of paroxysmal atrial tachycardia and periods of symptomatic sinus bradycardia. 3. Syncopal episode on admission. 4. Chronic obstructive lung disease. 5. Diabetes mellitus. 6. History of depression. RECOMMENDATIONS: Continue aspirin 81 mg once a day, Eliquis 2.5 mg twice a day, Pravachol 20 mg once a day, and Zebeta 5 mg daily. The patient will be evaluated today by Dr. Joseph Bonner, the geomatics professor. Jan Whitfield MD
[2017-11-04] MEDS: Insulin Detemir 100 Units/ml Inj SC SCH (21:43)
[2017-11-04] MEDS: Pravastatin Sodium 20 MG TAB PO SCH (21:45)
[2017-11-05] MEDS: Insulin Regular 100 units/ml SC SCH ×3 (09:12→16:17)
[2017-11-05] MEDS: Dextrose 5%/0.9% NS 1,000 ML IV SCH (10:04)
--- NOTE | 2017-11-05 10:13 | PN ---
DATE: 11/04/2017 SUBJECTIVE: The patient was seen on 11/04/2017. She was not in any cardiopulmonary distress. The patient was seen by Electrophysiology and she was scheduled for pacemaker placement on 11/05/2017. PHYSICAL EXAMINATION: VITAL SIGNS: Blood pressure was 158/74, temperature 98.1, respiratory rate 20, and pulse 70. HEENT: Pupils equal, and reactive to light. Normal-appearing mucosa of the conjunctivae, oropharynx, and nasal membrane mucosa. NECK: Supple. No JVD. No carotid bruit. No lymph nodes. No thyromegaly. CHEST AND LUNGS: Bilateral symmetrical expansion. Good air exchange. No rales, no rhonchi. CARDIOVASCULAR SYSTEM: PMI not localized. S1, S2. No additional sounds. ABDOMEN: Normoactive bowel sounds. No tenderness. No organomegaly. No masses. EXTREMITIES: No cyanosis, no clubbing, no edema. HEEL SANDER RUBBER: Alert, awake, and oriented x2. No neurological deficits could be appreciated. ASSESSMENT: 1. Status post fall, likely secondary to syncope. 2. Possible sinus disease and the patient has positive sinus disease with need for pacemaker placement. 3. Type 2 diabetes mellitus. 4. History of cancer of breasts, status post left lumpectomy. PLAN: Continue current medications and follow with the sas etl developer and Cardiology. Follow recommendations of Electrophysiology and Cardiology. Can Valadez MD
[2017-11-05] MEDS ORDERED: Influenza Vaccine 60 MCG/0.5 ML SYR (3 yr & up) IM ONE (11:45)
[2017-11-05 15:49] LABS: PROTHROMBIN TIME 11.1 Seconds (9.8-13.1)
[2017-11-05 15:52] LABS: PARTIAL THROMBOPLASTIN TIME 28.8 Seconds (25.6-37.1)
[2017-11-05] MEDS ORDERED: Liquid Adhesive TOP ONE (18:48)
[2017-11-05] MEDS ORDERED: Midazolam 2 MG/2 ML VIAL ONE (19:13)
[2017-11-05] MEDS ORDERED: Propofol 10 mg/ml Inj (20 ML) ONE ×3 (19:15→21:30)
[2017-11-05] MEDS ORDERED: Lidocaine 1% 5ml Abboject ONE (19:15)
[2017-11-05] MEDS ORDERED: Etomidate 20 mg/10ml Inj IV ONE (19:17)
[2017-11-05] MEDS ORDERED: Lactated Ringer's 1,000 ML IV ONE (19:55)
[2017-11-05] MEDS ORDERED: Lidocaine 1% (50 ml) Vial IJ ONE (20:26)
--- NOTE | 2017-11-05 22:32 | PN ---
DATE: 11/05/2017 SUBJECTIVE: The patient was seen today, 11/05/2017. She is not in any cardiopulmonary distress. OBJECTIVE: VITAL SIGNS: Blood pressure 150/80, temperature 97.4, respiratory rate 20, and pulse 60. HEENT: Pupils equal and reactive to light. Normal appearing mucosa of the conjunctivae, oropharynx, and nasal membrane mucosa. NECK: Supple. No JVD. No carotid bruit. No lymph node. No thyromegaly. CHEST AND LUNGS: Bilateral symmetrical expansion. Good air exchange. No rales, no rhonchi. CARDIOVASCULAR SYSTEM: System PMI not localized. S1, S2. No additional sounds. ABDOMEN: Normoactive bowel sounds. No tenderness. No organomegaly. No masses. EXTREMITIES: No cyanosis, no clubbing, no edema. PRE ALGEBRA TEACHER: Alert, awake, oriented x2. No neurological deficit could be appreciated. ASSESSMENT: 1. Status post syncope with a fall. 2. Sick sinus disease with need for pacemaker placement. 3. Type 2 diabetes mellitus. 4. Hypertension. PLAN: The patient is scheduled for pacemaker placement by Dr. Bonner today. The patient is currently n.p.o. We will give IV fluid for hydration and follow cardiology recommendations. Can Valadez MD
[2017-11-06] MEDS: Pravastatin Sodium 20 MG TAB PO SCH (00:05)
[2017-11-06] MEDS: Insulin Detemir 100 Units/ml Inj SC SCH (00:06)
[2017-11-06] MEDS: Insulin Regular 100 units/ml SC SCH ×3 (00:07→12:16)
[2017-11-06] MEDS: Oxycodone/Acetaminophen 5/325 mg Tab PO PRN ×2 (00:57→09:05)
[2017-11-06] MEDS ORDERED: Influenza Vaccine 60 MCG/0.5 ML SYR (3 yr & up) IM ONE (03:00)
[2017-11-06 05:05] VITALS: RESP 18
--- NOTE | 2017-11-06 06:06 | OP ---
PROCEDURE DATE: 11/05/2017 SURGEON: Joseph Bonner MD OPERATION: Dual-chamber permanent pacemaker. DIAGNOSES: Sick sinus syndrome, history of atrial tachycardia, syncope. BRIEF HISTORY: Ms. Martha Donald is a 72-year-old female with past medical history significant for hypertension, diabetes, paroxysmal atrial tachycardia, coronary artery disease, depression, pulmonary embolism, who presented to [facility] on the day of admission, 11/03/2017. The patient lives alone. She felt very dizzy and fell to the floor. She was brought in by EMS for further evaluation and management. The patient was seen in consultation by Dr. Jan Whitfield, who advised continuing her Cardizem 90 mg every eight hours, continue medical management, on telemetry, on her home regimen, Cardizem. The patient was found to have episodes of sinus bradycardia, sinus pauses with a two-second pause which was noted on 11/02/2017. This occurred at 11:41 a.m. I was notified of these findings with the patient with atrial tachycardia, prior history of significant palpitations, and coronary artery disease. At that point, after discussion, it is felt that she should be a reasonable candidate for permanent pacemaker. Detailed discussion was held with the patient. It was decided that a pacemaker would be reasonable. Therefore, we proceeded with the pacemaker. Of note, the patient's Eliquis, which she was taking for anticoagulation, had been held. PROCEDURE: After receiving informed consent through the it infrastructure specialist, Ms. Martha Donald was brought to the operating room at today, 11/05/2017, for insertion of a dual chamber permanent pacemaker. The right pectoral area was draped and prepped in a sterile fashion. The patient has had multiple breast cancer surgeries on the right. Therefore, this area is to be avoided. The surgical area was anesthetized using 2% lidocaine solution. Anesthesia was provided for by Dr. Caldwell. The cephalic vein cutdown was then performed without incident. An 0.035 guidewire was inserted via this access point. A 9-Urdu SafeSheath was then inserted via this access point without difficulty. An 0.035 guidewire was then inserted through this again with minimal difficulty. The right ventricular lead which is a Medtronic 1576, 52 cm lead, serial number [id number] was inserted via this sheath and manipulated into the right ventricular apex eventually without significant issues. The threshold and sensing on this lead through the program system analyzer and similarly through the device are as follows: R waves measure 12.2, impedance of 776, current is 1, threshold is 0.7 volt and 0.5 milliseconds. All of these parameters are within normal limits. The lead was then cut down using multiple suture. Prior to that, a 0.035 guidewire was inserted via the #9 Urdu SafeSheath. #9 Urdu SafeSheath was torn, and 7-Urdu SafeSheath was put over the second guidewire. The #7 Urdu SafeSheath was then used to insert the right atrial lead which is 1576, 45 cm lead, serial number [id number]. The atrial lead was then inserted again without difficulty, placed in the right atrial appendage. The active tip was extended. Parameters on this lead through the program system analyzer and similarly through the device are as follows: P waves measure 2.8, pacing impedance of 544, threshold is 0.8 volts and 0.5 milliseconds at a current of 1.1 milliamps. Both leads were then tied down using multiple sutures. Additional ligatures were applied to achieve hemostasis. The lead system was then connected to the post generator which is a [employer] [place] XT device, serial number [id number]. The lead system and device were then placed in the pocket, and also suture was applied to it to prevent device migration. In the superficial fashion, skin layers were brought together using two layers of 2-0 Vicryl. The final layer was closed with Metzenbaum and Steri-Strips. The patient tolerated the procedure well and was taken out of the room in satisfactory condition. The patient is to undergo normal postoperative checks, which include 12-lead EKG, chest x-ray as well as a device check in the morning. The patient following tomorrow morning's check can be reinitiated on calcium channel blockers and Eliquis also may be restarted once postop checks are completed. Thank you for allowing me to participate in the care of your patient. Please do not hesitate to call if you have any questions in regards to her care. Joseph Bonner MD cc: MD Can Beckham MD
[2017-11-06 08:58] VITALS: BP 126/78; PULSE 70; TEMP 98; O2SAT 100
[2017-11-06] MEDS: Dextrose 5%/0.9% NS 1,000 ML IV SCH (09:13)
--- NOTE | 2017-11-06 11:21 | RAD ---
Date of service: 11/05/2017 HISTORY: post ppm COMPARISON: Chest radiograph dated 11/03/2017 FINDINGS: LUNGS: No active pulmonary disease. PLEURA: No significant pleural effusion identified, no pneumothorax apparent. CARDIOVASCULAR: Interval placement of right subclavian access to lead pacemaker with leads terminating in the right atrium and right ventricle. Atherosclerotic aortic calcifications. Cardiomediastinal silhouette stably enlarged OSSEOUS STRUCTURES: Chronic displaced right clavicular fracture. Unchanged. VISUALIZED UPPER ABDOMEN: Normal. OTHER FINDINGS: Left breast surgical clips redemonstrated. IMPRESSION: Interval right pacemaker placement in satisfactory position. No evidence of pneumothorax. No other significant interval change.
--- NOTE | 2017-11-06 12:48 | CP.PCM.PCO ---
Assessment/Plan - Assessment and Plan (Free Text) Assessment: Patient seen and examined. VS stable. Apaced 71 Denies chest pain shortness of breath, fever or chills CXR shows pm in satisfactory position PM dressing removed, steristrips intact. Discussed with Dr Cat and Dr Bonner, patient cleared for dc home Discussed with Dr Valadez who agrees with plan. Patient for dc home this afternoon.
--- NOTE | 2017-11-06 17:05 | RAD ---
Date of service: 11/05/2017 PROCEDURE: Intraoperative fluoroscopy HISTORY: PACEMAKER COMPARISON: Not available TECHNIQUE: Intraoperative fluoroscopy was provided for pacemaker insertion. Total time of fluoroscopy was 908.7 sec. Cumulative dose was 119.14 mGy FINDINGS: Multiple fluoroscopic spot films are submitted. IMPRESSION: Fluoroscopy provided.
--- NOTE | 2017-11-09 21:16 | PQF ---
PROVIDER RESPONSE TEXT: It is chronic compression fracture REVIEWER QUERY TEXT: Fracture Cause Traumatic or Non-Trauma Please clarify whether the documented fracture is due to traumatic or non-traumatic cause Such as: Traumatic: -- Traumatic compression fracture -- Traumatic fracture Non-traumatic: -- Chronic fracture -- Non-traumatic compression fracture -- Insufficiency -- Spontaneous -- Pathological fracture (specify cause such as osteoporosis or malignancy) -- Stress fracture -- Wedge fracture -- Other, please specifyL The patient's Clinical Indicators include: 11/[address] Whitfield " compression fracture L1 vertebrae." Query created by: Latasha Bone on 11/08/2017 12:36 PM Electronically signed by: Can Valadez MD 11/09/2017 9:13 PM
== END 2017-11-06 14:13 | disposition home health service (06) | DRG 243 ==
LOC: H.ER 02:09 → H.ERHOLD 06:26 → H.TEL 09:23 → OBSVTOIN 11-03 12:17 → H.ICU/CCU 11-05 21:55 → H.TEL 11-06 00:01
PROVIDERS: ADMIT Internal Medicine; ATTEND Internal Medicine
PROC: 02H63JZ Insertion of Pacemaker Lead into Right Atrium, Percutaneous Approach (ICD-10-PCS; 2017-11-05)
PROC: 02HK3JZ Insertion of Pacemaker Lead into Right Ventricle, Percutaneous Approach (ICD-10-PCS; 2017-11-05)
PROC: 0JH606Z Insertion of Pacemaker, Dual Chamber into Chest Subcutaneous Tissue and Fascia, Open Approach (ICD-10-PCS; principal; 2017-11-05 17:00)
DX: I49.5 Sick sinus syndrome (principal); M48.56XA Collapsed vertebra, not elsewhere classified, lumbar region, initial encounter for fracture; I47.1 Supraventricular tachycardia; J01.90 Acute sinusitis, unspecified; E11.65 Type 2 diabetes mellitus with hyperglycemia; E78.00 Pure hypercholesterolemia, unspecified; F03.90 Unspecified dementia, unspecified severity, without behavioral disturbance, psychotic disturbance, mood disturbance, and anxiety; E86.0 Dehydration; Z86.711 Personal history of pulmonary embolism; Z99.81 Dependence on supplemental oxygen; Z95.5 Presence of coronary angioplasty implant and graft; I25.10 Atherosclerotic heart disease of native coronary artery without angina pectoris; Z85.3 Personal history of malignant neoplasm of breast; M81.0 Age-related osteoporosis without current pathological fracture; F41.9 Anxiety disorder, unspecified; F32.9 Major depressive disorder, single episode, unspecified; I11.0 Hypertensive heart disease with heart failure; I50.9 Heart failure, unspecified; J44.9 Chronic obstructive pulmonary disease, unspecified; R07.89 Other chest pain; E78.5 Hyperlipidemia, unspecified

== ENCOUNTER 2017-12-01 15:27 | Emergency (ER) | payer MEDICARE, MEDICAID ==
[2017-12-01 15:29] VITALS: BMI 28.3
--- NOTE | 2017-12-01 17:09 | RAD ---
Date of service: 12/01/2017 HISTORY: chest discomfort COMPARISON: 11/05/2017. FINDINGS: LUNGS: The lungs are well inflated and clear. PLEURA: No pleural effusions or pneumothorax. CARDIOVASCULAR: The heart is normal in size. Atherosclerotic aortic arch calcifications are present. There is stable position of right-sided dual lead permanent pacing device. OSSEOUS STRUCTURES: Within normal limits for the patient's age. VISUALIZED UPPER ABDOMEN: Normal. OTHER FINDINGS: None. IMPRESSION: No acute findings. No significant interval change.
[2017-12-01 17:36] LABS: BASO % 0.6 % (0.0-2.0); EOS # 0.3 K/uL (0.0-0.7); HEMOGLOBIN 12.1 g/dL (12.0-16.0); LYMPH # 1.7 K/uL (1.0-4.3); LYMPH % 25.3 % (20.0-40.0); MEAN CORPUSCULAR HEMOGLOBIN 29.2 pg (27.0-31.0); MEAN CORPUSCULAR HGB CONC 34.4 g/dL (33.0-37.0); MONO # 0.6 K/uL (0.0-0.8); MONO % 8.6 % (0.0-10.0); NEUT # 4.2 K/uL (1.8-7.0); NEUT % 61.5 % (50.0-75.0); NRBC % 0.3 % (0.0-0.0); RBC 4.14 Mil/uL (3.80-5.20); RED CELL DISTRIBUTION WIDTH 14.4 % (11.5-14.5); WHITE BLOOD COUNT 6.8 K/uL (4.8-10.8)
[2017-12-01 17:40] LABS: INR 1.1; PROTHROMBIN TIME 12.1 Seconds (9.8-13.1)
--- NOTE | 2017-12-01 17:41 | ED PDOC ---
Upper Extremity Pain/Injury Time Seen by Provider: 12/01/17 16:23 Chief Complaint (Nursing): Upper Extremity Problem/Injury Chief Complaint (Provider): Upper Extremity Problem/Injury History Per: Patient, Family (daughter) History/Exam Limitations: no limitations Onset/Duration Of Symptoms: Days (x2) Additional Complaint(s): Patient is a 72 y/o female wit history of breast cancer and HTN, who presents to the ED complaining of bilateral shoulder and upper back pain for x2 days. Patient additionally notes that upper abdominal pain started today. Patient states the the pain symptoms were unrelieved by percocet at 07:00 this morning. Patient notes that she has a pain at her pacemaker site which was inserted on 11/05. Patient does not have any info regarding the pacemaker -- she does not h ave her info card nor know any information about it. Patient states she does not take any anticoagulants and denies any falls or trauma. Per daughter, patient has a history arthritis. Patient additionally notes she has soft tissue mass growing to both of her deltoids for the last x2 days. Patient denies fever, chills, chest pain, cough, SOB, nausea, vomiting, diarrhea, orthopnea, leg swelling or calf pain. PMD: Rory Past Medical History Reviewed: Historical Data, Nursing Documentation, Vital Signs Vital Signs: Last Vital Signs Temp 97.7 F 12/01/17 15:43 Pulse 85 12/01/17 17:24 Resp 18 12/01/17 17:24 BP 162/84 H 12/01/17 17:24 Pulse Ox 97 12/01/17 17:24 - Medical History PMH: Anemia, Anxiety, Asthma, CAD, Cardia Arrhythmia, COPD, Dementia, Depression, Diabetes, Fractures (LEFT LEG), HTN, Hypercholesterolemia, Malignancy (breast cancer s/p lumpectomy ), Osteoporosis, Pulmonary Embolism Other PMH: breast cancer - Surgical History Surgical History: Appendectomy, Cholecystectomy, Coronary Stent, Hernia Repair (umbilical hernia) Other surgeries: Procedure to abdomen; x2 lumpectomies to left breast - Family History Family History: States: Unknown Family Hx - Home Medications Home Medications: Ambulatory Orders Medication Instructions Recorded RX: Aspirin [Ecotrin] 81 mg PO DAILY 08/28/16 RX: Acetaminophen [Tylenol 325mg 650 mg PO Q6 PRN tab 02/06/17 tab] RX: Albuterol HFA [Ventolin HFA 90 2 puff INH RQ4 PRN inhaler 02/06/17 mcg/actuation (8 g)] RX: Pravastatin Sodium [Pravachol] 20 mg PO HS tab 02/06/17 RX: Apixaban [Eliquis] 2.5 mg PO BID tab 02/14/17 RX: Docusate [Colace] 100 mg PO TID cap 02/14/17 RX: Meclizine [Meclizine*] 25 mg PO TID PRN tab 02/14/17 RX: Sertraline [Zoloft] 50 mg PO DAILY tab 02/14/17 RX: clonazePAM [Klonopin] 0.5 mg PO HS tab 02/14/17 RX: Famotidine [Pepcid] 40 mg PO DAILY PRN #14 tab 07/17/17 RX: Bisoprolol [Zebeta] 5 mg PO DAILY #30 tab 07/27/17 RX: Albuterol Sulfate [Proair Hfa] 0.09 mg IH Q6H PRN #2 inh 10/17/17 RX: Insulin Detemir [Levemir] 12 units SC HS #1 vial 10/22/17 RX: metFORMIN [glucOPHAGE] 500 mg PO BIDWM #60 tab 10/22/17 RX: Albuterol HFA [Ventolin HFA 90 1 puff INH DAILY 11/01/17 mcg/actuation (8 g)] RX: Mirtazapine [Remeron] 15 mg PO HS 11/01/17 RX: Quetiapine Fumarate [Seroquel] 100 mg PO HS 11/01/17 RX: Zolpidem Tartrate [Ambien] 10 mg PO DAILY 11/01/17 RX: Oxycodone HCl/Acetaminophen 1 tab PO Q6 PRN #14 tablet 11/06/17 [Percocet 10-325 mg Tablet] Acetaminophen [Acetaminophen 8 650 mg PO Q8 PRN #21 tablet.er 12/01/17 Hour] - Allergies Allergies/Adverse Reactions: Allergies Allergy/AdvReac Type Severity Reaction Status Date / Time No Known Allergies Allergy Verified 12/01/17 15:43 Review of Systems ROS Statement: Except As Marked, All Systems Reviewed And Found Negative Constitutional: Negative for: Fever, Chills Cardiovascular: Negative for: Chest Pain, Orthopnea, Edema Respiratory: Negative for: Cough, Shortness of Breath Gastrointestinal: Positive for: Abdominal Pain. Negative for: Nausea, Vomiting, Diarrhea Musculoskeletal: Positive for: Shoulder Pain, Back Pain. Negative for: Leg Pain Physical Exam - Reviewed Nursing Documentation Reviewed: Yes Vital Signs Reviewed: Yes - Physical Exam Comments: GENERAL APPEARANCE: Patient is awake, alert, oriented x 3 resting comfortably. SKIN: Warm, dry; (-) cyanosis. EYES: (-) conjunctival pallor, (-) scleral icterus. ENMT: Mucous membranes moist. NECK: Supple, FROM (-) tenderness, (-) stiffness, (-) lymphadenopathy. CHEST AND RESPIRATORY: (-) rales, (-) rhonchi, (-) wheezes; breath sounds equal bilaterally. Respirations even and nonlabored. (+) 2.5cm horizontal well healed linear scar to right pectoralis (+) mild tenderness (-) erythema (-) warmth HEART AND CARDIOVASCULAR: (+) Tachycardia. ABDOMEN AND GI: (+) epigastric tenderness, otherwise soft, nondistended (-) CVA tenderness.' BACK: (+) Diffuse parathoracic tenderness EXTREMITIES: Deltoids: lasteral aspect of bilateral deltoids has 3 cm x 3 cm palpable soft tissue mass, (-) erythema, (-) overlying skin changes, (+) mild tenderness. (-) pedal edema (-) calf tenderness NEURO AND PSYCH: Mental status as above; (-) focal findings. Gait: steady. Speech: clear. x - Laboratory Results Result Diagrams: 12/01/17 17:20 12/01/17 17:20 Urine dip results: Positive for: Glucose (500), Bilirubin (small), Protein (30). Negative for: Leukocyte Esterase, Blood, Nitrate, Ketones - ECG O2 Sat by Pulse Oximetry: 97 (RA) Pulse Ox Interpretation: Normal Medical Decision Making Medical Decision Making: Time: 16:35 Impression: Tachycardia to consider pacemaker failure, shoulder and back pain, soft tissue mass- probable lipoma. Initial Plan: EKG BNP CMP Lactic acid Troponin I CBC w/ diff PTT Prothrombin time CXR Pepcid 20 mg IVP Valium 5 mg PO Patient seen and evaluated at bedside by ED MD Herrera. 1800 CBC unremarkable. CMP demonstrates hyperglycemia, otherwise unremarkable. Coag profile unremarkable. Troponin and BNP unremarkable. Pending CT evaluation. Repeat HR 85. 4 Units insulin IV ordered. 185 Date of service: 12/01/2017 PROCEDURE: CT Abdomen and Pelvis without intravenous contrast HISTORY: abdomen pain COMPARISON: Comparison is made to the previous study dated 07/26/2017 TECHNIQUE: Axial and reformatted coronal and sagittal CT images of the abdomen and pelvis were obtained without IV or oral contrast administration.. Contrast dose: 0 Radiation dose: Total exam DLP = 499.89 mGy-cm. This CT exam was performed using one or more of the following dose reduction techniques: Automated exposure control, adjustment of the mA and/or kV according to patient size, and/or use of iterative reconstruction technique. FINDINGS: LOWER THORAX: Foci of ground-glass opacities are again noted at the lung bases more on the right, nonspecific LIVER: Hepatic steatosis is again noted. GALLBLADDER AND BILE DUCTS: No evidence of cholecystitis or biliary obstruction. PANCREAS: Unremarkable. No gross lesion or ductal dilatation. SPLEEN: Unremarkable. ADRENALS: Unremarkable. No mass. KIDNEYS AND URETERS: Unremarkable. No hydronephrosis. No solid mass. VASCULATURE: Unremarkable. No aortic aneurysm. No aortic atherosclerotic calcification or mural plaque present. BOWEL: Status post right hemicolectomy. Again noted are scattered left colon diverticulosis. No definite CT evidence of diverticulitis. APPENDIX: The appendix lung likely resected with the right colon. PERITONEUM: Unremarkable. No free fluid. No free air. LYMPH NODES: Unremarkable. No enlarged lymph nodes. BLADDER: Mild urinary bladder wall thickening is noted. REPRODUCTIVE: Unremarkable. BONES: No acute fracture. Compression deformity of L1 vertebral body is again noted. Moderate degenerative changes in the lower thoracic and lumbar spine. OTHER FINDINGS: None. IMPRESSION: Colonic diverticulosis without evidence of diverticulitis. No evidence of nephrolithiasis or hydronephrosis. No significant interval change noted since the previous exam. Case discussed with Dr Herrera who states patient is appropriate for discharge. 1914 Repeat Accucheck: 1939 On re-evaluation, patient reports improvement of symptoms. On exam, patient remains AAOx3, in no acute distress. Lungs clear to auscultation, cardiac RRR, abdomen soft, non-tender, repeat neuro exam shows no focal findings. VSS, stable for discharge. Lab/Diagnostic results d/w the patient in great detail. Diagnosis of body aches, abdominal pain-resolved, lipoma d/w the patient and daughter at bedside. Based on history, exam and diagnostic results, plan will be for outpatient follow up with PMD. Patient instructed to follow-up with pmd / referral provided / the clinic in 1- 2 days without fail. Advised to take medication as prescribed. Return to the emergency room at any time for any new or worsening symptoms. Patient states she fully agrees with and understands discharge instructions. States that she agrees with the plan and disposition. Verbalized and repeated discharge instructions and plan. I have given the patient opportunity to ask any additional questions. Scribe Attestation: Documented by Hasmukh Kat, acting as a scribe for Natalie Grant MD. Provider Scribe Attestation: All medical record entries made by the Scribe were at my direction and personally dictated by me. I have reviewed the chart and agree that the record accurately reflects my personal performance of the history, physical exam, med ica decision making, and the department course for this patient. I have also personally directed, reviewed, and agree with the discharge Disposition - Clinical Impression Clinical Impression: Abdominal pain, Back pain, Body aches, Elevated blood pressure reading - Patient ED Disposition Is Patient to be Admitted: No Counseled Patient/Family Regarding: Studies Performed, Diagnosis, Need For Followup, Rx Given - Disposition Referrals: Kaushik Villa MD [Family Provider] - Disposition: Routine/Home Disposition Time: 19:40 Condition: STABLE Additional Instructions: La atencin mdica de emergencia que recibi hoy se dirigi hacia los sntomas agudos de presentacin. Si le recetaron algn medicamento, llnelo y admin strelo segn las indicaciones. Los sntomas pueden tardar varios rene en resolverse. Regrese al Departamento de Emergencias en cualquier momento si los sntomas empeoran, no mejoran o si surgen otros problemas. Comunquese con cobb mdico dentro de 2 rene para julianne nueva evaluacin y rasheeda un seguimiento o llame a vanita de los mdicos / clnicas a los que sanchez sido referido y que figuran en el formulario de Informacin de visita al paciente que se incluye en cobb paquete de stella. Lleve todos los documentos que le entregaron al momento del stella junto con cualquier medicamento a cobb visita de seguimiento. Nuestro tratamiento no puede reemplazar la atencin mdica continua por parte de un proveedor de atencin primaria (PCP) fuera del departamento de emergencias. Prescriptions: Acetaminophen [Acetaminophen 8 Hour] 650 mg PO Q8 PRN #21 tablet.er PRN Reason: Pain, Moderate (4-7) Instructions: High Blood Pressure in Adults, Acute Abdomen (Belly Pain), Upper Back Pain (DC), Hypertension (ED) Forms: [employer] (Latvian) Print Language: GERMAN - POA Present On Arrival: None Results - Lab Results Lab Results: 12/01/17 12/01/17 12/01/17 18:00 17:20 17:20 WBC 6.8 RBC 4.14 Hgb 12.1 Hct 35.2 MCV 85.0 MCH 29.2 MCHC 34.4 RDW 14.4 Plt Count 209 MPV 9.0 Neut % (Auto) 61.5 Lymph % (Auto) 25.3 [place] % (Auto) 8.6 Eos % (Auto) 4.0 Baso % (Auto) 0.6 Neut # (Auto) 4.2 Lymph # (Auto) 1.7 [place] # (Auto) 0.6 Eos # (Auto) 0.3 Baso # (Auto) 0.0 PT 12.1 INR 1.1 APTT 32.8 Sodium Potassium Chloride Carbon Dioxide Anion Gap BUN Creatinine Est GFR ( Amer) Est GFR (Non-Af Amer) Random Glucose Lactic Acid 3.3 H Calcium Total Bilirubin AST ALT Alkaline Phosphatase Troponin I NT-Pro-B Natriuret Pep Total Protein Albumin Globulin Albumin/Globulin Ratio 12/01/17 17:20 WBC RBC Hgb Hct MCV MCH MCHC RDW Plt Count MPV Neut % (Auto) Lymph % (Auto) [place] % (Auto) Eos % (Auto) Baso % (Auto) Neut # (Auto) Lymph # (Auto) [place] # (Auto) Eos # (Auto) Baso # (Auto) PT INR APTT Sodium 141 Potassium 4.7 Chloride 109 H Carbon Dioxide 24 Anion Gap 13 BUN 15 Creatinine 1.1 Est GFR ( Amer) 59 Est GFR (Non-Af Amer) 49 Random Glucose 257 H Lactic Acid Calcium 9.8 Total Bilirubin 0.7 AST 66 H D ALT 30 Alkaline Phosphatase 64 Troponin I 0.0180 NT-Pro-B Natriuret Pep 502 Total Protein 7.8 Albumin 4.2 Globulin 3.5 Albumin/Globulin Ratio 1.2
[2017-12-01 17:43] LABS: PARTIAL THROMBOPLASTIN TIME 32.8 Seconds (25.6-37.1)
[2017-12-01 17:56] LABS: ALB/GLOB RATIO 1.2 (1.0-2.1); ALBUMIN 4.2 g/dL (3.5-5.0); CALCIUM 9.8 mg/dL (8.4-10.2)
[2017-12-01 17:57] LABS: TROPONIN I 0.018 ng/mL (0.00-0.120)
[2017-12-01] MEDS ORDERED: Insulin Regular 100 units/ml IV STA (18:36)
[2017-12-01] MEDS ORDERED: Insulin Regular 100 units/ml ONE ×2 (18:44→18:54)
[2017-12-01] MEDS: Insulin Regular 100 units/ml IV STA (18:46)
--- NOTE | 2017-12-01 18:52 | CT ---
Date of service: 12/01/2017 PROCEDURE: CT Abdomen and Pelvis without intravenous contrast HISTORY: abdomen pain COMPARISON: Comparison is made to the previous study dated 07/26/2017 TECHNIQUE: Axial and reformatted coronal and sagittal CT images of the abdomen and pelvis were obtained without IV or oral contrast administration.. Contrast dose: 0 Radiation dose: Total exam DLP = 499.89 mGy-cm. This CT exam was performed using one or more of the following dose reduction techniques: Automated exposure control, adjustment of the mA and/or kV according to patient size, and/or use of iterative reconstruction technique. FINDINGS: LOWER THORAX: Foci of ground-glass opacities are again noted at the lung bases more on the right, nonspecific LIVER: Hepatic steatosis is again noted. GALLBLADDER AND BILE DUCTS: No evidence of cholecystitis or biliary obstruction. PANCREAS: Unremarkable. No gross lesion or ductal dilatation. SPLEEN: Unremarkable. ADRENALS: Unremarkable. No mass. KIDNEYS AND URETERS: Unremarkable. No hydronephrosis. No solid mass. VASCULATURE: Unremarkable. No aortic aneurysm. No aortic atherosclerotic calcification or mural plaque present. BOWEL: Status post right hemicolectomy. Again noted are scattered left colon diverticulosis. No definite CT evidence of diverticulitis. APPENDIX: The appendix lung likely resected with the right colon. PERITONEUM: Unremarkable. No free fluid. No free air. LYMPH NODES: Unremarkable. No enlarged lymph nodes. BLADDER: Mild urinary bladder wall thickening is noted. REPRODUCTIVE: Unremarkable. BONES: No acute fracture. Compression deformity of L1 vertebral body is again noted. Moderate degenerative changes in the lower thoracic and lumbar spine. OTHER FINDINGS: None. IMPRESSION: Colonic diverticulosis without evidence of diverticulitis. No evidence of nephrolithiasis or hydronephrosis. No significant interval change noted since the previous exam.
[2017-12-01 19:59] VITALS: BP 139/80; PULSE 93; RESP 19; TEMP 97.9
--- NOTE | 2017-12-02 19:30 | CARD ---
APPROVED REPORT Date of service: 12/01/2017 EKG Measurement Heart [id number] [id number] <Conclusion> Sinus tachycardia with premature atrial complexes ST & T wave abnormality, consider anterolateral ischemia Abnormal ECG
[2017-12-04 12:44] VITALS: O2SAT 97
== END 2017-12-01 19:59 | disposition home or self-care (01) ==
LOC: H.ER 15:27
DX: R10.9 Unspecified abdominal pain (principal); M54.9 Dorsalgia, unspecified; M79.10 Myalgia, unspecified site; I10 Essential (primary) hypertension; E11.65 Type 2 diabetes mellitus with hyperglycemia; E78.00 Pure hypercholesterolemia, unspecified; F03.90 Unspecified dementia, unspecified severity, without behavioral disturbance, psychotic disturbance, mood disturbance, and anxiety; I25.10 Atherosclerotic heart disease of native coronary artery without angina pectoris; Z79.01 Long term (current) use of anticoagulants; Z79.4 Long term (current) use of insulin; Z85.3 Personal history of malignant neoplasm of breast; Z86.711 Personal history of pulmonary embolism; Z95.5 Presence of coronary angioplasty implant and graft

== ENCOUNTER 2017-12-11 16:18 | Emergency (ER) | payer MEDICARE, OTHER ==
[2017-12-11 16:19] VITALS: BMI 28.3
[2017-12-11 18:31] LABS: BASO # 0.1 K/uL (0.0-0.2); BASO % 0.7 % (0.0-2.0); EOS # 0.3 K/uL (0.0-0.7); EOS % 4.4 % (0.0-4.0); HEMOGLOBIN 12.7 g/dL (12.0-16.0); LYMPH % 25.8 % (20.0-40.0); MEAN CELL VOLUME 84.4 fl (81.0-99.0); MEAN CORPUSCULAR HEMOGLOBIN 28.8 pg (27.0-31.0); MEAN CORPUSCULAR HGB CONC 34.2 g/dL (33.0-37.0); MEAN PLATELET VOLUME 9.4 fl (7.2-11.7); MONO # 0.5 K/uL (0.0-0.8); MONO % 5.8 % (0.0-10.0); NEUT % 63.3 % (50.0-75.0); NRBC % 0.1 % (0.0-0.0); RBC 4.39 Mil/uL (3.80-5.20); RED CELL DISTRIBUTION WIDTH 14.3 % (11.5-14.5); WHITE BLOOD COUNT 7.8 K/uL (4.8-10.8)
[2017-12-11 19:36] LABS: ALB/GLOB RATIO 1.2 (1.0-2.1); ALBUMIN 4.1 g/dL (3.5-5.0); ALT/SGPT 30 U/L (9-52); AST/SGOT 43 U/L (14-36); BLOOD UREA NITROGEN 20 mg/dl (7-17); CALCIUM 10.5 mg/dL (8.4-10.2); GFR NON-AFRICAN AMERICAN 49
--- NOTE | 2017-12-11 20:21 | ED PDOC ---
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 Patient states that since October, immediately after getting her pacemaker put in, she noted swelling to bilateral upper arms with intermittent pain all localized to that area. She was seen in the ED last month for the same symptoms. Patient denies any chest pain, shortness of breath, and weakness (contrary to triage note). PMD: none provided Past Medical History Reviewed: Historical Data, Nursing Documentation, Vital Signs Vital Signs: Last Vital Signs Temp 98.2 F 12/11/17 16:31 Pulse 92 H 12/11/17 16:31 Resp 16 12/11/17 16:31 BP 139/77 12/11/17 16:31 Pulse Ox 98 12/11/17 16:31 - Medical History PMH: Anemia, Anxiety, Asthma, CAD, Cardia Arrhythmia, COPD, Dementia, Depression, Diabetes, Fractures (LEFT LEG), HTN, Hypercholesterolemia, Malignancy (breast cancer s/p lumpectomy ), Osteoporosis, Pulmonary Embolism Denies: CVA, Hepatitis, Chronic Kidney Disease, Seizures, Sexually Transmitted Disease - Surgical History Surgical History: Appendectomy, Cholecystectomy, Coronary Stent, Hernia Repair (umbilical hernia) - Family History Family History: States: Unknown Family Hx - Social History Current smoker - smoking cessation education provided: No Alcohol: None Drugs: Denies - Home Medications Home Medications: Ambulatory Orders Medication Instructions Recorded RX: Aspirin [Ecotrin] 81 mg PO DAILY 08/28/16 RX: Acetaminophen [Tylenol 325mg 650 mg PO Q6 PRN tab 02/06/17 tab] RX: Albuterol HFA [Ventolin HFA 90 2 puff INH RQ4 PRN inhaler 02/06/17 mcg/actuation (8 g)] RX: Pravastatin Sodium [Pravachol] 20 mg PO HS tab 02/06/17 RX: Apixaban [Eliquis] 2.5 mg PO BID tab 02/14/17 RX: Docusate [Colace] 100 mg PO TID cap 02/14/17 RX: Meclizine [Meclizine*] 25 mg PO TID PRN tab 02/14/17 RX: Sertraline [Zoloft] 50 mg PO DAILY tab 02/14/17 RX: clonazePAM [Klonopin] 0.5 mg PO HS tab 02/14/17 RX: Famotidine [Pepcid] 40 mg PO DAILY PRN #14 tab 07/17/17 RX: Bisoprolol [Zebeta] 5 mg PO DAILY #30 tab 07/27/17 RX: Albuterol Sulfate [Proair Hfa] 0.09 mg IH Q6H PRN #2 inh 10/17/17 RX: Insulin Detemir [Levemir] 12 units SC HS #1 vial 10/22/17 RX: metFORMIN [glucOPHAGE] 500 mg PO BIDWM #60 tab 10/22/17 RX: Albuterol HFA [Ventolin HFA 90 1 puff INH DAILY 11/01/17 mcg/actuation (8 g)] RX: Mirtazapine [Remeron] 15 mg PO HS 11/01/17 RX: Quetiapine Fumarate [Seroquel] 100 mg PO HS 11/01/17 RX: Zolpidem Tartrate [Ambien] 10 mg PO DAILY 11/01/17 RX: Oxycodone HCl/Acetaminophen 1 tab PO Q6 PRN #14 tablet 11/06/17 [Percocet 10-325 mg Tablet] Acetaminophen [Acetaminophen 8 650 mg PO Q8 PRN #21 tablet.er 12/01/17 Hour] - Allergies Allergies/Adverse Reactions: Allergies Allergy/AdvReac Type Severity Reaction Status Date / Time No Known Allergies Allergy Verified 12/01/17 15:43 Review of Systems ROS Statement: Except As Marked, All Systems Reviewed And Found Negative Cardiovascular: Negative for: Chest Pain Respiratory: Negative for: Shortness of Breath Musculoskeletal: Positive for: Shoulder Pain (and swelling ) Neurological: Negative for: Weakness Physical Exam - Reviewed Nursing Documentation Reviewed: Yes Vital Signs Reviewed: Yes - Physical Exam Appears: Positive for: Non-toxic, No Acute Distress Head Exam: Positive for: ATRAUMATIC, NORMAL INSPECTION, NORMOCEPHALIC Skin: Positive for: Normal Color, Warm, DRY Eye Exam: Positive for: EOMI, Normal appearance, PERRL ENT: Positive for: Normal ENT Inspection Neck: Positive for: Normal, Painless ROM Cardiovascular/Chest: Positive for: Regular Rate, Rhythm. Negative for: Murmur Respiratory: Positive for: Normal Breath Sounds. Negative for: Respiratory Di stress Pulses-Radial (L): 2+ Pulses-Radial (R): 2+ Gastrointestinal/Abdominal: Positive for: Normal Exam, Soft. Negative for: Tenderness Back: Positive for: Normal Inspection. Negative for: L CVA Tenderness, R CVA Tenderness Extremity: Positive for: Normal ROM, Other (bilateral lateral shoulders: non tender, non-indurated, non-erythematous, non-fluctuant mobile masses, no break in skin integrity ) Neurologic/Psych: Positive for: Alert, Oriented. Negative for: Motor/Sensory Deficits - Laboratory Results Result Diagrams: 12/11/17 18:22 12/11/17 19:10 - ECG O2 Sat by Pulse Oximetry: 98 (RA) Pulse Ox Interpretation: Normal - Radiology X-Ray: Interpreted by Me (b/l shoulder x-ray) X-Ray Interpretation: No Acute Disease Medical Decision Making Medical Decision Making: Time: 17:41 Plan: --EKG --CMP --Troponin --CBC --X-ray shoulders Scribe Attestation: Documented by, Beatriz Roach acting as a scribe for Nikolai Rodriguez PA-C. Provider Scribe Attestation: All medical record entries made by the Scribe were at my direction and personally dictated by me. I have reviewed the chart and agree that the record accurately reflects my personal performance of the history, physical exam, medical decision making, and the department course for this patient. I have also personally directed, reviewed, and agree with the discharge instructions and disposition. Disposition - Clinical Impression Clinical Impression: [facility] - Patient ED Disposition Is Patient to be Admitted: No - Disposition Referrals: Can Valadez MD [Staff Provider] - Lucio Landa MD [Staff Provider] - Disposition Time: 20:00 Condition: STABLE Additional Instructions: MARTHA LYN, thank you for letting us take care of you today. Your provider was Hawa Stewart MD and you were treated for BACK PAIN, SWOLLEN ARMS. The emergency medical care you received today was directed at your acute symptoms. If you were prescribed any medication, please fill it and take as directed. It may take several days for your symptoms to resolve. Return to the Emergency Department if your symptoms worsen, do not improve, or if you have any other problems. Please contact your doctor or call one of the physicians/clinics you have been referred to that are listed on the Patient Visit Information form that is included in your discharge packet. Bring any paperwork you were given at discharge with you along with any medications you are taking to your follow up visit. Our treatment cannot replace ongoing medical care by a primary care provider outside of the emergency department. Thank you for allowing the [facility] team to be part of your care today. If you had an X-Ray or CT scan: A Radiologist will review the ED reading if any change in treatment is needed we will contact you. If you had a blood, urine, or wound culture: It will take several days for the results, if any change in treatment is needed we will contact you. If you had an STI test: It will take 48 hours for the results. Please call after 1 week if you have not heard back. Instructions: [facility] Forms: [employer] (Bulgarian) Print Language: MAORI
[2017-12-11 22:04] VITALS: BP 131/76; PULSE 79; RESP 17; TEMP 98.8
[2017-12-12 08:46] VITALS: O2SAT 98
--- NOTE | 2017-12-12 08:50 | CARD ---
APPROVED REPORT Date of service: 12/11/2017 EKG Measurement Heart [id number] NJ 174P40 [id number] <Conclusion> Normal sinus rhythm ST & T wave abnormality, consider anterior ischemia Abnormal ECG
--- NOTE | 2017-12-12 10:39 | RAD ---
Date of service: 12/11/2017 PROCEDURE: Radiographs of the Right Shoulder HISTORY: pain COMPARISON: No prior. FINDINGS: BONES: Normal. No fracture. JOINTS: Normal. Glenohumeral and acromioclavicular joints preserved. No osteoarthritis. SOFT TISSUES: Normal. OTHER FINDINGS: None. IMPRESSION: Normal radiographs of the right shoulder.
--- NOTE | 2017-12-12 10:40 | RAD ---
Date of service: 12/11/2017 PROCEDURE: Radiographs of the Left Shoulder HISTORY: pain COMPARISON: No prior. FINDINGS: BONES: Normal. No fracture. JOINTS: Normal. Glenohumeral and acromioclavicular joints preserved. No osteoarthritis. SOFT TISSUES: Normal. OTHER FINDINGS: None. IMPRESSION: Normal radiographs of the left shoulder.
== END 2017-12-11 20:40 | disposition home or self-care (01) ==
LOC: H.ER 16:18
DX: D17.22 Benign lipomatous neoplasm of skin and subcutaneous tissue of left arm (principal); D17.21 Benign lipomatous neoplasm of skin and subcutaneous tissue of right arm; Z95.0 Presence of cardiac pacemaker; E11.9 Type 2 diabetes mellitus without complications; E78.00 Pure hypercholesterolemia, unspecified; F03.90 Unspecified dementia, unspecified severity, without behavioral disturbance, psychotic disturbance, mood disturbance, and anxiety; I10 Essential (primary) hypertension; I25.10 Atherosclerotic heart disease of native coronary artery without angina pectoris; Z79.01 Long term (current) use of anticoagulants; Z79.4 Long term (current) use of insulin; Z85.3 Personal history of malignant neoplasm of breast; Z86.711 Personal history of pulmonary embolism; Z95.5 Presence of coronary angioplasty implant and graft

== ENCOUNTER 2017-12-19 13:23 | Emergency (ER) | payer MEDICARE, MEDICAID ==
[2017-12-19 13:23] VITALS: BMI 28.3
[2017-12-19 13:33] VITALS: TEMP 97.7; O2SAT 97
[2017-12-19] MEDS ORDERED: Albuterol-Ipratrop 3 mg / 0.5 (3 ml) UD IH STA ×2 (13:55→13:56)
--- NOTE | 2017-12-19 14:01 | ED PDOC ---
HPI: SOB/CHF/COPD Time Seen by Provider: 12/19/17 13:48 Chief Complaint (Nursing): Cough, Cold, Congestion Chief Complaint (Provider): shortness of breath, wheezing and cough History Per: Patient History/Exam Limitations: no limitations Onset/Duration Of Symptoms: Days (x3) Current Symptoms Are (Timing): Still Present Associated Symptoms: denies: Fever, Chills Additional Complaint(s): Martha Donald is a 72 year old female, with a past medical history of asthma, HTN and diabetes, who presents to the emergency department complaining of shortness of breath, wheezing and nonproductive cough onset for x3 days. Patient reports temporary improvement at home with inhaler but recurs again. She denies any fever, chills or other medical complaints. PMD: Kaushik Villa Past Medical History Reviewed: Historical Data, Nursing Documentation, Vital Signs Vital Signs: Last Vital Signs Temp 97.7 F 12/19/17 13:30 Pulse 93 H 12/19/17 13:30 Resp 22 12/19/17 13:30 BP 135/80 12/19/17 13:30 Pulse Ox 97 12/19/17 13:30 - Medical History PMH: Anemia, Anxiety, Asthma, CAD, Cardia Arrhythmia, COPD, Dementia, Depression, Diabetes, Fractures (LEFT LEG), HTN, Hypercholesterolemia, Malig ellis (breast cancer s/p lumpectomy ), Osteoporosis, Pulmonary Embolism Denies: CVA, Hepatitis, Chronic Kidney Disease, Seizures, Sexually Transmitted Disease - Surgical History Surgical History: Appendectomy, Cholecystectomy, Coronary Stent, Hernia Repair (umbilical hernia) - Family History Family History: States: Unknown Family Hx - Home Medications Home Medications: Ambulatory Orders Medication Instructions Recorded Aspirin [Ecotrin] 81 mg PO DAILY 08/28/16 Acetaminophen [Tylenol 325mg tab] 650 mg PO Q6 PRN tab 02/06/17 Albuterol HFA [Ventolin HFA 90 2 puff INH RQ4 PRN inhaler 02/06/17 mcg/actuation (8 g)] Pravastatin Sodium [Pravachol] 20 mg PO HS tab 02/06/17 Apixaban [Eliquis] 2.5 mg PO BID tab 02/14/17 Docusate [Colace] 100 mg PO TID cap 02/14/17 Meclizine [Meclizine*] 25 mg PO TID PRN tab 02/14/17 Sertraline [Zoloft] 50 mg PO DAILY tab 02/14/17 clonazePAM [Klonopin] 0.5 mg PO HS tab 02/14/17 Famotidine [Pepcid] 40 mg PO DAILY PRN #14 tab 07/17/17 Bisoprolol [Zebeta] 5 mg PO DAILY #30 tab 07/27/17 Albuterol Sulfate [Proair Hfa] 0.09 mg IH Q6H PRN #2 inh 10/17/17 Insulin Detemir [Levemir] 12 units SC HS #1 vial 10/22/17 metFORMIN [glucOPHAGE] 500 mg PO BIDWM #60 tab 10/22/17 Albuterol HFA [Ventolin HFA 90 1 puff INH DAILY 11/01/17 mcg/actuation (8 g)] Mirtazapine [Remeron] 15 mg PO HS 11/01/17 Quetiapine Fumarate [Seroquel] 100 mg PO HS 11/01/17 Zolpidem Tartrate [Ambien] 10 mg PO DAILY 11/01/17 Oxycodone HCl/Acetaminophen 1 tab PO Q6 PRN #14 tablet 11/06/17 [Percocet 10-325 mg Tablet] Acetaminophen [Acetaminophen 8 650 mg PO Q8 PRN #21 tablet.er 12/01/17 Hour] - Allergies Allergies/Adverse Reactions: Allergies Allergy/AdvReac Type Severity Reaction Status Date / Time No Known Allergies Allergy Verified 12/19/17 13:30 Review of Systems ROS Statement: Except As Marked, All Systems Reviewed And Found Negative Constitutional: Negative for: Fever, Chills Respiratory: Positive for: Cough (nonproductive), Shortness of Breath, Wheezing Physical Exam - Reviewed Nursing Documentation Reviewed: Yes Vital Signs Reviewed: Yes - Physical Exam Appears: Positive for: No Acute Distress Head Exam: Positive for: ATRAUMATIC, NORMAL INSPECTION, NORMOCEPHALIC Skin: Positive for: Normal Color, Warm, Dry Eye Exam: Positive for: Normal appearance, EOMI, PERRL ENT: Positive for: Normal ENT Inspection Neck: Positive for: Normal, Painless ROM Cardiovascular/Chest: Positive for: Regular Rate, Rhythm. Negative for: Murmur Respiratory: Positive for: Rhonchi (scattered), Wheezing (mild expiratory). Negative for: Respiratory Distress Gastrointestinal/Abdominal: Positive for: Normal Exam, Soft. Negative for: Tenderness Back: Positive for: Normal Inspection. Negative for: L CVA Tenderness, R CVA Tenderness, Vertebral Tenderness Extremity: Positive for: Normal ROM (upper and lower extremities). Negative for: Calf Tenderness, Deformity, Swelling Neurologic/Psych: Positive for: Alert, Oriented - ECG O2 Sat by Pulse Oximetry: 97 (RA) Pulse Ox Interpretation: Normal Medical Decision Making Medical Decision Making: Time: 13:48 Initial Plan: --Chest two views (PA/LAT) [RAD] --Duoneb 3 ml INH --Prednisone tab 50 mg PO --Influenza A B --Reevaluation ----- Scribe Attestation: Documented by Jhony Jasmine, acting as a scribe for Ralph Herrera MD. Provider Scribe Attestation: All medical record entries made by the Scribe were at my direction and personally dictated by me. I have reviewed the chart and agree that the record accurately reflects my personal performance of the history, physical exam, medical decision making, and the department course for this patient. I have also personally directed, reviewed, and agree with the discharge instructions and disposition. Disposition - Clinical Impression Clinical Impression: Asthma - Patient ED Disposition Is Patient to be Admitted: Transfer of Care - Disposition Disposition: Transfer of Care Disposition Time: 15:03 Condition: FAIR Forms: [employer] (Mozambican) Patient Signed Over To: Ирина Pozo
[2017-12-19] MEDS ORDERED: Albuterol-Ipratrop 3 mg / 0.5 (3 ml) UD ONE (14:17)
--- NOTE | 2017-12-19 15:23 | ED PDOC ---
- ECG O2 Sat by Pulse Oximetry: 97 (RA) Medical Decision Making Medical Decision Makin:00 Patient was endorsed to provider by Dr. Herrera pending X-ray and reassessment. Accession No. : [id number] Patient Name / ID : ELIZABETH BYRD / [id number] Exam Date : 12/19/2017 14:57:26 ( Approved ) Study Comment : Sex / Age : F / 72Y Creator : Di Jenkins MD Dictator : Di Jenkins MD Digital Marketing Manager : Washroom Attendant : Di Jenkins MD Approver2 : Report Date : 12/19/2017 15:46:32 My Comment : Date of service: 12/19/2017 HISTORY: cough COMPARISON: 12/01/2017 TECHNIQUE: Chest PA and lateral FINDINGS: LUNGS: No new focal infiltrate. PLEURA: No significant pleural effusion identified. No pneumothorax apparent. CARDIOVASCULAR: Mild aortic atherosclerotic calcification. Normal cardiac size. No pulmonary vascular congestion. OSSEOUS STRUCTURES: No significant abnormalities. VISUALIZED UPPER ABDOMEN: Normal. OTHER FINDINGS: Pacemaker is unchanged. IMPRESSION: No focal infiltrate or CHF. 4p On reeval pt feeling better. Lung sounds clear. Stable for discharge. Scribe Attestation: Documented by Jhony Jasmine, acting as a scribe for Ирина Pozo MD. Provider Scribe Attestation: All medical record entries made by the Scribe were at my direction and personally dictated by me. I have reviewed the chart and agree that the record accurately reflects my personal performance of the history, physical exam, medical decision making, and the department course for this patient. I have also personally directed, reviewed, and agree with the discharge instructions and disposition. Disposition - Clinical Impression Clinical Impression: Asthma - POA Present On Arrival: None - Disposition Referrals: Glenis Villa MD [Staff Provider] - 12/21/17 Disposition: Routine/Home Disposition Time: 16:12 Condition: IMPROVED Prescriptions: Albuterol HFA [Ventolin HFA 90 mcg/actuation (8 g)] 2 puff IH Q4H PRN #1 inh PRN Reason: ASTHMA Prednisone 50 mg PO DAILY #4 tablet Instructions: Asthma, Adult (DC) Print Language: MONTSERRATIAN
--- NOTE | 2017-12-19 15:50 | RAD ---
Date of service: 12/19/2017 HISTORY: cough COMPARISON: 12/01/2017 TECHNIQUE: Chest PA and lateral FINDINGS: LUNGS: No new focal infiltrate. PLEURA: No significant pleural effusion identified. No pneumothorax apparent. CARDIOVASCULAR: Mild aortic atherosclerotic calcification. Normal cardiac size. No pulmonary vascular congestion. OSSEOUS STRUCTURES: No significant abnormalities. VISUALIZED UPPER ABDOMEN: Normal. OTHER FINDINGS: Pacemaker is unchanged. IMPRESSION: No focal infiltrate or CHF.
[2017-12-19 16:38] VITALS: BP 150/75; PULSE 88; RESP 19
== END 2017-12-19 16:36 | disposition home or self-care (01) ==
LOC: H.ER 13:23
DX: J45.909 Unspecified asthma, uncomplicated (principal); E11.9 Type 2 diabetes mellitus without complications; E78.00 Pure hypercholesterolemia, unspecified; F03.90 Unspecified dementia, unspecified severity, without behavioral disturbance, psychotic disturbance, mood disturbance, and anxiety; I25.10 Atherosclerotic heart disease of native coronary artery without angina pectoris; I10 Essential (primary) hypertension; Z79.01 Long term (current) use of anticoagulants; Z79.4 Long term (current) use of insulin; Z85.3 Personal history of malignant neoplasm of breast; Z86.711 Personal history of pulmonary embolism; Z95.5 Presence of coronary angioplasty implant and graft

== ENCOUNTER 2018-01-12 12:10 | Emergency (ER) | payer MEDICARE, MEDICAID ==
[2018-01-12 12:10] VITALS: BMI 28.3
[2018-01-12 12:29] VITALS: BP 165/72; PULSE 81; RESP 20; TEMP 97.8; O2SAT 98
[2018-01-12] MEDS ORDERED: Tdap Vaccine 0.5 ml Vial (10-64 yrs) IM ONE ×2 (12:56→13:06)
[2018-01-12] MEDS ORDERED: Amoxicillin-Clav 875-125 mg Tab PO STA (12:57)
[2018-01-12] MEDS ORDERED: Amoxicillin-Clav 875-125 mg Tab PO ONE (13:06)
--- NOTE | 2018-01-12 13:11 | ED PDOC ---
HPI: Skin/Bite Injury Time Seen by Provider: 01/12/18 12:30 Chief Complaint (Nursing): Bite Chief Complaint (Provider): Bite History Per: Patient History/Exam Limitations: no limitations Onset/Duration Of Symptoms: Days (x1 day) Current Symptoms Are (Timing): Still Present Additional Complaint(s): Martha Donald is a 72 year old female with past medical history of HTN, asthma, malignancy, and anemia, who presents to the emergency department after being bitten by her own dog, sustaining a small laceration to both hands; which happened yesterday. Patient states the dog's vaccinations are up to date and that her tetanus is unknown. PMD: No provider - Animal Bite Description Of The Animal: Family Pet Animal's Immunization Status: UTD Past Medical History Reviewed: Historical Data, Nursing Documentation, Vital Signs Vital Signs: Last Vital Signs Temp 97.8 F 01/12/18 12:28 Pulse 81 01/12/18 12:28 Resp 20 01/12/18 12:28 BP 165/72 H 01/12/18 12:28 Pulse Ox 98 01/12/18 12:28 - Medical History PMH: Anemia, Anxiety, Asthma, CAD, Cardia Arrhythmia, COPD, Dementia, Depression, Diabetes, Fractures (LEFT LEG), HTN, Hypercholesterolemia, Malignancy (breast cancer s/p lumpectomy ), Osteoporosis, Pulmonary Embolism Denies: CVA, Hepatitis, Chronic Kidney Disease, Seizures, Sexually Transmitted Disease - Surgical History Surgical History: Appendectomy, Cholecystectomy, Coronary Stent, Hernia Repair (umbilical hernia) - Family History Family History: States: Unknown Family Hx - Home Medications Home Medications: Ambulatory Orders Medication Instructions Recorded Aspirin [Ecotrin] 81 mg PO DAILY 08/28/16 Acetaminophen [Tylenol 325mg tab] 650 mg PO Q6 PRN tab 02/06/17 Albuterol HFA [Ventolin HFA 90 2 puff INH RQ4 PRN inhaler 02/06/17 mcg/actuation (8 g)] Pravastatin Sodium [Pravachol] 20 mg PO HS tab 02/06/17 Apixaban [Eliquis] 2.5 mg PO BID tab 02/14/17 Docusate [Colace] 100 mg PO TID cap 02/14/17 Meclizine [Meclizine*] 25 mg PO TID PRN tab 02/14/17 Sertraline [Zoloft] 50 mg PO DAILY tab 02/14/17 clonazePAM [Klonopin] 0.5 mg PO HS tab 02/14/17 Famotidine [Pepcid] 40 mg PO DAILY PRN #14 tab 07/17/17 Bisoprolol [Zebeta] 5 mg PO DAILY #30 tab 07/27/17 Albuterol Sulfate [Proair Hfa] 0.09 mg IH Q6H PRN #2 inh 10/17/17 Insulin Detemir [Levemir] 12 units SC HS #1 vial 10/22/17 metFORMIN [glucOPHAGE] 500 mg PO BIDWM #60 tab 10/22/17 Albuterol HFA [Ventolin HFA 90 1 puff INH DAILY 11/01/17 mcg/actuation (8 g)] Mirtazapine [Remeron] 15 mg PO HS 11/01/17 Quetiapine Fumarate [Seroquel] 100 mg PO HS 11/01/17 Zolpidem Tartrate [Ambien] 10 mg PO DAILY 11/01/17 Oxycodone HCl/Acetaminophen 1 tab PO Q6 PRN #14 tablet 11/06/17 [Percocet 10-325 mg Tablet] Acetaminophen [Acetaminophen 8 650 mg PO Q8 PRN #21 tablet.er 12/01/17 Hour] Albuterol HFA [Ventolin HFA 90 2 puff IH Q4H PRN #1 inh 12/19/17 mcg/actuation (8 g)] Prednisone 50 mg PO DAILY #4 tablet 12/19/17 Amoxicillin/Clavulanate [Augmentin 1 tab PO BID #14 tab 01/12/18 875 MG-125 MG] - Allergies Allergies/Adverse Reactions: Allergies Allergy/AdvReac Type Severity Reaction Status Date / Time No Known Allergies Allergy Verified 01/12/18 12:30 Review of Systems ROS Statement: Except As Marked, All Systems Reviewed And Found Negative Musculoskeletal: Positive for: Hand Pain (superficial cut ) Physical Exam - Reviewed Nursing Documentation Reviewed: Yes Vital Signs Reviewed: Yes - Physical Exam Appears: Positive for: Non-toxic, No Acute Distress Head Exam: Positive for: ATRAUMATIC, NORMOCEPHALIC Skin: Positive for: Normal Color Cardiovascular/Chest: Positive for: Regular Rate, Rhythm. Negative for: Murmur Respiratory: Negative for: Respiratory Distress Extremity: Positive for: Other (less than 0.25 cm superficial skin tears to the dorsal aspect of the left and right hands; (-) surrounding erythema, edema, swelling, bony tenderness, or discharge) Neurologic/Psych: Positive for: Alert, Oriented - ECG O2 Sat by Pulse Oximetry: 98 (RA) Pulse Ox Interpretation: Normal Medical Decision Making Medical Decision Making: Time: 12:57 Plan: --Adacel (10-64 years) 0.5 ml IM --Augmentin 875 MG - 125 MG tab PO x1 D/w pt. to observe for signs of infection and frequent blood sugar checks, return if any redness, swelling, pus. wound check with pmd in 2days. - Scribe Attestation: Documented by Boris Taylor, acting as a scribe for Nyasia Ferreira PA-C. Provider Scribe Attestation: All medical record entries made by the Scribe were at my direction and personally dictated by me. I have reviewed the chart and agree that the record accurately reflects my personal performance of the history, physical exam, medical decision making, and the department course for this patient. I have also personally directed, reviewed, and agree with the discharge instructions and disposition. Disposition - Clinical Impression Clinical Impression: Animal bite wound - Patient ED Disposition Is Patient to be Admitted: No Counseled Patient/Family Regarding: Diagnosis, Need For Followup, Rx Given - Disposition Disposition: Routine/Home Disposition Time: 13:47 Condition: STABLE Prescriptions: Amoxicillin/Clavulanate [Augmentin 875 MG-125 MG] 1 tab PO BID #14 tab Instructions: Animal Bites (DC) Forms: [employer] (C[place]), [facility] ED School/Work Excuse Print Language: AMERICAN
== END 2018-01-12 14:00 | disposition home or self-care (01) ==
LOC: H.ER 12:10
DX: S61.452A Open bite of left hand, initial encounter (principal); S61.451A Open bite of right hand, initial encounter; W54.0XXA Bitten by dog, initial encounter; Z23 Encounter for immunization

== ENCOUNTER 2018-01-18 12:45 | Emergency (ER) | payer MEDICARE, MEDICAID ==
[2018-01-18 12:45] VITALS: BMI 28.3
[2018-01-18 14:19] LABS: BASO % 0.3 % (0.0-2.0); EOS # 0.3 K/uL (0.0-0.7); EOS % 5.3 % (0.0-4.0); HEMOGLOBIN 12.9 g/dL (12.0-16.0); LYMPH # 1.6 K/uL (1.0-4.3); LYMPH % 24.8 % (20.0-40.0); MEAN CELL VOLUME 85.4 fl (81.0-99.0); MEAN CORPUSCULAR HEMOGLOBIN 28.6 pg (27.0-31.0); MEAN CORPUSCULAR HGB CONC 33.4 g/dL (33.0-37.0); MEAN PLATELET VOLUME 9.3 fl (7.2-11.7); MONO # 0.4 K/uL (0.0-0.8); MONO % 5.4 % (0.0-10.0); NEUT # 4.2 K/uL (1.8-7.0); NEUT % 64.2 % (50.0-75.0); RBC 4.5 Mil/uL (3.80-5.20); RED CELL DISTRIBUTION WIDTH 14.8 % (11.5-14.5); WHITE BLOOD COUNT 6.5 K/uL (4.8-10.8)
[2018-01-18 14:24] LABS: ALB/GLOB RATIO 1.3 (1.0-2.1); ALBUMIN 4.6 g/dL (3.5-5.0); ALT/SGPT 30 U/L (9-52); AST/SGOT 43 U/L (14-36); BLOOD UREA NITROGEN 18 mg/dl (7-17); CALCIUM 10.2 mg/dL (8.4-10.2); GFR NON-AFRICAN AMERICAN 49
--- NOTE | 2018-01-18 14:44 | ED PDOC ---
HPI: General Adult Time Seen by Provider: 01/18/18 13:18 Chief Complaint (Nursing): Dizziness/Lightheaded Chief Complaint (Provider): bodyaches, dizziness, POPE History Per: Patient History/Exam Limitations: other (early dementia per daughter) Additional Complaint(s): 72 y/o F with hx of HTN, CAD, DM, asthma, PPM, hx of Breast Ca s/p Left mastectomy who presents with multiple complaints. Patient states that she has had body aches, cough with wheezing at night and general ill feeling, feeling her mind racing with thoughts for the past few days. She has also had dizziness w/ blurry vision over the past few days with a mild POPE. She presented to [facility] a few days ago with the same symptoms and was told that she should stay but signed out AMA. Records reviewed and notes do no reflect diagnosis for admission. 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 She denies hx of HTN and states that she does not really know what medications she takes so is unaware if she took a BP med today. She has a home health administrator who gives her her medications. Denies palpitations, C/P, SOB currently. Further denies gait or speech disturbance, fever, chills, night sweats, N/V or diarrhea. Past Medical History Reviewed: Historical Data, Nursing Documentation, Vital Signs Vital Signs: Last Vital Signs Temp 97.0 F L 01/18/18 12:50 Pulse 109 H 01/18/18 12:50 Resp 18 01/18/18 12:50 BP 187/67 H 01/18/18 12:50 Pulse Ox 99 01/18/18 12:50 - Medical History PMH: Anemia, Anxiety, Asthma, CAD, Cardia Arrhythmia, COPD, Dementia, Depression, Diabetes, Fractures (LEFT LEG), HTN, Hypercholesterolemia, Malignancy (breast cancer s/p lumpectomy ), Osteoporosis, Pulmonary Embolism Denies: Hepatitis, HIV, Chronic Kidney Disease, Seizures, Sexually Transmitted Disease - Surgical History Surgical History: Appendectomy, Cholecystectomy, Coronary Stent, Hernia Repair (umbilical hernia), Pacemaker - Family History Family History: States: Unknown Family Hx - Home Medications Home Medications: Ambulatory Orders Medication Instructions Recorded RX: Aspirin [Ecotrin] 81 mg PO DAILY 07/20/17 RX: Acetaminophen [Tylenol 325mg 650 mg PO Q6 PRN tab 02/06/17 tab] RX: Albuterol HFA [Ventolin HFA 90 2 puff INH RQ4 PRN inhaler 02/06/17 mcg/actuation (8 g)] RX: Pravastatin Sodium [Pravachol] 20 mg PO HS tab 02/06/17 RX: Apixaban [Eliquis] 2.5 mg PO BID tab 02/14/17 RX: Docusate [Colace] 100 mg PO TID cap 02/14/17 RX: Meclizine [Meclizine*] 25 mg PO TID PRN tab 02/14/17 RX: Sertraline [Zoloft] 50 mg PO DAILY tab 02/14/17 RX: clonazePAM [Klonopin] 0.5 mg PO HS tab 02/14/17 RX: Famotidine [Pepcid] 40 mg PO DAILY PRN #14 tab 07/17/17 RX: Bisoprolol [Zebeta] 5 mg PO DAILY #30 tab 07/27/17 RX: Albuterol Sulfate [Proair Hfa] 0.09 mg IH Q6H PRN #2 inh 10/17/17 RX: Insulin Detemir [Levemir] 12 units SC HS #1 vial 10/22/17 RX: metFORMIN [glucOPHAGE] 500 mg PO BIDWM #60 tab 10/22/17 RX: Mirtazapine [Remeron] 15 mg PO HS 11/01/17 RX: Quetiapine Fumarate [Seroquel] 100 mg PO HS 11/01/17 RX: Zolpidem Tartrate [Ambien] 10 mg PO DAILY 11/01/17 RX: Oxycodone HCl/Acetaminophen 1 tab PO Q6 PRN #14 tablet 11/06/17 [Percocet 10-325 mg Tablet] Acetaminophen [Acetaminophen 8 650 mg PO Q8 PRN #21 tablet.er 12/01/17 Hour] RX: Albuterol HFA [Ventolin HFA 90 2 puff IH Q4H PRN #1 inh 12/19/17 mcg/actuation (8 g)] RX: Prednisone 50 mg PO DAILY #4 tablet 12/19/17 guaiFENesin [guaifENESIN] 400 mg PO Q4 PRN 5 Days udc 01/18/18 - Allergies Allergies/Adverse Reactions: Allergies Allergy/AdvReac Type Severity Reaction Status Date / Time No Known Allergies Allergy Verified 01/14/18 17:32 Review of Systems Constitutional: Positive for: Malaise. Negative for: Fever Respiratory: Positive for: Cough, Wheezing Gastrointestinal: Negative for: Nausea, Vomiting Neurological: Positive for: Incoordination, Headache, Dizziness Psych: Positive for: Anxiety Physical Exam - Reviewed Nursing Documentation Reviewed: Yes Vital Signs Reviewed: Yes - Physical Exam Appears: Positive for: Non-toxic Head Exam: Positive for: ATRAUMATIC Skin: Positive for: Normal Color Eye Exam: Positive for: EOMI, PERRL ENT: Positive for: Normal ENT Inspection Neck: Positive for: Painless ROM, Supple Cardiovascular/Chest: Positive for: Regular Rate, Rhythm, Other (PPM site noted on R chest ) Respiratory: Positive for: Normal Breath Sounds Gastrointestinal/Abdominal: Positive for: Soft, Tenderness (mild tenderness in LUQ) Back: Positive for: Normal Inspection Lymphatic: Positive for: Normal Exam Neurologic/Psych: Positive for: Alert, Oriented. 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 ), Gait, Aphasia, Facial Droop - Laboratory Results Result Diagrams: 01/18/18 14:07 01/18/18 14:07 - ECG O2 Sat by Pulse Oximetry: 99 Medical Decision Making Medical Decision Making: CBC, CMP, amylase, lipase Rapid flu Head CT w/o contrast EKG Urine dip: neg for LE or nitrites EKG: sinus, HR 85, non-specific T wave abnormality in anterior leads slightly worse than EKG from 01/14 but unchanged from EKG on 12/11/17. Trop negative x 1. Head CT:No acute intracranial abnormality.If there is a persistent focal n eurologic deficit and an ongoing clinical concern for acute infarction, an MRI of the brain without intravenous contrast would be a more sensitive modality for evaluation of hyperacute/acute ischemic infarction. Severe chronic microangiopathic changes and moderate age-related global parenchymal volume loss. Small old lacunar infarctions in the left caudate head and basal ganglia. Old lacunar infarcts not noted on prior head and neck CTA or brain MRI. Pt re-evaluated stating that her dizziness persists despite eating and improvement in her BP. 17:00: Neurology called and will see patient 17:10: called Hospitalist for admission who recommended that patient be given fluids and Meclizine for dizziness and re-evaluated for improvement. 1L NS bolus ordered. 19:20: re-evaluated. Pt states that she is feeling better with minimal dizziness, ambulated with steady gait and even did a little dance in ED. Gait noted to be steady by me. Pt expressing desire to go home. Stable for d/c home with f/u with neurology and primary care. Disposition - Clinical Impression Clinical Impression: Dizziness of unknown cause - Patient ED Disposition Is Patient to be Admitted: No Counseled Patient/Family Regarding: Studies Performed, Diagnosis, Need For Followup, Rx Given - Disposition Referrals: [facility] [Outside] Siena Srivastava MD [Medical Doctor] - Disposition: Routine/Home Disposition Time: 21:10 Condition: STABLE Additional Instructions: Stay hydrated. Return to ER if you develop worsening dizziness with trouble walking or speech problem or if you develop chest pain or shortness of breath. Take Tylenol or Ibuprofen for generalized pain. F/u with a neurologist for further evaluation of dizziness. F/u with your primary care doctor for your overall care. Prescriptions: guaiFENesin [guaifENESIN] 400 mg PO Q4 PRN 5 Days udc PRN Reason: Cough Instructions: Vertigo (a Type of Dizziness) (DC) Forms: [employer] (Khmer) Print Language: [place] CITIZEN
--- NOTE | 2018-01-18 14:48 | CT ---
Date of service: 01/18/2018 PROCEDURE: CT HEAD WITHOUT CONTRAST. HISTORY: dizziness for the past few days COMPARISON: None available. TECHNIQUE: Axial computed tomography images were obtained through the head/brain without intravenous contrast. Radiation dose: Total exam DLP = 806.22 mGy-cm. This CT exam was performed using one or more of the following dose reduction techniques: Automated exposure control, adjustment of the mA and/or kV according to patient size, and/or use of iterative reconstruction technique. FINDINGS: HEMORRHAGE: No intracranial hemorrhage. BRAIN: There are severe chronic microangiopathic changes. There are small old lacunar infarctions in the left caudate head and basal ganglia. There is no mass, mass effect or abnormal extra-axial fluid collection. There is no territorial infarction. The midline sagittal structures are normal. VENTRICLES: There is moderate age-related global parenchymal volume loss and proportionate enlargement of the ventricles and cortical sulci. CALVARIUM: There is no calvarial fracture or extracranial soft tissue swelling. PARANASAL SINUSES: Predominantly clear. MASTOID AIR CELLS: Predominantly clear. OTHER FINDINGS: None. IMPRESSION: No acute intracranial abnormality.If there is a persistent focal neurologic deficit and an ongoing clinical concern for acute infarction, an MRI of the brain without intravenous contrast would be a more sensitive modality for evaluation of hyperacute/acute ischemic infarction. Severe chronic microangiopathic changes and moderate age-related global parenchymal volume loss. Small old lacunar infarctions in the left caudate head and basal ganglia.
[2018-01-18] MEDS ORDERED: guaiFENesin DM 200 mg-20 mg/10 ml UD PO STA (17:04)
[2018-01-18] MEDS ORDERED: guaiFENesin 100 mg/5 ml Syrup UD ONE (17:29)
--- NOTE | 2018-01-18 18:04 | CARD ---
APPROVED REPORT Date of service: 01/18/2018 EKG Measurement Heart [id number] <Conclusion> Normal sinus rhythm ST & T wave abnormality, consider anterior ischemia Abnormal ECG
[2018-01-18] MEDS ORDERED: Sodium Chloride 0.9% 1,000 ML IV SCH (18:15)
[2018-01-18] MEDS ORDERED: Sodium Chloride 0.9% 500 ML IV ONE (20:39)
[2018-01-18 20:55] VITALS: BP 141/81; PULSE 81; RESP 16; TEMP 98.1
[2018-01-18 21:12] VITALS: O2SAT 99
== END 2018-01-18 21:25 | disposition home or self-care (01) ==
LOC: H.ER 12:45
DX: R42 Dizziness and giddiness (principal); E11.9 Type 2 diabetes mellitus without complications; F03.90 Unspecified dementia, unspecified severity, without behavioral disturbance, psychotic disturbance, mood disturbance, and anxiety; Z86.59 Personal history of other mental and behavioral disorders; I10 Essential (primary) hypertension; J44.9 Chronic obstructive pulmonary disease, unspecified; Z86.11 Personal history of tuberculosis; Z86.711 Personal history of pulmonary embolism; Z95.5 Presence of coronary angioplasty implant and graft; Z95.0 Presence of cardiac pacemaker; Z85.3 Personal history of malignant neoplasm of breast; Z79.4 Long term (current) use of insulin
CPT/HCPCS: 70450; 80053; 82550; 84484; 85025; 87804; 93005; 96360; 96361; 99284; J7030

== ENCOUNTER 2018-02-09 12:58 | Emergency (ER) | payer MEDICARE, MEDICAID ==
[2018-02-09 12:59] VITALS: BMI 28.3
--- NOTE | 2018-02-09 13:29 | ED PDOC ---
Upper Extremity Pain/Injury Time Seen by Provider: 02/09/18 13:16 Chief Complaint (Nursing): Finger,Hand,&Wrist Chief Complaint (Provider): Wrist and Facial Pain s/p Fall History Per: Patient History/Exam Limitations: no limitations Onset/Duration Of Symptoms: Mins (just prior to arrival) Current Symptoms Are (Timing): Still Present Additional Complaint(s): 73 year old female presents to the ED via EMS for evaluation of right wrist and right facial pain s/p a trip and fall on a sidewalk just prior to arrival. Patient reports the wrist pain is more prominent, and otherwise denies any lacerations, loss of consciousness, or other complaints. PMD: Gamal Ackerman Past Medical History Reviewed: Historical Data, Nursing Documentation, Vital Signs Vital Signs: Last Vital Signs Temp 98.2 F 02/09/18 13:00 Pulse 98 H 02/09/18 13:00 Resp 18 02/09/18 13:00 BP 117/57 L 02/09/18 13:00 Pulse Ox 99 02/09/18 13:00 - Medical History PMH: Anemia, Anxiety, Asthma, CAD, Cardia Arrhythmia, COPD, Dementia, Depression, Diabetes, Fractures (LEFT LEG), HTN, Hypercholesterolemia, Malignancy (breast cancer s/p lumpectomy ), Osteoporosis, Pulmonary Embolism Denies: Hepatitis, HIV, Chronic Kidney Disease, Seizures, Sexually Transmitted Disease - Surgical History Surgical History: Appendectomy, Cholecystectomy, Coronary Stent, Hernia Repair (umbilical hernia), Pacemaker - Family History Family History: States: Unknown Family Hx - Social History Current smoker - smoking cessation education provided: No Alcohol: None Drugs: Denies - Home Medications Home Medications: Ambulatory Orders Medication Instructions Recorded Aspirin [Ecotrin] 81 mg PO DAILY 08/28/16 Acetaminophen [Tylenol 325mg tab] 650 mg PO Q6 PRN tab 02/06/17 Albuterol HFA [Ventolin HFA 90 2 puff INH RQ4 PRN inhaler 02/06/17 mcg/actuation (8 g)] Pravastatin Sodium [Pravachol] 20 mg PO HS tab 02/06/17 Apixaban [Eliquis] 2.5 mg PO BID tab 02/14/17 Docusate [Colace] 100 mg PO TID cap 02/14/17 Meclizine [Meclizine*] 25 mg PO TID PRN tab 02/14/17 Sertraline [Zoloft] 50 mg PO DAILY tab 02/14/17 clonazePAM [Klonopin] 0.5 mg PO HS tab 02/14/17 Famotidine [Pepcid] 40 mg PO DAILY PRN #14 tab 07/17/17 Bisoprolol [Zebeta] 5 mg PO DAILY #30 tab 07/27/17 Albuterol Sulfate [Proair Hfa] 0.09 mg IH Q6H PRN #2 inh 10/17/17 Insulin Detemir [Levemir] 12 units SC HS #1 vial 10/22/17 metFORMIN [glucOPHAGE] 500 mg PO BIDWM #60 tab 10/22/17 Mirtazapine [Remeron] 15 mg PO HS 11/01/17 Quetiapine Fumarate [Seroquel] 100 mg PO HS 11/01/17 Zolpidem Tartrate [Ambien] 10 mg PO DAILY 11/01/17 Oxycodone HCl/Acetaminophen 1 tab PO Q6 PRN #14 tablet 11/06/17 [Percocet 10-325 mg Tablet] Acetaminophen [Acetaminophen 8 650 mg PO Q8 PRN #21 tablet.er 12/01/17 Hour] Albuterol HFA [Ventolin HFA 90 2 puff IH Q4H PRN #1 inh 12/19/17 mcg/actuation (8 g)] Prednisone 50 mg PO DAILY #4 tablet 12/19/17 guaiFENesin [guaifENESIN] 400 mg PO Q4 PRN 5 Days udc 01/18/18 Acetaminophen with Codeine 1 each PO QID #12 tablet 02/09/18 [Tylenol with Codeine #3 Tablet] - Allergies Allergies/Adverse Reactions: Allergies Allergy/AdvReac Type Severity Reaction Status Date / Time No Known Allergies Allergy Verified 01/14/18 17:32 Review of Systems ROS Statement: Except As Marked, All Systems Reviewed And Found Negative Musculoskeletal: Positive for: Other (right wrist pain; right facial pain) Skin: Negative for: Other (lacerations) Neurological: Negative for: Other (loss of consciousness) Physical Exam - Reviewed Nursing Documentation Reviewed: Yes Vital Signs Reviewed: Yes - Physical Exam Appears: Positive for: No Acute Distress Head Exam: Positive for: ATRAUMATIC, NORMAL INSPECTION, NORMOCEPHALIC Skin: Positive for: Normal Color, Warm Neck: Positive for: Normal, Painless ROM, Supple Cardiovascular/Chest: Positive for: Regular Rate, Rhythm Respiratory: Positive for: Normal Breath Sounds. Negative for: Respiratory Distress Pulses-Radial (L): 2+ Pulses-Radial (R): 2+ Extremity: Positive for: Other (limited network associate strength right hand; ecchymosis to distal ulna and radius; positive Snuffbox tenderness) Neurologic/Psych: Positive for: Alert, Oriented (x3) - ECG O2 Sat by Pulse Oximetry: 99 (RA) Pulse Ox Interpretation: Normal Medical Decision Making Medical Decision Making: Time: 1316 Initial Impression: right wrist and right facial pain s/p fall Initial Plan: --CT Maxillofacial --XR right wrist --XR right hand 1403 XR read by SILVER as distal radius non-displaced - non-displaced avulsion fx. 1442 CT Maxillofacial FINDINGS: NASAL BONES: Unremarkable. ORBITS: Unremarkable. PARANASAL SINUSES/ MASTOIDS: Clear. Minimal mucosal thickening right maxillary antrum MAXILLA: Unremarkable. MANDIBLE/ TEMPOROMANDIBULAR JOINTS: Unremarkable. SKULL BASE: Unremarkable. TEMPORAL BONES: Middle ears and mastoid grossly unremarkable. OTHER FINDINGS: There appears to be some minimal left supraorbital soft tissue swelling IMPRESSION: No evidence of acute maxillofacial skeletal fracture. There appears to be some mild left supraorbital soft tissue swelling. 1510 Results discussed with patient using tube cutter operator. Patient placed in a radial gutter splint. To be discharged with ortho referral. ----- Scribe Attestation: Documented by Olesya Mai, acting as a scribe for Howard Craig PA-C. Provider Scribe Attestation: All medical record entries made by the Scribe were at my direction and personally dictated by me. I have reviewed the chart and agree that the record accurately reflects my personal performance of the history, physical exam, medical decision making, and the department course for this patient. I have also personally directed, reviewed, and agree with the discharge instructions and disposition. Disposition - Clinical Impression Clinical Impression: Distal radius fracture, right - Patient ED Disposition Is Patient to be Admitted: No Doctor Will See Patient In The: Office Counseled Patient/Family Regarding: Diagnosis, Need For Followup, Rx Given - Disposition Referrals: Zaki Sosa MD [Staff Provider] - Disposition: Routine/Home Disposition Time: 15:24 Condition: STABLE Prescriptions: Acetaminophen with Codeine [Tylenol with Codeine #3 Tablet] 1 each PO QID #12 tablet Instructions: Forearm Fracture (DC), Radius Fracture, Radius Fracture (DC) Forms: [employer] ([place]an), [employer] ([place]) Print Language: KHMER
--- NOTE | 2018-02-09 14:46 | CT ---
Date of service: 02/09/2018 PROCEDURE: CT MAXILLOFACIAL BONES WITHOUT CONTRAST HISTORY: r/o fx COMPARISON: None available. TECHNIQUE: Contiguous axial CT images of the maxillofacial bones were obtained. Coronal and sagittal reformats were generated. Radiation dose: Total exam DLP = 730.88 mGy-cm. This CT exam was performed using one or more of the following dose reduction techniques: Automated exposure control, adjustment of the mA and/or kV according to patient size, and/or use of iterative reconstruction technique. FINDINGS: NASAL BONES: Unremarkable. ORBITS: Unremarkable. PARANASAL SINUSES/ MASTOIDS: Clear. Minimal mucosal thickening right maxillary antrum MAXILLA: Unremarkable. MANDIBLE/ TEMPOROMANDIBULAR JOINTS: Unremarkable. SKULL BASE: Unremarkable. TEMPORAL BONES: Middle ears and mastoid grossly unremarkable. OTHER FINDINGS: There appears to be some minimal left supraorbital soft tissue swelling IMPRESSION: No evidence of acute maxillofacial skeletal fracture. There appears to be some mild left supraorbital soft tissue swelling.
[2018-02-09 15:48] VITALS: BP 128/64; PULSE 88; RESP 16; TEMP 98.4; O2SAT 98
--- NOTE | 2018-02-09 17:44 | RAD ---
PROCEDURE: Right Hand Radiographs. The HISTORY: r/o fx COMPARISON: Correlation made with concurrent radiographs of the right wrist. Comparison made with prior radiographs of the right hand dated 09/30/2016. FINDINGS: BONES: There is an intra-articular fracture of the distal radial styloid. JOINTS: Minor degenerative osteoarthritis SOFT TISSUES: Normal. OTHER FINDINGS: None. IMPRESSION: There is an intra-articular fracture distal radial styloid. Note that this report was placed in the review folder for follow-up.
--- NOTE | 2018-02-09 17:45 | RAD ---
Date of service: 02/09/2018 PROCEDURE: Right Wrist Radiographs. The the HISTORY: r/o fx COMPARISON: Comparison made with concurrent radiographs right hand and prior radiographs right hand 09/30/2016. FINDINGS: BONES: There is an intra-articular fracture distal radial styloid. Note that this report was placed in the review folder for follow-up. JOINTS: Normal. No dislocation. SOFT TISSUES: Normal. OTHER FINDINGS: None. IMPRESSION: There is an intra-articular fracture distal radial styloid. Note that this report was placed in the review folder for follow-up.
== END 2018-02-09 15:47 | disposition home or self-care (01) ==
LOC: H.ER 12:58
DX: S52.121A Displaced fracture of head of right radius, initial encounter for closed fracture (principal); W19.XXXA Unspecified fall, initial encounter; Y92.89 Other specified places as the place of occurrence of the external cause

== ENCOUNTER 2018-02-23 15:35 | Emergency (ER) | payer MEDICAID, MEDICARE ==
[2018-02-23 15:35] VITALS: BMI 28.3
[2018-02-23 15:38] VITALS: BP 138/85; PULSE 87; RESP 16; O2SAT 97
[2018-02-23 15:40] VITALS: TEMP 97.9
--- NOTE | 2018-02-23 16:21 | ED PDOC ---
HPI: Abdomen Time Seen by Provider: 02/23/18 15:42 Chief Complaint (Nursing): Abdominal Pain Chief Complaint (Provider): Abdominal Pain History Per: Patient History/Exam Limitations: no limitations Onset/Duration Of Symptoms: Days (x1) Outside of [place] travel?: No Current Symptoms Are (Timing): Still Present Additional Complaint(s): Patient is a 73 y/o female with a PMHx of depression, DM, osteoporosis, anemia, anxiety, fractures, PE, CAD, cardia arrhythmia, HTN, COPD, dementia, malignancy, and hypercholesterolemia who presents to the ED for evaluation of diffuse abdominal pain and five to seven episodes of watery, non-bloody diarrhea ongoing since yesterday. Patient admits to a decreased appetite, chills, generalized weakness, fatigue, and dizziness. Patient denies nausea, vomiting, recent travel, or antibiotic use. Of note, patient reports that her daughter has been experiencing the same symptoms. PCP: Dr. Pham Past Medical History Reviewed: Historical Data, Nursing Documentation, Vital Signs Vital Signs: Last Vital Signs Temp 97.9 F 02/23/18 15:36 Pulse 87 02/23/18 15:36 Resp 16 02/23/18 15:36 BP 138/85 02/23/18 15:36 Pulse Ox 97 02/23/18 15:36 - Medical History PMH: Anemia, Anxiety, Asthma, CAD, Cardia Arrhythmia, COPD, Dementia, Depression, Diabetes, Fractures (LEFT LEG), HTN, Hypercholesterolemia, Malignancy (breast cancer s/p lumpectomy ), Osteoporosis, Pulmonary Embolism Denies: Hepatitis, HIV, Chronic Kidney Disease, Seizures, Sexually Transmitted Disease - Surgical History Surgical History: Appendectomy, Cholecystectomy, Coronary Stent, Hernia Repair (umbilical hernia), Pacemaker - Family History Family History: States: Unknown Family Hx - Social History Current smoker - smoking cessation education provided: No Alcohol: None Drugs: Denies - Home Medications Home Medications: Ambulatory Orders Medication Instructions Recorded RX: Aspirin [Ecotrin] 81 mg PO DAILY 08/28/16 RX: Acetaminophen [Tylenol 325mg 650 mg PO Q6 PRN tab 02/06/17 tab] RX: Albuterol HFA [Ventolin HFA 90 2 puff INH RQ4 PRN inhaler 02/06/17 mcg/actuation (8 g)] RX: Pravastatin Sodium [Pravachol] 20 mg PO HS tab 02/06/17 RX: Apixaban [Eliquis] 2.5 mg PO BID tab 02/14/17 RX: Docusate [Colace] 100 mg PO TID cap 02/14/17 RX: Meclizine [Meclizine*] 25 mg PO TID PRN tab 02/14/17 RX: Sertraline [Zoloft] 50 mg PO DAILY tab 02/14/17 RX: clonazePAM [Klonopin] 0.5 mg PO HS tab 02/14/17 RX: Famotidine [Pepcid] 40 mg PO DAILY PRN #14 tab 07/17/17 RX: Bisoprolol [Zebeta] 5 mg PO DAILY #30 tab 07/27/17 RX: Albuterol Sulfate [Proair Hfa] 0.09 mg IH Q6H PRN #2 inh 10/17/17 RX: Insulin Detemir [Levemir] 12 units SC HS #1 vial 10/22/17 RX: metFORMIN [glucOPHAGE] 500 mg PO BIDWM #60 tab 10/22/17 RX: Mirtazapine [Remeron] 15 mg PO HS 11/01/17 RX: Quetiapine Fumarate [Seroquel] 100 mg PO HS 11/01/17 RX: Zolpidem Tartrate [Ambien] 10 mg PO DAILY 11/01/17 RX: Oxycodone HCl/Acetaminophen 1 tab PO Q6 PRN #14 tablet 11/06/17 [Percocet 10-325 mg Tablet] Acetaminophen [Acetaminophen 8 650 mg PO Q8 PRN #21 tablet.er 12/01/17 Hour] RX: Albuterol HFA [Ventolin HFA 90 2 puff IH Q4H PRN #1 inh 12/19/17 mcg/actuation (8 g)] RX: Prednisone 50 mg PO DAILY #4 tablet 12/19/17 guaiFENesin [guaifENESIN] 400 mg PO Q4 PRN 5 Days udc 01/18/18 Acetaminophen with Codeine 1 each PO QID #12 tablet 02/09/18 [Tylenol with Codeine #3 Tablet] Dicyclomine [Bentyl] 20 mg PO QID PRN #20 tab 02/23/18 Omeprazole Magnesium [Prilosec Otc] 20 mg PO DAILY #30 tcp 02/23/18 - Allergies Allergies/Adverse Reactions: Allergies Allergy/AdvReac Type Severity Reaction Status Date / Time No Known Allergies Allergy Verified 02/23/18 15:36 Review of Systems ROS Statement: Except As Marked, All Systems Reviewed And Found Negative (as per HPI) Constitutional: Positive for: Chills, Other (decreased appetite) Gastrointestinal: Positive for: Abdominal Pain (diffuse), Diarrhea (watery, non- bloody). Negative for: Nausea, Vomiting Neurological: Positive for: Weakness (generalized), Dizziness, Other (fatigue) Physical Exam - Reviewed Nursing Documentation Reviewed: Yes Vital Signs Reviewed: Yes - Physical Exam Appears: Positive for: In Acute Distress (painful) Head Exam: Positive for: ATRAUMATIC, NORMAL INSPECTION, NORMOCEPHALIC Skin: Positive for: Warm, Dry Eye Exam: Positive for: EOMI, PERRL ENT: Positive for: Other (tacky mucous membrane) Neck: Positive for: Painless ROM, Supple Cardiovascular/Chest: Positive for: Regular Rate, Rhythm Respiratory: Positive for: Normal Breath Sounds. Negative for: Respiratory Distress Gastrointestinal/Abdominal: Positive for: Soft, Tenderness (diffuse, mild; to palpation). Negative for: Mass, Guarding, Rebound Back: Positive for: Normal Inspection. Negative for: Decreased ROM Extremity: Positive for: Other (right foraem splint in place, secondary to wrist fracture) Lymphatic: Negative for: Adenopathy Neurologic/Psych: Positive for: Alert - Laboratory Results Result Diagrams: 02/23/18 16:20 02/23/18 16:20 - ECG O2 Sat by Pulse Oximetry: 97 (RA) Pulse Ox Interpretation: Normal Medical Decision Making Medical Decision Making: Time: 1607 Impression: Diarrheal Illness DDx includes but not limited to gastroenteritis, dehydration, viral syndrome, and electrolyte abnormality. Plan: CMP Lact Acid, Plasma Magnesium Phosphorus CBC Bentyl 20 mg PO Blood Culture Stool Culture IV Insertion (Saline Lock) Labs demonstrated elevated glucose. Improved with IVF. No clinically significant abnormalities and pt stable at discharge. Followup with PMD tomorrow. Scribe Attestation: Documented by Primitivo Jasso, acting as a scribe for provider Ирина Pozo MD. All medical record entries made by the Scribe were at my direction and personally dictated by me. I have reviewed the chart and agree that the record accurately reflects my personal performance of the history, physical exam, medi nadira decision making, and the department course for this patient. I have also personally directed, reviewed, and agree with the discharge instructions and disposition. Disposition - Clinical Impression Clinical Impression: Abdominal pain Counseled Patient/Family Regarding: Studies Performed, Diagnosis, Need For Followup - Disposition Referrals: Kaushik Villa MD [Medical Doctor] - ([facility] Disposition: Routine/Home Disposition Time: 18:00 Condition: STABLE Prescriptions: Dicyclomine [Bentyl] 20 mg PO QID PRN #20 tab PRN Reason: abdominal pain Omeprazole Magnesium [Prilosec Otc] 20 mg PO DAILY #30 tcp Instructions: Acute Abdomen (Belly Pain), Adult (DC), Viral Gastroenteritis, Adult (DC) Print Language: TAJIK
[2018-02-23 16:42] LABS: BASO % 0.4 % (0.0-2.0); EOS # 0.1 K/uL (0.0-0.7); EOS % 1.1 % (0.0-4.0); HEMOGLOBIN 13.4 g/dL (12.0-16.0); LYMPH # 1.7 K/uL (1.0-4.3); LYMPH % 18.7 % (20.0-40.0); MEAN CELL VOLUME 83.6 fl (81.0-99.0); MEAN CORPUSCULAR HEMOGLOBIN 28.6 pg (27.0-31.0); MEAN CORPUSCULAR HGB CONC 34.2 g/dL (33.0-37.0); MEAN PLATELET VOLUME 8.6 fl (7.2-11.7); MONO # 0.4 K/uL (0.0-0.8); MONO % 4.3 % (0.0-10.0); NEUT % 75.5 % (50.0-75.0); RBC 4.7 Mil/uL (3.80-5.20); RED CELL DISTRIBUTION WIDTH 15.1 % (11.5-14.5); WHITE BLOOD COUNT 9.2 K/uL (4.8-10.8)
[2018-02-23 16:51] LABS: ALB/GLOB RATIO 1.2 (1.0-2.1); ALBUMIN 4.5 g/dL (3.5-5.0); CALCIUM 10.1 mg/dL (8.4-10.2)
[2018-02-23] MEDS ORDERED: Sodium Chloride 0.9% 1,000 ML IV STA (17:01)
== END 2018-02-23 20:58 | disposition home or self-care (01) ==
LOC: H.ER 15:35
DX: R10.9 Unspecified abdominal pain (principal); E11.65 Type 2 diabetes mellitus with hyperglycemia
CPT/HCPCS: 80053; 82948; 83605; 83735; 84100; 85025; 87040; 99284; J7030

== ENCOUNTER 2018-03-10 10:24 | Emergency (ER) | payer MEDICARE, MEDICAID ==
[2018-03-10 10:24] VITALS: BMI 28.3
[2018-03-10 10:38] VITALS: O2SAT 97
[2018-03-10] MEDS ORDERED: Albuterol-Ipratrop 3 mg / 0.5 (3 ml) UD INH STA ×2 (11:30→13:26)
--- NOTE | 2018-03-10 11:40 | ED PDOC ---
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 Patient states that this episode is associated with ear pain, congestion, cough, and throat pain. She admits that she tried all of her home medications with no relief in symptoms and denies any fevers. PMD: Dr. Martin Past Medical History Reviewed: Historical Data, Nursing Documentation, Vital Signs Vital Signs: Last Vital Signs Temp 98.0 F 03/10/18 10:36 Pulse 90 03/10/18 10:36 Resp 16 03/10/18 11:06 BP 152/72 H 03/10/18 10:36 Pulse Ox 97 03/10/18 11:06 - Medical History PMH: Anemia, Anxiety, Asthma, CAD, Cardia Arrhythmia, COPD, Dementia, Depression, Diabetes, Fractures (LEFT LEG), HTN, Hypercholesterolemia, Malignancy (breast cancer s/p lumpectomy ), Osteoporosis, Pulmonary Embolism Denies: Hepatitis, HIV, Chronic Kidney Disease, Seizures, Sexually Transmitted Disease - Surgical History Surgical History: Appendectomy, Cholecystectomy, Coronary Stent, Hernia Repair (umbilical hernia), Pacemaker - Family History Family History: States: Unknown Family Hx - Social History Current smoker - smoking cessation education provided: No Alcohol: None Drugs: Denies - Home Medications Home Medications: Ambulatory Orders Medication Instructions Recorded RX: Aspirin [Ecotrin] 81 mg PO DAILY 08/28/16 RX: Pravastatin Sodium [Pravachol] 20 mg PO HS tab 02/06/17 RX: Apixaban [Eliquis] 2.5 mg PO BID tab 02/14/17 RX: Docusate [Colace] 100 mg PO TID cap 02/14/17 RX: Meclizine [Meclizine*] 25 mg PO TID PRN tab 02/14/17 RX: Sertraline [Zoloft] 50 mg PO DAILY tab 02/14/17 RX: clonazePAM [Klonopin] 0.5 mg PO HS tab 02/14/17 RX: Famotidine [Pepcid] 40 mg PO DAILY PRN #14 tab 07/17/17 RX: Bisoprolol [Zebeta] 5 mg PO DAILY #30 tab 07/27/17 RX: Insulin Detemir [Levemir] 12 units SC HS #1 vial 10/22/17 RX: metFORMIN [glucOPHAGE] 500 mg PO BIDWM #60 tab 10/22/17 RX: Mirtazapine [Remeron] 15 mg PO HS 11/01/17 RX: Quetiapine Fumarate [Seroquel] 100 mg PO HS 11/01/17 RX: Zolpidem Tartrate [Ambien] 10 mg PO DAILY 11/01/17 RX: Albuterol HFA [Ventolin HFA 90 2 puff IH Q4H PRN #1 inh 12/19/17 mcg/actuation (8 g)] Acetaminophen with Codeine 1 each PO QID #12 tablet 02/09/18 [Tylenol with Codeine #3 Tablet] Dicyclomine [Bentyl] 20 mg PO QID PRN #20 tab 02/23/18 Omeprazole Magnesium [Prilosec Otc] 20 mg PO DAILY #30 tcp 02/23/18 RX: Albuterol HFA [Ventolin HFA 90 1 - 2 puff IH Q4H PRN #1 bottle 03/10/18 mcg/actuation (8 g)] predniSONE [Prednisone] 40 mg PO DAILY #8 tab 03/10/18 - Allergies Allergies/Adverse Reactions: Allergies Allergy/AdvReac Type Severity Reaction Status Date / Time No Known Allergies Allergy Verified 02/23/18 15:36 Review of Systems ROS Statement: Except As Marked, All Systems Reviewed And Found Negative Constitutional: Negative for: Fever ENT: Positive for: Ear Pain, Nose Congestion, Throat Pain Respiratory: Positive for: Cough Physical Exam - Reviewed Nursing Documentation Reviewed: Yes Vital Signs Reviewed: Yes - Physical Exam Appears: Positive for: Non-toxic, No Acute Distress (no tacheypnea, labored breathing . speaking in full sentences) Head Exam: Positive for: ATRAUMATIC, NORMAL INSPECTION, NORMOCEPHALIC Skin: Positive for: Normal Color, Warm, DRY Eye Exam: Positive for: Normal appearance ENT: Positive for: Normal ENT Inspection Neck: Positive for: Normal Cardiovascular/Chest: Positive for: Regular Rate, Rhythm. Negative for: Murmur Respiratory: Positive for: Wheezing (slight ). Negative for: Accessory Muscle Use Gastrointestinal/Abdominal: Positive for: Normal Exam, Soft. Negative for: Tenderness Extremity: Positive for: Normal ROM, Other (cast to right arm ). Negative for: Deformity, Swelling Neurologic/Psych: Positive for: Alert, Oriented. Negative for: Motor/Sensory Deficits - Laboratory Results Result Diagrams: 03/10/18 12:29 03/10/18 12:29 - ECG O2 Sat by Pulse Oximetry: 97 (RA) Pulse Ox Interpretation: Normal Medical Decision Making Medical Decision Making: Time: 11:30 Plan: asthma exac rule out flu, pneumonia --CMP --CBC --Chest x-ray --Duoneb 3 ml INH --Solu-Medrol 125 mg IVP --Peak Flow Pre/Post Tx --Influenza A B CXR: FINDINGS: LUNGS: No interval infiltrate. Overall bronchovascular markings appear similar. Probable trace thread-like atelectasis left mid lung zone PLEURA: No significant pleural effusion identified. No pneumothorax apparent. CARDIOVASCULAR: There is presence of aortic atherosclerotic calcification on x-ray. No c ardiomegaly. Position/ configuration of pacemaker\AICD device: Satisfactory. Apparent surgical changes project over left hilum.-may be cardiac related. OSSEOUS STRUCTURES: Thoracic spondylosis. VISUALIZED UPPER ABDOMEN: Normal. OTHER FINDINGS: None. IMPRESSION: No significant appearing interval acute cardiopulmonary pathology noted. Other findings as above. 13:26 pt appears much more comfortable, wheezing improved. pt states feels better. Patient will be given another Duoneb treatment, fluids and then will be discharged home. pt agreeable to plan. outpt follow up. if symptso worsen she will return ot the ED Scribe Attestation: Documented by Beatriz Roach, acting as a scribe for Kerry Trent MD. Provider Scribe Attestation: All medical record entries made by the Scribe were at my direction and personally dictated by me. I have reviewed the chart and agree that the record accurately reflects my personal performance of the history, physical exam, medical decision making, and the department course for this patient. I have also personally directed, reviewed, and agree with the discharge instructions and disposition. Disposition - Clinical Impression Clinical Impression: Asthma - Patient ED Disposition Is Patient to be Admitted: No Counseled Patient/Family Regarding: Studies Performed, Diagnosis, Need For Followup - Disposition Disposition: Routine/Home Disposition Time: 15:00 Condition: IMPROVED Additional Instructions: follow up with your primary doctor in 1-2 days return to the ED with any worsening or concerning symptoms Prescriptions: RX: Albuterol HFA [Ventolin HFA 90 mcg/actuation (8 g)] 1 - 2 puff IH Q4H PRN #1 bottle PRN Reason: Wheezing predniSONE [Prednisone] 40 mg PO DAILY #8 tab Instructions: Asthma, Adult (DC) Forms: [employer] (Israeli), [employer] (Telugu) Print Language: BAHAMIAN
[2018-03-10] MEDS ORDERED: Albuterol-Ipratrop 3 mg / 0.5 (3 ml) UD ONE ×2 (11:53→13:51)
--- NOTE | 2018-03-10 11:56 | RAD ---
Date of service: 03/10/2018 HISTORY: asthma COMPARISON: 12/19/2017 TECHNIQUE: Chest PA and lateral FINDINGS: LUNGS: No interval infiltrate. Overall bronchovascular markings appear similar. Probable trace thread-like atelectasis left mid lung zone PLEURA: No significant pleural effusion identified. No pneumothorax apparent. CARDIOVASCULAR: There is presence of aortic atherosclerotic calcification on x-ray. No cardiomegaly. Position/ configuration of pacemaker Apparent surgical changes project over left hilum.-may be cardiac related. OSSEOUS STRUCTURES: Thoracic spondylosis. VISUALIZED UPPER ABDOMEN: Normal. OTHER FINDINGS: None. IMPRESSION: No significant appearing interval acute cardiopulmonary pathology noted. Other findings as above.
[2018-03-10 12:37] LABS: BASO % 0.3 % (0.0-2.0); EOS # 0.6 K/uL (0.0-0.7); EOS % 8.9 % (0.0-4.0); HEMOGLOBIN 12.5 g/dL (12.0-16.0); LYMPH # 1.8 K/uL (1.0-4.3); LYMPH % 26.8 % (20.0-40.0); MEAN CELL VOLUME 86.6 fl (81.0-99.0); MEAN CORPUSCULAR HEMOGLOBIN 28.6 pg (27.0-31.0); MEAN PLATELET VOLUME 9.1 fl (7.2-11.7); MONO # 0.4 K/uL (0.0-0.8); MONO % 5.2 % (0.0-10.0); NEUT # 4.1 K/uL (1.8-7.0); NEUT % 58.8 % (50.0-75.0); RBC 4.37 Mil/uL (3.80-5.20); RED CELL DISTRIBUTION WIDTH 15.1 % (11.5-14.5); WHITE BLOOD COUNT 6.9 K/uL (4.8-10.8)
[2018-03-10 13:15] LABS: ALB/GLOB RATIO 1.3 (1.0-2.1); ALBUMIN 4.5 g/dL (3.5-5.0); ALT/SGPT 28 U/L (9-52); AST/SGOT 39 U/L (14-36); BLOOD UREA NITROGEN 24 mg/dl (7-17); GFR NON-AFRICAN AMERICAN 55
[2018-03-10] MEDS ORDERED: Sodium Chloride 0.9% 1,000 ML IV STA (13:26)
--- NOTE | 2018-03-10 13:26 | CARD ---
APPROVED REPORT Date of service: 03/10/2018 EKG Measurement Heart [id number] <Conclusion> Sinus rhythm with premature atrial complexes ST & T wave abnormality, consider anterior ischemia Abnormal ECG
[2018-03-10 15:07] VITALS: PULSE 91; RESP 12; TEMP 97.8
[2018-03-10 15:22] VITALS: BP 158/88
== END 2018-03-10 15:04 | disposition home or self-care (01) ==
LOC: H.ER 10:24
DX: J45.909 Unspecified asthma, uncomplicated (principal); E11.9 Type 2 diabetes mellitus without complications; E78.00 Pure hypercholesterolemia, unspecified; F03.90 Unspecified dementia, unspecified severity, without behavioral disturbance, psychotic disturbance, mood disturbance, and anxiety; F32.9 Major depressive disorder, single episode, unspecified; F41.9 Anxiety disorder, unspecified; I10 Essential (primary) hypertension; I25.10 Atherosclerotic heart disease of native coronary artery without angina pectoris; Z79.01 Long term (current) use of anticoagulants; Z79.4 Long term (current) use of insulin; Z85.3 Personal history of malignant neoplasm of breast; Z86.711 Personal history of pulmonary embolism; Z95.0 Presence of cardiac pacemaker; Z95.5 Presence of coronary angioplasty implant and graft
CPT/HCPCS: 71046; 80053; 85025; 87804; 93005; 94640; 96374; 99285; J2930; J7030

== ENCOUNTER 2018-03-16 19:11 | Emergency (ER) | payer MEDICAID, MEDICARE ==
[2018-03-16 19:11] VITALS: BMI 28.3
[2018-03-16] MEDS ORDERED: Albuterol-Ipratrop 3 mg / 0.5 (3 ml) UD INH STA ×2 (19:33)
[2018-03-16] MEDS ORDERED: Sodium Chloride 0.9% 1,000 ML IV STA (19:37)
--- NOTE | 2018-03-16 20:07 | ED PDOC ---
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 Patient states the pain was "in ribs" and later in the afternoon, the pain radiated to her left chest and down her arm; reports the pain was associated with shortness of breath and occurred spontaneously. She reports she has a history of asthma and is always shortness of breath. She otherwise denies any fever, chills, or diaphoresis. Patient was given 2 nebulizer treatments prior to arrival. PMD: Dr. Villa Past Medical History Reviewed: Historical Data, Nursing Documentation, Vital Signs Vital Signs: Last Vital Signs Temp 99.1 F 03/16/18 19:13 Pulse 129 H 03/16/18 19:13 Resp 22 03/16/18 19:13 BP 119/73 03/16/18 19:13 Pulse Ox 99 03/16/18 19:13 - Medical History PMH: Anemia, Anxiety, Asthma, CAD, Cardia Arrhythmia, COPD, Dementia, Depression, Diabetes, Fractures (LEFT LEG), HTN, Hypercholesterolemia, Maligna ncy (breast cancer s/p lumpectomy ), Osteoporosis, Pulmonary Embolism Denies: Hepatitis, HIV, Chronic Kidney Disease, Seizures, Sexually Transmitted Disease - Surgical History Surgical History: Appendectomy, Cholecystectomy, Coronary Stent, Hernia Repair (umbilical hernia), Pacemaker - Family History Family History: States: No Known Family Hx - Home Medications Home Medications: Ambulatory Orders Medication Instructions Recorded Aspirin [Ecotrin] 81 mg PO DAILY 08/28/16 Pravastatin Sodium [Pravachol] 20 mg PO HS tab 02/06/17 Apixaban [Eliquis] 2.5 mg PO BID tab 02/14/17 Docusate [Colace] 100 mg PO TID cap 02/14/17 Meclizine [Meclizine*] 25 mg PO TID PRN tab 02/14/17 Sertraline [Zoloft] 50 mg PO DAILY tab 02/14/17 clonazePAM [Klonopin] 0.5 mg PO HS tab 02/14/17 Famotidine [Pepcid] 40 mg PO DAILY PRN #14 tab 07/17/17 Bisoprolol [Zebeta] 5 mg PO DAILY #30 tab 07/27/17 Insulin Detemir [Levemir] 12 units SC HS #1 vial 10/22/17 metFORMIN [glucOPHAGE] 500 mg PO BIDWM #60 tab 10/22/17 Mirtazapine [Remeron] 15 mg PO HS 11/01/17 Quetiapine Fumarate [Seroquel] 100 mg PO HS 11/01/17 Zolpidem Tartrate [Ambien] 10 mg PO DAILY 11/01/17 Albuterol HFA [Ventolin HFA 90 2 puff IH Q4H PRN #1 inh 12/19/17 mcg/actuation (8 g)] Acetaminophen with Codeine 1 each PO QID #12 tablet 02/09/18 [Tylenol with Codeine #3 Tablet] Dicyclomine [Bentyl] 20 mg PO QID PRN #20 tab 02/23/18 Omeprazole Magnesium [Prilosec Otc] 20 mg PO DAILY #30 tcp 02/23/18 Albuterol HFA [Ventolin HFA 90 1 - 2 puff IH Q4H PRN #1 bottle 03/10/18 mcg/actuation (8 g)] predniSONE [Prednisone] 40 mg PO DAILY #8 tab 03/10/18 - Allergies Allergies/Adverse Reactions: Allergies Allergy/AdvReac Type Severity Reaction Status Date / Time No Known Allergies Allergy Verified 03/16/18 19:12 Review of Systems ROS Statement: Except As Marked, All Systems Reviewed And Found Negative Constitutional: Negative for: Fever, Chills, Sweats Cardiovascular: Positive for: Chest Pain Respiratory: Positive for: Shortness of Breath Gastrointestinal: Positive for: Abdominal Pain Musculoskeletal: Positive for: Arm Pain (left arm) Physical Exam - Reviewed Nursing Documentation Reviewed: Yes Vital Signs Reviewed: Yes - Physical Exam Appears: Positive for: Non-toxic Head Exam: Positive for: ATRAUMATIC, NORMAL INSPECTION, NORMOCEPHALIC Skin: Positive for: Normal Color Eye Exam: Positive for: Normal appearance, EOMI, PERRL Neck: Positive for: Normal, Supple Cardiovascular/Chest: Positive for: Regular Rate, Rhythm, Chest Non Tender Respiratory: Positive for: Wheezing, Other (prolonged expiratory phase). Negative for: Respiratory Distress Gastrointestinal/Abdominal: Positive for: Normal Exam, Soft Back: Positive for: Normal Inspection Extremity: Positive for: Normal ROM, Other (right arm in cast). Negative for: Pedal Edema Neurologic/Psych: Positive for: Alert, Oriented. Negative for: Motor/Sensory Deficits - Laboratory Results Result Diagrams: 03/16/18 20:37 03/16/18 20:37 - ECG ECG: Positive for: Interpreted By Me, Viewed By Me ECG Rhythm: Positive for: Sinus Rhythm Interpretation Of Abn EKG: T-wave inversion in anterolateral lead, consistent with prior EKG Rate: 98 O2 Sat by Pulse Oximetry: 99 (RA) Pulse Ox Interpretation: Normal Medical Decision Making Medical Decision Making: Assessment: 73yo female with history of asthma, CAD, cardiac arrhythmia, COPD, dementia, diabetes, HTN, hypercholesterolemia, Malignancy, comes with complaints of chest pain and shortness of breath Concern for worsening asthma vs. ACS vs. PE vs. Pneumonia Plan: -- Labs -- Chest x-ray -- Duoneb 3ml INH x2 -- Solumedrol 125mg IVP -- ASA 162mg PO -- IV Fluids 2045 Labs reviewed, patient with elevated blood glucose, elevated lactate at 4.[address] Valadez (who admits for Dr. Villa) and he accepts patient for admission to [facility] due to chest pain, asthma, hyperglycemia and lactic acidosis Scribe Attestation: Documented by Michela Rendon acting as a scribe for Caleb Santana MD. Provider Attestation: All medical record entries made by the Scribe were at my direction and personally dictated by me. I have reviewed the chart and agree that the record accurately reflects my personal performance of the history, physical exam, medical decision making, and the department course for this patient. I have also personally directed, reviewed, and agree with the discharge instructions and disposition. Disposition - Clinical Impression Clinical Impression: Chest pain, Asthma, Lactic acidosis, Hyperglycemia - Disposition Disposition Time: 21:00 Condition: FAIR
[2018-03-16] MEDS ORDERED: Albuterol-Ipratrop 3 mg / 0.5 (3 ml) UD ONE (20:11)
[2018-03-16 20:43] LABS: VENOUS BLOOD GAS BASE EXCESS -5.6 mmol/L (0.0-2.0); VENOUS BLOOD GAS PCO2 39 mmHg (40-60); VENOUS BLOOD GAS PO2 51 mm/Hg (30-55); VENOUS BLOOD PH 7.32 (7.32-7.43)
[2018-03-16 20:47] LABS: BASO % 0.2 % (0.0-2.0); EOS # 0.3 K/uL (0.0-0.7); EOS % 4.3 % (0.0-4.0); HEMOGLOBIN 12.2 g/dL (12.0-16.0); LYMPH % 30.8 % (20.0-40.0); MEAN CELL VOLUME 85.5 fl (81.0-99.0); MEAN CORPUSCULAR HEMOGLOBIN 28.1 pg (27.0-31.0); MEAN CORPUSCULAR HGB CONC 32.9 g/dL (33.0-37.0); MEAN PLATELET VOLUME 9.3 fl (7.2-11.7); MONO # 0.5 K/uL (0.0-0.8); MONO % 7.4 % (0.0-10.0); NEUT # 3.7 K/uL (1.8-7.0); NEUT % 57.3 % (50.0-75.0); NRBC % 0.1 % (0.0-0.0); RBC 4.35 Mil/uL (3.80-5.20); RED CELL DISTRIBUTION WIDTH 15.2 % (11.5-14.5); WHITE BLOOD COUNT 6.5 K/uL (4.8-10.8)
[2018-03-16 21:04] LABS: INR 0.9; PROTHROMBIN TIME 10.3 Seconds (9.8-13.1)
[2018-03-16 21:07] LABS: PARTIAL THROMBOPLASTIN TIME 27.8 Seconds (25.6-37.1)
[2018-03-16 21:10] LABS: CALCIUM 9.3 mg/dL (8.4-10.2)
[2018-03-16 21:13] LABS: D DIMER < 200 ng/mlDDU (0-230); TROPONIN I 0.012 ng/mL (0.00-0.120)
[2018-03-16] MEDS ORDERED: Insulin Regular 100 units/ml SC STA (21:23)
[2018-03-17 06:03] VITALS: TEMP 98.2
[2018-03-17] MEDS ORDERED: Insulin Regular 100 units/ml SC SCH (07:30)
--- NOTE | 2018-03-17 10:10 | CARD ---
APPROVED REPORT Date of service: 03/17/2018 EKG Measurement Heart [id number] <Conclusion> Normal sinus rhythm ST & T wave abnormality, consider anterior ischemia Prolonged QT Abnormal ECG
--- NOTE | 2018-03-17 14:02 | RAD ---
Date of service: 03/16/2018 PROCEDURE: CHEST RADIOGRAPH, 1 VIEW HISTORY: chest pain COMPARISON: 03/10/2018 FINDINGS: LUNGS: Shallow lung volumes more now than before. Current study is more apical lordotic as well. No consolidations seen. PLEURA: No pneumothorax or pleural fluid seen. CARDIOVASCULAR: There is presence of aortic atherosclerotic calcification on x-ray. Mild cardiomegaly present Dual lead pacemaker device present in position appears satisfactory. OSSEOUS STRUCTURES: Thoracic spondylosis and bilateral shoulder [id number] VISUALIZED UPPER ABDOMEN: Normal. OTHER FINDINGS: None. IMPRESSION: No active disease.No interval pathology noted.
[2018-03-17 14:36] VITALS: BP 150/67; PULSE 79; RESP 18; O2SAT 98
[2018-03-17] MEDS ORDERED: Insulin Detemir 100 Units/ml Inj SC SCH (22:00)
[2018-03-17] MEDS ORDERED: Pravastatin Sodium 20 MG TAB PO SCH (22:00)
--- NOTE | 2018-03-17 22:34 | CON ---
DATE: 03/17/2018 REASON FOR CONSULTATION: Chest pain. HISTORY OF PRESENT ILLNESS: The patient is 73-year-old female, who has history of coronary artery disease, status post coronary stenting to the distal RCA many years ago. A cardiac catheterization was performed few years ago which revealed patent stent in the distal RCA. The patient has a history of small thromboembolism few years ago which was adequately treated. The patient also has history of breast CA status post lumpectomy. The patient also has history of COPD, atrial tachycardia as well as history of depression. She also has history of falls in the past and she did fall recently in a [employer] store, which the patient attributed to a mechanical fall and sustained fracture of the left forearm. The patient presented at this time because of chest discomfort as well as shortness of breath. The patient did report also diffuse abdominal discomfort but denies any nausea or vomiting. At this time, the patient is chest pain free. SOCIAL HISTORY: Nonsmoker and nondrinker. She lives with her grandson. MEDICATIONS: Antivert 25 mg t.i.d., Colace 100 mg t.i.d., aspirin 81 mg once a day, Eliquis 2.5 mg twice a day, metformin 500 mg twice a day, Pravachol 20 mg once a day, DiaBeta 5 mg once a day, Zoloft 50 mg once a day, Seroquel 100 mg once a day, and Remeron 15 mg p.o. once a day. REVIEW OF SYSTEMS: No fever or chills. No dizziness or syncope. No palpitation. PHYSICAL EXAMINATION: GENERAL: The patient is an elderly female who does not appear to be in acute distress. VITAL SIGNS: Blood pressure 124/81, heart rate 83, temperature 98.2, and respirations 16. HEENT: Normocephalic. CHEST: Minimal rhonchi. HEART: S1 and S2, and regular. ABDOMEN: Soft. EXTREMITIES: No edema. No calf tenderness. LABORATORY DATA: SMA-7: Sodium 136, potassium 4.3, chloride 101, CO2 of 19, glucose 406, BUN 27, and creatinine 1.1. Two sets of troponins are negative. INR, PT, PTT, and D-dimer are within normal limit. Hemoglobin, hematocrit, white count, and platelet count are within normal limit. EKG revealed sinus rhythm at rate of 82 anterior to its insertion, consider anterior ischemia. That EKG is practically similar to a more recent EKG performed 5 days earlier. ASSESSMENT: 1. Chest pain, myocardial infarction ruled out. 2. Chronic obstructive lung disease. 3. Uncontrolled diabetes mellitus. 4. History of depression. 5. History of paroxysmal atrial tachycardia. 6. History of multiple falls in the past. 7. History of small thromboembolism in the past. RECOMMENDATIONS: Case was discussed with Dr. Valadez. Continue conservative medical approach including aspirin 81 mg once a day, Eliquis 2.5 mg once a day, Pravachol at 20 mg once a day, Zebeta at 5 mg once a day, beside antidepressant and antidiabetic agents. Jan Whitfield MD
== END 2018-03-17 12:05 | disposition left against medical advice (07) ==
LOC: H.ER 19:11 → H.ERHOLD 21:29 → UNDOADMOB 21:29
DX: R07.9 Chest pain, unspecified (principal); J44.9 Chronic obstructive pulmonary disease, unspecified; E11.65 Type 2 diabetes mellitus with hyperglycemia; Z86.59 Personal history of other mental and behavioral disorders; Z85.3 Personal history of malignant neoplasm of breast; Z95.5 Presence of coronary angioplasty implant and graft; Z79.899 Other long term (current) drug therapy; Z79.84 Long term (current) use of oral hypoglycemic drugs; Z79.82 Long term (current) use of aspirin
CPT/HCPCS: 71045; 80048; 82803; 82948; 83880; 84484; 85025; 85378; 85610; 85730; 93005; 96372; 96374; 99285; J1885; J2930; J7030

== ENCOUNTER 2018-05-05 15:12 | Emergency (ER) | payer MEDICARE, MEDICAID ==
[2018-05-05 15:12] VITALS: BMI 28.3
[2018-05-05 15:35] VITALS: BP 178/98; PULSE 95; RESP 16; TEMP 97.8; O2SAT 96
[2018-05-05] MEDS ORDERED: Albuterol-Ipratrop 3 mg / 0.5 (3 ml) UD INH STA (15:51)
[2018-05-05] MEDS ORDERED: Tetracaine 0.5% Ophth 2 ML BOTTLE OD ONE (15:56)
[2018-05-05] MEDS ORDERED: Fluorescein 1 mg Ophthalmic Strip OD ONE (15:56)
[2018-05-05] MEDS ORDERED: Albuterol-Ipratrop 3 mg / 0.5 (3 ml) UD ONE ×2 (16:01→16:09)
[2018-05-05] MEDS ORDERED: Fluorescein 1 mg Ophthalmic Strip ONE (16:06)
[2018-05-05] MEDS ORDERED: Tetracaine 0.5% Ophth 2 ML BOTTLE ONE (16:06)
--- NOTE | 2018-05-05 16:25 | RAD ---
Date of service: 05/05/2018 HISTORY: cough COMPARISON: 03/16/2018 TECHNIQUE: Chest PA and lateral views FINDINGS: LUNGS: No interval consolidation seen. Bronchovascular markings appear top normal at left lung base. PLEURA: No significant pleural effusion identified. No pneumothorax apparent. Possible minimal biapical pleural thickening. CARDIOVASCULAR: There is presence of aortic atherosclerotic calcification on x-ray. Heart no interval change in heart size probably within normal limits. No significant appearing pulmonary venous congestion. Position/ configuration of pacemaker stable. OSSEOUS STRUCTURES: No significant abnormalities. VISUALIZED UPPER ABDOMEN: Normal. OTHER FINDINGS: Isthmic interval mammilation to the right hemidiaphragm. IMPRESSION: No active disease. No interval pathology noted.
--- NOTE | 2018-05-05 16:31 | ED PDOC ---
HPI: Eye Injury/Pain Time Seen by Provider: 05/05/18 15:39 Chief Complaint (Nursing): Eye Problem Chief Complaint (Provider): Eye Problem History Per: Patient, Usability Architect (Finnish [id number]) History/Exam Limitations: no limitations Onset/Duration Of Symptoms: Days (x2) Current Symptoms Are (Timing): Still Present Additional Complaint(s): Patient is a 73 y/o female with an extensive PMHx who presents to the ED for evaluation of right eye pain with increased tearing, redness, and burning sensation for the past two days. Patient feels like there is something in her eye. Patient also reports wheezing for the past four days. Patient states she has been using her Albuterol nebulizer without relief. Patient denies contact use, trauma, chest pain, hemoptysis, fever, headache, palpitations, sick contacts, and recent travel. PCP: Dr. Kaushik Villa Past Medical History Reviewed: Historical Data, Nursing Documentation, Vital Signs Vital Signs: Last Vital Signs Temp 97.8 F 05/05/18 15:31 Pulse 95 H 05/05/18 15:31 Resp 16 05/05/18 15:31 BP 178/98 H 05/05/18 15:31 Pulse Ox 96 05/05/18 15:31 - Medical History PMH: Anemia, Anxiety, Asthma, CAD, Cardia Arrhythmia, COPD, Dementia, Depression, Diabetes, Fractures (LEFT LEG), HTN, Hypercholesterolemia, Malignancy (breast cancer s/p lumpectomy ), Osteoporosis, Pulmonary Embolism Denies: Hepatitis, HIV, Chronic Kidney Disease, Seizures, Sexually Transmitted Disease - Surgical History Surgical History: Appendectomy, Cholecystectomy, Coronary Stent, Hernia Repair (umbilical hernia), Pacemaker - Family History Family History: States: No Known Family Hx - Home Medications Home Medications: Ambulatory Orders Medication Instructions Recorded Aspirin [Ecotrin] 81 mg PO DAILY 08/28/16 Pravastatin Sodium [Pravachol] 20 mg PO HS tab 02/06/17 Apixaban [Eliquis] 2.5 mg PO BID tab 02/14/17 Docusate [Colace] 100 mg PO TID cap 02/14/17 Meclizine [Meclizine*] 25 mg PO TID PRN tab 02/14/17 Sertraline [Zoloft] 50 mg PO DAILY tab 01/06/18 clonazePAM [Klonopin] 0.5 mg PO HS tab 02/14/17 Bisoprolol [Zebeta] 5 mg PO DAILY #30 tab 07/27/17 Insulin Detemir [Levemir] 12 units SC HS #1 vial 10/22/17 metFORMIN [glucOPHAGE] 500 mg PO BIDWM #60 tab 10/22/17 Mirtazapine [Remeron] 15 mg PO HS 11/01/17 Quetiapine Fumarate [Seroquel] 100 mg PO HS 11/01/17 Azithromycin [Zithromax] 250 mg PO DAILY #6 tab 05/05/18 Ciprofloxacin 0.3% [Ciloxan 0.3% 1 - 2 drop RIGHTEYE Q4 #1 bottle 05/05/18 Ophth SOLN] predniSONE [Prednisone] 40 mg PO DAILY #8 tab 05/05/18 - Allergies Allergies/Adverse Reactions: Allergies Allergy/AdvReac Type Severity Reaction Status Date / Time No Known Allergies Allergy Verified 05/05/18 15:31 Review of Systems ROS Statement: Except As Marked, All Systems Reviewed And Found Negative Constitutional: Negative for: Fever Eyes: Positive for: Pain (right), Redness Cardiovascular: Negative for: Chest Pain, Palpitations Respiratory: Positive for: Cough. Negative for: Hemoptysis Neurological: Negative for: Headache Physical Exam - Reviewed Nursing Documentation Reviewed: Yes Vital Signs Reviewed: Yes - Physical Exam Appears: Positive for: No Acute Distress (speaking full sentences, coughing) Head Exam: Positive for: ATRAUMATIC, NORMAL INSPECTION, NORMOCEPHALIC Eye Exam: Positive for: Normal appearance (bilateral globes are not firm), EOMI (without pain), PERRL, Conjunctival injection (right), Other (clear drainage on right eye; fluorescein uptake in right cornea from 2 to 4 o'clock). Negative for: Nystagmus, Periorbital swelling, Periorbital tenderness ENT: Positive for: Normal ENT Inspection Cardiovascular/Chest: Positive for: Regular Rate, Rhythm. Negative for: Murmur Respiratory: Positive for: Wheezing (bilateral expiratory wheezing). Negative for: Accessory Muscle Use, Respiratory Distress Neurological/Psych: Positive for: Alert, Oriented (x3) - ECG O2 Sat by Pulse Oximetry: 96 (RA) Pulse Ox Interpretation: Normal Medical Decision Making Medical Decision Making: Time: 1551 Impression: Bronchospasm and Conjunctivitis; r/o Acute Angle Closure Glaucoma Plan: CXR Duoneb 9ml INH [id number] A.t. 1mg OD Tetracaine 1 drop OD predniSONE 40mg PO Peak Flow Pre/Post TX .Pre/Post Treatment Time: 1621 CXR FINDINGS: LUNGS: No interval consolidation seen. Bronchovascular markings appear top normal at left lung base. PLEURA: No significant pleural effusion identified. No pneumothorax apparent. Possible minimal biapical pleural thickening. CARDIOVASCULAR: There is presence of aortic atherosclerotic calcification on x-ray. Heart no interval change in heart size probably within normal limits. No significant appearing pulmonary venous congestion. Position/ configuration of pacemaker\ device appears satisfactory and stable. OSSEOUS STRUCTURES: No significant abnormalities. VISUALIZED UPPER ABDOMEN: Normal. OTHER FINDINGS: Isthmic interval mammilation to the right hemidiaphragm. IMPRESSION: No active disease. No interval pathology noted. Time: 1645 On reevaluation patient is feeling much better but is still wheezing. Her pre- peak flow was 150 and post-peak flow was 180. Additional, Albuterol nebulizer ordered. 1809 On re-evaluation pt. reports complete relief of wheezing. Lungs clear b/l. Post peak flow 200. Scribe Attestation: Documented by Primitivo Jasso, acting as a scribe Justa Rodriguez PA-C. Provider Scribe Attestation: All medical record entries made by the Scribe were at my direction and personally dictated by me. I have reviewed the chart and agree that the record accurately reflects my personal performance of the history, physical exam, medical decision making, and the department course for this patient. I have also personally directed, reviewed, and agree with the discharge instructions and disposition. Disposition - Clinical Impression Clinical Impression: Corneal abrasion, Bronchospasm - Patient ED Disposition Is Patient to be Admitted: No - Disposition Referrals: Yariel Hart MD [Staff Provider] - Disposition: Routine/Home Disposition Time: 18:10 Condition: IMPROVED Additional Instructions: FOLLOW UP WITH DR. HART FOR FURTHER EVALUATION RETURN TO ED IMMEDIATELY IF SYMPTOMS WORSEN CARSON LYN, thank you for letting us take care of you today. Your provider was Vahid Aranda III, DO and you were treated for RT EYE IRRITATION. The emergency medical care you received today was directed at your acute symptoms. If you were prescribed any medication, please fill it and take as directed. It may take several days for your symptoms to resolve. Return to the Emergency Department if your symptoms worsen, do not improve, or if you have any other problems. Please contact your doctor or call one of the physicians/clinics you have been referred to that are listed on the Patient Visit Information form that is included in your discharge packet. Bring any paperwork you were given at discharge with you along with any medications you are taking to your follow up visit. Our treatment cannot replace ongoing medical care by a primary care provider outside of the emergency department. Thank you for allowing the [facility] team to be part of your care today. If you had an X-Ray or CT scan: A Radiologist will review the ED reading if any change in treatment is needed we will contact you. If you had a blood, urine, or wound culture: It will take several days for the results, if any change in treatment is needed we will contact you. If you had an STI test: It will take 48 hours for the results. Please call after 1 week if you have not heard back. Prescriptions: Azithromycin [Zithromax] 250 mg PO DAILY #6 tab Ciprofloxacin 0.3% [Ciloxan 0.3% Ophth SOLN] 1 - 2 drop RIGHTEYE Q4 #1 bottle predniSONE [Prednisone] 40 mg PO DAILY #8 tab Instructions: Asthma, Adult (DC), Corneal Abrasion (DC) Forms: [employer] (Finnish) Print Language: CROATIAN
[2018-05-05] MEDS ORDERED: Albuterol 0.083% Inhal Sol (2.5 mg/3 mL) UD INH STA (16:59)
[2018-05-05] MEDS ORDERED: Albuterol 0.083% Inhal Sol (2.5 mg/3 mL) UD ONE (17:04)
== END 2018-05-05 18:30 | disposition home or self-care (01) ==
LOC: H.ER 15:12
DX: S05.01XA Injury of conjunctiva and corneal abrasion without foreign body, right eye, initial encounter (principal); J98.01 Acute bronchospasm; E11.9 Type 2 diabetes mellitus without complications; F03.90 Unspecified dementia, unspecified severity, without behavioral disturbance, psychotic disturbance, mood disturbance, and anxiety; Z86.59 Personal history of other mental and behavioral disorders; H10.9 Unspecified conjunctivitis; I10 Essential (primary) hypertension; J44.9 Chronic obstructive pulmonary disease, unspecified; Z85.3 Personal history of malignant neoplasm of breast; Z79.4 Long term (current) use of insulin; Z79.01 Long term (current) use of anticoagulants; Z86.711 Personal history of pulmonary embolism; Z95.5 Presence of coronary angioplasty implant and graft; Z95.0 Presence of cardiac pacemaker; Z79.82 Long term (current) use of aspirin

== ENCOUNTER 2018-06-23 11:38 | Emergency (ER) | payer MEDICARE, MEDICAID ==
[2018-06-23 11:46] VITALS: BMI 27.7
[2018-06-23] MEDS ORDERED: Albuterol-Ipratrop 3 mg / 0.5 (3 ml) UD INH STA (12:23)
--- NOTE | 2018-06-23 12:35 | ED PDOC ---
HPI: General Adult Time Seen by Provider: 06/23/18 12:09 Chief Complaint (Nursing): Flu-like Symptoms Chief Complaint (Provider): cough History Per: Patient History/Exam Limitations: no limitations Onset/Duration Of Symptoms: Days Current Symptoms Are (Timing): Still Present Additional History Per: Patient Additional Complaint(s): 73 year old female with a history of asthma, diabetes and cardiac arrythmia with pacemaker, presents to the ED c/o cough and bodyaches for 4 days. She states she has been using inhalers and nebulizers with minimal relief. Last use was 2 days ago. She also states she has shortness of breath on exertion since symptoms started. Patient denies fever, chills or chest pain. Past Medical History Vital Signs: Last Vital Signs Temp 97.5 F L 06/23/18 11:42 Pulse 81 06/23/18 11:42 Resp 96 H 06/23/18 11:42 BP 178/99 H 06/23/18 11:42 Pulse Ox 97 06/23/18 11:42 Primary Care Provider: Duong Angelo - Medical History PMH: Anemia, Anxiety, Asthma, CAD, Cardia Arrhythmia (pacemaker in place), COPD, Dementia, Depression, Diabetes, Fractures (LEFT LEG), HTN, Hypercholesterolemia, Malignancy (breast cancer s/p lumpectomy ), Osteoporosis, Pulmonary Embolism Denies: Hepatitis, HIV, Chronic Kidney Disease, Seizures, Sexually Transmitted Disease - Surgical History Surgical History: Appendectomy, Cholecystectomy, Coronary Stent, Hernia Repair (umbilical hernia), Pacemaker - Family History Family History: States: Unknown Family Hx - Living Arrangements Living Arrangements: With Family - Social History Alcohol: None Drugs: Denies - Immunization History Hx Tetanus Toxoid Vaccination: No Hx Influenza Vaccination: No Hx Pneumococcal Vaccination: No - Home Medications Home Medications: Ambulatory Orders Medication Instructions Recorded Aspirin [Ecotrin] 81 mg PO DAILY 08/28/16 Pravastatin Sodium [Pravachol] 20 mg PO HS tab 02/06/17 Apixaban [Eliquis] 2.5 mg PO BID tab 02/14/17 Docusate [Colace] 100 mg PO TID cap 02/14/17 Meclizine [Meclizine*] 25 mg PO TID PRN tab 02/14/17 Sertraline [Zoloft] 50 mg PO DAILY tab 01/06/18 clonazePAM [Klonopin] 0.5 mg PO HS tab 02/14/17 Bisoprolol [Zebeta] 5 mg PO DAILY #30 tab 07/27/17 Insulin Detemir [Levemir] 12 units SC HS #1 vial 10/22/17 metFORMIN [glucOPHAGE] 500 mg PO BIDWM #60 tab 10/22/17 Mirtazapine [Remeron] 15 mg PO HS 11/01/17 Quetiapine Fumarate [Seroquel] 100 mg PO HS 11/01/17 - Allergies Allergies/Adverse Reactions: Allergies Allergy/AdvReac Type Severity Reaction Status Date / Time No Known Allergies Allergy Verified 05/05/18 15:31 Review of Systems ROS Statement: Except As Marked, All Systems Reviewed And Found Negative Constitutional: Negative for: Fever, Chills, Sweats, Weakness, Malaise Cardiovascular: Negative for: Chest Pain, Palpitations Respiratory: Positive for: Cough, Shortness of Breath, SOB with Exertion, Sputum (non-bloody), Wheezing Gastrointestinal: Negative for: Nausea, Vomiting, Abdominal Pain, Diarrhea, Constipation Musculoskeletal: Negative for: Neck Pain, Shoulder Pain, Arm Pain, Back Pain, Hand Pain, Leg Pain Skin: Negative for: Rash Neurological: Negative for: Weakness, Confusion, Dizziness Physical Exam - Reviewed Nursing Documentation Reviewed: Yes Vital Signs Reviewed: Yes - Physical Exam Appears: Positive for: Well, Non-toxic, No Acute Distress Head Exam: Positive for: ATRAUMATIC, NORMAL INSPECTION, NORMOCEPHALIC Skin: Positive for: Normal Color, Warm, DRY Eye Exam: Positive for: EOMI, Normal appearance, PERRL ENT: Positive for: Normal ENT Inspection Neck: Positive for: Normal, Painless ROM, Supple Cardiovascular/Chest: Positive for: Regular Rate, Rhythm, Chest Non Tender Respiratory: Positive for: Rhonchi, Wheezing. Negative for: Respiratory Distress Pulses-Radial (L): 2+ Pulses-Radial (R): 2+ Gastrointestinal/Abdominal: Positive for: Normal Exam, Bowel Sounds, Soft. Negative for: Tenderness, Distended Back: Positive for: Normal Inspection. Negative for: L CVA Tenderness, R CVA Tenderness Extremity: Positive for: Normal ROM. Negative for: Tenderness, Pedal Edema, Calf Tenderness, Deformity, Swelling Neurological/Psych: Positive for: Awake, Alert, Normal Tone, Oriented - Laboratory Results Result Diagrams: 06/23/18 13:10 06/23/18 13:10 - ECG O2 Sat by Pulse Oximetry: 97 Medical Decision Making Medical Decision Making: --CBC --CMP --TROPONIN --BNP --accucheck 325 --CHEST XRAY --LACTIC ACID --BLOOD CULTURE X2 --DUO NEB X2 --PREDNISONE --CT chest angio --0.9NS --RE-EVAL EKG: rate 98, sinus with pvc and pac EkG from 03/16/2018 did not show pvcs, patient has hx of atrial tachycardia. Patient reports she has not taken eliquis in 2 months because she ran out, added --d-dimer --pt/inr, ptt to course of tx. -- Dr mariah worleyuted patient at bedside. Recommended to scan chest PE protocol to r/o PE as patient has not taken eliquis in 2 months. If negative plan to discharge home follow-up with PMD within 2 days. 17:40 accucheck 465, post eating and prednisone. Patient to be given insulin as patient has not taken her medications today. will monitor 2004 Accucheck 365. patient wants to go home. patient instructed to take medications once she gets home.Patient stable for d/c home. Patient tolerated PO. On reasses rhronchi heard bilat. neg for wheezing.patient speaking in full sentences. Patient tolerated PO. Patient to see Dr. lopez tomorrow. given ct report instructed patient to take results to PMD. noted nodules may be metastic, patient has history of breast ca with mastectomy. No further work-up needed in ED. Patient stable to be D/C home with family member at bedside. ccession No. : [id number] Patient Name / ID : ELIZABETH BYRD / [id number] Exam Date : 06/23/2018 16:40:14 ( Approved ) Study Comment : Sex / Age : F / 73Y Creator : michelle reyes Dictator : Nikky Streeter MD Materials Management Supervisor : Weatherization Administrator : Nikky Streeter MD Approver2 : Report Date : 06/23/2018 16:58:07 My Comment : Date of service: 06/23/2018 PROCEDURE: CT Chest with contrast (Pulmonary Angiogram) HISTORY: R/O PE COMPARISON: None available. TECHNIQUE: Axial computed tomography images were obtained of the chest in the pulmonary arterial phase of enhancement. Coronal and sagittal reformatted images were created and reviewed. Intravenous contrast dose: Radiation dose: Total exam DLP = 310.43 mGy-cm. This CT exam was performed using one or more of the following dose reduction techniques: Automated exposure control, adjustment of the mA and/or kV according to patient size, and/or use of iterative reconstruction technique. FINDINGS: PULMONARY ARTERIES: There are no filling defects in the pulmonary arteries to suggest acute pulmonary embolism. AORTA: No acute findings. No thoracic aortic aneurysm. No aortic atherosclerotic calcification or mural plaque present. LUNGS: The lungs are well inflated. There is a 11 x 9 mm cavitating nodule in the anterior segment of the left upper lobe (series 5, image 34). There is a 4 mm subpleural nodule in the peripheral right middle lobe (series 5, image 59) and 3 mm subpleural nodule in the medial segment of the right middle lobe (series 5, image 51). There is subsegmental atelectasis in the lingula. There are reticular opacities and mild fibrotic changes in the right lung base. There are no endobronchial lesions. PLEURAL SPACES: No effusion or pneumothorax. HEART: Mild cardiomegaly. No significant pericardial effusion. There is a right-sided dual lead permanent pacing device. There are atherosclerotic aortic calcifications present. LYMPH NODES: No pathologic mediastinal or hilar lymphadenopathy. BONES, CHEST WALL: Within normal limits for the patient's age. No fracture or destructive lesion There is diffuse bone demineralization and multilevel degenerative changes in the spine. OTHER FINDINGS: Status forced lumpectomy in the left breast. IMPRESSION: 1. No CTA evidence for acute pulmonary embolism. 2. 11 x 9 mm cavitating subpleural nodule in the anterior segment of the left upper lobe. 4 mm and 3 mm subpleural nodules in the right middle lobe. These are nonspecific, the differential considerations include metastatic, post infectious/inflammatory nodules. Clinical and short-term imaging follow-up is advised. Accession No. : [id number] Patient Name / ID : ELIZABETH BYRD / [id number] Exam Date : 06/23/2018 12:26:02 ( Approved ) Study Comment : Sex / Age : F / 73Y Creator : Nikky Streeter MD Dictator : Nikky Streeter MD Materials Management Supervisor : Weatherization Administrator : Nikky Streeter MD Approver2 : Report Date : 06/23/2018 12:50:58 My Comment : Date of service: 06/23/2018 HISTORY: Wheezing COMPARISON: 05/05/2018 TECHNIQUE: Chest PA and lateral FINDINGS: LINES AND TUBES: None. LUNG AND PLEURA: The lungs are hyperinflated and there is peribronchial thickening with chronic changes in both lungs. No focal consolidation. No pleural effusion or pneumothorax. There is subsegmental atelectasis/scarring in the left lower lobe. Multiple surgical clips overlie the left lung base. HEART AND MEDIASTINUM: The heart is not enlarged. There is stable position of right-sided dual lead permanent pacing device. No aortic atherosclerotic calcifications present. The hilar and mediastinal contours are within normal limits. SKELETAL STRUCTURES: The bony structures are within normal limits for the patient's age. VISUALIZED UPPER ABDOMEN: Normal. OTHER FINDINGS: None. IMPRESSION: No active pulmonary disease. COPD. Disposition - Clinical Impression Clinical Impression: Acute bronchitis - Patient ED Disposition Is Patient to be Admitted: No Counseled Patient/Family Regarding: Diagnosis, Need For Followup - Disposition Disposition: Routine/Home Disposition Time: 20:05 Condition: IMPROVED Additional Instructions: Follow-up with Dr. Glenis Nicolas tomorrow Instructions: Acute Bronchitis, Adult (DC) Forms: [employer] (Yakut) Print Language: BULGARIAN - POA Present On Arrival: None
[2018-06-23] MEDS ORDERED: Albuterol-Ipratrop 3 mg / 0.5 (3 ml) UD ONE (12:43)
--- NOTE | 2018-06-23 12:54 | RAD ---
Date of service: 06/23/2018 HISTORY: Wheezing COMPARISON: 05/05/2018 TECHNIQUE: Chest PA and lateral FINDINGS: LINES AND TUBES: None. LUNG AND PLEURA: The lungs are hyperinflated and there is peribronchial thickening with chronic changes in both lungs. No focal consolidation. No pleural effusion or pneumothorax. There is subsegmental atelectasis/scarring in the left lower lobe. Multiple surgical clips overlie the left lung base. HEART AND MEDIASTINUM: The heart is not enlarged. There is stable position of right-sided dual lead permanent pacing device. No aortic atherosclerotic calcifications present. The hilar and mediastinal contours are within normal limits. SKELETAL STRUCTURES: The bony structures are within normal limits for the patient's age. VISUALIZED UPPER ABDOMEN: Normal. OTHER FINDINGS: None. IMPRESSION: No active pulmonary disease. COPD.
[2018-06-23 13:13] LABS: BASO % 0.2 % (0.0-2.0); EOS # 0.2 K/uL (0.0-0.7); HEMOGLOBIN 12.4 g/dL (12.0-16.0); LYMPH # 1.7 K/uL (1.0-4.3); LYMPH % 26.2 % (20.0-40.0); MEAN CELL VOLUME 85.9 fl (81.0-99.0); MEAN CORPUSCULAR HEMOGLOBIN 29.1 pg (27.0-31.0); MEAN CORPUSCULAR HGB CONC 33.9 g/dL (33.0-37.0); MEAN PLATELET VOLUME 7.9 fl (7.2-11.7); MONO # 0.5 K/uL (0.0-0.8); MONO % 7.4 % (0.0-10.0); NEUT # 4.1 K/uL (1.8-7.0); NEUT % 63.2 % (50.0-75.0); RBC 4.26 Mil/uL (3.80-5.20); RED CELL DISTRIBUTION WIDTH 14.8 % (11.5-14.5); WHITE BLOOD COUNT 6.4 K/uL (4.8-10.8)
[2018-06-23 13:23] LABS: ALB/GLOB RATIO 1.4 (1.0-2.1); ALBUMIN 4.3 g/dL (3.5-5.0); ALT/SGPT 30 U/L (9-52); AST/SGOT 62 U/L (14-36); BLOOD UREA NITROGEN 20 mg/dl (7-17); CALCIUM 9.5 mg/dL (8.4-10.2); GFR NON-AFRICAN AMERICAN > 60
[2018-06-23] MEDS ORDERED: Sodium Chloride 0.9% 1,000 ML IV STA (13:30)
[2018-06-23 13:41] LABS: B-TYPE NATRIURETIC PEPTIDE 602 pg/ml (0-900)
[2018-06-23 14:01] LABS: PROTHROMBIN TIME 11.9 Seconds (9.8-13.1)
[2018-06-23 14:03] LABS: PARTIAL THROMBOPLASTIN TIME 32.9 Seconds (25.6-37.1)
[2018-06-23 14:41] LABS: D DIMER < 200 ng/mlDDU (0-230)
--- NOTE | 2018-06-23 15:51 | CARD ---
APPROVED REPORT Date of service: 06/23/2018 EKG Measurement Heart [id number] <Conclusion> Sinus rhythm with occasional premature ventricular complexes and premature atrial complexes Nonspecific T wave abnormality Abnormal ECG
[2018-06-23 16:01] LABS: SQUAMOUS EPITHIAL < 1 /hpf (0-5); URINE BACTERIA RARE (<OCC); URINE BILIRUBIN NEGATIVE (NEGATIVE); URINE BLOOD NEGATIVE (NEGATIVE); URINE CLARITY SLIGHTY-CLOUDY (Clear); URINE COLOR YELLOW (YELLOW); URINE GLUCOSE (UA) >=500 mg/dL (NEGATIVE); URINE LEUKOCYTE ESTERASE NEG Leu/uL (Negative); URINE PROTEIN 30 mg/dL (NEGATIVE); URINE UROBILINOGEN 0.2-1.0 mg/dL (0.2-1.0)
[2018-06-23] MEDS ORDERED: Sodium Chloride 0.9% 50 ML IV ONE (16:36)
[2018-06-23] MEDS ORDERED: Iodixanol 320 MG/ML 100 ML BOTTLE IV ONE (16:36)
--- NOTE | 2018-06-23 17:15 | CT ---
Date of service: 06/23/2018 PROCEDURE: CT Chest with contrast (Pulmonary Angiogram) HISTORY: R/O PE COMPARISON: None available. TECHNIQUE: Axial computed tomography images were obtained of the chest in the pulmonary arterial phase of enhancement. Coronal and sagittal reformatted images were created and reviewed. Intravenous contrast dose: Radiation dose: Total exam DLP = 310.43 mGy-cm. This CT exam was performed using one or more of the following dose reduction techniques: Automated exposure control, adjustment of the mA and/or kV according to patient size, and/or use of iterative reconstruction technique. FINDINGS: PULMONARY ARTERIES: There are no filling defects in the pulmonary arteries to suggest acute pulmonary embolism. AORTA: No acute findings. No thoracic aortic aneurysm. No aortic atherosclerotic calcification or mural plaque present. LUNGS: The lungs are well inflated. There is a 11 x 9 mm cavitating nodule in the anterior segment of the left upper lobe (series 5, image 34). There is a 4 mm subpleural nodule in the peripheral right middle lobe (series 5, image 59) and 3 mm subpleural nodule in the medial segment of the right middle lobe (series 5, image 51). There is subsegmental atelectasis in the lingula. There are reticular opacities and mild fibrotic changes in the right lung base. There are no endobronchial lesions. PLEURAL SPACES: No effusion or pneumothorax. HEART: Mild cardiomegaly. No significant pericardial effusion. There is a right-sided dual lead permanent pacing device. There are atherosclerotic aortic calcifications present. LYMPH NODES: No pathologic mediastinal or hilar lymphadenopathy. BONES, CHEST WALL: Within normal limits for the patient's age. No fracture or destructive lesion There is diffuse bone demineralization and multilevel degenerative changes in the spine. OTHER FINDINGS: Status forced lumpectomy in the left breast. IMPRESSION: 1. No CTA evidence for acute pulmonary embolism. 2. 11 x 9 mm cavitating subpleural nodule in the anterior segment of the left upper lobe. 4 mm and 3 mm subpleural nodules in the right middle lobe. These are nonspecific, the differential considerations include metastatic, post infectious/inflammatory nodules. Clinical and short-term imaging follow-up is advised.
[2018-06-23 18:03] VITALS: RESP 18; TEMP 98.1
[2018-06-23] MEDS ORDERED: Insulin Regular 100 units/ml SC STA (18:22)
[2018-06-23] MEDS ORDERED: Insulin Regular 100 units/ml ONE ×2 (18:32→19:31)
[2018-06-23] MEDS ORDERED: Insulin Regular 100 units/ml SC SCH (19:26)
[2018-06-23 19:45] VITALS: O2SAT 97
[2018-06-23 20:20] VITALS: BP 163/89; PULSE 86
== END 2018-06-23 19:34 | disposition home or self-care (01) ==
LOC: H.ER 11:38
DX: J20.9 Acute bronchitis, unspecified (principal); E11.9 Type 2 diabetes mellitus without complications; E78.00 Pure hypercholesterolemia, unspecified; F03.90 Unspecified dementia, unspecified severity, without behavioral disturbance, psychotic disturbance, mood disturbance, and anxiety; I10 Essential (primary) hypertension; I25.10 Atherosclerotic heart disease of native coronary artery without angina pectoris; Z79.01 Long term (current) use of anticoagulants; Z79.4 Long term (current) use of insulin; Z85.3 Personal history of malignant neoplasm of breast; Z86.711 Personal history of pulmonary embolism; Z95.0 Presence of cardiac pacemaker
CPT/HCPCS: 71046; 71275; 80053; 81003; 82948; 83605; 83880; 84484; 85025; 85378; 85610; 85730; 87040; 93005; 96372; 99284; J7030; Q9967